=== PATIENT | female | born 1930 | race Caucasian/White ===

== ENCOUNTER 2017-12-26 16:30 | Inpatient (IN) | payer OTHER ==
[2017-12-26 17:24] LABS: BASOPHILE ABSOLUTE 0.9 Th/cumm (0-0.2); EOSINOPHILE ABSOLUTE 0.1 Th/cmm (0.1-0.4); HEMATOCRIT 41.3 % (41.0-60); HEMOGLOBIN 13.8 gm/dL (12-16); LYMPHOCYTE ABSOLUTE 3.5 Th/cmm (1.5-3.0); MEAN CELL VOLUME 93.3 fl (81-100); MEAN CORPUSCULAR HEMOGLOBIN 31.1 pg (27.0-31.0); MEAN CORPUSCULAR HGB CONC 33.3 pg (28.0-36.0); MEAN PLATELET VOLUME 8.2 fl; MONOCYTE ABSOLUTE 0.8 Th/cmm (0.3-1.0); NEUTROPHILE ABSOLUTE 6.7 Th/cmm (1.8-8.0); PLATELET COUNT 376 Th/cmm (150-400); RED BLOOD COUNT 4.43 Mil/cmm (3.80-5.20); RED CELL DISTRIBUTION WIDTH 13.4 % (11.5-20.0)
[2017-12-26 17:27] LABS: % BASOPHILS 7.8 % (0.0-2.0); % EOSINOPHILS 1.1 % (0.0-5.0); % LYMPHOCYTES 29.3 % (20.0-50.0); % MONOCYTES 6.6 % (2.0-10.0); % NEUTROPHILS 55.2 % (40.0-80.0)
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
[2017-12-26 17:39] LABS: INR 0.91 (0.5-1.4); PROTHROMBIN TIME (TEST) 9.5 SECONDS (9.5-11.5)
[2017-12-26 17:43] LABS: ALB/GLOB RATIO 1.3 (1.0-1.8); ALBUMIN 4.3 gm/dL (3.7-5.3); ALKALINE PHOSPHATASE 49 U/L (34-104); BILIRUBIN,TOTAL 0.4 mg/dL (0.3-1.0); BUN - UREA NITROGEN 12 mg/dL (7-25); CARBON DIOXIDE 23.7 mEq/L (21.0-31.0); CHLORIDE 107 mEq/L (98-107); CREATININE - SERUM 0.8 mg/dL (0.6-1.2); GLUCOSE 103 mg/dL (70-105); POTASSIUM SERUM 3.7 mEq/L (3.5-5.1); SGOT 21 U/L (13-39); SGPT/ALT 22 U/L (7-52); SODIUM SERUM 140 mEq/L (136-145); TOTAL PROTEIN,SERUM 7.6 gm/dL (6.0-8.3)
[2017-12-26] MEDS ORDERED: Haloperidol Lactate 5 mg/mL 1mL Vial IM STA (18:48)
[2017-12-26 18:49] LABS: URINE SOURCE CLEAN C
[2017-12-26] MEDS ORDERED: Haloperidol Lactate 5 mg/mL 1mL Vial ONE (18:52)
[2017-12-26 19:58] LABS: URINE CLARITY CLEAR (CLEAR); URINE COLOR YELLOW
[2017-12-26 19:59] LABS: URINE BILIRUBIN NEGATIVE (NEGATIVE); URINE BLOOD NEGATIVE (NEGATIVE); URINE GLUCOSE (UA) NEGATIVE (NEGATIVE); URINE KETONE NEGATIVE (NEGATIVE); URINE LEUKOCYTE ESTERASE SMALL (NEGATIVE); URINE MICROSCOPIC INDICATED? YES; URINE NITRATE NEGATIVE (NEGATIVE); URINE PH 6.5 (4.6 - 8.0); URINE PROTEIN NEGATIVE (NEGATIVE); URINE UROBILINOGEN 0.2 E.U./dL (0.2 - 1.0)
[2017-12-26 20:01] LABS: URINE RBC 0-2 /hpf (0-5)
[2017-12-26 20:02] LABS: URINE BACTERIA 1+ /hpf (NONE SEEN); URINE EPITHELIAL CELLS MODERATE /lpf (FEW)
[2017-12-27] MEDS: cefTRIAXone 1 GM in Sodium Chloride 0.9% 50 ML IV SCH (02:08)
[2017-12-27 07:57] LABS: % BASOPHILS 1.6 % (0.0-2.0); % EOSINOPHILS 1.3 % (0.0-5.0); % LYMPHOCYTES 24.7 % (20.0-50.0); % MONOCYTES 8.3 % (2.0-10.0); % NEUTROPHILS 64.1 % (40.0-80.0); BASOPHILE ABSOLUTE 0.2 Th/cumm (0-0.2); EOSINOPHILE ABSOLUTE 0.1 Th/cmm (0.1-0.4); HEMATOCRIT 42.1 % (41.0-60); HEMOGLOBIN 13.8 gm/dL (12-16); LYMPHOCYTE ABSOLUTE 2.6 Th/cmm (1.5-3.0); MEAN CELL VOLUME 94.1 fl (81-100); MEAN CORPUSCULAR HEMOGLOBIN 30.9 pg (27.0-31.0); MEAN CORPUSCULAR HGB CONC 32.9 pg (28.0-36.0); MEAN PLATELET VOLUME 8.1 fl; MONOCYTE ABSOLUTE 0.9 Th/cmm (0.3-1.0); NEUTROPHILE ABSOLUTE 6.7 Th/cmm (1.8-8.0); PLATELET COUNT 345 Th/cmm (150-400); RED BLOOD COUNT 4.47 Mil/cmm (3.80-5.20); RED CELL DISTRIBUTION WIDTH 13.7 % (11.5-20.0); WHITE BLOOD COUNT 10.5 Th/cmm (4.8-10.8)
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
[2017-12-27] MEDS: POLYETHYLENE GLYCOL 3350 17 GM PACK PO SCH (08:51)
[2017-12-27] MEDS: Aspirin 81mg Chewable Tab PO SCH (08:52)
[2017-12-27] MEDS: Levothyroxine 0.025 Mg Tab PO SCH (08:52)
--- NOTE | 2017-12-27 09:26 | Diagnostic Imaging Report ---
CT scan of the brain without intravenous contrast HISTORY: Stroke, CVA Total DLP equals 557 CTDI equals 33.2 Axial sections were obtained from the base of the skull to the vertex. There is prominence/enlargement of the ventricular system size. Associated enlargement of cerebral sulci and subarachnoid cisterns. Findings are consistent with changes of generalized cerebral atrophy. No acute parenchymal abnormalities. No acute cerebral hemorrhage. Extensive is seen within the supratentorial white matter regions without mass effect. The findings may be associated with chronic small vessel ischemic disease. Somewhat more focal hypodensity noted within the right temporal occipital region with slight loss. Findings may be associated with an old infarct. No extra-axial masses or abnormal fluid collections. Severe atherosclerotic calcification seen in the region of the vertebral arteries at the base of the skull. IMPRESSION: 1. No acute abnormalities 2. Cerebral atrophy 3. Supratentorial white matter changes that may reflect chronic small vessel ischemic disease 4. Somewhat more focal hypodensity noted in the right temporal occipital region that may be associated with an old infarct 5. Severe atherosclerotic vascular changes
--- NOTE | 2017-12-27 09:37 | Diagnostic Imaging Report ---
Portable chest x-ray History: Shortness of breath Allowing for portable technique the heart size is normal. Atherosclerotic calcification seen within the aortic arch. No focal pulmonary parenchymal processes. No hilar or mediastinal abnormalities. Impression: 1. No acute abnormalities 2. Atherosclerotic vascular changes
[2017-12-27 09:52] LABS: ALB/GLOB RATIO 1.2 (1.0-1.8); ALBUMIN 3.7 gm/dL (3.7-5.3); ALKALINE PHOSPHATASE 53 U/L (34-104); ANION GAP 10.1 (7.0-16.0); BILIRUBIN,TOTAL 0.5 mg/dL (0.3-1.0); BUN - UREA NITROGEN 10 mg/dL (7-25); CALCIUM SERUM 9.4 mg/dL (8.6-10.3); CARBON DIOXIDE 23.5 mEq/L (21.0-31.0); CHLORIDE 110 mEq/L (98-107); CREATININE - SERUM 0.6 mg/dL (0.6-1.2); GLUCOSE 101 mg/dL (70-105); POTASSIUM SERUM 3.6 mEq/L (3.5-5.1); SGOT 26 U/L (13-39); SGPT/ALT 18 U/L (7-52); SODIUM SERUM 140 mEq/L (136-145); TOTAL PROTEIN,SERUM 6.7 gm/dL (6.0-8.3)
[2017-12-27 10:21] LABS: CHOLESTEROL 249 mg/dL (<200); HDL -HIGH DENSITY LIPOPROTEIN 45 mg/dL (23-92); TRIGLYCERIDES 78 mg/dL (<150)
[2017-12-27] MEDS ORDERED: Enoxaparin Subq per Pharmacy MC SCH (14:45)
[2017-12-27] MEDS: Enoxaparin 40 mg/0.4 mL 0.4mL Syr SUBQ SCH (17:43)
[2017-12-28] MEDS: cefTRIAXone 1 GM in Sodium Chloride 0.9% 50 ML IV SCH (00:13)
--- NOTE | 2017-12-28 08:40 | General Progress Note ---
Subjective - Review of Systems Service Date: 12/28/17 Subjective: Patient was seen and examined. Awake, alert, afebrile Objective - Results Result Diagrams: 12/27/17 07:47 12/27/17 07:47 Recent Labs: Laboratory Last Values WBC 10.5 Th/cmm (4.8-10.8) 12/27/17 07:47 RBC 4.47 Mil/cmm (3.80-5.20) 12/27/17 07:47 Hgb 13.8 gm/dL (12-16) 12/27/17 07:47 Hct 42.1 % (41.0-60) 12/27/17 07:47 MCV 94.1 fl (81-100) 12/27/17 07:47 MCH 30.9 pg (27.0-31.0) 12/27/17 07:47 MCHC Differential 32.9 pg (28.0-36.0) 12/27/17 07:47 RDW 13.7 % (11.5-20.0) 12/27/17 07:47 Plt Count 345 Th/cmm (150-400) 12/27/17 07:47 MPV 8.1 fl 12/27/17 07:47 Neutrophils % 64.1 % (40.0-80.0) 12/27/17 07:47 Lymphocytes % 24.7 % (20.0-50.0) 12/27/17 07:47 Monocytes % 8.3 % (2.0-10.0) 12/27/17 07:47 Eosinophils % 1.3 % (0.0-5.0) 12/27/17 07:47 Basophils % 1.6 % (0.0-2.0) 12/27/17 07:47 PT 9.5 SECONDS (9.5-11.5) 12/26/17 17:15 INR 0.91 (0.5-1.4) 12/26/17 17:15 PTT (Actin FS) 24.5 SECONDS (26.0-38.0) L 12/26/17 17:15 Sodium 140 mEq/L (136-145) 12/27/17 07:47 Potassium 3.6 mEq/L (3.5-5.1) 12/27/17 07:47 Chloride 110 mEq/L (98-107) H 12/27/17 07:47 Carbon Dioxide 23.5 mEq/L (21.0-31.0) 12/27/17 07:47 Anion Gap 10.1 (7.0-16.0) 12/27/17 07:47 BUN 10 mg/dL (7-25) 12/27/17 07:47 Creatinine 0.6 mg/dL (0.6-1.2) 12/27/17 07:47 Est GFR ( Amer) TNP 12/27/17 07:47 Est GFR (Non-Af Amer) TNP 12/27/17 07:47 BUN/Creatinine Ratio 16.7 12/27/17 07:47 Glucose 101 mg/dL (70-105) 12/27/17 07:47 Calcium 9.4 mg/dL (8.6-10.3) 12/27/17 07:47 Total Bilirubin 0.5 mg/dL (0.3-1.0) 12/27/17 07:47 AST 26 U/L (13-39) 12/27/17 07:47 ALT 18 U/L (7-52) 12/27/17 07:47 Alkaline Phosphatase 53 U/L (34-104) 12/27/17 07:47 Troponin I 0.63 ng/mL (0.01-0.05) H* D 12/27/17 15:30 Total Protein 6.7 gm/dL (6.0-8.3) 12/27/17 07:47 Albumin 3.7 gm/dL (3.7-5.3) 12/27/17 07:47 Globulin 3.0 gm/dL 12/27/17 07:47 Albumin/Globulin Ratio 1.2 (1.0-1.8) 12/27/17 07:47 Triglycerides 78 mg/dL (<150) 12/27/17 07:47 Cholesterol 249 mg/dL (<200) H 12/27/17 07:47 LDL Cholesterol Direct 198 mg/dL (75-193) H 12/27/17 07:47 HDL Cholesterol 45 mg/dL (23-92) 12/27/17 07:47 TSH 3.88 uIU/ml (0.34-5.60) 12/26/17 17:15 Urine Source CLEAN C 12/26/17 18:30 Urine Color YELLOW 12/26/17 18:30 Urine Clarity CLEAR (CLEAR) 12/26/17 18:30 Urine pH 6.5 (4.6 - 8.0) 12/26/17 18:30 Ur Specific [place] 1.010 (1.005-1.030) 12/26/17 18:30 Urine Protein NEGATIVE mg/dL (NEGATIVE) 12/26/17 18:30 Urine Glucose (UA) NEGATIVE mg/dL (NEGATIVE) 12/26/17 18:30 Urine Ketones NEGATIVE mg/dL (NEGATIVE) 12/26/17 18:30 Urine Blood NEGATIVE (NEGATIVE) 12/26/17 18:30 Urine Nitrate NEGATIVE (NEGATIVE) 12/26/17 18:30 Urine Bilirubin NEGATIVE (NEGATIVE) 12/26/17 18:30 Urine Urobilinogen 0.2 E.U./dL (0.2 - 1.0) 12/26/17 18:30 Ur Leukocyte Esterase SMALL (NEGATIVE) H 12/26/17 18:30 Urine RBC 0-2 /hpf (0-5) 12/26/17 18:30 Urine WBC 2-5 /hpf (0-5) 12/26/17 18:30 Ur Epithelial Cells MODERATE /lpf (FEW) 12/26/17 18:30 Urine Bacteria 1+ /hpf (NONE SEEN) H 12/26/17 18:30 - Physical Exam Vitals and I&O: Vital Signs Temp 98.5 F 12/28/17 02:00 Pulse 78 12/28/17 02:00 Resp 18 12/28/17 02:00 BP 111/71 12/28/17 02:00 Pulse Ox 98 12/28/17 02:00 Intake & Output 12/27/1718 18 18:59 06:59 18:59 Intake Total 650 240 Balance 650 240 Weight (lbs) 45.359 kg 46.72 kg Intake: Oral 650 240 Other: # Voids 2 2 # Bowel Movements 9 0 Stool Characteristics Formed Weight Source Bedscale Bedscale Active Medications: Current Medications Aspirin (Aspirin Chewable) 81 mg PO DAILY JESSIE Stop: 02/25/18 08:59 Last Admin: 12/27/17 08:52 Dose: 81 mg Bisacodyl (Dulcolax 10 Mg Supp) 10 mg RC DAILY PRN PRN Reason: Constipation Stop: 02/25/18 06:58 Last Admin: 12/27/17 10:29 Dose: 10 mg Enoxaparin Sodium (Lovenox) 40 mg SUBQ Q12HR JESSIE Stop: 02/25/18 15:59 Last Admin: 12/27/17 17:43 Dose: 40 mg Ceftriaxone Sodium 1 gm/ (Sodium Chloride) 50 mls @ 100 mls/hr IV Q24HR JESSIE Stop: 02/25/18 00:59 Last Admin: 12/28/17 00:13 Dose: 100 mls/hr Levothyroxine Sodium (Synthroid) 0.025 mg PO DAILY JESSIE Stop: 02/25/18 08:59 Last Admin: 12/27/17 08:52 Dose: 0.025 mg Lorazepam (Ativan) 1 mg IVP Q4HR PRN; Protocol PRN Reason: Agitation Stop: 02/25/18 00:58 Last Admin: 12/27/17 08:52 Dose: 1 mg Miscellaneous (Lovenox Subq Per Pharmacy) 1 ea MC PRN JESSIE; Protocol Stop: 02/25/18 14:44 Polyethylene Glycol (Miralax) 17 gm PO DAILY JESSIE Stop: 02/25/18 08:59 Last Admin: 12/27/17 08:51 Dose: 17 gm Quetiapine Fumarate (Seroquel) 25 mg PO BID [facility]; Protocol Stop: 02/25/18 16:59 Last Admin: 12/27/17 17:43 Dose: 25 mg Valsartan (Diovan) 80 mg PO DAILY [facility] Stop: 02/25/18 08:59 Last Admin: 12/27/17 08:52 Dose: 80 mg General: Alert, Oriented x3 HEENT: Atraumatic, PERRLA, EOMI Neck: Supple Cardiovascular: Regular rate, Normal S1, Normal S2 Lungs: Clear to auscultation Abdomen: Bowel sounds, Soft Extremities: no Clubbing, no Cyanosis, no Edema Neurological: Normal gait, Normal speech Assessment/Plan - Assessment Assessment: elevated troponin levels 5150 dementia cardiac arrhythmia anxiety disorder HTN Organic Brain Disease with Dementia UTI - Plan Plan: telemetry serial troponins cardiac consult psychiatric consult neuro consult repeat CBC this AM
[2017-12-28] MEDS: Levothyroxine 0.025 Mg Tab PO SCH (09:17)
[2017-12-28] MEDS: Aspirin 81mg Chewable Tab PO SCH (09:17)
[2017-12-28] MEDS: Enoxaparin 40 mg/0.4 mL 0.4mL Syr SUBQ SCH ×2 (09:18→21:31)
[2017-12-28] MEDS: POLYETHYLENE GLYCOL 3350 17 GM PACK PO SCH (09:18)
[2017-12-28] MEDS: Atorvastatin Calcium 10 MG TAB PO SCH (10:51)
--- NOTE | 2017-12-28 11:55 | Consultation ---
DATE OF CONSULTATION: 12/27/[address] Bland. HISTORY AND PHYSICAL: This is an 87-year-old female patient who has confusion. The patient's stepdaughter has been following this, the patient was brought to the Emergency Room and the patient is admitted. On admission, the patient has slightly elevated troponin levels. PAST MEDICAL HISTORY: Dementia, hypertension, urinary tract infection, osteoporosis. FAMILY HISTORY: Unremarkable. SOCIAL HISTORY: No history of smoking, alcohol abuse. ALLERGIES: No known allergies. PHYSICAL EXAMINATION: VITAL SIGNS: Blood pressure 130/80, pulse 70, respirations 20. HEAD: Normocephalic. No lumps or bumps. EYES: Pupils equal, reactive to light. Fundi show AV nicking, sclerae white, conjunctivae pink. NECK: Carotid 2+. Normal upstroke. JVD flat. Thyroid not palpable. Lymph nodes not palpable. CHEST: Shows increased AP diameter. No kyphosis, scoliosis. LUNGS: Bilateral bronchovesicular breath sounds. HEART: PMI fifth intercostal space with lateral to midclavicular line. S1, S2. No S3. Soft S4. ABDOMEN: Soft. Liver and spleen not palpable. No organomegaly. Bowel sounds active. NEUROLOGIC: No focal neurological deficit. EXTREMITIES: Peripheral pulses 2+. No pedal edema. CLINICAL IMPRESSION: 1. Non-ST elevation myocardial infarction. 2. Dementia, hypertension, urinary tract infection, osteoporosis. PLAN: We will start the patient on Lovenox and get troponin level, echocardiogram and monitor the patient. JOB# [id number]
[2017-12-28] MEDS: D5-0.25NS 1,000 ML IV SCH (12:30)
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
[2017-12-29] MEDS: cefTRIAXone 1 GM in Sodium Chloride 0.9% 50 ML IV SCH (01:08)
--- NOTE | 2017-12-29 08:56 | General Progress Note ---
Subjective - Review of Systems Service Date: 12/29/17 Subjective: Patient was seen and examined. Awake, alert, afebrile Objective - Results Result Diagrams: 12/27/17 07:47 12/27/17 07:47 Recent Labs: Laboratory Last Values WBC 10.5 Th/cmm (4.8-10.8) 12/27/17 07:47 RBC 4.47 Mil/cmm (3.80-5.20) 12/27/17 07:47 Hgb 13.8 gm/dL (12-16) 12/27/17 07:47 Hct 42.1 % (41.0-60) 12/27/17 07:47 MCV 94.1 fl (81-100) 12/27/17 07:47 MCH 30.9 pg (27.0-31.0) 12/27/17 07:47 MCHC Differential 32.9 pg (28.0-36.0) 12/27/17 07:47 RDW 13.7 % (11.5-20.0) 12/27/17 07:47 Plt Count 345 Th/cmm (150-400) 12/27/17 07:47 MPV 8.1 fl 12/27/17 07:47 Neutrophils % 64.1 % (40.0-80.0) 12/27/17 07:47 Lymphocytes % 24.7 % (20.0-50.0) 12/27/17 07:47 Monocytes % 8.3 % (2.0-10.0) 12/27/17 07:47 Eosinophils % 1.3 % (0.0-5.0) 12/27/17 07:47 Basophils % 1.6 % (0.0-2.0) 12/27/17 07:47 PT 9.5 SECONDS (9.5-11.5) 12/26/17 17:15 INR 0.91 (0.5-1.4) 12/26/17 17:15 PTT (Actin FS) 24.5 SECONDS (26.0-38.0) L 12/26/17 17:15 Sodium 140 mEq/L (136-145) 12/27/17 07:47 Potassium 3.6 mEq/L (3.5-5.1) 12/27/17 07:47 Chloride 110 mEq/L (98-107) H 12/27/17 07:47 Carbon Dioxide 23.5 mEq/L (21.0-31.0) 12/27/17 07:47 Anion Gap 10.1 (7.0-16.0) 12/27/17 07:47 BUN 10 mg/dL (7-25) 12/27/17 07:47 Creatinine 0.6 mg/dL (0.6-1.2) 12/27/17 07:47 Est GFR ( Amer) TNP 12/27/17 07:47 Est GFR (Non-Af Amer) TNP 12/27/17 07:47 BUN/Creatinine Ratio 16.7 12/27/17 07:47 Glucose 101 mg/dL (70-105) 12/27/17 07:47 Calcium 9.4 mg/dL (8.6-10.3) 12/27/17 07:47 Total Bilirubin 0.5 mg/dL (0.3-1.0) 12/27/17 07:47 AST 26 U/L (13-39) 12/27/17 07:47 ALT 18 U/L (7-52) 12/27/17 07:47 Alkaline Phosphatase 53 U/L (34-104) 12/27/17 07:47 Troponin I 0.63 ng/mL (0.01-0.05) H* D 12/27/17 15:30 Total Protein 6.7 gm/dL (6.0-8.3) 12/27/17 07:47 Albumin 3.7 gm/dL (3.7-5.3) 12/27/17 07:47 Globulin 3.0 gm/dL 12/27/17 07:47 Albumin/Globulin Ratio 1.2 (1.0-1.8) 12/27/17 07:47 Triglycerides 78 mg/dL (<150) 12/27/17 07:47 Cholesterol 249 mg/dL (<200) H 12/27/17 07:47 LDL Cholesterol Direct 198 mg/dL (75-193) H 12/27/17 07:47 HDL Cholesterol 45 mg/dL (23-92) 12/27/17 07:47 TSH 3.88 uIU/ml (0.34-5.60) 12/26/17 17:15 Urine Source CLEAN C 12/26/17 18:30 Urine Color YELLOW 12/26/17 18:30 Urine Clarity CLEAR (CLEAR) 12/26/17 18:30 Urine pH 6.5 (4.6 - 8.0) 12/26/17 18:30 Ur Specific [place] 1.010 (1.005-1.030) 12/26/17 18:30 Urine Protein NEGATIVE mg/dL (NEGATIVE) 12/26/17 18:30 Urine Glucose (UA) NEGATIVE mg/dL (NEGATIVE) 12/26/17 18:30 Urine Ketones NEGATIVE mg/dL (NEGATIVE) 12/26/17 18:30 Urine Blood NEGATIVE (NEGATIVE) 12/26/17 18:30 Urine Nitrate NEGATIVE (NEGATIVE) 12/26/17 18:30 Urine Bilirubin NEGATIVE (NEGATIVE) 12/26/17 18:30 Urine Urobilinogen 0.2 E.U./dL (0.2 - 1.0) 12/26/17 18:30 Ur Leukocyte Esterase SMALL (NEGATIVE) H 12/26/17 18:30 Urine RBC 0-2 /hpf (0-5) 12/26/17 18:30 Urine WBC 2-5 /hpf (0-5) 12/26/17 18:30 Ur Epithelial Cells MODERATE /lpf (FEW) 12/26/17 18:30 Urine Bacteria 1+ /hpf (NONE SEEN) H 12/26/17 18:30 - Physical Exam Vitals and I&O: Vital Signs Temp 98.1 F 12/29/17 06:00 Pulse 79 12/29/17 06:00 Resp 18 12/29/17 06:00 BP 128/76 12/29/17 06:00 Pulse Ox 98 12/29/17 06:00 Intake & Output 12/28/17 12/29/17 12/29/17 18:59 06:59 18:59 Intake Total 200 Balance 200 Weight (lbs) 46.72 kg 46.72 kg Intake: Oral 200 Other: # Voids 3 # Bowel Movements 0 Weight Source Bedscale Bedscale Active Medications: Current Medications Aspirin (Aspirin Chewable) 81 mg PO DAILY JESSIE Stop: 02/25/18 08:59 Last Admin: 12/28/17 09:17 Dose: 81 mg Atorvastatin Calcium (Lipitor) 10 mg PO DAILY JESSIE; Protocol Stop: 02/26/18 10:59 Last Admin: 12/28/17 10:51 Dose: Not Given Bisacodyl (Dulcolax 10 Mg Supp) 10 mg RC DAILY PRN PRN Reason: Constipation Stop: 02/25/18 06:58 Last Admin: 12/27/17 10:29 Dose: 10 mg Enoxaparin Sodium (Lovenox) 40 mg SUBQ Q12HR JESSIE Stop: 02/25/18 15:59 Last Admin: 12/28/17 21:31 Dose: 40 mg Ceftriaxone Sodium 1 gm/ (Sodium Chloride) 50 mls @ 100 mls/hr IV Q24HR JESSIE Stop: 02/25/18 00:59 Last Admin: 12/29/17 01:08 Dose: 100 mls/hr Dextrose/Sodium Chloride (D5-0.25ns) 1,000 mls @ 50 mls/hr IV .Q20H JESSIE Stop: 02/26/18 12:03 Last Admin: 12/28/17 12:30 Dose: 50 mls/hr Levothyroxine Sodium (Synthroid) 0.025 mg PO DAILY JESSIE Stop: 02/25/18 08:59 Last Admin: 12/28/17 09:17 Dose: 0.025 mg Lorazepam (Ativan) 1 mg IVP Q4HR PRN; Protocol PRN Reason: Agitation Stop: 02/25/18 00:58 Last Admin: 12/29/17 01:09 Dose: 1 mg Miscellaneous (Lovenox Subq Per Pharmacy) 1 ea MC PRN JESSIE; Protocol Stop: 02/25/18 14:44 Polyethylene Glycol (Miralax) 17 gm PO DAILY JESSIE Stop: 02/25/18 08:59 Last Admin: 12/28/17 09:18 Dose: 17 gm Quetiapine Fumarate (Seroquel) 25 mg PO BID JESSIE; Protocol Stop: 02/25/18 16:59 Last Admin: 12/28/17 17:51 Dose: 25 mg Valsartan (Diovan) 80 mg PO DAILY [facility] Stop: 02/25/18 08:59 Last Admin: 12/28/17 09:17 Dose: 80 mg General: Alert, Oriented x3 HEENT: Atraumatic, PERRLA, EOMI Neck: Supple Cardiovascular: Regular rate, Normal S1, Normal S2 Lungs: Clear to auscultation Abdomen: Bowel sounds, Soft Extremities: no Clubbing, no Cyanosis, no Edema Neurological: Normal gait, Normal speech Assessment/Plan - Assessment Assessment: elevated troponin levels 5150 dementia cardiac arrhythmia anxiety disorder HTN Organic Brain Disease with Dementia UTI - Plan Plan: telemetry serial troponins cardiac consult psychiatric consult neuro consult repeat CBC this AM
[2017-12-29] MEDS: Atorvastatin Calcium 10 MG TAB PO SCH (09:43)
[2017-12-29] MEDS: Aspirin 81mg Chewable Tab PO SCH (09:44)
[2017-12-29] MEDS: Levothyroxine 0.025 Mg Tab PO SCH (09:44)
[2017-12-29] MEDS: POLYETHYLENE GLYCOL 3350 17 GM PACK PO SCH (09:45)
[2017-12-29] MEDS: Enoxaparin 40 mg/0.4 mL 0.4mL Syr SUBQ SCH ×2 (09:45→21:32)
--- NOTE | 2017-12-29 16:47 | Cardiology ---
12/28/2017 PROCEDURE: Echocardiogram. M-MODE ECHOCARDIOGRAM: Mitral valve, anterior leaflet of mitral valve shows normal excursion, EF velocity. Posterior leaflet of the mitral valve shows normal excursion. Left ventricular posterior wall shows increased thickness, normal excursion. Interventricular septum shows increased thickness, normal excursion, hypertrophy of the left ventricle, ejection fraction 69%. Left atrium normal. Aortic root shows normal dimension, normal excursion of aortic leaflets. CONCLUSION: Hypertrophy of the left ventricle, ejection fraction 67%. 2D ECHO: Long axis view showed normal sized left ventricle with normal wall motion, mitral valve shows normal excursion. Left atrium normal. Aortic root shows normal dimension, normal excursion of aortic leaflets. Short axis view of mitral valve normal. Short axis view of aortic valve normal. Apical four chamber view showed normal sized left ventricle, left atrium, right ventricle, right atrium, tricuspid and mitral valve. Ejection fraction 67%. CONCLUSION: Hypertrophy of the left ventricle, ejection fraction 67%. Doppler study shows trace mitral regurgitation, trace tricuspid regurgitation, moderate aortic regurgitation. Right ventricular systolic pressure 23 mmHg. [facility]# [id number]
[2017-12-30] MEDS: cefTRIAXone 1 GM in Sodium Chloride 0.9% 50 ML IV SCH (00:20)
--- NOTE | 2017-12-30 01:52 | Consultation ---
DATE OF CONSULTATION: 12/29/2017 NEUROLOGY CONSULTATION HISTORY OF PRESENT ILLNESS: An 87-year-old admitted with altered mentation. The patient apparently had become very confused, very agitated. She was disoriented more than her usual self. She was going to be admitted to the [facility], but noted a possible elevated troponin. At the moment, she is in bed, beginning to interacting more. The daughter is by the bedside that she is beginning to respond more and seems to be going back to her baseline. PAST MEDICAL HISTORY: Hypertension, hypothyroidism, dementia. Anxiety disorder. UTI in the past. The patient abnormal behavior 5150. MEDICATIONS: As per reconciliation. The patient is on aspirin. REVIEW OF SYSTEMS: Twelve point negative except for above. PHYSICAL EXAMINATION: VITAL SIGNS: Temperature 98.4, blood pressure 130/70, pulse is 74. NECK: Supple, no bruits. HEART: Sounds S1, S2. LUNGS: Clear. NEUROLOGIC: The patient is in bed, awake. She gives me her name. She did not give me her age. She tells me where she lives. She did not know what day it is, what month, what year. She is able to name simple objects such as pen and glasses. Cranial: Pupils reactive to light. No field defect, no facial weakness. She will lift both arms up. She will lift both legs up. Reflexes about 1+ to 2 in the upper extremity, knees are about 2. Ankles -1. INVESTIGATIONS: CT scan of the head, old right temporal stroke. MANAGEMENT: We will go ahead and do carotid Dopplers. LDL is high. IMPRESSION: 1. Encephalopathy. 2. Psychosis. 3. Dementia. 4. Old stroke. 5. Hypertension. 6. Hypothyroidism. PLAN: Lab studies, carotid Doppler study. Continue antiplatelet medications. JOB# [id number]
[2017-12-30] MEDS: D5-0.25NS 1,000 ML IV SCH ×2 (02:23→22:11)
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
--- NOTE | 2017-12-30 08:12 | Diagnostic Imaging Report ---
Bilateral carotid Doppler ultrasound exam HISTORY: Stroke, CVA Sonographic sector images were obtained through the carotid bifurcation regions bilaterally. Associated Doppler data was obtained. The exam of the right side demonstrates mild diffuse atherosclerotic changes throughout the bifurcation region. No significant focal narrowing or stenosis. Antegrade vertebral artery flow. No osseous and flow ratios are normal (ICA/CCA equals 1.0). The exam of the left side demonstrates mild diffuse atherosclerotic changes slightly more pronounced within the proximal left internal carotid artery with narrowing of approximately 20%. Velocities are normal. However, there is an elevated ICA/CCA flow ratio (2.1). Antegrade vertebral artery flow. IMPRESSION: 1. Mild bilateral atherosclerotic changes sonographically visualized. However, there is an elevated ICA/CCA flow ratio on the left side (2.1). Exact significance uncertain. If necessary, a CT angiographic study may provide additional detail and assessment.
[2017-12-30] MEDS: Levothyroxine 0.025 Mg Tab PO SCH (08:25)
[2017-12-30] MEDS: Atorvastatin Calcium 10 MG TAB PO SCH (08:25)
[2017-12-30] MEDS: Aspirin 81mg Chewable Tab PO SCH (08:25)
[2017-12-30] MEDS: POLYETHYLENE GLYCOL 3350 17 GM PACK PO SCH (08:26)
[2017-12-30] MEDS: Enoxaparin 40 mg/0.4 mL 0.4mL Syr SUBQ SCH ×3 (08:28→21:18)
--- NOTE | 2017-12-30 08:28 | General Progress Note ---
Subjective - Review of Systems Service Date: 12/30/17 Subjective: Patient was seen and examined. Awake, alert, afebrile. patient resting comfortably in bed. no acute distress. Objective - Results Result Diagrams: 12/27/17 07:47 12/27/17 07:47 Recent Labs: Laboratory Last Values WBC 10.5 Th/cmm (4.8-10.8) 12/27/17 07:47 RBC 4.47 Mil/cmm (3.80-5.20) 12/27/17 07:47 Hgb 13.8 gm/dL (12-16) 12/27/17 07:47 Hct 42.1 % (41.0-60) 12/27/17 07:47 MCV 94.1 fl (81-100) 12/27/17 07:47 MCH 30.9 pg (27.0-31.0) 12/27/17 07:47 MCHC Differential 32.9 pg (28.0-36.0) 12/27/17 07:47 RDW 13.7 % (11.5-20.0) 12/27/17 07:47 Plt Count 345 Th/cmm (150-400) 12/27/17 07:47 MPV 8.1 fl 12/27/17 07:47 Neutrophils % 64.1 % (40.0-80.0) 12/27/17 07:47 Lymphocytes % 24.7 % (20.0-50.0) 12/27/17 07:47 Monocytes % 8.3 % (2.0-10.0) 12/27/17 07:47 Eosinophils % 1.3 % (0.0-5.0) 12/27/17 07:47 Basophils % 1.6 % (0.0-2.0) 12/27/17 07:47 PT 9.5 SECONDS (9.5-11.5) 12/26/17 17:15 INR 0.91 (0.5-1.4) 12/26/17 17:15 PTT (Actin FS) 24.5 SECONDS (26.0-38.0) L 12/26/17 17:15 Sodium 140 mEq/L (136-145) 12/27/17 07:47 Potassium 3.6 mEq/L (3.5-5.1) 12/27/17 07:47 Chloride 110 mEq/L (98-107) H 12/27/17 07:47 Carbon Dioxide 23.5 mEq/L (21.0-31.0) 12/27/17 07:47 Anion Gap 10.1 (7.0-16.0) 12/27/17 07:47 BUN 10 mg/dL (7-25) 12/27/17 07:47 Creatinine 0.6 mg/dL (0.6-1.2) 12/27/17 07:47 Est GFR ( Amer) TNP 12/27/17 07:47 Est GFR (Non-Af Amer) TNP 12/27/17 07:47 BUN/Creatinine Ratio 16.7 12/27/17 07:47 Glucose 101 mg/dL (70-105) 12/27/17 07:47 Calcium 9.4 mg/dL (8.6-10.3) 12/27/17 07:47 Total Bilirubin 0.5 mg/dL (0.3-1.0) 12/27/17 07:47 AST 26 U/L (13-39) 12/27/17 07:47 ALT 18 U/L (7-52) 12/27/17 07:47 Alkaline Phosphatase 53 U/L (34-104) 12/27/17 07:47 Troponin I 0.63 ng/mL (0.01-0.05) H* D 12/27/17 15:30 Total Protein 6.7 gm/dL (6.0-8.3) 12/27/17 07:47 Albumin 3.7 gm/dL (3.7-5.3) 12/27/17 07:47 Globulin 3.0 gm/dL 12/27/17 07:47 Albumin/Globulin Ratio 1.2 (1.0-1.8) 12/27/17 07:47 Triglycerides 78 mg/dL (<150) 12/27/17 07:47 Cholesterol 249 mg/dL (<200) H 12/27/17 07:47 LDL Cholesterol Direct 198 mg/dL (75-193) H 12/27/17 07:47 HDL Cholesterol 45 mg/dL (23-92) 12/27/17 07:47 TSH 3.88 uIU/ml (0.34-5.60) 12/26/17 17:15 Urine Source CLEAN C 12/26/17 18:30 Urine Color YELLOW 12/26/17 18:30 Urine Clarity CLEAR (CLEAR) 12/26/17 18:30 Urine pH 6.5 (4.6 - 8.0) 12/26/17 18:30 Ur Specific [place] 1.010 (1.005-1.030) 12/26/17 18:30 Urine Protein NEGATIVE mg/dL (NEGATIVE) 12/26/17 18:30 Urine Glucose (UA) NEGATIVE mg/dL (NEGATIVE) 12/26/17 18:30 Urine Ketones NEGATIVE mg/dL (NEGATIVE) 12/26/17 18:30 Urine Blood NEGATIVE (NEGATIVE) 12/26/17 18:30 Urine Nitrate NEGATIVE (NEGATIVE) 12/26/17 18:30 Urine Bilirubin NEGATIVE (NEGATIVE) 12/26/17 18:30 Urine Urobilinogen 0.2 E.U./dL (0.2 - 1.0) 12/26/17 18:30 Ur Leukocyte Esterase SMALL (NEGATIVE) H 12/26/17 18:30 Urine RBC 0-2 /hpf (0-5) 12/26/17 18:30 Urine WBC 2-5 /hpf (0-5) 12/26/17 18:30 Ur Epithelial Cells MODERATE /lpf (FEW) 12/26/17 18:30 Urine Bacteria 1+ /hpf (NONE SEEN) H 12/26/17 18:30 - Physical Exam Vitals and I&O: Vital Signs Temp 99.6 F 12/30/17 04:00 Pulse 92 12/30/17 04:00 Resp 19 12/30/17 04:00 BP 154/55 12/30/17 04:00 Pulse Ox 96 12/30/17 04:00 Intake & Output 12/29/17 12/30/17 12/30/17 18:59 06:59 18:59 Intake Total 1060 50 Output Total 0 Balance 1060 50 Weight (lbs) 46.72 kg 62.596 kg Intake: Intake, IV Amount 1000 D5-0.25NS 1,000 ml @ 50 1000 mls/hr IV .Q20H JESSIE Rx#: [id number] Oral 60 50 Output: Urine/Stool Mix 0 Other: # Voids 2 Weight Source Bedscale Bedscale Active Medications: Current Medications Aspirin (Aspirin Chewable) 81 mg PO DAILY JESSIE Stop: 02/25/18 08:59 Last Admin: 12/29/17 09:44 Dose: 81 mg Atorvastatin Calcium (Lipitor) 10 mg PO DAILY JESSIE; Protocol Stop: 02/26/18 10:59 Last Admin: 12/29/17 09:43 Dose: 10 mg Bisacodyl (Dulcolax 10 Mg Supp) 10 mg RC DAILY PRN PRN Reason: Constipation Stop: 02/25/18 06:58 Last Admin: 12/27/17 10:29 Dose: 10 mg Enoxaparin Sodium (Lovenox) 40 mg SUBQ Q12HR JESSIE Stop: 02/25/18 15:59 Last Admin: 12/29/17 21:32 Dose: 40 mg Ceftriaxone Sodium 1 gm/ (Sodium Chloride) 50 mls @ 100 mls/hr IV Q24HR JESSIE Stop: 02/25/18 00:59 Last Admin: 12/30/17 00:20 Dose: 100 mls/hr Dextrose/Sodium Chloride (D5-0.25ns) 1,000 mls @ 50 mls/hr IV .Q20H [facility] Stop: 02/26/18 12:03 Last Admin: 12/30/17 02:23 Dose: 50 mls/hr Levothyroxine Sodium (Synthroid) 0.025 mg PO DAILY JESSIE Stop: 02/25/18 08:59 Last Admin: 12/29/17 09:44 Dose: 0.025 mg Lorazepam (Ativan) 1 mg IVP Q4HR PRN; Protocol PRN Reason: Agitation Stop: 02/25/18 00:58 Last Admin: 12/29/17 01:09 Dose: 1 mg Miscellaneous (Lovenox Subq Per Pharmacy) 1 ea MC PRN JESSIE; Protocol Stop: 02/25/18 14:44 Polyethylene Glycol (Miralax) 17 gm PO DAILY JESSIE Stop: 02/25/18 08:59 Last Admin: 12/29/17 09:45 Dose: 17 gm Quetiapine Fumarate (Seroquel) 25 mg PO BID JESSIE; Protocol Stop: 02/25/18 16:59 Last Admin: 12/29/17 17:45 Dose: 25 mg Valsartan (Diovan) 80 mg PO DAILY [facility] Stop: 02/25/18 08:59 Last Admin: 12/29/17 09:44 Dose: 80 mg General: Alert, Oriented x3 HEENT: Atraumatic, PERRLA, EOMI Neck: Supple Cardiovascular: Regular rate, Normal S1, Normal S2 Lungs: Clear to auscultation Abdomen: Bowel sounds, Soft Extremities: no Clubbing, no Cyanosis, no Edema Neurological: Normal gait, Normal speech Assessment/Plan - Assessment Assessment: elevated troponins Non q-wave ME ... 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 continue current medications HTN slightly elevated ... on diovan 80mg PO daily, will add clonidine PRN UTI...rocephin IV 1gm daily hyperlipidemia ... on statins - Plan Plan: telemetry serial troponins cardiac consult psychiatric consult neuro consult repeat CBC this AM
--- NOTE | 2017-12-30 23:36 | Progress Notes ---
DATE: 12/30/2017 SUBJECTIVE: The patient is calm, no agitation, no behavioral disturbances, remains confused, disoriented, minimally interactive. She has been pretty lethargic, tired. Family concerned about this and asking for her to be off the sedative. The patient to go to [facility]. Currently, we are waiting for acceptance from [facility]. The patient is currently not on a 5150 hold. It and no further hold criteria. The patient has been cleared for discharge from a psychiatric perspective. Noted to be sleeping "too much" by family and family hoping for more of a behavioral approach from [facility]. No evidence of any agitation or aggressive behaviors. ASSESSMENT: The patient is calm, more cooperative, confusion noted. PLAN: The patient's family want her off of Seroquel. We will stop Seroquel for now. They are open to retitration of Seroquel, but want to see how she does when she goes to [facility] with behavioral interventions and management and they are hoping to eventually have her home with some help from [facility] facility. No current evidence of dangerousness. I discussed with and also with the 2 daughters who are at bedside. JOB# [id number]
[2017-12-31] MEDS: cefTRIAXone 1 GM in Sodium Chloride 0.9% 50 ML IV SCH (00:32)
[2017-12-31 06:12] LABS: % BASOPHILS 0.4 % (0.0-2.0); % EOSINOPHILS 0.4 % (0.0-5.0); % LYMPHOCYTES 18.5 % (20.0-50.0); % MONOCYTES 10.3 % (2.0-10.0); % NEUTROPHILS 70.4 % (40.0-80.0); BASOPHILE ABSOLUTE 0.1 Th/cumm (0-0.2); EOSINOPHILE ABSOLUTE 0.1 Th/cmm (0.1-0.4); HEMATOCRIT 41.2 % (41.0-60); HEMOGLOBIN 13.9 gm/dL (12-16); LYMPHOCYTE ABSOLUTE 3.3 Th/cmm (1.5-3.0); MEAN CORPUSCULAR HEMOGLOBIN 31.3 pg (27.0-31.0); MEAN CORPUSCULAR HGB CONC 33.7 pg (28.0-36.0); MEAN PLATELET VOLUME 9.1 fl; MONOCYTE ABSOLUTE 1.8 Th/cmm (0.3-1.0); NEUTROPHILE ABSOLUTE 12.6 Th/cmm (1.8-8.0); PLATELET COUNT 301 Th/cmm (150-400); RED BLOOD COUNT 4.43 Mil/cmm (3.80-5.20); RED CELL DISTRIBUTION WIDTH 12.9 % (11.5-20.0)
[2017-12-31 06:15] LABS: WHITE BLOOD COUNT 17.9 Th/cmm (4.8-10.8)
--- NOTE | 2017-12-31 08:16 | General Progress Note ---
Subjective - Review of Systems Service Date: 12/31/17 Subjective: Patient was seen and examined. Awake, alert, afebrile. patient resting comfortably in bed. Patient noted to have an elevated WBC's. Will need to hold discharge. Objective - Results Result Diagrams: 12/31/17 05:40 12/27/17 07:47 Recent Labs: Laboratory Last Values WBC 17.9 Th/cmm (4.8-10.8) H 12/31/17 05:40 RBC 4.43 Mil/cmm (3.80-5.20) 12/31/17 05:40 Hgb 13.9 gm/dL (12-16) 12/31/17 05:40 Hct 41.2 % (41.0-60) 12/31/17 05:40 MCV 93.0 fl (81-100) 12/31/17 05:40 MCH 31.3 pg (27.0-31.0) H 12/31/17 05:40 MCHC Differential 33.7 pg (28.0-36.0) 12/31/17 05:40 RDW 12.9 % (11.5-20.0) 12/31/17 05:40 Plt Count 301 Th/cmm (150-400) 12/31/17 05:40 MPV 9.1 fl 12/31/17 05:40 Neutrophils % 70.4 % (40.0-80.0) 12/31/17 05:40 Lymphocytes % 18.5 % (20.0-50.0) L 12/31/17 05:40 Monocytes % 10.3 % (2.0-10.0) H 12/31/17 05:40 Eosinophils % 0.4 % (0.0-5.0) 12/31/17 05:40 Basophils % 0.4 % (0.0-2.0) 12/31/17 05:40 PT 9.5 SECONDS (9.5-11.5) 12/26/17 17:15 INR 0.91 (0.5-1.4) 12/26/17 17:15 PTT (Actin FS) 24.5 SECONDS (26.0-38.0) L 12/26/17 17:15 Sodium 140 mEq/L (136-145) 12/27/17 07:47 Potassium 3.6 mEq/L (3.5-5.1) 12/27/17 07:47 Chloride 110 mEq/L (98-107) H 12/27/17 07:47 Carbon Dioxide 23.5 mEq/L (21.0-31.0) 12/27/17 07:47 Anion Gap 10.1 (7.0-16.0) 12/27/17 07:47 BUN 10 mg/dL (7-25) 12/27/17 07:47 Creatinine 0.6 mg/dL (0.6-1.2) 12/27/17 07:47 Est GFR ( Amer) TNP 12/27/17 07:47 Est GFR (Non-Af Amer) TNP 12/27/17 07:47 BUN/Creatinine Ratio 16.7 12/27/17 07:47 Glucose 101 mg/dL (70-105) 12/27/17 07:47 Calcium 9.4 mg/dL (8.6-10.3) 12/27/17 07:47 Total Bilirubin 0.5 mg/dL (0.3-1.0) 12/27/17 07:47 AST 26 U/L (13-39) 12/27/17 07:47 ALT 18 U/L (7-52) 12/27/17 07:47 Alkaline Phosphatase 53 U/L (34-104) 12/27/17 07:47 Ammonia 52 umol/L (16-53) 12/31/17 05:40 Troponin I 0.14 ng/mL (0.01-0.05) H* 12/31/17 05:40 Total Protein 6.7 gm/dL (6.0-8.3) 12/27/17 07:47 Albumin 3.7 gm/dL (3.7-5.3) 12/27/17 07:47 Globulin 3.0 gm/dL 12/27/17 07:47 Albumin/Globulin Ratio 1.2 (1.0-1.8) 12/27/17 07:47 Triglycerides 78 mg/dL (<150) 12/27/17 07:47 Cholesterol 249 mg/dL (<200) H 12/27/17 07:47 LDL Cholesterol Direct 198 mg/dL (75-193) H 12/27/17 07:47 HDL Cholesterol 45 mg/dL (23-92) 12/27/17 07:47 TSH 3.88 uIU/ml (0.34-5.60) 12/26/17 17:15 Urine Source CLEAN C 12/26/17 18:30 Urine Color YELLOW 12/26/17 18:30 Urine Clarity CLEAR (CLEAR) 12/26/17 18:30 Urine pH 6.5 (4.6 - 8.0) 12/26/17 18:30 Ur Specific [place] 1.010 (1.005-1.030) 12/26/17 18:30 Urine Protein NEGATIVE mg/dL (NEGATIVE) 12/26/17 18:30 Urine Glucose (UA) NEGATIVE mg/dL (NEGATIVE) 12/26/17 18:30 Urine Ketones NEGATIVE mg/dL (NEGATIVE) 12/26/17 18:30 Urine Blood NEGATIVE (NEGATIVE) 12/26/17 18:30 Urine Nitrate NEGATIVE (NEGATIVE) 12/26/17 18:30 Urine Bilirubin NEGATIVE (NEGATIVE) 12/26/17 18:30 Urine Urobilinogen 0.2 E.U./dL (0.2 - 1.0) 12/26/17 18:30 Ur Leukocyte Esterase SMALL (NEGATIVE) H 12/26/17 18:30 Urine RBC 0-2 /hpf (0-5) 12/26/17 18:30 Urine WBC 2-5 /hpf (0-5) 12/26/17 18:30 Ur Epithelial Cells MODERATE /lpf (FEW) 12/26/17 18:30 Urine Bacteria 1+ /hpf (NONE SEEN) H 12/26/17 18:30 - Physical Exam Vitals and I&O: Vital Signs Temp 99.3 F 12/31/17 07:57 Pulse 87 12/31/17 07:57 Resp 18 12/31/17 07:57 BP 137/56 12/31/17 07:57 Pulse Ox 98 12/31/17 07:57 Intake & Output 12/30/17 12/31/17 12/31/17 18:59 06:59 18:59 Intake Total 1340 Balance 1340 Weight (lbs) 62.732 kg Intake: Intake, IV Amount 1040 D5-0.25NS 1,000 ml @ 50 990 mls/hr IV .Q20H [facility] Rx#: [id number] cefTRIAXone 1 gm In 50 Sodium Chloride 0.9% 50 ml @ 100 mls/hr IV Q24HR [facility] Rx#:[id number] Oral 300 Other: # Voids 2 # Bowel Movements 0 Weight Source Bedscale Active Medications: Current Medications Acetaminophen (Tylenol) 650 mg PO Q4H PRN PRN Reason: Fever > 101 Stop: 02/28/18 23:58 Aspirin (Aspirin Chewable) 81 mg PO DAILY JESSIE Stop: 02/25/18 08:59 Last Admin: 12/30/17 08:25 Dose: Not Given Atorvastatin Calcium (Lipitor) 10 mg PO DAILY JESSIE; Protocol Stop: 02/26/18 10:59 Last Admin: 12/30/17 08:25 Dose: Not Given Bisacodyl (Dulcolax 10 Mg Supp) 10 mg RC DAILY PRN PRN Reason: Constipation Stop: 02/25/18 06:58 Last Admin: 12/27/17 10:29 Dose: 10 mg Enoxaparin Sodium (Lovenox) 40 mg SUBQ Q12HR JESSIE Stop: 02/25/18 15:59 Last Admin: 12/30/17 21:18 Dose: 40 mg Ceftriaxone Sodium 1 gm/ (Sodium Chloride) 50 mls @ 100 mls/hr IV Q24HR [facility] Stop: 02/25/18 00:59 Last Infusion: 12/31/17 02:00 Dose: Infused Dextrose/Sodium Chloride (D5-0.45ns) 1,000 mls @ 50 mls/hr IV .Q20H [facility] Stop: 03/01/18 00:00 Levothyroxine Sodium (Synthroid) 0.025 mg PO DAILY [facility] Stop: 02/25/18 08:59 Last Admin: 12/30/17 08:25 Dose: Not Given Lorazepam (Ativan) 1 mg IVP Q4HR PRN; Protocol PRN Reason: Agitation Stop: 02/25/18 00:58 Last Admin: 12/31/17 03:52 Dose: 1 mg Miscellaneous (Lovenox Subq Per Pharmacy) 1 ea MC PRN [facility]; Protocol Stop: 02/25/18 14:44 Polyethylene Glycol (Miralax) 17 gm PO DAILY [facility] Stop: 02/25/18 08:59 Last Admin: 12/30/17 08:26 Dose: Not Given Valsartan (Diovan) 80 mg PO DAILY JESSIE Stop: 02/25/18 08:59 Last Admin: 12/30/17 08:24 Dose: Not Given General: Alert, Oriented x3 HEENT: Atraumatic, PERRLA, EOMI Neck: Supple Cardiovascular: Regular rate, Normal S1, Normal S2 Lungs: Clear to auscultation Abdomen: Bowel sounds, Soft Extremities: no Clubbing, no Cyanosis, no Edema Neurological: Normal gait, Normal speech Assessment/Plan - Assessment Assessment: elevated troponins Non q-wave [place] ... 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 continue current medications HTN slightly elevated ... on diovan 80mg PO daily, will add clonidine PRN UTI...will DC rocephin IV and start levoquin iv. UA for C&S hyperlipidemia ... on statins - Plan Plan: telemetry serial troponins cardiac consult psychiatric consult neuro consult repeat CBC this AM Nutritional Asmnt/Malnutr-PDOC - Dietary Evaluation Malnutrition Findings (Please click <Entered> for more info): Nutritional Asmnt/Malnutrition Start: 12/30/17 16: 04 Text: Status: Complete Freq: Protocol: Document 12/30/17 16:04 LCHENG (Rec: 12/30/17 16:14 [email or web address]) Nutritional Asmnt/Malnutrition Patient General Information Nutritional Screening Moderate Risk Diagnosis elevated troponin Pertinent Medical Hx/Surgical Hx HTN, dementia, hypothyroidism Subjective Information Pt seen sleeping in bed at time of visit, family at bedside. Per family, pt was very sleepy, only had few bites of brearfast this morning. Per EMR, PO intake about 25-50%. Per family, pt likes chocoalte icecream and pudding. Current Diet Order/ Nutrition Support cardiac Pertinent Medications lipitor, D5-0.25ns, synthroid, miralax, seroquel Pertinent Labs 12/27 Cl 110 Nutritional Hx/Data Height 1.6 m Height (Calculated Centimeters) 160.0 Current Weight (lbs) 62.596 kg Weight (Calculated Kilograms) 62.6 Weight (Calculated Grams) 86570.7 [place] Body Weight 115 Body Mass Index (BMI) 24.4 Weight Status Approriate GI Symptoms GI Symptoms None Last BM 12/27 Difficult in: None Skin Integrity/Comment: skin intact, reddened to buttocks Current %PO Poor (25-49%) Estimated Nutritional Goals BEE in Kcals: Using Current wt Calories/Kcals/Kg 25-30 Kcals Calculated 3520-6809 Protein: Using Current wt Protein g/k Protein Calculated 63 Fluid: ml 1575-1890ml (1ml/kcal) Nutritional Problem 1. Problem Problem inadequate food intake Etiology possible poor appetite Signs/Symptoms: PO intake 25-50% Malnutrition Alert Is there a minimum of two criteria No selected? Query Text:Check all the applicable criteria. A minimum of two criteria are recommended for diagnosis of either severe or non-severe malnutrition. Malnutrition Related to Morbid Obesity Malnutrition related to morbid obesity No Intervention/Recommendation Comments 1. Continue with current diet as ordered. Family request nutrition supplements. Send one bottle of chocolate ensure per family request at lunch. Will consider adding supplements if PO intake continue <50%. Nurses to assist pt with meals and encourage oral intake. 2. Monitor PO intake, wt, labs and skin integrity 3. F/U as high risk in 2-3 days, 01/01-01/02 Expected Outcomes/Goals Expected Outcomes/Goals 1. PO intake to meet at least 75% of nutritional needs. 2. Wt stability, skin to remain intact, labs to approach WNL.
[2017-12-31] MEDS: Levofloxacin 500mg/100mL 500 MG/100 ML BAG IV SCH (08:38)
[2017-12-31] MEDS: Levothyroxine 0.025 Mg Tab PO SCH (08:42)
[2017-12-31] MEDS: Aspirin 81mg Chewable Tab PO SCH (08:42)
[2017-12-31] MEDS: Enoxaparin 40 mg/0.4 mL 0.4mL Syr SUBQ SCH ×2 (08:42→21:39)
[2017-12-31] MEDS: POLYETHYLENE GLYCOL 3350 17 GM PACK PO SCH (08:45)
[2017-12-31] MEDS: Atorvastatin Calcium 10 MG TAB PO SCH (08:46)
[2017-12-31 18:48] LABS: URINE SOURCE CATH
[2017-12-31 18:51] LABS: URINE BILIRUBIN NEGATIVE (NEGATIVE); URINE BLOOD NEGATIVE (NEGATIVE); URINE GLUCOSE (UA) NEGATIVE (NEGATIVE); URINE KETONE NEGATIVE (NEGATIVE); URINE LEUKOCYTE ESTERASE NEGATIVE (NEGATIVE); URINE MICROSCOPIC INDICATED? YES; URINE NITRATE NEGATIVE (NEGATIVE); URINE PH 6.5 (4.6 - 8.0); URINE PROTEIN TRACE mg/dL (NEGATIVE); URINE UROBILINOGEN 0.2 E.U./dL (0.2 - 1.0)
[2017-12-31 18:58] LABS: URINE CLARITY CLEAR (CLEAR); URINE COLOR YELLOW; URINE RBC 0-2 /hpf (0-5); URINE WBC 0-2 /hpf (0-5)
[2017-12-31 18:59] LABS: URINE BACTERIA NONE SEEN /hpf (NONE SEEN); URINE EPITHELIAL CELLS RARE /lpf (FEW)
[2017-12-31] MEDS: D5-0.45NS 1,000 ML IV SCH (21:38)
--- NOTE | 2018-01-01 05:14 | General Progress Note ---
Subjective - Review of Systems Service Date: 01/01/18 Subjective: Patient was seen and examined. Awake, alert, afebrile. patient resting comfortably in bed. Discharged held yesterday d/t elevation of WBCs. labwork pending. Objective - Results Result Diagrams: 12/31/17 05:40 12/27/17 07:47 Recent Labs: Laboratory Last Values WBC 17.9 Th/cmm (4.8-10.8) H 12/31/17 05:40 RBC 4.43 Mil/cmm (3.80-5.20) 12/31/17 05:40 Hgb 13.9 gm/dL (12-16) 12/31/17 05:40 Hct 41.2 % (41.0-60) 12/31/17 05:40 MCV 93.0 fl (81-100) 12/31/17 05:40 MCH 31.3 pg (27.0-31.0) H 12/31/17 05:40 MCHC Differential 33.7 pg (28.0-36.0) 12/31/17 05:40 RDW 12.9 % (11.5-20.0) 12/31/17 05:40 Plt Count 301 Th/cmm (150-400) 12/31/17 05:40 MPV 9.1 fl 12/31/17 05:40 Neutrophils % 70.4 % (40.0-80.0) 12/31/17 05:40 Lymphocytes % 18.5 % (20.0-50.0) L 12/31/17 05:40 Monocytes % 10.3 % (2.0-10.0) H 12/31/17 05:40 Eosinophils % 0.4 % (0.0-5.0) 12/31/17 05:40 Basophils % 0.4 % (0.0-2.0) 12/31/17 05:40 PT 9.5 SECONDS (9.5-11.5) 12/26/17 17:15 INR 0.91 (0.5-1.4) 12/26/17 17:15 PTT (Actin FS) 24.5 SECONDS (26.0-38.0) L 12/26/17 17:15 Sodium 140 mEq/L (136-145) 12/27/17 07:47 Potassium 3.6 mEq/L (3.5-5.1) 12/27/17 07:47 Chloride 110 mEq/L (98-107) H 12/27/17 07:47 Carbon Dioxide 23.5 mEq/L (21.0-31.0) 12/27/17 07:47 Anion Gap 10.1 (7.0-16.0) 12/27/17 07:47 BUN 10 mg/dL (7-25) 12/27/17 07:47 Creatinine 0.6 mg/dL (0.6-1.2) 12/27/17 07:47 Est GFR ( Amer) TNP 12/27/17 07:47 Est GFR (Non-Af Amer) TNP 12/27/17 07:47 BUN/Creatinine Ratio 16.7 12/27/17 07:47 Glucose 101 mg/dL (70-105) 12/27/17 07:47 Calcium 9.4 mg/dL (8.6-10.3) 12/27/17 07:47 Total Bilirubin 0.5 mg/dL (0.3-1.0) 12/27/17 07:47 AST 26 U/L (13-39) 12/27/17 07:47 ALT 18 U/L (7-52) 12/27/17 07:47 Alkaline Phosphatase 53 U/L (34-104) 12/27/17 07:47 Ammonia 52 umol/L (16-53) 12/31/17 05:40 Troponin I 0.14 ng/mL (0.01-0.05) H* 12/31/17 05:40 Total Protein 6.7 gm/dL (6.0-8.3) 12/27/17 07:47 Albumin 3.7 gm/dL (3.7-5.3) 12/27/17 07:47 Globulin 3.0 gm/dL 12/27/17 07:47 Albumin/Globulin Ratio 1.2 (1.0-1.8) 12/27/17 07:47 Triglycerides 78 mg/dL (<150) 12/27/17 07:47 Cholesterol 249 mg/dL (<200) H 12/27/17 07:47 LDL Cholesterol Direct 198 mg/dL (75-193) H 12/27/17 07:47 HDL Cholesterol 45 mg/dL (23-92) 12/27/17 07:47 TSH 3.88 uIU/ml (0.34-5.60) 12/26/17 17:15 Urine Source CATH 12/31/17 08:20 Urine Color YELLOW 12/31/17 08:20 Urine Clarity CLEAR (CLEAR) 12/31/17 08:20 Urine pH 6.5 (4.6 - 8.0) 12/31/17 08:20 Ur Specific [place] 1.010 (1.005-1.030) 12/31/17 08:20 Urine Protein TRACE mg/dL (NEGATIVE) 12/31/17 08:20 Urine Glucose (UA) NEGATIVE mg/dL (NEGATIVE) 12/31/17 08:20 Urine Ketones NEGATIVE mg/dL (NEGATIVE) 12/31/17 08:20 Urine Blood NEGATIVE (NEGATIVE) 12/31/17 08:20 Urine Nitrate NEGATIVE (NEGATIVE) 12/31/17 08:20 Urine Bilirubin NEGATIVE (NEGATIVE) 12/31/17 08:20 Urine Urobilinogen 0.2 E.U./dL (0.2 - 1.0) 12/31/17 08:20 Ur Leukocyte Esterase NEGATIVE (NEGATIVE) 12/31/17 08:20 Urine RBC 0-2 /hpf (0-5) 12/31/17 08:20 Urine WBC 0-2 /hpf (0-5) 12/31/17 08:20 Ur Epithelial Cells RARE /lpf (FEW) 12/31/17 08:20 Urine Bacteria NONE SEEN /hpf (NONE SEEN) 12/31/17 08:20 Urine Mucus FEW /lpf (FEW) 12/31/17 08:20 - Physical Exam Vitals and I&O: Vital Signs Temp 98.8 F 12/31/17 20:00 Pulse 88 12/31/17 20:00 Resp 18 01/01/18 00:00 BP 119/52 12/31/17 20:00 Pulse Ox 96 12/31/17 20:00 Intake & Output 12/31/17 12/31/17 01/01/18 06:59 18:59 06:59 Intake Total 1340 Output Total 400 Balance 1340 -400 Weight (lbs) 62.732 kg 62.777 kg Intake: Intake, IV Amount 1040 D5-0.25NS 1,000 ml @ 50 990 mls/hr IV .Q20H [facility] Rx#: [id number] cefTRIAXone 1 gm In 50 Sodium Chloride 0.9% 50 ml @ 100 mls/hr IV Q24HR [facility] Rx#:[id number] Oral 300 Output: Urine 400 Other: # Voids 2 # Bowel Movements 0 Weight Source Bedscale Bedscale Active Medications: Current Medications Acetaminophen (Tylenol) 650 mg PO Q4H PRN PRN Reason: Fever > 101 Stop: 02/28/18 23:58 Last Admin: 12/31/17 14:31 Dose: 650 mg Aspirin (Aspirin Chewable) 81 mg PO DAILY [facility] Stop: 02/25/18 08:59 Last Admin: 12/31/17 08:42 Dose: 81 mg Atorvastatin Calcium (Lipitor) 10 mg PO DAILY [facility]; Protocol Stop: 02/26/18 10:59 Last Admin: 12/31/17 08:46 Dose: 10 mg Bisacodyl (Dulcolax 10 Mg Supp) 10 mg RC DAILY PRN PRN Reason: Constipation Stop: 02/25/18 06:58 Last Admin: 12/27/17 10:29 Dose: 10 mg Enoxaparin Sodium (Lovenox) 40 mg SUBQ Q12HR [facility] Stop: 02/25/18 15:59 Last Admin: 12/31/17 21:39 Dose: 40 mg Dextrose/Sodium Chloride (D5-0.45ns) 1,000 mls @ 50 mls/hr IV .Q20H [facility] Stop: 03/01/18 00:00 Last Admin: 12/31/17 21:38 Dose: 50 mls/hr Levofloxacin (Levaquin Pb) 500 mg in 100 mls @ 100 mls/hr IV Q24HR [facility] Stop: 03/01/18 08:59 Last Admin: 12/31/17 08:38 Dose: 100 mls/hr Levothyroxine Sodium (Synthroid) 0.025 mg PO DAILY [facility] Stop: 02/25/18 08:59 Last Admin: 12/31/17 08:42 Dose: 0.025 mg Lorazepam (Ativan) 1 mg IVP Q4HR PRN; Protocol PRN Reason: Agitation Stop: 02/25/18 00:58 Last Admin: 12/31/17 03:52 Dose: 1 mg Lorazepam (Ativan) 0.5 mg IVP Q4HR PRN; Protocol PRN Reason: Agitation Stop: 03/01/18 17:48 Miscellaneous (Lovenox Subq Per Pharmacy) 1 ea PRN [facility]ESSIE; Protocol Stop: 02/25/18 14:44 Polyethylene Glycol (Miralax) 17 gm PO DAILY JESSIE Stop: 02/25/18 08:59 Last Admin: 12/31/17 08:45 Dose: 17 gm Valsartan (Diovan) 80 mg PO DAILY JESSIE Stop: 02/25/18 08:59 Last Admin: 12/31/17 08:43 Dose: 80 mg General: Alert, Oriented x3 HEENT: Atraumatic, PERRLA, EOMI Neck: Supple Cardiovascular: Regular rate, Normal S1, Normal S2 Lungs: Clear to auscultation Abdomen: Bowel sounds, Soft Extremities: no Clubbing, no Cyanosis, no Edema Neurological: Normal gait, Normal speech Assessment/Plan - Assessment Assessment: elevated troponins Non q-wave [place] ... 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 continue current medications HTN slightly elevated ... on diovan 80mg PO daily, will add clonidine PRN UTI...will DC rocephin IV and start levoquin iv. UA for C&S leukocytosis 17K ... repeat CBC this AM hyperlipidemia ... on statins - Plan Plan: telemetry serial troponins cardiac consult psychiatric consult neuro consult repeat CBC this AM Nutritional Asmnt/Malnutr-PDOC - Dietary Evaluation Malnutrition Findings (Please click <Entered> for more info): Nutritional Asmnt/Malnutrition Start: 12/30/17 16: 04 Text: Status: Complete Freq: Protocol: Document 12/30/17 16:04 LCHENG (Rec: 12/30/17 16:14 [email or web address]) Nutritional Asmnt/Malnutrition Patient General Information Nutritional Screening Moderate Risk Diagnosis elevated troponin Pertinent Medical Hx/Surgical Hx HTN, dementia, hypothyroidism Subjective Information Pt seen sleeping in bed at time of visit, family at bedside. Per family, pt was very sleepy, only had few bites of brearfast this morning. Per EMR, PO intake about 25-50%. Per family, pt likes chocoalte icecream and pudding. Current Diet Order/ Nutrition Support cardiac Pertinent Medications lipitor, D5-0.25ns, synthroid, miralax, seroquel Pertinent Labs 12/27 Cl 110 Nutritional Hx/Data Height 1.6 m Height (Calculated Centimeters) 160.0 Current Weight (lbs) 62.596 kg Weight (Calculated Kilograms) 62.6 Weight (Calculated Grams) 49121.7 [place] Body Weight 115 Body Mass Index (BMI) 24.4 Weight Status Approriate GI Symptoms GI Symptoms None Last BM 12/27 Difficult in: None Skin Integrity/Comment: skin intact, reddened to buttocks Current %PO Poor (25-49%) Estimated Nutritional Goals BEE in Kcals: Using Current wt Calories/Kcals/Kg 25-30 Kcals Calculated 3538-3071 Protein: Using Current wt Protein g/k Protein Calculated 63 Fluid: ml 1575-1890ml (1ml/kcal) Nutritional Problem 1. Problem Problem inadequate food intake Etiology possible poor appetite Signs/Symptoms: PO intake 25-50% Malnutrition Alert Is there a minimum of two criteria No selected? Query Text:Check all the applicable criteria. A minimum of two criteria are recommended for diagnosis of either severe or non-severe malnutrition. Malnutrition Related to Morbid Obesity Malnutrition related to morbid obesity No Intervention/Recommendation Comments 1. Continue with current diet as ordered. Family request nutrition supplements. Send one bottle of chocolate ensure per family request at lunch. Will consider adding supplements if PO intake continue <50%. Nurses to assist pt with meals and encourage oral intake. 2. Monitor PO intake, wt, labs and skin integrity 3. F/U as high risk in 2-3 days, 01/01-01/02 Expected Outcomes/Goals Expected Outcomes/Goals 1. PO intake to meet at least 75% of nutritional needs. 2. Wt stability, skin to remain intact, labs to approach WNL.
[2018-01-01 05:16] LABS: FOLIC ACID 16.7 ng/mL (>3.0)
[2018-01-01 05:57] LABS: % EOSINOPHILS 1.5 % (0.0-5.0); % LYMPHOCYTES 19.5 % (20.0-50.0); % MONOCYTES 11.7 % (2.0-10.0); % NEUTROPHILS 66.3 % (40.0-80.0); BASOPHILE ABSOLUTE 0.1 Th/cumm (0-0.2); EOSINOPHILE ABSOLUTE 0.2 Th/cmm (0.1-0.4); HEMATOCRIT 35.4 % (41.0-60); HEMOGLOBIN 11.8 gm/dL (12-16); LYMPHOCYTE ABSOLUTE 2.7 Th/cmm (1.5-3.0); MEAN CELL VOLUME 93.7 fl (81-100); MEAN CORPUSCULAR HEMOGLOBIN 31.3 pg (27.0-31.0); MEAN CORPUSCULAR HGB CONC 33.4 pg (28.0-36.0); MEAN PLATELET VOLUME 8.6 fl; MONOCYTE ABSOLUTE 1.6 Th/cmm (0.3-1.0); NEUTROPHILE ABSOLUTE 9.5 Th/cmm (1.8-8.0); PLATELET COUNT 291 Th/cmm (150-400); RED BLOOD COUNT 3.78 Mil/cmm (3.80-5.20); RED CELL DISTRIBUTION WIDTH 13.1 % (11.5-20.0)
[2018-01-01 06:11] LABS: WHITE BLOOD COUNT 14.1 Th/cmm (4.8-10.8)
[2018-01-01] MEDS: Atorvastatin Calcium 10 MG TAB PO SCH (08:32)
[2018-01-01] MEDS: Enoxaparin 40 mg/0.4 mL 0.4mL Syr SUBQ SCH ×2 (08:33→20:58)
[2018-01-01] MEDS: Aspirin 81mg Chewable Tab PO SCH (08:33)
[2018-01-01] MEDS: Levothyroxine 0.025 Mg Tab PO SCH (08:33)
[2018-01-01] MEDS: POLYETHYLENE GLYCOL 3350 17 GM PACK PO SCH (08:34)
[2018-01-01] MEDS: Levofloxacin 500mg/100mL 500 MG/100 ML BAG IV SCH (09:31)
[2018-01-01] MEDS ORDERED: Probiotic Screen MC PRN (15:14)
[2018-01-01] MEDS: D5-0.45NS 1,000 ML IV SCH (23:29)
--- NOTE | 2018-01-02 04:53 | General Progress Note ---
Subjective - Review of Systems Service Date: 01/02/18 Subjective: Patient was seen and examined. Awake, alert, afebrile. patient resting comfortably in bed. Objective - Results Result Diagrams: 01/01/18 05:40 12/27/17 07:47 Recent Labs: Laboratory Last Values WBC 14.1 Th/cmm (4.8-10.8) H D 01/01/18 05:40 RBC 3.78 Mil/cmm (3.80-5.20) L 01/01/18 05:40 Hgb 11.8 gm/dL (12-16) L 01/01/18 05:40 Hct 35.4 % (41.0-60) L D 01/01/18 05:40 MCV 93.7 fl (81-100) 01/01/18 05:40 MCH 31.3 pg (27.0-31.0) H 01/01/18 05:40 MCHC Differential 33.4 pg (28.0-36.0) 01/01/18 05:40 RDW 13.1 % (11.5-20.0) 01/01/18 05:40 Plt Count 291 Th/cmm (150-400) 01/01/18 05:40 MPV 8.6 fl 01/01/18 05:40 Neutrophils % 66.3 % (40.0-80.0) 01/01/18 05:40 Lymphocytes % 19.5 % (20.0-50.0) L 01/01/18 05:40 Monocytes % 11.7 % (2.0-10.0) H 01/01/18 05:40 Eosinophils % 1.5 % (0.0-5.0) 01/01/18 05:40 Basophils % 1.0 % (0.0-2.0) 01/01/18 05:40 PT 9.5 SECONDS (9.5-11.5) 12/26/17 17:15 INR 0.91 (0.5-1.4) 12/26/17 17:15 PTT (Actin FS) 24.5 SECONDS (26.0-38.0) L 12/26/17 17:15 Sodium 140 mEq/L (136-145) 12/27/17 07:47 Potassium 3.6 mEq/L (3.5-5.1) 12/27/17 07:47 Chloride 110 mEq/L (98-107) H 12/27/17 07:47 Carbon Dioxide 23.5 mEq/L (21.0-31.0) 12/27/17 07:47 Anion Gap 10.1 (7.0-16.0) 12/27/17 07:47 BUN 10 mg/dL (7-25) 12/27/17 07:47 Creatinine 0.6 mg/dL (0.6-1.2) 12/27/17 07:47 Est GFR ( Amer) TNP 12/27/17 07:47 Est GFR (Non-Af Amer) TNP 12/27/17 07:47 BUN/Creatinine Ratio 16.7 12/27/17 07:47 Glucose 101 mg/dL (70-105) 12/27/17 07:47 Calcium 9.4 mg/dL (8.6-10.3) 12/27/17 07:47 Total Bilirubin 0.5 mg/dL (0.3-1.0) 12/27/17 07:47 AST 26 U/L (13-39) 12/27/17 07:47 ALT 18 U/L (7-52) 12/27/17 07:47 Alkaline Phosphatase 53 U/L (34-104) 12/27/17 07:47 Ammonia 52 umol/L (16-53) 12/31/17 05:40 Troponin I 0.14 ng/mL (0.01-0.05) H* 12/31/17 05:40 Total Protein 6.7 gm/dL (6.0-8.3) 12/27/17 07:47 Albumin 3.7 gm/dL (3.7-5.3) 12/27/17 07:47 Globulin 3.0 gm/dL 12/27/17 07:47 Albumin/Globulin Ratio 1.2 (1.0-1.8) 12/27/17 07:47 Triglycerides 78 mg/dL (<150) 12/27/17 07:47 Cholesterol 249 mg/dL (<200) H 12/27/17 07:47 LDL Cholesterol Direct 198 mg/dL (75-193) H 12/27/17 07:47 HDL Cholesterol 45 mg/dL (23-92) 12/27/17 07:47 Vitamin B12 707 pg/mL (232-1245) 12/30/17 06:00 Folic Acid 16.7 ng/mL (>3.0) 12/30/17 06:00 TSH 3.88 uIU/ml (0.34-5.60) 12/26/17 17:15 Urine Source CATH 12/31/17 08:20 Urine Color YELLOW 12/31/17 08:20 Urine Clarity CLEAR (CLEAR) 12/31/17 08:20 Urine pH 6.5 (4.6 - 8.0) 12/31/17 08:20 Ur Specific [place] 1.010 (1.005-1.030) 12/31/17 08:20 Urine Protein TRACE mg/dL (NEGATIVE) 12/31/17 08:20 Urine Glucose (UA) NEGATIVE mg/dL (NEGATIVE) 12/31/17 08:20 Urine Ketones NEGATIVE mg/dL (NEGATIVE) 12/31/17 08:20 Urine Blood NEGATIVE (NEGATIVE) 12/31/17 08:20 Urine Nitrate NEGATIVE (NEGATIVE) 12/31/17 08:20 Urine Bilirubin NEGATIVE (NEGATIVE) 12/31/17 08:20 Urine Urobilinogen 0.2 E.U./dL (0.2 - 1.0) 12/31/17 08:20 Ur Leukocyte Esterase NEGATIVE (NEGATIVE) 12/31/17 08:20 Urine RBC 0-2 /hpf (0-5) 12/31/17 08:20 Urine WBC 0-2 /hpf (0-5) 12/31/17 08:20 Ur Epithelial Cells RARE /lpf (FEW) 12/31/17 08:20 Urine Bacteria NONE SEEN /hpf (NONE SEEN) 12/31/17 08:20 Urine Mucus FEW /lpf (FEW) 12/31/17 08:20 - Physical Exam Vitals and I&O: Vital Signs Temp 99.3 F 01/01/18 16:00 Pulse 84 01/01/18 16:00 Resp 18 01/02/18 00:00 BP 147/57 01/01/18 16:00 Pulse Ox 97 01/01/18 16:00 Intake & Output 01/01/18 01/01/18 01/02/18 06:59 18:59 06:59 Intake Total 1350 Balance 1350 Weight (lbs) 63.049 kg 63.049 kg Intake: Intake, IV Amount 1100 D5-0.45NS 1,000 ml @ 50 1000 mls/hr IV .Q20H [facility] Rx#: [id number] Levofloxacin 500mg/100mL 100 500 mg In 100 ml @ 100 mls/hr IV Q24HR [facility] Rx#: [id number] Oral 250 Other: # Voids 2 3 Weight Source Bedscale Bedscale Active Medications: Current Medications Acetaminophen (Tylenol) 650 mg PO Q4H PRN PRN Reason: Fever > 101 Stop: 02/28/18 23:58 Last Admin: 01/01/18 18:09 Dose: 650 mg Aspirin (Aspirin Chewable) 81 mg PO DAILY [facility] Stop: 02/25/18 08:59 Last Admin: 01/01/18 08:33 Dose: 81 mg Atorvastatin Calcium (Lipitor) 10 mg PO DAILY [facility]; Protocol Stop: 02/26/18 10:59 Last Admin: 01/01/18 08:32 Dose: 10 mg Bisacodyl (Dulcolax 10 Mg Supp) 10 mg RC DAILY PRN PRN Reason: Constipation Stop: 02/25/18 06:58 Last Admin: 12/27/17 10:29 Dose: 10 mg Enoxaparin Sodium (Lovenox) 40 mg SUBQ Q12HR [facility] Stop: 02/25/18 15:59 Last Admin: 01/01/18 20:58 Dose: 40 mg Dextrose/Sodium Chloride (D5-0.45ns) 1,000 mls @ 50 mls/hr IV .Q20H [facility] Stop: 03/01/18 00:00 Last Admin: 01/01/18 23:29 Dose: 50 mls/hr Levofloxacin (Levaquin Pb) 500 mg in 100 mls @ 100 mls/hr IV Q24HR [facility] Stop: 03/01/18 08:59 Last Infusion: 01/01/18 10:35 Dose: Infused Lactobacillus Rhamnosus (Culturelle 15b) 1 each PO DAILY [facility] Stop: 03/03/18 08:59 Levothyroxine Sodium (Synthroid) 0.025 mg PO DAILY [facility] Stop: 02/25/18 08:59 Last Admin: 01/01/18 08:33 Dose: 0.025 mg Lorazepam (Ativan) 1 mg IVP Q4HR PRN; Protocol PRN Reason: Agitation Stop: 02/25/18 00:58 Last Admin: 01/02/18 01:49 Dose: 1 mg Lorazepam (Ativan) 0.5 mg IVP Q4HR PRN; Protocol PRN Reason: Agitation Stop: 03/01/18 17:48 Last Admin: 01/01/18 12:08 Dose: 0.5 mg Miscellaneous (Lovenox Subq Per Pharmacy) 1 ea PRN JESSIE; Protocol Stop: 02/25/18 14:44 Miscellaneous (Probiotic Screen) 1 ea PRN PRN PRN Reason: PROTOCOL Stop: 03/02/18 15:13 Polyethylene Glycol (Miralax) 17 gm PO DAILY JESSIE Stop: 02/25/18 08:59 Last Admin: 01/01/18 08:34 Dose: 17 gm Valsartan (Diovan) 80 mg PO DAILY JESSIE Stop: 02/25/18 08:59 Last Admin: 01/01/18 09:29 Dose: Not Given General: Alert, Oriented x3 HEENT: Atraumatic, PERRLA, EOMI Neck: Supple Cardiovascular: Regular rate, Normal S1, Normal S2 Lungs: Clear to auscultation Abdomen: Bowel sounds, Soft Extremities: no Clubbing, no Cyanosis, no Edema Neurological: Normal gait, Normal speech Assessment/Plan - Assessment Assessment: elevated troponins Non q-wave MD ... 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 continue current medications HTN slightly elevated ... on diovan 80mg PO daily, will add clonidine PRN UTI...will DC rocephin IV and start levoquin iv. UA for C&S leukocytosis 17-14K repeat CBC this AM hyperlipidemia ... on statins - Plan Plan: telemetry serial troponins cardiac consult psychiatric consult neuro consult repeat CBC this AM Nutritional Asmnt/Malnutr-PDOC - Dietary Evaluation Malnutrition Findings (Please click <Entered> for more info): Nutritional Asmnt/Malnutrition Start: 12/30/17 16: 04 Text: Status: Complete Freq: Protocol: Document 12/30/17 16:04 TAMI (Rec: 12/30/17 16:14 TAMI [email or web address]) Nutritional Asmnt/Malnutrition Patient General Information Nutritional Screening Moderate Risk Diagnosis elevated troponin Pertinent Medical Hx/Surgical Hx HTN, dementia, hypothyroidism Subjective Information Pt seen sleeping in bed at time of visit, family at bedside. Per family, pt was very sleepy, only had few bites of brearfast this morning. Per EMR, PO intake about 25-50%. Per family, pt likes chocoalte icecream and pudding. Current Diet Order/ Nutrition Support cardiac Pertinent Medications lipitor, D5-0.25ns, synthroid, miralax, seroquel Pertinent Labs 12/27 Cl 110 Nutritional Hx/Data Height 1.6 m Height (Calculated Centimeters) 160.0 Current Weight (lbs) 62.596 kg Weight (Calculated Kilograms) 62.6 Weight (Calculated Grams) 63393.7 [place] Body Weight 115 Body Mass Index (BMI) 24.4 Weight Status Approriate GI Symptoms GI Symptoms None Last BM 12/27 Difficult in: None Skin Integrity/Comment: skin intact, reddened to buttocks Current %PO Poor (25-49%) Estimated Nutritional Goals BEE in Kcals: Using Current wt Calories/Kcals/Kg 25-30 Kcals Calculated 7862-8401 Protein: Using Current wt Protein g/k Protein Calculated 63 Fluid: ml 1575-1890ml (1ml/kcal) Nutritional Problem 1. Problem Problem inadequate food intake Etiology possible poor appetite Signs/Symptoms: PO intake 25-50% Malnutrition Alert Is there a minimum of two criteria No selected? Query Text:Check all the applicable criteria. A minimum of two criteria are recommended for diagnosis of either severe or non-severe malnutrition. Malnutrition Related to Morbid Obesity Malnutrition related to morbid obesity No Intervention/Recommendation Comments 1. Continue with current diet as ordered. Family request nutrition supplements. Send one bottle of chocolate ensure per family request at lunch. Will consider adding supplements if PO intake continue <50%. Nurses to assist pt with meals and encourage oral intake. 2. Monitor PO intake, wt, labs and skin integrity 3. F/U as high risk in 2-3 days, 01/01-01/02 Expected Outcomes/Goals Expected Outcomes/Goals 1. PO intake to meet at least 75% of nutritional needs. 2. Wt stability, skin to remain intact, labs to approach WNL.
[2018-01-02 06:52] LABS: HEMATOCRIT 40.3 % (41.0-60); HEMOGLOBIN 13.3 gm/dL (12-16); MEAN CELL VOLUME 92.9 fl (81-100); MEAN CORPUSCULAR HEMOGLOBIN 30.8 pg (27.0-31.0); MEAN CORPUSCULAR HGB CONC 33.1 pg (28.0-36.0); PLATELET COUNT 341 Th/cmm (150-400); RED BLOOD COUNT 4.33 Mil/cmm (3.80-5.20); RED CELL DISTRIBUTION WIDTH 12.9 % (11.5-20.0)
[2018-01-02 06:58] LABS: WHITE BLOOD COUNT 15.5 Th/cmm (4.8-10.8)
[2018-01-02 07:33] LABS: BAND NEUTROPHILE 2 % (0-10); BASOPHIL 0 % (0-3); EOSINOPHIL 0 % (0-5); LYMPHOCYTE 19 % (20-50); MONOCYTE 7 % (2-10); NEUTROPHILS 72 % (40-80)
[2018-01-02 07:34] LABS: PLATELET ESTIMATE ADEQUATE (NORMAL)
[2018-01-02] MEDS: Enoxaparin 40 mg/0.4 mL 0.4mL Syr SUBQ SCH ×2 (09:19→20:41)
[2018-01-02] MEDS: POLYETHYLENE GLYCOL 3350 17 GM PACK PO SCH (09:21)
[2018-01-02] MEDS: Aspirin 81mg Chewable Tab PO SCH (09:22)
[2018-01-02] MEDS: Atorvastatin Calcium 10 MG TAB PO SCH (09:22)
[2018-01-02] MEDS: Levothyroxine 0.025 Mg Tab PO SCH (09:22)
[2018-01-02] MEDS: Lactobacillus Rhamnosus GG 15 Billion CFU CAP.SPRINK PO SCH (09:22)
[2018-01-02] MEDS: Levofloxacin 500mg/100mL 500 MG/100 ML BAG IV SCH (10:00)
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
[2018-01-02] MEDS: metroNIDAZOLE 500mg/NS 100mL 500 MG/100 ML BAG IV SCH (17:11)
[2018-01-03] MEDS: metroNIDAZOLE 500mg/NS 100mL 500 MG/100 ML BAG IV SCH ×2 (03:31→16:15)
--- NOTE | 2018-01-03 05:29 | General Progress Note ---
Subjective - Review of Systems Service Date: 01/03/18 Subjective: Patient was seen and examined. Coffee ground emesis x 1 this am. Patient was initially seen for non q-wave NH and was on Lovenox injections. Patient also having fever of unknown origin. Objective - Results Result Diagrams: 01/02/18 06:06 12/27/17 07:47 Recent Labs: Laboratory Last Values WBC 15.5 Th/cmm (4.8-10.8) H 01/02/18 06:06 RBC 4.33 Mil/cmm (3.80-5.20) 01/02/18 06:06 Hgb 13.3 gm/dL (12-16) 01/02/18 06:06 Hct 40.3 % (41.0-60) L 01/02/18 06:06 MCV 92.9 fl (81-100) 01/02/18 06:06 MCH 30.8 pg (27.0-31.0) 01/02/18 06:06 MCHC Differential 33.1 pg (28.0-36.0) 01/02/18 06:06 RDW 12.9 % (11.5-20.0) 01/02/18 06:06 Plt Count 341 Th/cmm (150-400) 01/02/18 06:06 MPV 10.0 fl 01/02/18 06:06 Add Manual Diff YES 01/02/18 06:06 Neutrophils % 66.3 % (40.0-80.0) 01/01/18 05:40 Band Neutrophils % 2 % (0-10) 01/02/18 06:06 Lymphocytes % 19.5 % (20.0-50.0) L 01/01/18 05:40 Monocytes % 11.7 % (2.0-10.0) H 01/01/18 05:40 Eosinophils % 1.5 % (0.0-5.0) 01/01/18 05:40 Basophils % 1.0 % (0.0-2.0) 01/01/18 05:40 Neutrophils (Manual) 72 % (40-80) 01/02/18 06:06 Lymphocytes 19 % (20-50) L 01/02/18 06:06 Monocytes 7 % (2-10) 01/02/18 06:06 Eosinophils 0 % (0-5) 01/02/18 06:06 Basophils 0 % (0-3) 01/02/18 06:06 Platelet Estimate ADEQUATE (NORMAL) 01/02/18 06:06 PT 9.5 SECONDS (9.5-11.5) 12/26/17 17:15 INR 0.91 (0.5-1.4) 12/26/17 17:15 PTT (Actin FS) 24.5 SECONDS (26.0-38.0) L 12/26/17 17:15 Sodium 140 mEq/L (136-145) 12/27/17 07:47 Potassium 3.6 mEq/L (3.5-5.1) 12/27/17 07:47 Chloride 110 mEq/L (98-107) H 12/27/17 07:47 Carbon Dioxide 23.5 mEq/L (21.0-31.0) 12/27/17 07:47 Anion Gap 10.1 (7.0-16.0) 12/27/17 07:47 BUN 10 mg/dL (7-25) 12/27/17 07:47 Creatinine 0.6 mg/dL (0.6-1.2) 12/27/17 07:47 Est GFR ( Amer) TNP 12/27/17 07:47 Est GFR (Non-Af Amer) TNP 12/27/17 07:47 BUN/Creatinine Ratio 16.7 12/27/17 07:47 Glucose 101 mg/dL (70-105) 12/27/17 07:47 Calcium 9.4 mg/dL (8.6-10.3) 12/27/17 07:47 Total Bilirubin 0.5 mg/dL (0.3-1.0) 12/27/17 07:47 AST 26 U/L (13-39) 12/27/17 07:47 ALT 18 U/L (7-52) 12/27/17 07:47 Alkaline Phosphatase 53 U/L (34-104) 12/27/17 07:47 Ammonia 52 umol/L (16-53) 12/31/17 05:40 Troponin I 0.14 ng/mL (0.01-0.05) H* 12/31/17 05:40 Total Protein 6.7 gm/dL (6.0-8.3) 12/27/17 07:47 Albumin 3.7 gm/dL (3.7-5.3) 12/27/17 07:47 Globulin 3.0 gm/dL 12/27/17 07:47 Albumin/Globulin Ratio 1.2 (1.0-1.8) 12/27/17 07:47 Triglycerides 78 mg/dL (<150) 12/27/17 07:47 Cholesterol 249 mg/dL (<200) H 12/27/17 07:47 LDL Cholesterol Direct 198 mg/dL (75-193) H 12/27/17 07:47 HDL Cholesterol 45 mg/dL (23-92) 12/27/17 07:47 Vitamin B12 707 pg/mL (232-1245) 12/30/17 06:00 Folic Acid 16.7 ng/mL (>3.0) 12/30/17 06:00 TSH 3.88 uIU/ml (0.34-5.60) 12/26/17 17:15 Urine Source CATH 12/31/17 08:20 Urine Color YELLOW 12/31/17 08:20 Urine Clarity CLEAR (CLEAR) 12/31/17 08:20 Urine pH 6.5 (4.6 - 8.0) 12/31/17 08:20 Ur Specific [place] 1.010 (1.005-1.030) 12/31/17 08:20 Urine Protein TRACE mg/dL (NEGATIVE) 12/31/17 08:20 Urine Glucose (UA) NEGATIVE mg/dL (NEGATIVE) 12/31/17 08:20 Urine Ketones NEGATIVE mg/dL (NEGATIVE) 12/31/17 08:20 Urine Blood NEGATIVE (NEGATIVE) 12/31/17 08:20 Urine Nitrate NEGATIVE (NEGATIVE) 12/31/17 08:20 Urine Bilirubin NEGATIVE (NEGATIVE) 12/31/17 08:20 Urine Urobilinogen 0.2 E.U./dL (0.2 - 1.0) 12/31/17 08:20 Ur Leukocyte Esterase NEGATIVE (NEGATIVE) 12/31/17 08:20 Urine RBC 0-2 /hpf (0-5) 12/31/17 08:20 Urine WBC 0-2 /hpf (0-5) 12/31/17 08:20 Ur Epithelial Cells RARE /lpf (FEW) 12/31/17 08:20 Urine Bacteria NONE SEEN /hpf (NONE SEEN) 12/31/17 08:20 Urine Mucus FEW /lpf (FEW) 12/31/17 08:20 - Physical Exam Vitals and I&O: Vital Signs Temp 102.0 F 01/03/18 04:00 Pulse 109 01/03/18 04:00 Resp 19 01/03/18 04:00 BP 143/45 01/03/18 04:00 Pulse Ox 99 01/03/18 04:00 Intake & Output 01/02/18 01/02/18 01/03/18 06:59 18:59 06:59 Intake Total 100 Balance 100 Weight (lbs) 63.231 kg Intake: Intake, IV Amount 100 metroNIDAZOLE 500mg/NS 100 100mL 500 mg In 100 ml @ 100 mls/hr IV Q12H [facility] Rx #:[id number] Other: # Voids 3 Weight Source Bedscale Active Medications: Current Medications Acetaminophen (Tylenol) 650 mg PO Q4H PRN PRN Reason: Fever > 101 Stop: 02/28/18 23:58 Last Admin: 01/01/18 18:09 Dose: 650 mg Acetaminophen (Tylenol 650mg Supp) 650 mg RC Q4H PRN PRN Reason: Fever > 101 Stop: 03/03/18 14:05 Last Admin: 01/03/18 03:56 Dose: 650 mg Aspirin (Aspirin Chewable) 81 mg PO DAILY [facility] Stop: 02/25/18 08:59 Last Admin: 01/02/18 09:22 Dose: 81 mg Atorvastatin Calcium (Lipitor) 10 mg PO DAILY [facility]; Protocol Stop: 02/26/18 10:59 Last Admin: 01/02/18 09:22 Dose: 10 mg Bisacodyl (Dulcolax 10 Mg Supp) 10 mg RC DAILY PRN PRN Reason: Constipation Stop: 02/25/18 06:58 Last Admin: 01/02/18 20:41 Dose: 10 mg Dextrose/Sodium Chloride (D5-0.45ns) 1,000 mls @ 50 mls/hr IV .Q20H JESSIE Stop: 03/01/18 00:00 Last Admin: 01/01/18 23:29 Dose: 50 mls/hr Levofloxacin (Levaquin Pb) 500 mg in 100 mls @ 100 mls/hr IV Q24HR JESSIE Stop: 03/01/18 08:59 Last Admin: 01/02/18 10:00 Dose: 100 mls/hr Metronidazole (Flagyl) 500 mg in 100 mls @ 100 mls/hr IV Q12H JESSIE Stop: 03/03/18 15:59 Last Admin: 01/03/18 03:31 Dose: 100 mls/hr Lactobacillus Rhamnosus (Culturelle 15b) 1 each PO DAILY JESSIE Stop: 03/03/18 08:59 Last Admin: 01/02/18 09:22 Dose: 1 each Levothyroxine Sodium (Synthroid) 0.025 mg PO DAILY JESSIE Stop: 02/25/18 08:59 Last Admin: 01/02/18 09:22 Dose: 0.025 mg Lorazepam (Ativan) 1 mg IVP Q4HR PRN; Protocol PRN Reason: Agitation Stop: 02/25/18 00:58 Last Admin: 01/02/18 01:49 Dose: 1 mg Lorazepam (Ativan) 0.5 mg IVP Q4HR PRN; Protocol PRN Reason: Agitation Stop: 03/01/18 17:48 Last Admin: 01/01/18 12:08 Dose: 0.5 mg Miscellaneous (Lovenox Subq Per Pharmacy) 1 ea PRN JESSIE; Protocol Stop: 02/25/18 14:44 Miscellaneous (Probiotic Screen) 1 [facility] PRN PRN PRN Reason: PROTOCOL Stop: 03/02/18 15:13 Pantoprazole Sodium (Protonix) 40 mg IVP DAILY JESSIE Stop: 03/04/18 08:59 Polyethylene Glycol (Miralax) 17 gm PO DAILY JESSIE Stop: 02/25/18 08:59 Last Admin: 01/02/18 09:21 Dose: 17 gm Valsartan (Diovan) 80 mg PO DAILY JESSIE Stop: 02/25/18 08:59 Last Admin: 01/02/18 09:21 Dose: 80 mg General: Alert, Oriented x3 HEENT: Atraumatic, PERRLA, EOMI Neck: Supple Cardiovascular: Regular rate, Normal S1, Normal S2 Lungs: Clear to auscultation Abdomen: Bowel sounds, Soft Extremities: no Clubbing, no Cyanosis, no Edema Neurological: Normal gait, Normal speech Assessment/Plan - Assessment Assessment: elevated troponins improved Non q-wave NH ... 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 continue current medications HTN slightly elevated ... on diovan 80mg PO daily, will add clonidine PRN UTI...will DC rocephin IV and start levoquin iv. UA for C&S leukocytosis 17-14K repeat CBC this AM hyperlipidemia ... on statins FUO .... repeat CBC, chest xray this AM. will order ELSA,ESR,RA,Uric Acid coffee ground emesis ... will order IV Protonix. Will order GI consult. - Plan Plan: telemetry serial troponins cardiac consult psychiatric consult neuro consult repeat CBC this AM Nutritional Asmnt/Malnutr-PDOC - Dietary Evaluation Malnutrition Findings (Please click <Entered> for more info): Nutritional Asmnt/Malnutrition Start: 12/30/17 16: 04 Text: Status: Complete Freq: Protocol: Document 12/30/17 16:04 [email or web address] (Rec: 12/30/17 16:14 [id number]) Nutritional Asmnt/Malnutrition Patient General Information Nutritional Screening Moderate Risk Diagnosis elevated troponin Pertinent Medical Hx/Surgical Hx HTN, dementia, hypothyroidism Subjective Information Pt seen sleeping in bed at time of visit, family at bedside. Per family, pt was very sleepy, only had few bites of brearfast this morning. Per EMR, PO intake about 25-50%. Per family, pt likes chocoalte icecream and pudding. Current Diet Order/ Nutrition Support cardiac Pertinent Medications lipitor, D5-0.25ns, synthroid, miralax, seroquel Pertinent Labs 12/27 Cl 110 Nutritional Hx/Data Height 1.6 m Height (Calculated Centimeters) 160.0 Current Weight (lbs) 62.596 kg Weight (Calculated Kilograms) 62.6 Weight (Calculated Grams) 71718.7 [place] Body Weight 115 Body Mass Index (BMI) 24.4 Weight Status Approriate GI Symptoms GI Symptoms None Last BM 12/27 Difficult in: None Skin Integrity/Comment: skin intact, reddened to buttocks Current %PO Poor (25-49%) Estimated Nutritional Goals BEE in Kcals: Using Current wt Calories/Kcals/Kg 25-30 Kcals Calculated 2864-7049 Protein: Using Current wt Protein g/k Protein Calculated 63 Fluid: ml 1575-1890ml (1ml/kcal) Nutritional Problem 1. Problem Problem inadequate food intake Etiology possible poor appetite Signs/Symptoms: PO intake 25-50% Malnutrition Alert Is there a minimum of two criteria No selected? Query Text:Check all the applicable criteria. A minimum of two criteria are recommended for diagnosis of either severe or non-severe malnutrition. Malnutrition Related to Morbid Obesity Malnutrition related to morbid obesity No Intervention/Recommendation Comments 1. Continue with current diet as ordered. Family request nutrition supplements. Send one bottle of chocolate ensure per family request at lunch. Will consider adding supplements if PO intake continue <50%. Nurses to assist pt with meals and encourage oral intake. 2. Monitor PO intake, wt, labs and skin integrity 3. F/U as high risk in 2-3 days, 01/01-01/02 Expected Outcomes/Goals Expected Outcomes/Goals 1. PO intake to meet at least 75% of nutritional needs. 2. Wt stability, skin to remain intact, labs to approach WNL.
[2018-01-03 05:42] LABS: EOSINOPHILE ABSOLUTE 0.1 Th/cmm (0.1-0.4); HEMOGLOBIN 11.9 gm/dL (12-16); LYMPHOCYTE ABSOLUTE 0.9 Th/cmm (1.5-3.0); MEAN CELL VOLUME 93.4 fl (81-100); MEAN CORPUSCULAR HEMOGLOBIN 30.9 pg (27.0-31.0); MEAN CORPUSCULAR HGB CONC 33.1 pg (28.0-36.0); MEAN PLATELET VOLUME 9.8 fl; MONOCYTE ABSOLUTE 0.2 Th/cmm (0.3-1.0); NEUTROPHILE ABSOLUTE 13.2 Th/cmm (1.8-8.0); PLATELET COUNT 348 Th/cmm (150-400); RED BLOOD COUNT 3.86 Mil/cmm (3.80-5.20); RED CELL DISTRIBUTION WIDTH 12.6 % (11.5-20.0); WHITE BLOOD COUNT 14.4 Th/cmm (4.8-10.8)
[2018-01-03 06:27] LABS: ALBUMIN 2.9 gm/dL (3.7-5.3); ALKALINE PHOSPHATASE 78 U/L (34-104); ANION GAP 10.7 (7.0-16.0); BILIRUBIN,TOTAL 0.9 mg/dL (0.3-1.0); BUN - UREA NITROGEN 13 mg/dL (7-25); CALCIUM SERUM 8.5 mg/dL (8.6-10.3); CHLORIDE 108 mEq/L (98-107); CREATININE - SERUM 0.7 mg/dL (0.6-1.2); GLUCOSE 122 mg/dL (70-105); SGOT 38 U/L (13-39); SGPT/ALT 25 U/L (7-52); SODIUM SERUM 138 mEq/L (136-145); TOTAL PROTEIN,SERUM 5.8 gm/dL (6.0-8.3)
[2018-01-03 06:40] LABS: POTASSIUM SERUM 2.7 mEq/L (3.5-5.1)
[2018-01-03 07:11] LABS: BAND NEUTROPHILE 6 % (0-10); EOSINOPHIL 0 % (0-5); LYMPHOCYTE 4 % (20-50); MONOCYTE 0 % (2-10); NEUTROPHILS 90 % (40-80)
[2018-01-03] MEDS ORDERED: KCL 20mEq/100mL Premix 20 MEQ/100 ML PIGGYBACK IV SCH (08:14)
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
[2018-01-03] MEDS: POLYETHYLENE GLYCOL 3350 17 GM PACK PO SCH (08:39)
[2018-01-03] MEDS: Aspirin 81mg Chewable Tab PO SCH ×2 (08:39→09:01)
[2018-01-03] MEDS: Levothyroxine 0.025 Mg Tab PO SCH (08:39)
[2018-01-03] MEDS: Lactobacillus Rhamnosus GG 15 Billion CFU CAP.SPRINK PO SCH (08:39)
[2018-01-03] MEDS: Atorvastatin Calcium 10 MG TAB PO SCH (08:39)
[2018-01-03] MEDS ORDERED: Fleet Enema 135 mL RC ONE (09:00)
[2018-01-03] MEDS ORDERED: Potassium Chloride 40 MEQ, Lidocaine 1% 20mL Vial 25 MG in Sodium Chloride 0.9% 250 ML IV ONE (09:00)
--- NOTE | 2018-01-03 12:32 | Diagnostic Imaging Report ---
Portable chest x-ray Time: 0 714 History: Pneumonia Allowing for portable technique the heart size is normal. No focal pulmonary parenchymal processes. No hilar or mediastinal abnormalities. Impression: No acute abnormalities.
--- NOTE | 2018-01-03 12:42 | Diagnostic Imaging Report ---
EXAM: Right shoulder joint HISTORY: Right shoulder pain COMPARISON: None FINDINGS: Multiple views of right shoulder joint reviewed. The study demonstrates no evidence of fracture or dislocation. There is no evidence of subluxation. The acromion clinically joint is intact. The head of right humerus is well within the glenoid fossa. IMPRESSION: Normal examination of the right shoulder joint.
--- NOTE | 2018-01-03 12:43 | Diagnostic Imaging Report ---
Exam: Right knee joint HISTORY: Right knee pain. Findings: Multiple views of right knee joint reviewed. The study demonstrates no evidence of fracture dislocation. Vascular calcifications are noted. The patella is intact. Calcification of menisci are noted. IMPRESSION: Essentially unremarkable examination of the right knee joint.
[2018-01-03] MEDS: Levofloxacin 500mg/100mL 500 MG/100 ML BAG IV SCH (13:22)
[2018-01-03 17:06] LABS: EOSINOPHILE ABSOLUTE 0.2 Th/cmm (0.1-0.4); MONOCYTE ABSOLUTE 0.3 Th/cmm (0.3-1.0)
[2018-01-03 17:17] LABS: WHITE BLOOD COUNT 25.1 Th/cmm (4.8-10.8)
[2018-01-03 17:18] LABS: % BASOPHILS 2.1 % (0.0-2.0); % EOSINOPHILS 0.7 % (0.0-5.0); % LYMPHOCYTES 7.4 % (20.0-50.0); % MONOCYTES 1.1 % (2.0-10.0); % NEUTROPHILS 88.7 % (40.0-80.0); HEMATOCRIT 34.2 % (41.0-60); HEMOGLOBIN 11.6 gm/dL (12-16); MEAN CELL VOLUME 92.9 fl (81-100); MEAN CORPUSCULAR HEMOGLOBIN 31.4 pg (27.0-31.0); MEAN CORPUSCULAR HGB CONC 33.8 pg (28.0-36.0); MEAN PLATELET VOLUME 9.1 fl; NEUTROPHILE ABSOLUTE 22.2 Th/cmm (1.8-8.0); PLATELET COUNT 389 Th/cmm (150-400); RED BLOOD COUNT 3.68 Mil/cmm (3.80-5.20); RED CELL DISTRIBUTION WIDTH 13.3 % (11.5-20.0)
[2018-01-03 17:19] LABS: BASOPHILE ABSOLUTE 0.5 Th/cumm (0-0.2); LYMPHOCYTE ABSOLUTE 1.9 Th/cmm (1.5-3.0)
[2018-01-03 17:49] LABS: BAND NEUTROPHILE 11 % (0-10); NEUTROPHILS 69 % (40-80)
[2018-01-03 17:50] LABS: EOSINOPHIL 3 % (0-5); LYMPHOCYTE 12 % (20-50); MONOCYTE 5 % (2-10)
--- NOTE | 2018-01-04 02:57 | Infectious Disease Prog Note ---
Infectious Disease Subjective - Review of Systems Service Date: 01/04/18 Subjective: coffee ground emesis x1. Fever 102 F. Increase in WBC. Infectious Disease Objective - Results Result Diagrams: 01/04/18 04:40 01/04/18 04:40 Recent Labs: Laboratory Last Values WBC 25.1 Th/cmm (4.8-10.8) H* D 01/03/18 17:00 RBC 3.68 Mil/cmm (3.80-5.20) L 01/03/18 17:00 Hgb 11.6 gm/dL (12-16) L 01/03/18 17:00 Hct 34.2 % (41.0-60) L 01/03/18 17:00 MCV 92.9 fl (81-100) 01/03/18 17:00 MCH 31.4 pg (27.0-31.0) H 01/03/18 17:00 MCHC Differential 33.8 pg (28.0-36.0) 01/03/18 17:00 RDW 13.3 % (11.5-20.0) 01/03/18 17:00 Plt Count 389 Th/cmm (150-400) 01/03/18 17:00 MPV 9.1 fl 01/03/18 17:00 Add Manual Diff YES 01/03/18 17:00 Neutrophils % 88.7 % (40.0-80.0) H 01/03/18 17:00 Band Neutrophils % 11 % (0-10) H 01/03/18 17:00 Lymphocytes % 7.4 % (20.0-50.0) L 01/03/18 17:00 Monocytes % 1.1 % (2.0-10.0) L 01/03/18 17:00 Eosinophils % 0.7 % (0.0-5.0) 01/03/18 17:00 Basophils % 2.1 % (0.0-2.0) H 01/03/18 17:00 Neutrophils (Manual) 69 % (40-80) 01/03/18 17:00 Lymphocytes 12 % (20-50) L 01/03/18 17:00 Monocytes 5 % (2-10) 01/03/18 17:00 Eosinophils 3 % (0-5) 01/03/18 17:00 Basophils 0 % (0-3) 01/02/18 06:06 Platelet Estimate ADEQUATE (NORMAL) 01/02/18 06:06 ESR 62 mm/hr (0-30) H 01/03/18 04:45 PT 9.5 SECONDS (9.5-11.5) 12/26/17 17:15 INR 0.91 (0.5-1.4) 12/26/17 17:15 PTT (Actin FS) 24.5 SECONDS (26.0-38.0) L 12/26/17 17:15 Sodium 138 mEq/L (136-145) 01/03/18 04:45 Potassium 2.7 mEq/L (3.5-5.1) L* 01/03/18 04:45 Chloride 108 mEq/L (98-107) H 01/03/18 04:45 Carbon Dioxide 22.0 mEq/L (21.0-31.0) 01/03/18 04:45 Anion Gap 10.7 (7.0-16.0) 01/03/18 04:45 BUN 13 mg/dL (7-25) 01/03/18 04:45 Creatinine 0.7 mg/dL (0.6-1.2) 01/03/18 04:45 Est GFR ( Amer) TNP 01/03/18 04:45 Est GFR (Non-Af Amer) TNP 01/03/18 04:45 BUN/Creatinine Ratio 18.6 01/03/18 04:45 Glucose 122 mg/dL (70-105) H 01/03/18 04:45 Uric Acid 3.3 mg/dL (2.3-6.6) 01/03/18 04:45 Calcium 8.5 mg/dL (8.6-10.3) L 01/03/18 04:45 Total Bilirubin 0.9 mg/dL (0.3-1.0) 01/03/18 04:45 AST 38 U/L (13-39) 01/03/18 04:45 ALT 25 U/L (7-52) 01/03/18 04:45 Alkaline Phosphatase 78 U/L (34-104) 01/03/18 04:45 Ammonia 52 umol/L (16-53) 12/31/17 05:40 Troponin I 0.23 ng/mL (0.01-0.05) H* D 01/03/18 04:45 Total Protein 5.8 gm/dL (6.0-8.3) L 01/03/18 04:45 Albumin 2.9 gm/dL (3.7-5.3) L 01/03/18 04:45 Globulin 2.9 gm/dL 01/03/18 04:45 Albumin/Globulin Ratio 1.0 (1.0-1.8) 01/03/18 04:45 Triglycerides 78 mg/dL (<150) 12/27/17 07:47 Cholesterol 249 mg/dL (<200) H 12/27/17 07:47 LDL Cholesterol Direct 198 mg/dL (75-193) H 12/27/17 07:47 HDL Cholesterol 45 mg/dL (23-92) 12/27/17 07:47 Vitamin B12 707 pg/mL (232-1245) 12/30/17 06:00 Folic Acid 16.7 ng/mL (>3.0) 12/30/17 06:00 TSH 3.88 uIU/ml (0.34-5.60) 12/26/17 17:15 Urine Source CATH 12/31/17 08:20 Urine Color YELLOW 12/31/17 08:20 Urine Clarity CLEAR (CLEAR) 12/31/17 08:20 Urine pH 6.5 (4.6 - 8.0) 12/31/17 08:20 Ur Specific [place] 1.010 (1.005-1.030) 12/31/17 08:20 Urine Protein TRACE mg/dL (NEGATIVE) 12/31/17 08:20 Urine Glucose (UA) NEGATIVE mg/dL (NEGATIVE) 12/31/17 08:20 Urine Ketones NEGATIVE mg/dL (NEGATIVE) 12/31/17 08:20 Urine Blood NEGATIVE (NEGATIVE) 12/31/17 08:20 Urine Nitrate NEGATIVE (NEGATIVE) 12/31/17 08:20 Urine Bilirubin NEGATIVE (NEGATIVE) 12/31/17 08:20 Urine Urobilinogen 0.2 E.U./dL (0.2 - 1.0) 12/31/17 08:20 Ur Leukocyte Esterase NEGATIVE (NEGATIVE) 12/31/17 08:20 Urine RBC 0-2 /hpf (0-5) 12/31/17 08:20 Urine WBC 0-2 /hpf (0-5) 12/31/17 08:20 Ur Epithelial Cells RARE /lpf (FEW) 12/31/17 08:20 Urine Bacteria NONE SEEN /hpf (NONE SEEN) 12/31/17 08:20 Urine Mucus FEW /lpf (FEW) 12/31/17 08:20 - Physical Exam Vitals and I&O: Vital Signs Temp 99.1 F 01/03/18 23:00 Pulse 92 01/03/18 23:00 Resp 16 01/04/18 02:00 BP 141/51 01/03/18 23:00 Pulse Ox 99 01/03/18 23:00 Intake & Output 01/03/18 01/03/18 01/04/18 06:59 18:59 06:59 Intake Total 100 250 Balance 100 250 Weight (lbs) 61.825 kg 61.235 kg Intake: Intake, IV Amount 100 metroNIDAZOLE 500mg/NS 100 100mL 500 mg In 100 ml @ 100 mls/hr IV Q12H [facility] Rx #:[id number] Oral 250 Other: # Voids 3 2 # Bowel Movements 0 1 Stool Characteristics Soft Weight Source Bedscale Bedscale Active Medications: Current Medications Acetaminophen (Tylenol) 650 mg PO Q4H PRN PRN Reason: Fever > 101 Stop: 02/28/18 23:58 Last Admin: 01/01/18 18:09 Dose: 650 mg Acetaminophen (Tylenol 650mg Supp) 650 mg RC Q4H PRN PRN Reason: Fever > 101 Stop: 03/03/18 14:05 Last Admin: 01/03/18 03:56 Dose: 650 mg Aspirin (Aspirin Chewable) 81 mg PO DAILY [facility] Stop: 02/25/18 08:59 Last Admin: 01/03/18 09:01 Dose: 81 mg Atorvastatin Calcium (Lipitor) 10 mg PO DAILY [facility]; Protocol Stop: 02/26/18 10:59 Last Admin: 01/03/18 08:39 Dose: Not Given Bisacodyl (Dulcolax 10 Mg Supp) 10 mg RC DAILY PRN PRN Reason: Constipation Stop: 02/25/18 06:58 Last Admin: 01/02/18 20:41 Dose: 10 mg Dextrose/Sodium Chloride (D5-0.45ns) 1,000 mls @ 50 mls/hr IV .Q20H [facility] Stop: 03/01/18 00:00 Last Admin: 01/01/18 23:29 Dose: 50 mls/hr Levofloxacin (Levaquin Pb) 500 mg in 100 mls @ 100 mls/hr IV Q24HR [facility] Stop: 03/01/18 08:59 Last Admin: 01/03/18 13:22 Dose: 100 mls/hr Metronidazole (Flagyl) 500 mg in 100 mls @ 100 mls/hr IV Q12H [facility] Stop: 03/03/18 15:59 Last Admin: 01/03/18 16:15 Dose: 100 mls/hr Piperacillin Sod/Tazobactam (Sod 2.25 gm/ Sodium Chloride) 50 mls @ 100 mls/hr IV Q6HR [facility] Stop: 03/05/18 05:59 Lactobacillus Rhamnosus (Culturelle 15b) 1 each PO DAILY [facility] Stop: 03/03/18 08:59 Last Admin: 01/03/18 08:39 Dose: Not Given Levothyroxine Sodium (Synthroid) 0.025 mg PO DAILY [facility] Stop: 02/25/18 08:59 Last Admin: 01/03/18 08:39 Dose: Not Given Lorazepam (Ativan) 1 mg IVP Q4HR PRN; Protocol PRN Reason: Agitation Stop: 02/25/18 00:58 Last Admin: 01/02/18 01:49 Dose: 1 mg Lorazepam (Ativan) 0.5 mg IVP Q4HR PRN; Protocol PRN Reason: Agitation Stop: 03/01/18 17:48 Last Admin: 01/01/18 12:08 Dose: 0.5 mg Miscellaneous (Probiotic Screen) 1 ea PRN PRN PRN Reason: PROTOCOL Stop: 03/02/18 15:13 Pantoprazole Sodium (Protonix) 40 mg IVP BID [facility] Stop: 03/04/18 16:59 Last Admin: 01/03/18 16:15 Dose: 40 mg Polyethylene Glycol (Miralax) 17 gm PO DAILY [facility] Stop: 02/25/18 08:59 Last Admin: 01/03/18 08:39 Dose: Not Given Valsartan (Diovan) 80 mg PO DAILY [facility] Stop: 02/25/18 08:59 Last Admin: 01/03/18 08:39 Dose: Not Given General: no acute distress HEENT: atraumatic, normocephalic, PERRLA Neck: supple, no thyromegaly Cardiovascular: S1S2, regular Lungs: clear to auscultation bilaterally Abdomen: soft, no tender, no distended Extremities: no cyanosis, no clubbing, no edema Neurological: other (Confused.) Infectious Disease Assmt/Plan - Assessment Assessment: 1. Sepsis. 2. Aspiration pneumonia. 3. UTI treated. 4. Dementia. 5. Hypertension. - Plan Plan: Change antibiotics in view worsening leukocytosis. Although there is no clear evidence of infection at this time. If there is any increase in WBC will check CT scan A/p and chest. Nutritional Asmnt/Malnutr-PDOC - Dietary Evaluation Malnutrition Findings (Please click <Entered> for more info): Nutritional Asmnt/Malnutrition Start: 12/30/17 16: 04 Text: Status: Complete Freq: Protocol: Document 12/30/17 16:04 LCHENG (Rec: 12/30/17 16:14 [email or web address]) Nutritional Asmnt/Malnutrition Patient General Information Nutritional Screening Moderate Risk Diagnosis elevated troponin Pertinent Medical Hx/Surgical Hx HTN, dementia, hypothyroidism Subjective Information Pt seen sleeping in bed at time of visit, family at bedside. Per family, pt was very sleepy, only had few bites of brearfast this morning. Per EMR, PO intake about 25-50%. Per family, pt likes chocoalte icecream and pudding. Current Diet Order/ Nutrition Support cardiac Pertinent Medications lipitor, D5-0.25ns, synthroid, miralax, seroquel Pertinent Labs 12/27 Cl 110 Nutritional Hx/Data Height 1.6 m Height (Calculated Centimeters) 160.0 Current Weight (lbs) 62.596 kg Weight (Calculated Kilograms) 62.6 Weight (Calculated Grams) 53753.7 [place] Body Weight 115 Body Mass Index (BMI) 24.4 Weight Status Approriate GI Symptoms GI Symptoms None Last BM 12/27 Difficult in: None Skin Integrity/Comment: skin intact, reddened to buttocks Current %PO Poor (25-49%) Estimated Nutritional Goals BEE in Kcals: Using Current wt Calories/Kcals/Kg 25-30 Kcals Calculated 1284-0605 Protein: Using Current wt Protein g/k Protein Calculated 63 Fluid: ml 1575-1890ml (1ml/kcal) Nutritional Problem 1. Problem Problem inadequate food intake Etiology possible poor appetite Signs/Symptoms: PO intake 25-50% Malnutrition Alert Is there a minimum of two criteria No selected? Query Text:Check all the applicable criteria. A minimum of two criteria are recommended for diagnosis of either severe or non-severe malnutrition. Malnutrition Related to Morbid Obesity Malnutrition related to morbid obesity No Intervention/Recommendation Comments 1. Continue with current diet as ordered. Family request nutrition supplements. Send one bottle of chocolate ensure per family request at lunch. Will consider adding supplements if PO intake continue <50%. Nurses to assist pt with meals and encourage oral intake. 2. Monitor PO intake, wt, labs and skin integrity 3. F/U as high risk in 2-3 days, 01/01-01/02 Expected Outcomes/Goals Expected Outcomes/Goals 1. PO intake to meet at least 75% of nutritional needs. 2. Wt stability, skin to remain intact, labs to approach WNL.
[2018-01-04] MEDS ORDERED: Piperacillin Sodium/Tazobact 3.375 gm Vial IV ONE (04:21)
[2018-01-04 06:45] LABS: RED BLOOD COUNT 3.67 Mil/cmm (3.80-5.20)
[2018-01-04 06:48] LABS: ALBUMIN 2.9 gm/dL (3.7-5.3); ALKALINE PHOSPHATASE 72 U/L (34-104); ANION GAP 12.7 (7.0-16.0); BILIRUBIN,TOTAL 0.7 mg/dL (0.3-1.0); BUN - UREA NITROGEN 12 mg/dL (7-25); CALCIUM SERUM 8.4 mg/dL (8.6-10.3); CARBON DIOXIDE 20.3 mEq/L (21.0-31.0); CHLORIDE 108 mEq/L (98-107); CREATININE - SERUM 0.7 mg/dL (0.6-1.2); GLUCOSE 102 mg/dL (70-105); SGOT 30 U/L (13-39); SGPT/ALT 25 U/L (7-52); SODIUM SERUM 138 mEq/L (136-145); TOTAL PROTEIN,SERUM 5.8 gm/dL (6.0-8.3)
[2018-01-04 06:51] LABS: HEMATOCRIT 34.2 % (41.0-60); HEMOGLOBIN 11.5 gm/dL (12-16); MEAN CELL VOLUME 93.2 fl (81-100); MEAN CORPUSCULAR HEMOGLOBIN 31.2 pg (27.0-31.0); MEAN CORPUSCULAR HGB CONC 33.5 pg (28.0-36.0); MEAN PLATELET VOLUME 10.1 fl; PLATELET COUNT 405 Th/cmm (150-400); RED CELL DISTRIBUTION WIDTH 13.2 % (11.5-20.0); WHITE BLOOD COUNT 23.8 Th/cmm (4.8-10.8)
--- NOTE | 2018-01-04 08:09 | General Progress Note ---
Subjective - Review of Systems Service Date: 01/04/18 Subjective: Patient was seen and examined. Coffee ground emesis x 1 this am. No further episodes. Patient still having elevated WBC's in light of a change in antibiotic treatment. Poor oral intake. elevated ESR+ and positive Rheumatoid Factor Objective - Results Result Diagrams: 01/04/18 04:40 01/04/18 04:40 Recent Labs: Laboratory Last Values WBC 23.8 Th/cmm (4.8-10.8) H* 01/04/18 04:40 RBC 3.67 Mil/cmm (3.80-5.20) L 01/04/18 04:40 Hgb 11.5 gm/dL (12-16) L 01/04/18 04:40 Hct 34.2 % (41.0-60) L 01/04/18 04:40 MCV 93.2 fl (81-100) 01/04/18 04:40 MCH 31.2 pg (27.0-31.0) H 01/04/18 04:40 MCHC Differential 33.5 pg (28.0-36.0) 01/04/18 04:40 RDW 13.2 % (11.5-20.0) 01/04/18 04:40 Plt Count 405 Th/cmm (150-400) H 01/04/18 04:40 MPV 10.1 fl 01/04/18 04:40 Add Manual Diff YES 01/04/18 04:40 Neutrophils % 88.7 % (40.0-80.0) H 01/03/18 17:00 Band Neutrophils % 11 % (0-10) H 01/03/18 17:00 Lymphocytes % 7.4 % (20.0-50.0) L 01/03/18 17:00 Monocytes % 1.1 % (2.0-10.0) L 01/03/18 17:00 Eosinophils % 0.7 % (0.0-5.0) 01/03/18 17:00 Basophils % 2.1 % (0.0-2.0) H 01/03/18 17:00 Neutrophils (Manual) 69 % (40-80) 01/03/18 17:00 Lymphocytes 12 % (20-50) L 01/03/18 17:00 Monocytes 5 % (2-10) 01/03/18 17:00 Eosinophils 3 % (0-5) 01/03/18 17:00 Basophils 0 % (0-3) 01/02/18 06:06 Platelet Estimate ADEQUATE (NORMAL) 01/02/18 06:06 ESR 62 mm/hr (0-30) H 01/03/18 04:45 PT 9.5 SECONDS (9.5-11.5) 12/26/17 17:15 INR 0.91 (0.5-1.4) 12/26/17 17:15 PTT (Actin FS) 24.5 SECONDS (26.0-38.0) L 12/26/17 17:15 Sodium 138 mEq/L (136-145) 01/04/18 04:40 Potassium 3.0 mEq/L (3.5-5.1) L 01/04/18 04:40 Chloride 108 mEq/L (98-107) H 01/04/18 04:40 Carbon Dioxide 20.3 mEq/L (21.0-31.0) L 01/04/18 04:40 Anion Gap 12.7 (7.0-16.0) 01/04/18 04:40 BUN 12 mg/dL (7-25) 01/04/18 04:40 Creatinine 0.7 mg/dL (0.6-1.2) 01/04/18 04:40 Est GFR ( Amer) TNP 01/04/18 04:40 Est GFR (Non-Af Amer) TNP 01/04/18 04:40 BUN/Creatinine Ratio 17.1 01/04/18 04:40 Glucose 102 mg/dL (70-105) 01/04/18 04:40 Uric Acid 3.3 mg/dL (2.3-6.6) 01/03/18 04:45 Calcium 8.4 mg/dL (8.6-10.3) L 01/04/18 04:40 Total Bilirubin 0.7 mg/dL (0.3-1.0) 01/04/18 04:40 AST 30 U/L (13-39) 01/04/18 04:40 ALT 25 U/L (7-52) 01/04/18 04:40 Alkaline Phosphatase 72 U/L (34-104) 01/04/18 04:40 Ammonia 52 umol/L (16-53) 12/31/17 05:40 Troponin I 0.23 ng/mL (0.01-0.05) H* D 01/03/18 04:45 Total Protein 5.8 gm/dL (6.0-8.3) L 01/04/18 04:40 Albumin 2.9 gm/dL (3.7-5.3) L 01/04/18 04:40 Globulin 2.9 gm/dL 01/04/18 04:40 Albumin/Globulin Ratio 1.0 (1.0-1.8) 01/04/18 04:40 Triglycerides 78 mg/dL (<150) 12/27/17 07:47 Cholesterol 249 mg/dL (<200) H 12/27/17 07:47 LDL Cholesterol Direct 198 mg/dL (75-193) H 12/27/17 07:47 HDL Cholesterol 45 mg/dL (23-92) 12/27/17 07:47 Vitamin B12 707 pg/mL (232-1245) 12/30/17 06:00 Folic Acid 16.7 ng/mL (>3.0) 12/30/17 06:00 TSH 3.88 uIU/ml (0.34-5.60) 12/26/17 17:15 Urine Source CATH 12/31/17 08:20 Urine Color YELLOW 12/31/17 08:20 Urine Clarity CLEAR (CLEAR) 12/31/17 08:20 Urine pH 6.5 (4.6 - 8.0) 12/31/17 08:20 Ur Specific [place] 1.010 (1.005-1.030) 12/31/17 08:20 Urine Protein TRACE mg/dL (NEGATIVE) 12/31/17 08:20 Urine Glucose (UA) NEGATIVE mg/dL (NEGATIVE) 12/31/17 08:20 Urine Ketones NEGATIVE mg/dL (NEGATIVE) 12/31/17 08:20 Urine Blood NEGATIVE (NEGATIVE) 12/31/17 08:20 Urine Nitrate NEGATIVE (NEGATIVE) 12/31/17 08:20 Urine Bilirubin NEGATIVE (NEGATIVE) 12/31/17 08:20 Urine Urobilinogen 0.2 E.U./dL (0.2 - 1.0) 12/31/17 08:20 Ur Leukocyte Esterase NEGATIVE (NEGATIVE) 12/31/17 08:20 Urine RBC 0-2 /hpf (0-5) 12/31/17 08:20 Urine WBC 0-2 /hpf (0-5) 12/31/17 08:20 Ur Epithelial Cells RARE /lpf (FEW) 12/31/17 08:20 Urine Bacteria NONE SEEN /hpf (NONE SEEN) 12/31/17 08:20 Urine Mucus FEW /lpf (FEW) 12/31/17 08:20 - Physical Exam Vitals and I&O: Vital Signs Temp 97.4 F 01/04/18 07:31 Pulse 76 01/04/18 07:31 Resp 18 01/04/18 07:31 BP 123/61 01/04/18 07:31 Pulse Ox 97 01/04/18 07:31 Intake & Output 01/03/18 01/04/18 01/04/18 18:59 06:59 18:59 Intake Total 250 150 Balance 250 150 Weight (lbs) 61.235 kg 61.235 kg Intake: Intake, IV Amount 50 Piperacillin Sodium/ 50 Tazobact 3.375 gm In Sodium Chloride 0.9% 50 ml @ 100 mls/hr IV Q6HR [facility] Rx#:[id number] Oral 250 100 Other: # Voids 2 3 # Bowel Movements 1 0 Stool Characteristics Soft Weight Source Bedscale Bedscale Active Medications: Current Medications Acetaminophen (Tylenol) 650 mg PO Q4H PRN PRN Reason: Fever > 101 Stop: 02/28/18 23:58 Last Admin: 01/01/18 18:09 Dose: 650 mg Acetaminophen (Tylenol 650mg Supp) 650 mg RC Q4H PRN PRN Reason: Fever > 101 Stop: 03/03/18 14:05 Last Admin: 01/03/18 03:56 Dose: 650 mg Aspirin (Aspirin Chewable) 81 mg PO DAILY [facility] Stop: 02/25/18 08:59 Last Admin: 01/03/18 09:01 Dose: 81 mg Atorvastatin Calcium (Lipitor) 10 mg PO DAILY [facility]; Protocol Stop: 02/26/18 10:59 Last Admin: 01/03/18 08:39 Dose: Not Given Bisacodyl (Dulcolax 10 Mg Supp) 10 mg RC DAILY PRN PRN Reason: Constipation Stop: 02/25/18 06:58 Last Admin: 01/02/18 20:41 Dose: 10 mg Dextrose/Sodium Chloride (D5-0.45ns) 1,000 mls @ 50 mls/hr IV .Q20H [facility] Stop: 03/01/18 00:00 Last Admin: 01/01/18 23:29 Dose: 50 mls/hr Piperacillin Sod/Tazobactam (Sod 3.375 gm/ Sodium Chloride) 50 mls @ 100 mls/ hr IV Q6HR [facility] Stop: 03/05/18 03:59 Last Infusion: 01/04/18 05:15 Dose: Infused Potassium Chloride (Potassium Chloride) 20 meq in 100 mls @ 50 mls/hr IV Q2H [facility] Stop: 01/04/18 11:59 Lactobacillus Rhamnosus (Culturelle 15b) 1 each PO DAILY [facility] Stop: 03/03/18 08:59 Last Admin: 01/03/18 08:39 Dose: Not Given Levothyroxine Sodium (Synthroid) 0.025 mg PO DAILY [facility] Stop: 02/25/18 08:59 Last Admin: 01/03/18 08:39 Dose: Not Given Lorazepam (Ativan) 1 mg IVP Q4HR PRN; Protocol PRN Reason: Agitation Stop: 02/25/18 00:58 Last Admin: 01/02/18 01:49 Dose: 1 mg Lorazepam (Ativan) 0.5 mg IVP Q4HR PRN; Protocol PRN Reason: Agitation Stop: 03/01/18 17:48 Last Admin: 01/01/18 12:08 Dose: 0.5 mg Miscellaneous (Probiotic Screen) 1 ea [facility] PRN PRN PRN Reason: PROTOCOL Stop: 03/02/18 15:13 Pantoprazole Sodium (Protonix) 40 mg IVP BID [facility] Stop: 03/04/18 16:59 Last Admin: 01/03/18 16:15 Dose: 40 mg Polyethylene Glycol (Miralax) 17 gm PO DAILY [facility] Stop: 02/25/18 08:59 Last Admin: 01/03/18 08:39 Dose: Not Given Valsartan (Diovan) 80 mg PO DAILY [facility] Stop: 02/25/18 08:59 Last Admin: 01/03/18 08:39 Dose: Not Given General: Alert, Oriented x3 HEENT: Atraumatic, PERRLA, EOMI Neck: Supple Cardiovascular: Regular rate, Normal S1, Normal S2 Lungs: Clear to auscultation Abdomen: Bowel sounds, Soft Extremities: no Clubbing, no Cyanosis, no Edema Neurological: Normal gait, Normal speech Assessment/Plan - Assessment Assessment: elevated troponins improved Non q-wave NH ... 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 continue current medications HTN slightly elevated ... on diovan 80mg PO daily, will add clonidine PRN UTI...will DC rocephin IV and start levoquin iv. UA for C&S leukocytosis .... for CT chest,abd,pelvis hyperlipidemia ... on statins FUO .... repeat CBC, chest xray this AM. will order ELSA,ESR,RA,Uric Acid coffee ground emesis ... will order IV Protonix. Will order GI consult. hypokalemia ... will order K-rider today. Rheumatoid Arthritis .... need to be referred to equipment maintenance technician outpatient. - Plan Plan: continue current orders. Nutritional Asmnt/Malnutr-PDOC - Dietary Evaluation Malnutrition Findings (Please click <Entered> for more info): Nutritional Asmnt/Malnutrition Start: 12/30/17 16: 04 Text: Status: Complete Freq: Protocol: Document 12/30/17 16:04 DODIEG (Rec: 12/30/17 16:14 [email or web address]) Nutritional Asmnt/Malnutrition Patient General Information Nutritional Screening Moderate Risk Diagnosis elevated troponin Pertinent Medical Hx/Surgical Hx HTN, dementia, hypothyroidism Subjective Information Pt seen sleeping in bed at time of visit, family at bedside. Per family, pt was very sleepy, only had few bites of brearfast this morning. Per EMR, PO intake about 25-50%. Per family, pt likes chocoalte icecream and pudding. Current Diet Order/ Nutrition Support cardiac Pertinent Medications lipitor, D5-0.25ns, synthroid, miralax, seroquel Pertinent Labs 12/27 Cl 110 Nutritional Hx/Data Height 1.6 m Height (Calculated Centimeters) 160.0 Current Weight (lbs) 62.596 kg Weight (Calculated Kilograms) 62.6 Weight (Calculated Grams) 62149.7 [place] Body Weight 115 Body Mass Index (BMI) 24.4 Weight Status Approriate GI Symptoms GI Symptoms None Last BM 12/27 Difficult in: None Skin Integrity/Comment: skin intact, reddened to buttocks Current %PO Poor (25-49%) Estimated Nutritional Goals BEE in Kcals: Using Current wt Calories/Kcals/Kg 25-30 Kcals Calculated 7400-0805 Protein: Using Current wt Protein g/k Protein Calculated 63 Fluid: ml 1575-1890ml (1ml/kcal) Nutritional Problem 1. Problem Problem inadequate food intake Etiology possible poor appetite Signs/Symptoms: PO intake 25-50% Malnutrition Alert Is there a minimum of two criteria No selected? Query Text:Check all the applicable criteria. A minimum of two criteria are recommended for diagnosis of either severe or non-severe malnutrition. Malnutrition Related to Morbid Obesity Malnutrition related to morbid obesity No Intervention/Recommendation Comments 1. Continue with current diet as ordered. Family request nutrition supplements. Send one bottle of chocolate ensure per family request at lunch. Will consider adding supplements if PO intake continue <50%. Nurses to assist pt with meals and encourage oral intake. 2. Monitor PO intake, wt, labs and skin integrity 3. F/U as high risk in 2-3 days, 01/01-01/02 Expected Outcomes/Goals Expected Outcomes/Goals 1. PO intake to meet at least 75% of nutritional needs. 2. Wt stability, skin to remain intact, labs to approach WNL.
[2018-01-04] MEDS ORDERED: Diatrizoate Meglumine/Diatri 30 mL Sol PO ONE (08:14)
[2018-01-04] MEDS ORDERED: IOHEXOL 300mgI/mL 100 ML VIAL PO ONE (08:14)
[2018-01-04 08:25] LABS: BAND NEUTROPHILE 2 % (0-10); BASOPHIL 1 % (0-3); EOSINOPHIL 2 % (0-5); LYMPHOCYTE 12 % (20-50); MONOCYTE 2 % (2-10); NEUTROPHILS 81 % (40-80)
--- NOTE | 2018-01-04 08:25 | GI Progress Note ---
Subjective - Review of Systems Service Date: 01/04/18 Subjective: No new events, no further vomiting. Hgb stable Objective - Results Result Diagrams: 01/04/18 04:40 01/04/18 04:40 Recent Labs: Laboratory Last Values WBC 23.8 Th/cmm (4.8-10.8) H* 01/04/18 04:40 RBC 3.67 Mil/cmm (3.80-5.20) L 01/04/18 04:40 Hgb 11.5 gm/dL (12-16) L 01/04/18 04:40 Hct 34.2 % (41.0-60) L 01/04/18 04:40 MCV 93.2 fl (81-100) 01/04/18 04:40 MCH 31.2 pg (27.0-31.0) H 01/04/18 04:40 MCHC Differential 33.5 pg (28.0-36.0) 01/04/18 04:40 RDW 13.2 % (11.5-20.0) 01/04/18 04:40 Plt Count 405 Th/cmm (150-400) H 01/04/18 04:40 MPV 10.1 fl 01/04/18 04:40 Add Manual Diff YES 01/04/18 04:40 Neutrophils % 88.7 % (40.0-80.0) H 01/03/18 17:00 Band Neutrophils % 11 % (0-10) H 01/03/18 17:00 Lymphocytes % 7.4 % (20.0-50.0) L 01/03/18 17:00 Monocytes % 1.1 % (2.0-10.0) L 01/03/18 17:00 Eosinophils % 0.7 % (0.0-5.0) 01/03/18 17:00 Basophils % 2.1 % (0.0-2.0) H 01/03/18 17:00 Neutrophils (Manual) 69 % (40-80) 01/03/18 17:00 Lymphocytes 12 % (20-50) L 01/03/18 17:00 Monocytes 5 % (2-10) 01/03/18 17:00 Eosinophils 3 % (0-5) 01/03/18 17:00 Basophils 0 % (0-3) 01/02/18 06:06 Platelet Estimate ADEQUATE (NORMAL) 01/02/18 06:06 ESR 62 mm/hr (0-30) H 01/03/18 04:45 PT 9.5 SECONDS (9.5-11.5) 12/26/17 17:15 INR 0.91 (0.5-1.4) 12/26/17 17:15 PTT (Actin FS) 24.5 SECONDS (26.0-38.0) L 12/26/17 17:15 Sodium 138 mEq/L (136-145) 01/04/18 04:40 Potassium 3.0 mEq/L (3.5-5.1) L 01/04/18 04:40 Chloride 108 mEq/L (98-107) H 01/04/18 04:40 Carbon Dioxide 20.3 mEq/L (21.0-31.0) L 01/04/18 04:40 Anion Gap 12.7 (7.0-16.0) 01/04/18 04:40 BUN 12 mg/dL (7-25) 01/04/18 04:40 Creatinine 0.7 mg/dL (0.6-1.2) 01/04/18 04:40 Est GFR ( Amer) TNP 01/04/18 04:40 Est GFR (Non-Af Amer) TNP 01/04/18 04:40 BUN/Creatinine Ratio 17.1 01/04/18 04:40 Glucose 102 mg/dL (70-105) 01/04/18 04:40 Uric Acid 3.3 mg/dL (2.3-6.6) 01/03/18 04:45 Calcium 8.4 mg/dL (8.6-10.3) L 01/04/18 04:40 Total Bilirubin 0.7 mg/dL (0.3-1.0) 01/04/18 04:40 AST 30 U/L (13-39) 01/04/18 04:40 ALT 25 U/L (7-52) 01/04/18 04:40 Alkaline Phosphatase 72 U/L (34-104) 01/04/18 04:40 Ammonia 52 umol/L (16-53) 12/31/17 05:40 Troponin I 0.23 ng/mL (0.01-0.05) H* D 01/03/18 04:45 Total Protein 5.8 gm/dL (6.0-8.3) L 01/04/18 04:40 Albumin 2.9 gm/dL (3.7-5.3) L 01/04/18 04:40 Globulin 2.9 gm/dL 01/04/18 04:40 Albumin/Globulin Ratio 1.0 (1.0-1.8) 01/04/18 04:40 Triglycerides 78 mg/dL (<150) 12/27/17 07:47 Cholesterol 249 mg/dL (<200) H 12/27/17 07:47 LDL Cholesterol Direct 198 mg/dL (75-193) H 12/27/17 07:47 HDL Cholesterol 45 mg/dL (23-92) 12/27/17 07:47 Vitamin B12 707 pg/mL (232-1245) 12/30/17 06:00 Folic Acid 16.7 ng/mL (>3.0) 12/30/17 06:00 TSH 3.88 uIU/ml (0.34-5.60) 12/26/17 17:15 Urine Source CATH 12/31/17 08:20 Urine Color YELLOW 12/31/17 08:20 Urine Clarity CLEAR (CLEAR) 12/31/17 08:20 Urine pH 6.5 (4.6 - 8.0) 12/31/17 08:20 Ur Specific [place] 1.010 (1.005-1.030) 12/31/17 08:20 Urine Protein TRACE mg/dL (NEGATIVE) 12/31/17 08:20 Urine Glucose (UA) NEGATIVE mg/dL (NEGATIVE) 12/31/17 08:20 Urine Ketones NEGATIVE mg/dL (NEGATIVE) 12/31/17 08:20 Urine Blood NEGATIVE (NEGATIVE) 12/31/17 08:20 Urine Nitrate NEGATIVE (NEGATIVE) 12/31/17 08:20 Urine Bilirubin NEGATIVE (NEGATIVE) 12/31/17 08:20 Urine Urobilinogen 0.2 E.U./dL (0.2 - 1.0) 12/31/17 08:20 Ur Leukocyte Esterase NEGATIVE (NEGATIVE) 12/31/17 08:20 Urine RBC 0-2 /hpf (0-5) 12/31/17 08:20 Urine WBC 0-2 /hpf (0-5) 12/31/17 08:20 Ur Epithelial Cells RARE /lpf (FEW) 12/31/17 08:20 Urine Bacteria NONE SEEN /hpf (NONE SEEN) 12/31/17 08:20 Urine Mucus FEW /lpf (FEW) 12/31/17 08:20 Rheumatoid Factor 15.5 IU/mL (0.0-13.9) H 01/03/18 04:45 - Physical Exam Vitals and I&O: Vital Signs Temp 97.4 F 01/04/18 07:31 Pulse 76 01/04/18 07:31 Resp 18 01/04/18 07:31 BP 123/61 01/04/18 07:31 Pulse Ox 97 01/04/18 07:31 Intake & Output 01/03/18 01/04/18 01/04/18 18:59 06:59 18:59 Intake Total 250 150 Balance 250 150 Weight (lbs) 61.235 kg 61.235 kg Intake: Intake, IV Amount 50 Piperacillin Sodium/ 50 Tazobact 3.375 gm In Sodium Chloride 0.9% 50 ml @ 100 mls/hr IV Q6HR [facility] Rx#:[id number] Oral 250 100 Other: # Voids 2 3 # Bowel Movements 1 0 Stool Characteristics Soft Weight Source Bedscale Bedscale Active Medications: Current Medications Acetaminophen (Tylenol) 650 mg PO Q4H PRN PRN Reason: Fever > 101 Stop: 02/28/18 23:58 Last Admin: 01/01/18 18:09 Dose: 650 mg Acetaminophen (Tylenol 650mg Supp) 650 mg RC Q4H PRN PRN Reason: Fever > 101 Stop: 03/03/18 14:05 Last Admin: 01/03/18 03:56 Dose: 650 mg Aspirin (Aspirin Chewable) 81 mg PO DAILY [facility] Stop: 02/25/18 08:59 Last Admin: 01/03/18 09:01 Dose: 81 mg Atorvastatin Calcium (Lipitor) 10 mg PO DAILY [facility]; Protocol Stop: 02/26/18 10:59 Last Admin: 01/03/18 08:39 Dose: Not Given Bisacodyl (Dulcolax 10 Mg Supp) 10 mg RC DAILY PRN PRN Reason: Constipation Stop: 02/25/18 06:58 Last Admin: 01/02/18 20:41 Dose: 10 mg Dextrose/Sodium Chloride (D5-0.45ns) 1,000 mls @ 50 mls/hr IV .Q20H JESSIE Stop: 03/01/18 00:00 Last Admin: 01/01/18 23:29 Dose: 50 mls/hr Piperacillin Sod/Tazobactam (Sod 3.375 gm/ Sodium Chloride) 50 mls @ 100 mls/ hr IV Q6HR JESSIE Stop: 03/05/18 03:59 Last Infusion: 01/04/18 05:15 Dose: Infused Potassium Chloride (Potassium Chloride) 20 meq in 100 mls @ 50 mls/hr IV Q2H JESSIE Stop: 01/04/18 11:59 Lactobacillus Rhamnosus (Culturelle 15b) 1 each PO DAILY JESSIE Stop: 03/03/18 08:59 Last Admin: 01/03/18 08:39 Dose: Not Given Levothyroxine Sodium (Synthroid) 0.025 mg PO DAILY JESSIE Stop: 02/25/18 08:59 Last Admin: 01/03/18 08:39 Dose: Not Given Lorazepam (Ativan) 1 mg IVP Q4HR PRN; Protocol PRN Reason: Agitation Stop: 02/25/18 00:58 Last Admin: 01/02/18 01:49 Dose: 1 mg Lorazepam (Ativan) 0.5 mg IVP Q4HR PRN; Protocol PRN Reason: Agitation Stop: 03/01/18 17:48 Last Admin: 01/01/18 12:08 Dose: 0.5 mg Miscellaneous (Probiotic Screen) 1 ea MC PRN PRN PRN Reason: PROTOCOL Stop: 03/02/18 15:13 Pantoprazole Sodium (Protonix) 40 mg IVP BID JESSIE Stop: 03/04/18 16:59 Last Admin: 01/03/18 16:15 Dose: 40 mg Polyethylene Glycol (Miralax) 17 gm PO DAILY JESSIE Stop: 02/25/18 08:59 Last Admin: 01/03/18 08:39 Dose: Not Given Valsartan (Diovan) 80 mg PO DAILY JESSIE Stop: 02/25/18 08:59 Last Admin: 01/03/18 08:39 Dose: Not Given General: Alert, Oriented x3 HEENT: Atraumatic, PERRLA, EOMI Neck: Supple Cardiovascular: Regular rate Abdomen: Bowel sounds, Soft, no Tender, no Hepatomegaly, no Splenomegaly, no Rebound, no Mass, no Guarding Extremities: no Clubbing, no Cyanosis, no Edema Psych/Mental Status: no Mental status NL Assessment/Plan - Assessment Assessment: # [place] ground emesis x 1 # Leukocytosis # Alzheimer's dementia Hgb has been stable, and as she only had a single episode of emesis, EGD is not necessary at this point. Treating conservatively with PPI. Leukocytosis is concerning, and workup for infectious source has been negative thus far. Agree with CT with po/iv contrast to look for an abdominal source Plan: - cont PPI - diet as tolerated - trend hgb, transfuse to keep > 7 - agree with CT abd/pelvis with po/iv contrast given persistent leukocytosis without obvious source and no response to abx - reserve endoscopy for hemostasis or if she has further GI bleeding - appreciate ID recommendations
--- NOTE | 2018-01-04 09:17 | Diagnostic Imaging Report ---
KUB abdominal film (portable) HISTORY: Pain There is a nonspecific gas pattern of nondilated bowel. No free intraperitoneal air. Degenerative changes noted throughout the spine. IMPRESSION: 1. Nonspecific bowel gas pattern with no acute radiographic abnormalities
[2018-01-04] MEDS: Atorvastatin Calcium 10 MG TAB PO SCH (10:06)
[2018-01-04] MEDS: Lactobacillus Rhamnosus GG 15 Billion CFU CAP.SPRINK PO SCH (10:06)
[2018-01-04] MEDS: Levothyroxine 0.025 Mg Tab PO SCH (10:06)
[2018-01-04] MEDS: POLYETHYLENE GLYCOL 3350 17 GM PACK PO SCH (10:06)
[2018-01-04] MEDS: Aspirin 81mg Chewable Tab PO SCH (10:06)
[2018-01-04] MEDS: KCL 20mEq/100mL Premix 20 MEQ/100 ML PIGGYBACK IV SCH ×2 (10:14→12:55)
--- NOTE | 2018-01-04 12:57 | Diagnostic Imaging Report ---
CT scan abdomen and pelvis with intravenous contrast. HISTORY: Leukocytosis, pain Total DLP equals 484 CTDI equals 10.0 Axial sections were obtained from the xiphoid process down to the pubic symphysis. The liver exhibits a homogeneous parenchyma. No focal lesions. The spleen is not seen. Calcification which appears vascular noted in the left upper quadrant. No significant focal renal lesions. No hydronephrosis. Diffuse atherosclerotic vascular calcification noted throughout the abdominal aorta, major branches, and iliac arteries. The exam of the pelvis demonstrates preservation of normal fat planes. No abnormal soft tissue masses or abnormal fluid collections. No bowel dilatation. IMPRESSION: 1. Severe diffuse atherosclerotic vascular changes 2. No other acute abnormalities 3. Spleen not visualized
--- NOTE | 2018-01-04 12:59 | Diagnostic Imaging Report ---
CT scan of the chest with intravenous contrast HISTORY: Leukocytosis, shortness of breath Total DLP equals 242 CTDI equals 8.0 Following administration of intravenous contrast, axial sections were obtained from a level above the clavicles down to level below the diaphragm. The heart appears somewhat generous in size. Normal-sized lymph nodes are seen within the mediastinum. No definite abnormal hilar masses. Pleural thickening along with bilateral lower lobe interstitial infiltrates are seen. Findings may be chronic. However, pneumonia cannot be excluded. Clinical correlation is needed. IMPRESSION: 1. Pleural thickening along with nonspecific bilateral lower lobe infiltrates. Changes appear chronic. Superimposed pneumonia cannot be excluded. Clinical correlation is needed.
--- NOTE | 2018-01-05 00:54 | Infectious Disease Prog Note ---
Infectious Disease Subjective - Review of Systems Service Date: 01/05/18 Subjective: No fever today. Doing the same. decrease in WBC count. Infectious Disease Objective - Results Result Diagrams: 01/04/18 04:40 01/04/18 04:40 Recent Labs: Laboratory Last Values WBC 23.8 Th/cmm (4.8-10.8) H* 01/04/18 04:40 RBC 3.67 Mil/cmm (3.80-5.20) L 01/04/18 04:40 Hgb 11.5 gm/dL (12-16) L 01/04/18 04:40 Hct 34.2 % (41.0-60) L 01/04/18 04:40 MCV 93.2 fl (81-100) 01/04/18 04:40 MCH 31.2 pg (27.0-31.0) H 01/04/18 04:40 MCHC Differential 33.5 pg (28.0-36.0) 01/04/18 04:40 RDW 13.2 % (11.5-20.0) 01/04/18 04:40 Plt Count 405 Th/cmm (150-400) H 01/04/18 04:40 MPV 10.1 fl 01/04/18 04:40 Add Manual Diff YES 01/04/18 04:40 Neutrophils % 88.7 % (40.0-80.0) H 01/03/18 17:00 Band Neutrophils % 2 % (0-10) 01/04/18 04:40 Lymphocytes % 7.4 % (20.0-50.0) L 01/03/18 17:00 Monocytes % 1.1 % (2.0-10.0) L 01/03/18 17:00 Eosinophils % 0.7 % (0.0-5.0) 01/03/18 17:00 Basophils % 2.1 % (0.0-2.0) H 01/03/18 17:00 Neutrophils (Manual) 81 % (40-80) H 01/04/18 04:40 Lymphocytes 12 % (20-50) L 01/04/18 04:40 Monocytes 2 % (2-10) 01/04/18 04:40 Eosinophils 2 % (0-5) 01/04/18 04:40 Basophils 1 % (0-3) 01/04/18 04:40 Platelet Estimate ADEQUATE (NORMAL) 01/02/18 06:06 ESR 62 mm/hr (0-30) H 01/03/18 04:45 PT 9.5 SECONDS (9.5-11.5) 12/26/17 17:15 INR 0.91 (0.5-1.4) 12/26/17 17:15 PTT (Actin FS) 24.5 SECONDS (26.0-38.0) L 12/26/17 17:15 Sodium 138 mEq/L (136-145) 01/04/18 04:40 Potassium 3.0 mEq/L (3.5-5.1) L 01/04/18 04:40 Chloride 108 mEq/L (98-107) H 01/04/18 04:40 Carbon Dioxide 20.3 mEq/L (21.0-31.0) L 01/04/18 04:40 Anion Gap 12.7 (7.0-16.0) 01/04/18 04:40 BUN 12 mg/dL (7-25) 01/04/18 04:40 Creatinine 0.7 mg/dL (0.6-1.2) 01/04/18 04:40 Est GFR ( Amer) TNP 01/04/18 04:40 Est GFR (Non-Af Amer) TNP 01/04/18 04:40 BUN/Creatinine Ratio 17.1 01/04/18 04:40 Glucose 102 mg/dL (70-105) 01/04/18 04:40 Uric Acid 3.3 mg/dL (2.3-6.6) 01/03/18 04:45 Calcium 8.4 mg/dL (8.6-10.3) L 01/04/18 04:40 Total Bilirubin 0.7 mg/dL (0.3-1.0) 01/04/18 04:40 AST 30 U/L (13-39) 01/04/18 04:40 ALT 25 U/L (7-52) 01/04/18 04:40 Alkaline Phosphatase 72 U/L (34-104) 01/04/18 04:40 Ammonia 52 umol/L (16-53) 12/31/17 05:40 Troponin I 0.23 ng/mL (0.01-0.05) H* D 01/03/18 04:45 Total Protein 5.8 gm/dL (6.0-8.3) L 01/04/18 04:40 Albumin 2.9 gm/dL (3.7-5.3) L 01/04/18 04:40 Globulin 2.9 gm/dL 01/04/18 04:40 Albumin/Globulin Ratio 1.0 (1.0-1.8) 01/04/18 04:40 Triglycerides 78 mg/dL (<150) 12/27/17 07:47 Cholesterol 249 mg/dL (<200) H 12/27/17 07:47 LDL Cholesterol Direct 198 mg/dL (75-193) H 12/27/17 07:47 HDL Cholesterol 45 mg/dL (23-92) 12/27/17 07:47 Vitamin B12 707 pg/mL (232-1245) 12/30/17 06:00 Folic Acid 16.7 ng/mL (>3.0) 12/30/17 06:00 TSH 3.88 uIU/ml (0.34-5.60) 12/26/17 17:15 Urine Source CATH 12/31/17 08:20 Urine Color YELLOW 12/31/17 08:20 Urine Clarity CLEAR (CLEAR) 12/31/17 08:20 Urine pH 6.5 (4.6 - 8.0) 12/31/17 08:20 Ur Specific [place] 1.010 (1.005-1.030) 12/31/17 08:20 Urine Protein TRACE mg/dL (NEGATIVE) 12/31/17 08:20 Urine Glucose (UA) NEGATIVE mg/dL (NEGATIVE) 12/31/17 08:20 Urine Ketones NEGATIVE mg/dL (NEGATIVE) 12/31/17 08:20 Urine Blood NEGATIVE (NEGATIVE) 12/31/17 08:20 Urine Nitrate NEGATIVE (NEGATIVE) 12/31/17 08:20 Urine Bilirubin NEGATIVE (NEGATIVE) 12/31/17 08:20 Urine Urobilinogen 0.2 E.U./dL (0.2 - 1.0) 12/31/17 08:20 Ur Leukocyte Esterase NEGATIVE (NEGATIVE) 12/31/17 08:20 Urine RBC 0-2 /hpf (0-5) 12/31/17 08:20 Urine WBC 0-2 /hpf (0-5) 12/31/17 08:20 Ur Epithelial Cells RARE /lpf (FEW) 12/31/17 08:20 Urine Bacteria NONE SEEN /hpf (NONE SEEN) 12/31/17 08:20 Urine Mucus FEW /lpf (FEW) 12/31/17 08:20 Rheumatoid Factor 15.5 IU/mL (0.0-13.9) H 01/03/18 04:45 - Physical Exam Vitals and I&O: Vital Signs Temp 99.7 F 01/05/18 00:00 Pulse 83 01/05/18 00:00 Resp 20 01/05/18 00:00 BP 163/62 01/05/18 00:00 Pulse Ox 98 01/05/18 00:00 Intake & Output 01/04/18 01/04/18 01/05/18 06:59 18:59 06:59 Intake Total 150 320 Balance 150 320 Weight (lbs) 61.235 kg 64.501 kg Intake: Intake, IV Amount 50 200 KCL 20mEq/100mL Premix 20 100 meq In 100 ml @ 50 mls/ hr IV Q2H [facility] Rx#: [id number] Piperacillin Sodium/ 50 100 Tazobact 3.375 gm In Sodium Chloride 0.9% 50 ml @ 100 mls/hr IV Q6HR [facility] Rx#:[id number] Oral 100 120 Other: # Voids 3 2 # Bowel Movements 0 0 Weight Source Bedscale Bedscale Active Medications: Current Medications Acetaminophen (Tylenol) 650 mg PO Q4H PRN PRN Reason: Fever > 101 Stop: 02/28/18 23:58 Last Admin: 01/01/18 18:09 Dose: 650 mg Acetaminophen (Tylenol 650mg Supp) 650 mg RC Q4H PRN PRN Reason: Fever > 101 Stop: 03/03/18 14:05 Last Admin: 01/03/18 03:56 Dose: 650 mg Aspirin (Aspirin Chewable) 81 mg PO DAILY [facility] Stop: 02/25/18 08:59 Last Admin: 01/04/18 10:06 Dose: Not Given Atorvastatin Calcium (Lipitor) 10 mg PO DAILY [facility]; Protocol Stop: 02/26/18 10:59 Last Admin: 01/04/18 10:06 Dose: Not Given Bisacodyl (Dulcolax 10 Mg Supp) 10 mg RC DAILY PRN PRN Reason: Constipation Stop: 02/25/18 06:58 Last Admin: 01/02/18 20:41 Dose: 10 mg Dextrose/Sodium Chloride (D5-0.45ns) 1,000 mls @ 50 mls/hr IV .Q20H JESSIE Stop: 03/01/18 00:00 Last Admin: 01/01/18 23:29 Dose: 50 mls/hr Piperacillin Sod/Tazobactam (Sod 3.375 gm/ Sodium Chloride) 50 mls @ 100 mls/ hr IV Q6HR JESSIE Stop: 03/05/18 03:59 Last Admin: 01/05/18 00:34 Dose: 100 mls/hr Lactobacillus Rhamnosus (Culturelle 15b) 1 each PO DAILY J[facility]IE Stop: 03/03/18 08:59 Last Admin: 01/04/18 10:06 Dose: Not Given Levothyroxine Sodium (Synthroid) 0.025 mg PO DAILY [facility] Stop: 02/25/18 08:59 Last Admin: 01/04/18 10:06 Dose: Not Given Lorazepam (Ativan) 1 mg IVP Q4HR PRN; Protocol PRN Reason: Agitation Stop: 02/25/18 00:58 Last Admin: 01/02/18 01:49 Dose: 1 mg Lorazepam (Ativan) 0.5 mg IVP Q4HR PRN; Protocol PRN Reason: Agitation Stop: 03/01/18 17:48 Last Admin: 01/01/18 12:08 Dose: 0.5 mg Miscellaneous (Probiotic Screen) 1 ea MC PRN PRN PRN Reason: PROTOCOL Stop: 03/02/18 15:13 Pantoprazole Sodium (Protonix) 40 mg IVP BID JESSIE Stop: 03/04/18 16:59 Last Admin: 01/04/18 17:06 Dose: 40 mg Polyethylene Glycol (Miralax) 17 gm PO DAILY JESSIE Stop: 02/25/18 08:59 Last Admin: 01/04/18 10:06 Dose: Not Given Valsartan (Diovan) 80 mg PO DAILY [facility]IE Stop: 02/25/18 08:59 Last Admin: 01/04/18 10:07 Dose: Not Given General: no acute distress, well developed, well nourished HEENT: atraumatic, normocephalic, PERRLA, EOMI Neck: supple, no thyromegaly Cardiovascular: S1S2, regular Lungs: clear to auscultation bilaterally, clear to percussion Abdomen: soft, no tender, no distended Extremities: no cyanosis, no clubbing, no edema Neurological: awake, other (confused) Skin: intact Infectious Disease Assmt/Plan - Assessment Assessment: 1. Sepsis. 2. Aspiration pneumonia. 3. UTI treated. 4. Dementia. 5. Hypertension. - Plan Plan: Continue Zosyn. Nutritional Asmnt/Malnutr-PDOC - Dietary Evaluation Malnutrition Findings (Please click <Entered> for more info): Nutritional Asmnt/Malnutrition Start: 12/30/17 16: 04 Text: Status: Complete Freq: Protocol: Document 12/30/17 16:04 TAMI (Rec: 12/30/17 16:14 [email or web address]) Nutritional Asmnt/Malnutrition Patient General Information Nutritional Screening Moderate Risk Diagnosis elevated troponin Pertinent Medical Hx/Surgical Hx HTN, dementia, hypothyroidism Subjective Information Pt seen sleeping in bed at time of visit, family at bedside. Per family, pt was very sleepy, only had few bites of brearfast this morning. Per EMR, PO intake about 25-50%. Per family, pt likes chocoalte icecream and pudding. Current Diet Order/ Nutrition Support cardiac Pertinent Medications lipitor, D5-0.25ns, synthroid, miralax, seroquel Pertinent Labs 12/27 Cl 110 Nutritional Hx/Data Height 1.6 m Height (Calculated Centimeters) 160.0 Current Weight (lbs) 62.596 kg Weight (Calculated Kilograms) 62.6 Weight (Calculated Grams) 02460.7 [place] Body Weight 115 Body Mass Index (BMI) 24.4 Weight Status Approriate GI Symptoms GI Symptoms None Last BM 12/27 Difficult in: None Skin Integrity/Comment: skin intact, reddened to buttocks Current %PO Poor (25-49%) Estimated Nutritional Goals BEE in Kcals: Using Current wt Calories/Kcals/Kg 25-30 Kcals Calculated 0922-8611 Protein: Using Current wt Protein g/k Protein Calculated 63 Fluid: ml 1575-1890ml (1ml/kcal) Nutritional Problem 1. Problem Problem inadequate food intake Etiology possible poor appetite Signs/Symptoms: PO intake 25-50% Malnutrition Alert Is there a minimum of two criteria No selected? Query Text:Check all the applicable criteria. A minimum of two criteria are recommended for diagnosis of either severe or non-severe malnutrition. Malnutrition Related to Morbid Obesity Malnutrition related to morbid obesity No Intervention/Recommendation Comments 1. Continue with current diet as ordered. Family request nutrition supplements. Send one bottle of chocolate ensure per family request at lunch. Will consider adding supplements if PO intake continue <50%. Nurses to assist pt with meals and encourage oral intake. 2. Monitor PO intake, wt, labs and skin integrity 3. F/U as high risk in 2-3 days, 01/01-01/02 Expected Outcomes/Goals Expected Outcomes/Goals 1. PO intake to meet at least 75% of nutritional needs. 2. Wt stability, skin to remain intact, labs to approach WNL.
[2018-01-05 06:56] LABS: HEMATOCRIT 33.9 % (41.0-60); HEMOGLOBIN 11.3 gm/dL (12-16); MEAN CELL VOLUME 92.1 fl (81-100); MEAN CORPUSCULAR HEMOGLOBIN 30.7 pg (27.0-31.0); MEAN CORPUSCULAR HGB CONC 33.4 pg (28.0-36.0); MEAN PLATELET VOLUME 10.1 fl; PLATELET COUNT 456 Th/cmm (150-400); RED BLOOD COUNT 3.68 Mil/cmm (3.80-5.20); RED CELL DISTRIBUTION WIDTH 13.5 % (11.5-20.0)
[2018-01-05 07:15] LABS: WHITE BLOOD COUNT 17.5 Th/cmm (4.8-10.8)
[2018-01-05 07:17] LABS: BAND NEUTROPHILE 1 % (0-10); BASOPHIL 0 % (0-3); EOSINOPHIL 1 % (0-5); LYMPHOCYTE 15 % (20-50); MONOCYTE 7 % (2-10); NEUTROPHILS 76 % (40-80)
--- NOTE | 2018-01-05 08:11 | General Progress Note ---
Subjective - Review of Systems Service Date: 01/05/18 Subjective: Patient was seen and examined. No further episodes. bilateral infiltrates noted on CT chest. will order swallow eval to rule out aspiration. Will keep patient NPO. Poor oral intake. elevated ESR+ and positive Rheumatoid Factor Objective - Results Result Diagrams: 01/05/18 04:30 01/04/18 04:40 Recent Labs: Laboratory Last Values WBC 17.5 Th/cmm (4.8-10.8) H D 01/05/18 04:30 RBC 3.68 Mil/cmm (3.80-5.20) L 01/05/18 04:30 Hgb 11.3 gm/dL (12-16) L 01/05/18 04:30 Hct 33.9 % (41.0-60) L 01/05/18 04:30 MCV 92.1 fl (81-100) 01/05/18 04:30 MCH 30.7 pg (27.0-31.0) 01/05/18 04:30 MCHC Differential 33.4 pg (28.0-36.0) 01/05/18 04:30 RDW 13.5 % (11.5-20.0) 01/05/18 04:30 Plt Count 456 Th/cmm (150-400) H 01/05/18 04:30 MPV 10.1 fl 01/05/18 04:30 Add Manual Diff YES 01/05/18 04:30 Neutrophils % 88.7 % (40.0-80.0) H 01/03/18 17:00 Band Neutrophils % 1 % (0-10) 01/05/18 04:30 Lymphocytes % 7.4 % (20.0-50.0) L 01/03/18 17:00 Monocytes % 1.1 % (2.0-10.0) L 01/03/18 17:00 Eosinophils % 0.7 % (0.0-5.0) 01/03/18 17:00 Basophils % 2.1 % (0.0-2.0) H 01/03/18 17:00 Neutrophils (Manual) 76 % (40-80) 01/05/18 04:30 Lymphocytes 15 % (20-50) L 01/05/18 04:30 Monocytes 7 % (2-10) 01/05/18 04:30 Eosinophils 1 % (0-5) 01/05/18 04:30 Basophils 0 % (0-3) 01/05/18 04:30 Platelet Estimate ADEQUATE (NORMAL) 01/02/18 06:06 ESR 62 mm/hr (0-30) H 01/03/18 04:45 PT 9.5 SECONDS (9.5-11.5) 12/26/17 17:15 INR 0.91 (0.5-1.4) 12/26/17 17:15 PTT (Actin FS) 24.5 SECONDS (26.0-38.0) L 12/26/17 17:15 Sodium 138 mEq/L (136-145) 01/04/18 04:40 Potassium 3.0 mEq/L (3.5-5.1) L 01/04/18 04:40 Chloride 108 mEq/L (98-107) H 01/04/18 04:40 Carbon Dioxide 20.3 mEq/L (21.0-31.0) L 01/04/18 04:40 Anion Gap 12.7 (7.0-16.0) 01/04/18 04:40 BUN 12 mg/dL (7-25) 01/04/18 04:40 Creatinine 0.7 mg/dL (0.6-1.2) 01/04/18 04:40 Est GFR ( Amer) TNP 01/04/18 04:40 Est GFR (Non-Af Amer) TNP 01/04/18 04:40 BUN/Creatinine Ratio 17.1 01/04/18 04:40 Glucose 102 mg/dL (70-105) 01/04/18 04:40 Uric Acid 3.3 mg/dL (2.3-6.6) 01/03/18 04:45 Calcium 8.4 mg/dL (8.6-10.3) L 01/04/18 04:40 Total Bilirubin 0.7 mg/dL (0.3-1.0) 01/04/18 04:40 AST 30 U/L (13-39) 01/04/18 04:40 ALT 25 U/L (7-52) 01/04/18 04:40 Alkaline Phosphatase 72 U/L (34-104) 01/04/18 04:40 Ammonia 52 umol/L (16-53) 12/31/17 05:40 Troponin I 0.23 ng/mL (0.01-0.05) H* D 01/03/18 04:45 Total Protein 5.8 gm/dL (6.0-8.3) L 01/04/18 04:40 Albumin 2.9 gm/dL (3.7-5.3) L 01/04/18 04:40 Globulin 2.9 gm/dL 01/04/18 04:40 Albumin/Globulin Ratio 1.0 (1.0-1.8) 01/04/18 04:40 Triglycerides 78 mg/dL (<150) 12/27/17 07:47 Cholesterol 249 mg/dL (<200) H 12/27/17 07:47 LDL Cholesterol Direct 198 mg/dL (75-193) H 12/27/17 07:47 HDL Cholesterol 45 mg/dL (23-92) 12/27/17 07:47 Vitamin B12 707 pg/mL (232-1245) 12/30/17 06:00 Folic Acid 16.7 ng/mL (>3.0) 12/30/17 06:00 TSH 3.88 uIU/ml (0.34-5.60) 12/26/17 17:15 Urine Source CATH 12/31/17 08:20 Urine Color YELLOW 12/31/17 08:20 Urine Clarity CLEAR (CLEAR) 12/31/17 08:20 Urine pH 6.5 (4.6 - 8.0) 12/31/17 08:20 Ur Specific [place] 1.010 (1.005-1.030) 12/31/17 08:20 Urine Protein TRACE mg/dL (NEGATIVE) 12/31/17 08:20 Urine Glucose (UA) NEGATIVE mg/dL (NEGATIVE) 12/31/17 08:20 Urine Ketones NEGATIVE mg/dL (NEGATIVE) 12/31/17 08:20 Urine Blood NEGATIVE (NEGATIVE) 12/31/17 08:20 Urine Nitrate NEGATIVE (NEGATIVE) 12/31/17 08:20 Urine Bilirubin NEGATIVE (NEGATIVE) 12/31/17 08:20 Urine Urobilinogen 0.2 E.U./dL (0.2 - 1.0) 12/31/17 08:20 Ur Leukocyte Esterase NEGATIVE (NEGATIVE) 12/31/17 08:20 Urine RBC 0-2 /hpf (0-5) 12/31/17 08:20 Urine WBC 0-2 /hpf (0-5) 12/31/17 08:20 Ur Epithelial Cells RARE /lpf (FEW) 12/31/17 08:20 Urine Bacteria NONE SEEN /hpf (NONE SEEN) 12/31/17 08:20 Urine Mucus FEW /lpf (FEW) 12/31/17 08:20 Rheumatoid Factor 15.5 IU/mL (0.0-13.9) H 01/03/18 04:45 - Physical Exam Vitals and I&O: Vital Signs Temp 98.0 F 01/05/18 07:50 Pulse 81 01/05/18 07:50 Resp 18 01/05/18 07:50 BP 113/65 01/05/18 07:50 Pulse Ox 96 01/05/18 07:50 Intake & Output 01/04/18 01/05/18 01/05/18 18:59 06:59 18:59 Intake Total 320 100 Balance 320 100 Weight (lbs) 64.501 kg 64.41 kg Intake: Intake, IV Amount 200 50 KCL 20mEq/100mL Premix 20 100 meq In 100 ml @ 50 mls/ hr IV Q2H [facility] Rx#: [id number] Piperacillin Sodium/ 100 50 Tazobact 3.375 gm In Sodium Chloride 0.9% 50 ml @ 100 mls/hr IV Q6HR [facility] Rx#:[id number] Oral 120 50 Other: # Voids 2 # Bowel Movements 0 Weight Source Bedscale Bedscale Active Medications: Current Medications Acetaminophen (Tylenol) 650 mg PO Q4H PRN PRN Reason: Fever > 101 Stop: 02/28/18 23:58 Last Admin: 01/01/18 18:09 Dose: 650 mg Acetaminophen (Tylenol 650mg Supp) 650 mg RC Q4H PRN PRN Reason: Fever > 101 Stop: 03/03/18 14:05 Last Admin: 01/03/18 03:56 Dose: 650 mg Aspirin (Aspirin Chewable) 81 mg PO DAILY [facility] Stop: 02/25/18 08:59 Last Admin: 01/04/18 10:06 Dose: Not Given Atorvastatin Calcium (Lipitor) 10 mg PO DAILY [facility]; Protocol Stop: 02/26/18 10:59 Last Admin: 01/04/18 10:06 Dose: Not Given Bisacodyl (Dulcolax 10 Mg Supp) 10 mg RC DAILY PRN PRN Reason: Constipation Stop: 02/25/18 06:58 Last Admin: 01/02/18 20:41 Dose: 10 mg Dextrose/Sodium Chloride (D5-0.45ns) 1,000 mls @ 50 mls/hr IV .Q20H JESSIE Stop: 03/01/18 00:00 Last Admin: 01/01/18 23:29 Dose: 50 mls/hr Piperacillin Sod/Tazobactam (Sod 3.375 gm/ Sodium Chloride) 50 mls @ 100 mls/ hr IV Q6HR JESSIE Stop: 03/05/18 03:59 Last Admin: 01/05/18 05:51 Dose: 100 mls/hr Potassium Chloride/Dextrose/Sod Cl (D5-0.45ns W/20 Meq Kcl) 1,000 mls @ 75 mls/ hr IV .[id number] JESSIE Stop: 03/06/18 08:04 Lactobacillus Rhamnosus (Culturelle 15b) 1 each PO DAILY JESSIE Stop: 03/03/18 08:59 Last Admin: 01/04/18 10:06 Dose: Not Given Levothyroxine Sodium (Synthroid) 0.025 mg PO DAILY J[facility]IE Stop: 02/25/18 08:59 Last Admin: 01/04/18 10:06 Dose: Not Given Lorazepam (Ativan) 1 mg IVP Q4HR PRN; Protocol PRN Reason: Agitation Stop: 02/25/18 00:58 Last Admin: 01/02/18 01:49 Dose: 1 mg Lorazepam (Ativan) 0.5 mg IVP Q4HR PRN; Protocol PRN Reason: Agitation Stop: 03/01/18 17:48 Last Admin: 01/01/18 12:08 Dose: 0.5 mg Miscellaneous (Probiotic Screen) 1 ea MC PRN PRN PRN Reason: PROTOCOL Stop: 03/02/18 15:13 Pantoprazole Sodium (Protonix) 40 mg IVP BID JESSIE Stop: 03/04/18 16:59 Last Admin: 01/04/18 17:06 Dose: 40 mg Polyethylene Glycol (Miralax) 17 gm PO DAILY JESSIE Stop: 02/25/18 08:59 Last Admin: 01/04/18 10:06 Dose: Not Given Valsartan (Diovan) 80 mg PO DAILY J[facility]IE Stop: 02/25/18 08:59 Last Admin: 01/04/18 10:07 Dose: Not Given General: Alert, Oriented x3 HEENT: Atraumatic, PERRLA, EOMI Neck: Supple Cardiovascular: Regular rate Lungs: Clear to auscultation Abdomen: Bowel sounds, Soft, no Tender, no Hepatomegaly, no Splenomegaly, no Rebound, no Mass, no Guarding Extremities: no Clubbing, no Cyanosis, no Edema Neurological: Normal gait, Normal speech Psych/Mental Status: no Mental status NL Assessment/Plan - Assessment Assessment: elevated troponins improved 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 continue current medications HTN slightly elevated ... on diovan 80mg PO daily, will add clonidine PRN UTI...continue IV anitbiotics. UA for C&S leukocytosis .... for CT chest,abd,pelvis hyperlipidemia ... on statins FUO .... repeat CBC, chest xray this AM. will order ELSA,ESR,RA,Uric Acid coffee ground emesis ... will order IV Protonix. Will order GI consult. hypokalemia ... will order K-rider today. Rheumatoid Arthritis .... need to be referred to extractions technologist outpatient. bilateral infiltrates r/o aspiration PNA ... swallow eval. keep NPO. IV fluids - Plan Plan: continue current orders. Nutritional Asmnt/Malnutr-PDOC - Dietary Evaluation Malnutrition Findings (Please click <Entered> for more info): Nutritional Asmnt/Malnutrition Start: 12/30/17 16: 04 Text: Status: Complete Freq: Protocol: Document 12/30/17 16:04 LCHENG (Rec: 12/30/17 16:14 [email or web address]) Nutritional Asmnt/Malnutrition Patient General Information Nutritional Screening Moderate Risk Diagnosis elevated troponin Pertinent Medical Hx/Surgical Hx HTN, dementia, hypothyroidism Subjective Information Pt seen sleeping in bed at time of visit, family at bedside. Per family, pt was very sleepy, only had few bites of brearfast this morning. Per EMR, PO intake about 25-50%. Per family, pt likes chocoalte icecream and pudding. Current Diet Order/ Nutrition Support cardiac Pertinent Medications lipitor, D5-0.25ns, synthroid, miralax, seroquel Pertinent Labs 12/27 Cl 110 Nutritional Hx/Data Height 1.6 m Height (Calculated Centimeters) 160.0 Current Weight (lbs) 62.596 kg Weight (Calculated Kilograms) 62.6 Weight (Calculated Grams) 27081.7 [place] Body Weight 115 Body Mass Index (BMI) 24.4 Weight Status Approriate GI Symptoms GI Symptoms None Last BM 12/27 Difficult in: None Skin Integrity/Comment: skin intact, reddened to buttocks Current %PO Poor (25-49%) Estimated Nutritional Goals BEE in Kcals: Using Current wt Calories/Kcals/Kg 25-30 Kcals Calculated 5373-0078 Protein: Using Current wt Protein g/k Protein Calculated 63 Fluid: ml 1575-1890ml (1ml/kcal) Nutritional Problem 1. Problem Problem inadequate food intake Etiology possible poor appetite Signs/Symptoms: PO intake 25-50% Malnutrition Alert Is there a minimum of two criteria No selected? Query Text:Check all the applicable criteria. A minimum of two criteria are recommended for diagnosis of either severe or non-severe malnutrition. Malnutrition Related to Morbid Obesity Malnutrition related to morbid obesity No Intervention/Recommendation Comments 1. Continue with current diet as ordered. Family request nutrition supplements. Send one bottle of chocolate ensure per family request at lunch. Will consider adding supplements if PO intake continue <50%. Nurses to assist pt with meals and encourage oral intake. 2. Monitor PO intake, wt, labs and skin integrity 3. F/U as high risk in 2-3 days, 01/01-01/02 Expected Outcomes/Goals Expected Outcomes/Goals 1. PO intake to meet at least 75% of nutritional needs. 2. Wt stability, skin to remain intact, labs to approach WNL.
[2018-01-05 08:22] LABS: ALBUMIN 2.8 gm/dL (3.7-5.3); ALKALINE PHOSPHATASE 84 U/L (34-104); BILIRUBIN,TOTAL 0.7 mg/dL (0.3-1.0); BUN - UREA NITROGEN 9 mg/dL (7-25); CALCIUM SERUM 8.1 mg/dL (8.6-10.3); CHLORIDE 109 mEq/L (98-107); CREATININE - SERUM 0.6 mg/dL (0.6-1.2); GLUCOSE 113 mg/dL (70-105); SGOT 41 U/L (13-39); SGPT/ALT 26 U/L (7-52); SODIUM SERUM 138 mEq/L (136-145); TOTAL PROTEIN,SERUM 5.6 gm/dL (6.0-8.3)
[2018-01-05] MEDS: Lactobacillus Rhamnosus GG 15 Billion CFU CAP.SPRINK PO SCH (08:35)
[2018-01-05] MEDS: Atorvastatin Calcium 10 MG TAB PO SCH (08:35)
[2018-01-05] MEDS: Aspirin 81mg Chewable Tab PO SCH (08:35)
[2018-01-05] MEDS: POLYETHYLENE GLYCOL 3350 17 GM PACK PO SCH (08:36)
[2018-01-05] MEDS: Levothyroxine 0.025 Mg Tab PO SCH (08:36)
--- NOTE | 2018-01-05 08:38 | GI Progress Note ---
Subjective - Review of Systems Service Date: 01/05/18 Subjective: No new events Objective - Results Result Diagrams: 01/05/18 04:30 01/04/18 04:40 Recent Labs: Laboratory Last Values WBC 17.5 Th/cmm (4.8-10.8) H D 01/05/18 04:30 RBC 3.68 Mil/cmm (3.80-5.20) L 01/05/18 04:30 Hgb 11.3 gm/dL (12-16) L 01/05/18 04:30 Hct 33.9 % (41.0-60) L 01/05/18 04:30 MCV 92.1 fl (81-100) 01/05/18 04:30 MCH 30.7 pg (27.0-31.0) 01/05/18 04:30 MCHC Differential 33.4 pg (28.0-36.0) 01/05/18 04:30 RDW 13.5 % (11.5-20.0) 01/05/18 04:30 Plt Count 456 Th/cmm (150-400) H 01/05/18 04:30 MPV 10.1 fl 01/05/18 04:30 Add Manual Diff YES 01/05/18 04:30 Neutrophils % 88.7 % (40.0-80.0) H 01/03/18 17:00 Band Neutrophils % 1 % (0-10) 01/05/18 04:30 Lymphocytes % 7.4 % (20.0-50.0) L 01/03/18 17:00 Monocytes % 1.1 % (2.0-10.0) L 01/03/18 17:00 Eosinophils % 0.7 % (0.0-5.0) 01/03/18 17:00 Basophils % 2.1 % (0.0-2.0) H 01/03/18 17:00 Neutrophils (Manual) 76 % (40-80) 01/05/18 04:30 Lymphocytes 15 % (20-50) L 01/05/18 04:30 Monocytes 7 % (2-10) 01/05/18 04:30 Eosinophils 1 % (0-5) 01/05/18 04:30 Basophils 0 % (0-3) 01/05/18 04:30 Platelet Estimate ADEQUATE (NORMAL) 01/02/18 06:06 ESR 62 mm/hr (0-30) H 01/03/18 04:45 PT 9.5 SECONDS (9.5-11.5) 12/26/17 17:15 INR 0.91 (0.5-1.4) 12/26/17 17:15 PTT (Actin FS) 24.5 SECONDS (26.0-38.0) L 12/26/17 17:15 Sodium 138 mEq/L (136-145) 01/04/18 04:40 Potassium 3.0 mEq/L (3.5-5.1) L 01/04/18 04:40 Chloride 108 mEq/L (98-107) H 01/04/18 04:40 Carbon Dioxide 20.3 mEq/L (21.0-31.0) L 01/04/18 04:40 Anion Gap 12.7 (7.0-16.0) 01/04/18 04:40 BUN 12 mg/dL (7-25) 01/04/18 04:40 Creatinine 0.7 mg/dL (0.6-1.2) 01/04/18 04:40 Est GFR ( Amer) TNP 01/04/18 04:40 Est GFR (Non-Af Amer) TNP 01/04/18 04:40 BUN/Creatinine Ratio 17.1 01/04/18 04:40 Glucose 102 mg/dL (70-105) 01/04/18 04:40 Uric Acid 3.3 mg/dL (2.3-6.6) 01/03/18 04:45 Calcium 8.4 mg/dL (8.6-10.3) L 01/04/18 04:40 Total Bilirubin 0.7 mg/dL (0.3-1.0) 01/04/18 04:40 AST 30 U/L (13-39) 01/04/18 04:40 ALT 25 U/L (7-52) 01/04/18 04:40 Alkaline Phosphatase 72 U/L (34-104) 01/04/18 04:40 Ammonia 52 umol/L (16-53) 12/31/17 05:40 Troponin I 0.23 ng/mL (0.01-0.05) H* D 01/03/18 04:45 Total Protein 5.8 gm/dL (6.0-8.3) L 01/04/18 04:40 Albumin 2.9 gm/dL (3.7-5.3) L 01/04/18 04:40 Globulin 2.9 gm/dL 01/04/18 04:40 Albumin/Globulin Ratio 1.0 (1.0-1.8) 01/04/18 04:40 Triglycerides 78 mg/dL (<150) 12/27/17 07:47 Cholesterol 249 mg/dL (<200) H 12/27/17 07:47 LDL Cholesterol Direct 198 mg/dL (75-193) H 12/27/17 07:47 HDL Cholesterol 45 mg/dL (23-92) 12/27/17 07:47 Vitamin B12 707 pg/mL (232-1245) 12/30/17 06:00 Folic Acid 16.7 ng/mL (>3.0) 12/30/17 06:00 TSH 3.88 uIU/ml (0.34-5.60) 12/26/17 17:15 Urine Source CATH 12/31/17 08:20 Urine Color YELLOW 12/31/17 08:20 Urine Clarity CLEAR (CLEAR) 12/31/17 08:20 Urine pH 6.5 (4.6 - 8.0) 12/31/17 08:20 Ur Specific [place] 1.010 (1.005-1.030) 12/31/17 08:20 Urine Protein TRACE mg/dL (NEGATIVE) 12/31/17 08:20 Urine Glucose (UA) NEGATIVE mg/dL (NEGATIVE) 12/31/17 08:20 Urine Ketones NEGATIVE mg/dL (NEGATIVE) 12/31/17 08:20 Urine Blood NEGATIVE (NEGATIVE) 12/31/17 08:20 Urine Nitrate NEGATIVE (NEGATIVE) 12/31/17 08:20 Urine Bilirubin NEGATIVE (NEGATIVE) 12/31/17 08:20 Urine Urobilinogen 0.2 E.U./dL (0.2 - 1.0) 12/31/17 08:20 Ur Leukocyte Esterase NEGATIVE (NEGATIVE) 12/31/17 08:20 Urine RBC 0-2 /hpf (0-5) 12/31/17 08:20 Urine WBC 0-2 /hpf (0-5) 12/31/17 08:20 Ur Epithelial Cells RARE /lpf (FEW) 12/31/17 08:20 Urine Bacteria NONE SEEN /hpf (NONE SEEN) 12/31/17 08:20 Urine Mucus FEW /lpf (FEW) 12/31/17 08:20 Rheumatoid Factor 15.5 IU/mL (0.0-13.9) H 01/03/18 04:45 - Physical Exam Vitals and I&O: Vital Signs Temp 98.0 F 01/05/18 07:50 Pulse 81 01/05/18 07:50 Resp 18 01/05/18 07:50 BP 113/65 01/05/18 07:50 Pulse Ox 96 01/05/18 07:50 Intake & Output 01/04/18 01/05/18 01/05/18 18:59 06:59 18:59 Intake Total 320 100 Balance 320 100 Weight (lbs) 64.501 kg 64.41 kg Intake: Intake, IV Amount 200 50 KCL 20mEq/100mL Premix 20 100 meq In 100 ml @ 50 mls/ hr IV Q2H [facility] Rx#: [id number] Piperacillin Sodium/ 100 50 Tazobact 3.375 gm In Sodium Chloride 0.9% 50 ml @ 100 mls/hr IV Q6HR [facility] Rx#:[id number] Oral 120 50 Other: # Voids 2 # Bowel Movements 0 Weight Source Bedscale Bedscale Active Medications: Current Medications Acetaminophen (Tylenol) 650 mg PO Q4H PRN PRN Reason: Fever > 101 Stop: 02/28/18 23:58 Last Admin: 01/01/18 18:09 Dose: 650 mg Acetaminophen (Tylenol 650mg Supp) 650 mg RC Q4H PRN PRN Reason: Fever > 101 Stop: 03/03/18 14:05 Last Admin: 01/03/18 03:56 Dose: 650 mg Aspirin (Aspirin Chewable) 81 mg PO DAILY [facility] Stop: 02/25/18 08:59 Last Admin: 01/04/18 10:06 Dose: Not Given Atorvastatin Calcium (Lipitor) 10 mg PO DAILY [facility]; Protocol Stop: 02/26/18 10:59 Last Admin: 01/04/18 10:06 Dose: Not Given Bisacodyl (Dulcolax 10 Mg Supp) 10 mg RC DAILY PRN PRN Reason: Constipation Stop: 02/25/18 06:58 Last Admin: 01/02/18 20:41 Dose: 10 mg Dextrose/Sodium Chloride (D5-0.45ns) 1,000 mls @ 50 mls/hr IV .Q20H [facility]SEI Stop: 03/01/18 00:00 Last Admin: 01/01/18 23:29 Dose: 50 mls/hr Piperacillin Sod/Tazobactam (Sod 3.375 gm/ Sodium Chloride) 50 mls @ 100 mls/ hr IV Q6HR JESSIE Stop: 03/05/18 03:59 Last Admin: 01/05/18 05:51 Dose: 100 mls/hr Potassium Chloride/Dextrose/Sod Cl (D5-0.45ns W/20 Meq Kcl) 1,000 mls @ 75 mls/ hr IV .[id number] JESSIE Stop: 03/06/18 08:04 Lactobacillus Rhamnosus (Culturelle 15b) 1 each PO DAILY JESSIE Stop: 03/03/18 08:59 Last Admin: 01/04/18 10:06 Dose: Not Given Levothyroxine Sodium (Synthroid) 0.025 mg PO DAILY [facility] Stop: 02/25/18 08:59 Last Admin: 01/04/18 10:06 Dose: Not Given Lorazepam (Ativan) 1 mg IVP Q4HR PRN; Protocol PRN Reason: Agitation Stop: 02/25/18 00:58 Last Admin: 01/02/18 01:49 Dose: 1 mg Lorazepam (Ativan) 0.5 mg IVP Q4HR PRN; Protocol PRN Reason: Agitation Stop: 03/01/18 17:48 Last Admin: 01/01/18 12:08 Dose: 0.5 mg Miscellaneous (Probiotic Screen) 1 ea PRN PRN PRN Reason: PROTOCOL Stop: 03/02/18 15:13 Pantoprazole Sodium (Protonix) 40 mg IVP BID JESSIE Stop: 03/04/18 16:59 Last Admin: 01/04/18 17:06 Dose: 40 mg Polyethylene Glycol (Miralax) 17 gm PO DAILY J[facility] Stop: 02/25/18 08:59 Last Admin: 01/04/18 10:06 Dose: Not Given Valsartan (Diovan) 80 mg PO DAILY [facility]ESS[facility] Stop: 02/25/18 08:59 Last Admin: 01/04/18 10:07 Dose: Not Given General: Alert, Oriented x3 HEENT: Atraumatic, PERRLA, EOMI Neck: Supple Cardiovascular: Regular rate Lungs: Clear to auscultation Abdomen: Bowel sounds, Soft, no Tender, no Hepatomegaly, no Splenomegaly, no Rebound, no Mass, no Guarding Extremities: no Clubbing, no Cyanosis, no Edema Neurological: Normal gait, Normal speech Psych/Mental Status: no Mental status NL Assessment/Plan - Assessment Assessment: # Coffee ground emesis x 1 # Leukocytosis # Alzheimer's dementia Hgb has been stable, and as she only had a single episode of emesis, EGD is not necessary at this point. Treating conservatively with PPI. Leukocytosis is concerning, and workup for infectious source has revealed pneumonia as likely source. Plan: - cont PPI - undergoing speech and swallow eval. If deemed to be aspirating, can consider G tube, although this pt will likely try and pull this out - diet as tolerated - trend hgb, transfuse to keep > 7 - reserve endoscopy for hemostasis or if she has further GI bleeding - appreciate ID recommendations
[2018-01-05 08:45] LABS: POTASSIUM SERUM 2.9 mEq/L (3.5-5.1)
[2018-01-05] MEDS: D5-0.45NS w/20 mEq KCL 1,000 ML IV SCH (09:35)
[2018-01-05 09:52] LABS: ANION GAP 15.6 (7.0-16.0); CARBON DIOXIDE 16.3 mEq/L (21.0-31.0)
--- NOTE | 2018-01-05 12:31 | Infectious Disease Prog Note ---
Infectious Disease Subjective - Review of Systems Service Date: 01/05/18 Subjective: No fever today. Doing the same. decrease in WBC count. Infectious Disease Objective - Results Result Diagrams: 01/06/18 04:55 01/06/18 04:55 Recent Labs: Laboratory Last Values WBC 17.5 Th/cmm (4.8-10.8) H D 01/05/18 04:30 RBC 3.68 Mil/cmm (3.80-5.20) L 01/05/18 04:30 Hgb 11.3 gm/dL (12-16) L 01/05/18 04:30 Hct 33.9 % (41.0-60) L 01/05/18 04:30 MCV 92.1 fl (81-100) 01/05/18 04:30 MCH 30.7 pg (27.0-31.0) 01/05/18 04:30 MCHC Differential 33.4 pg (28.0-36.0) 01/05/18 04:30 RDW 13.5 % (11.5-20.0) 01/05/18 04:30 Plt Count 456 Th/cmm (150-400) H 01/05/18 04:30 MPV 10.1 fl 01/05/18 04:30 Add Manual Diff YES 01/05/18 04:30 Neutrophils % 88.7 % (40.0-80.0) H 01/03/18 17:00 Band Neutrophils % 1 % (0-10) 01/05/18 04:30 Lymphocytes % 7.4 % (20.0-50.0) L 01/03/18 17:00 Monocytes % 1.1 % (2.0-10.0) L 01/03/18 17:00 Eosinophils % 0.7 % (0.0-5.0) 01/03/18 17:00 Basophils % 2.1 % (0.0-2.0) H 01/03/18 17:00 Neutrophils (Manual) 76 % (40-80) 01/05/18 04:30 Lymphocytes 15 % (20-50) L 01/05/18 04:30 Monocytes 7 % (2-10) 01/05/18 04:30 Eosinophils 1 % (0-5) 01/05/18 04:30 Basophils 0 % (0-3) 01/05/18 04:30 Platelet Estimate ADEQUATE (NORMAL) 01/02/18 06:06 ESR 62 mm/hr (0-30) H 01/03/18 04:45 PT 9.5 SECONDS (9.5-11.5) 12/26/17 17:15 INR 0.91 (0.5-1.4) 12/26/17 17:15 PTT (Actin FS) 24.5 SECONDS (26.0-38.0) L 12/26/17 17:15 Sodium 138 mEq/L (136-145) 01/05/18 04:30 Potassium 2.9 mEq/L (3.5-5.1) L* 01/05/18 04:30 Chloride 109 mEq/L (98-107) H 01/05/18 04:30 Carbon Dioxide 16.3 mEq/L (21.0-31.0) L 01/05/18 04:30 Anion Gap 15.6 (7.0-16.0) 01/05/18 04:30 BUN 9 mg/dL (7-25) 01/05/18 04:30 Creatinine 0.6 mg/dL (0.6-1.2) 01/05/18 04:30 Est GFR ( Amer) TNP 01/05/18 04:30 Est GFR (Non-Af Amer) TNP 01/05/18 04:30 BUN/Creatinine Ratio 15.0 01/05/18 04:30 Glucose 113 mg/dL (70-105) H 01/05/18 04:30 Uric Acid 3.3 mg/dL (2.3-6.6) 01/03/18 04:45 Calcium 8.1 mg/dL (8.6-10.3) L 01/05/18 04:30 Total Bilirubin 0.7 mg/dL (0.3-1.0) 01/05/18 04:30 AST 41 U/L (13-39) H 01/05/18 04:30 ALT 26 U/L (7-52) 01/05/18 04:30 Alkaline Phosphatase 84 U/L (34-104) 01/05/18 04:30 Ammonia 52 umol/L (16-53) 12/31/17 05:40 Troponin I 0.23 ng/mL (0.01-0.05) H* D 01/03/18 04:45 Total Protein 5.6 gm/dL (6.0-8.3) L 01/05/18 04:30 Albumin 2.8 gm/dL (3.7-5.3) L 01/05/18 04:30 Globulin 2.8 gm/dL 01/05/18 04:30 Albumin/Globulin Ratio 1.0 (1.0-1.8) 01/05/18 04:30 Triglycerides 78 mg/dL (<150) 12/27/17 07:47 Cholesterol 249 mg/dL (<200) H 12/27/17 07:47 LDL Cholesterol Direct 198 mg/dL (75-193) H 12/27/17 07:47 HDL Cholesterol 45 mg/dL (23-92) 12/27/17 07:47 Vitamin B12 707 pg/mL (232-1245) 12/30/17 06:00 Folic Acid 16.7 ng/mL (>3.0) 12/30/17 06:00 TSH 3.88 uIU/ml (0.34-5.60) 12/26/17 17:15 Urine Source CATH 12/31/17 08:20 Urine Color YELLOW 12/31/17 08:20 Urine Clarity CLEAR (CLEAR) 12/31/17 08:20 Urine pH 6.5 (4.6 - 8.0) 12/31/17 08:20 Ur Specific [place] 1.010 (1.005-1.030) 12/31/17 08:20 Urine Protein TRACE mg/dL (NEGATIVE) 12/31/17 08:20 Urine Glucose (UA) NEGATIVE mg/dL (NEGATIVE) 12/31/17 08:20 Urine Ketones NEGATIVE mg/dL (NEGATIVE) 12/31/17 08:20 Urine Blood NEGATIVE (NEGATIVE) 12/31/17 08:20 Urine Nitrate NEGATIVE (NEGATIVE) 12/31/17 08:20 Urine Bilirubin NEGATIVE (NEGATIVE) 12/31/17 08:20 Urine Urobilinogen 0.2 E.U./dL (0.2 - 1.0) 12/31/17 08:20 Ur Leukocyte Esterase NEGATIVE (NEGATIVE) 12/31/17 08:20 Urine RBC 0-2 /hpf (0-5) 12/31/17 08:20 Urine WBC 0-2 /hpf (0-5) 12/31/17 08:20 Ur Epithelial Cells RARE /lpf (FEW) 12/31/17 08:20 Urine Bacteria NONE SEEN /hpf (NONE SEEN) 12/31/17 08:20 Urine Mucus FEW /lpf (FEW) 12/31/17 08:20 Rheumatoid Factor 15.5 IU/mL (0.0-13.9) H 01/03/18 04:45 - Physical Exam Vitals and I&O: Vital Signs Temp 98.2 F 01/05/18 11:47 Pulse 78 01/05/18 11:47 Resp 18 01/05/18 11:47 BP 139/65 01/05/18 11:47 Pulse Ox 95 01/05/18 11:47 Intake & Output 01/04/18 01/05/18 01/05/18 18:59 06:59 18:59 Intake Total 320 150 Balance 320 150 Weight (lbs) 64.501 kg 64.41 kg Intake: Intake, IV Amount 200 100 KCL 20mEq/100mL Premix 20 100 meq In 100 ml @ 50 mls/ hr IV Q2H [facility] Rx#: [id number] Piperacillin Sodium/ 100 100 Tazobact 3.375 gm In Sodium Chloride 0.9% 50 ml @ 100 mls/hr IV Q6HR [facility] Rx#:[id number] Oral 120 50 Other: # Voids 2 # Bowel Movements 0 Weight Source Bedscale Bedscale Active Medications: Current Medications Acetaminophen (Tylenol) 650 mg PO Q4H PRN PRN Reason: Fever > 101 Stop: 02/28/18 23:58 Last Admin: 01/01/18 18:09 Dose: 650 mg Acetaminophen (Tylenol 650mg Supp) 650 mg RC Q4H PRN PRN Reason: Fever > 101 Stop: 03/03/18 14:05 Last Admin: 01/03/18 03:56 Dose: 650 mg Aspirin (Aspirin Chewable) 81 mg PO DAILY [facility] Stop: 02/25/18 08:59 Last Admin: 01/05/18 08:35 Dose: Not Given Atorvastatin Calcium (Lipitor) 10 mg PO DAILY [facility]; Protocol Stop: 02/26/18 10:59 Last Admin: 01/05/18 08:35 Dose: Not Given Bisacodyl (Dulcolax 10 Mg Supp) 10 mg RC DAILY PRN PRN Reason: Constipation Stop: 02/25/18 06:58 Last Admin: 01/02/18 20:41 Dose: 10 mg Piperacillin Sod/Tazobactam (Sod 3.375 gm/ Sodium Chloride) 50 mls @ 100 mls/ hr IV Q6HR JESS[facility] Stop: 03/05/18 03:59 Last Admin: 01/05/18 11:34 Dose: 100 mls/hr Potassium Chloride/Dextrose/Sod Cl (D5-0.45ns W/20 Meq Kcl) 1,000 mls @ 75 mls/ hr IV .[id number] JESS[facility] Stop: 03/06/18 08:04 Last Admin: 01/05/18 09:35 Dose: 75 mls/hr Lactobacillus Rhamnosus (Culturelle 15b) 1 each PO DAILY [facility] Stop: 03/03/18 08:59 Last Admin: 01/05/18 08:35 Dose: Not Given Levothyroxine Sodium (Synthroid) 0.025 mg PO DAILY [facility] Stop: 02/25/18 08:59 Last Admin: 01/05/18 08:36 Dose: Not Given Lorazepam (Ativan) 1 mg IVP Q4HR PRN; Protocol PRN Reason: Agitation Stop: 02/25/18 00:58 Last Admin: 01/02/18 01:49 Dose: 1 mg Lorazepam (Ativan) 0.5 mg IVP Q4HR PRN; Protocol PRN Reason: Agitation Stop: 03/01/18 17:48 Last Admin: 01/01/18 12:08 Dose: 0.5 mg Miscellaneous (Probiotic Screen) 1 ea MC PRN PRN PRN Reason: PROTOCOL Stop: 03/02/18 15:13 Ondansetron HCl (Zofran) 4 mg IV Q6H PRN PRN Reason: Nausea / Vomiting Stop: 03/06/18 11:38 Pantoprazole Sodium (Protonix) 40 mg IVP BID JESS[facility] Stop: 03/04/18 16:59 Last Admin: 01/05/18 09:35 Dose: 40 mg Polyethylene Glycol (Miralax) 17 gm PO DAILY [facility] Stop: 02/25/18 08:59 Last Admin: 01/05/18 08:36 Dose: Not Given Valsartan (Diovan) 80 mg PO DAILY [facility] Stop: 02/25/18 08:59 Last Admin: 01/05/18 08:36 Dose: Not Given General: no acute distress, well developed, well nourished HEENT: atraumatic, no normocephalic, no PERRLA Neck: supple, thyromegaly Cardiovascular: S1S2, regular Lungs: clear to auscultation bilaterally, clear to percussion Abdomen: soft, no tender, no distended, no mass Extremities: no cyanosis, no clubbing, no edema Neurological: awake, other (confused) Skin: intact Infectious Disease Assmt/Plan - Assessment Assessment: 1. Sepsis. 2. Aspiration pneumonia. 3. UTI treated. 4. Dementia. 5. Hypertension. - Plan Plan: Continue Zosyn. Dw family in detail about her condition and prognosis. Nutritional Asmnt/Malnutr-PDOC - Dietary Evaluation Malnutrition Findings (Please click <Entered> for more info): Nutritional Asmnt/Malnutrition Start: 12/30/17 16: 04 Text: Status: Complete Freq: Protocol: Document 12/30/17 16:04 TAMI (Rec: 12/30/17 16:14 [email or web address]) Nutritional Asmnt/Malnutrition Patient General Information Nutritional Screening Moderate Risk Diagnosis elevated troponin Pertinent Medical Hx/Surgical Hx HTN, dementia, hypothyroidism Subjective Information Pt seen sleeping in bed at time of visit, family at bedside. Per family, pt was very sleepy, only had few bites of brearfast this morning. Per EMR, PO intake about 25-50%. Per family, pt likes chocoalte icecream and pudding. Current Diet Order/ Nutrition Support cardiac Pertinent Medications lipitor, D5-0.25ns, synthroid, miralax, seroquel Pertinent Labs 12/27 Cl 110 Nutritional Hx/Data Height 1.6 m Height (Calculated Centimeters) 160.0 Current Weight (lbs) 62.596 kg Weight (Calculated Kilograms) 62.6 Weight (Calculated Grams) 13760.7 [place] Body Weight 115 Body Mass Index (BMI) 24.4 Weight Status Approriate GI Symptoms GI Symptoms None Last BM 12/27 Difficult in: None Skin Integrity/Comment: skin intact, reddened to buttocks Current %PO Poor (25-49%) Estimated Nutritional Goals BEE in Kcals: Using Current wt Calories/Kcals/Kg 25-30 Kcals Calculated 1721-0147 Protein: Using Current wt Protein g/k Protein Calculated 63 Fluid: ml 1575-1890ml (1ml/kcal) Nutritional Problem 1. Problem Problem inadequate food intake Etiology possible poor appetite Signs/Symptoms: PO intake 25-50% Malnutrition Alert Is there a minimum of two criteria No selected? Query Text:Check all the applicable criteria. A minimum of two criteria are recommended for diagnosis of either severe or non-severe malnutrition. Malnutrition Related to Morbid Obesity Malnutrition related to morbid obesity No Intervention/Recommendation Comments 1. Continue with current diet as ordered. Family request nutrition supplements. Send one bottle of chocolate ensure per family request at lunch. Will consider adding supplements if PO intake continue <50%. Nurses to assist pt with meals and encourage oral intake. 2. Monitor PO intake, wt, labs and skin integrity 3. F/U as high risk in 2-3 days, 01/01-01/02 Expected Outcomes/Goals Expected Outcomes/Goals 1. PO intake to meet at least 75% of nutritional needs. 2. Wt stability, skin to remain intact, labs to approach WNL.
[2018-01-05 14:17] LABS: ANTI-NUCLEAR AB SCREEN Negative
[2018-01-05] MEDS: KCL 20mEq/100mL Premix 20 MEQ/100 ML PIGGYBACK IV SCH ×2 (14:43→17:11)
[2018-01-06] MEDS: D5-0.45NS w/20 mEq KCL 1,000 ML IV SCH ×2 (00:54→15:51)
[2018-01-06 06:09] LABS: HEMATOCRIT 32.4 % (41.0-60); HEMOGLOBIN 10.8 gm/dL (12-16); MEAN CELL VOLUME 92.8 fl (81-100); MEAN CORPUSCULAR HEMOGLOBIN 30.9 pg (27.0-31.0); MEAN CORPUSCULAR HGB CONC 33.3 pg (28.0-36.0); MEAN PLATELET VOLUME 9.4 fl; PLATELET COUNT 550 Th/cmm (150-400); RED BLOOD COUNT 3.49 Mil/cmm (3.80-5.20); RED CELL DISTRIBUTION WIDTH 14.1 % (11.5-20.0)
[2018-01-06 06:11] LABS: ALBUMIN 2.8 gm/dL (3.7-5.3); ALKALINE PHOSPHATASE 85 U/L (34-104); ANION GAP 9.6 (7.0-16.0); BILIRUBIN,TOTAL 0.6 mg/dL (0.3-1.0); BUN - UREA NITROGEN 7 mg/dL (7-25); CALCIUM SERUM 8.3 mg/dL (8.6-10.3); CARBON DIOXIDE 18.8 mEq/L (21.0-31.0); CHLORIDE 112 mEq/L (98-107); CREATININE - SERUM 0.7 mg/dL (0.6-1.2); GLUCOSE 129 mg/dL (70-105); POTASSIUM SERUM 3.4 mEq/L (3.5-5.1); SGOT 39 U/L (13-39); SGPT/ALT 31 U/L (7-52); SODIUM SERUM 137 mEq/L (136-145); TOTAL PROTEIN,SERUM 5.6 gm/dL (6.0-8.3)
[2018-01-06 06:16] LABS: WHITE BLOOD COUNT 17.7 Th/cmm (4.8-10.8)
[2018-01-06 07:02] LABS: BAND NEUTROPHILE 0 % (0-10); BASOPHIL 0 % (0-3); LYMPHOCYTE 18 % (20-50); MONOCYTE 8 % (2-10); NEUTROPHILS 72 % (40-80)
[2018-01-06 07:03] LABS: EOSINOPHIL 2 % (0-5)
--- NOTE | 2018-01-06 08:19 | General Progress Note ---
Subjective - Review of Systems Service Date: 01/06/18 Subjective: Patient was seen and examined. No further episodes. bilateral infiltrates noted on CT chest. will order swallow eval to rule out aspiration. Will keep patient NPO. Poor oral intake. elevated ESR+ and positive Rheumatoid Factor Objective - Results Result Diagrams: 01/06/18 04:55 01/06/18 04:55 Recent Labs: Laboratory Last Values WBC 17.7 Th/cmm (4.8-10.8) H 01/06/18 04:55 RBC 3.49 Mil/cmm (3.80-5.20) L 01/06/18 04:55 Hgb 10.8 gm/dL (12-16) L 01/06/18 04:55 Hct 32.4 % (41.0-60) L 01/06/18 04:55 MCV 92.8 fl (81-100) 01/06/18 04:55 MCH 30.9 pg (27.0-31.0) 01/06/18 04:55 MCHC Differential 33.3 pg (28.0-36.0) 01/06/18 04:55 RDW 14.1 % (11.5-20.0) 01/06/18 04:55 Plt Count 550 Th/cmm (150-400) H 01/06/18 04:55 MPV 9.4 fl 01/06/18 04:55 Add Manual Diff YES 01/06/18 04:55 Neutrophils % 88.7 % (40.0-80.0) H 01/03/18 17:00 Band Neutrophils % 0 % (0-10) 01/06/18 04:55 Lymphocytes % 7.4 % (20.0-50.0) L 01/03/18 17:00 Monocytes % 1.1 % (2.0-10.0) L 01/03/18 17:00 Eosinophils % 0.7 % (0.0-5.0) 01/03/18 17:00 Basophils % 2.1 % (0.0-2.0) H 01/03/18 17:00 Neutrophils (Manual) 72 % (40-80) 01/06/18 04:55 Lymphocytes 18 % (20-50) L 01/06/18 04:55 Monocytes 8 % (2-10) 01/06/18 04:55 Eosinophils 2 % (0-5) 01/06/18 04:55 Basophils 0 % (0-3) 01/06/18 04:55 Platelet Estimate ADEQUATE (NORMAL) 01/02/18 06:06 ESR 62 mm/hr (0-30) H 01/03/18 04:45 PT 9.5 SECONDS (9.5-11.5) 12/26/17 17:15 INR 0.91 (0.5-1.4) 12/26/17 17:15 PTT (Actin FS) 24.5 SECONDS (26.0-38.0) L 12/26/17 17:15 Sodium 137 mEq/L (136-145) 01/06/18 04:55 Potassium 3.4 mEq/L (3.5-5.1) L 01/06/18 04:55 Chloride 112 mEq/L (98-107) H 01/06/18 04:55 Carbon Dioxide 18.8 mEq/L (21.0-31.0) L 01/06/18 04:55 Anion Gap 9.6 (7.0-16.0) 01/06/18 04:55 BUN 7 mg/dL (7-25) 01/06/18 04:55 Creatinine 0.7 mg/dL (0.6-1.2) 01/06/18 04:55 Est GFR ( Amer) TNP 01/06/18 04:55 Est GFR (Non-Af Amer) TNP 01/06/18 04:55 BUN/Creatinine Ratio 10.0 01/06/18 04:55 Glucose 129 mg/dL (70-105) H 01/06/18 04:55 Uric Acid 3.3 mg/dL (2.3-6.6) 01/03/18 04:45 Calcium 8.3 mg/dL (8.6-10.3) L 01/06/18 04:55 Total Bilirubin 0.6 mg/dL (0.3-1.0) 01/06/18 04:55 AST 39 U/L (13-39) 01/06/18 04:55 ALT 31 U/L (7-52) 01/06/18 04:55 Alkaline Phosphatase 85 U/L (34-104) 01/06/18 04:55 Ammonia 52 umol/L (16-53) 12/31/17 05:40 Troponin I 0.23 ng/mL (0.01-0.05) H* D 01/03/18 04:45 Total Protein 5.6 gm/dL (6.0-8.3) L 01/06/18 04:55 Albumin 2.8 gm/dL (3.7-5.3) L 01/06/18 04:55 Globulin 2.8 gm/dL 01/06/18 04:55 Albumin/Globulin Ratio 1.0 (1.0-1.8) 01/06/18 04:55 Triglycerides 78 mg/dL (<150) 12/27/17 07:47 Cholesterol 249 mg/dL (<200) H 12/27/17 07:47 LDL Cholesterol Direct 198 mg/dL (75-193) H 12/27/17 07:47 HDL Cholesterol 45 mg/dL (23-92) 12/27/17 07:47 Vitamin B12 707 pg/mL (232-1245) 12/30/17 06:00 Folic Acid 16.7 ng/mL (>3.0) 12/30/17 06:00 TSH 3.88 uIU/ml (0.34-5.60) 12/26/17 17:15 Urine Source CATH 12/31/17 08:20 Urine Color YELLOW 12/31/17 08:20 Urine Clarity CLEAR (CLEAR) 12/31/17 08:20 Urine pH 6.5 (4.6 - 8.0) 12/31/17 08:20 Ur Specific [place] 1.010 (1.005-1.030) 12/31/17 08:20 Urine Protein TRACE mg/dL (NEGATIVE) 12/31/17 08:20 Urine Glucose (UA) NEGATIVE mg/dL (NEGATIVE) 12/31/17 08:20 Urine Ketones NEGATIVE mg/dL (NEGATIVE) 12/31/17 08:20 Urine Blood NEGATIVE (NEGATIVE) 12/31/17 08:20 Urine Nitrate NEGATIVE (NEGATIVE) 12/31/17 08:20 Urine Bilirubin NEGATIVE (NEGATIVE) 12/31/17 08:20 Urine Urobilinogen 0.2 E.U./dL (0.2 - 1.0) 12/31/17 08:20 Ur Leukocyte Esterase NEGATIVE (NEGATIVE) 12/31/17 08:20 Urine RBC 0-2 /hpf (0-5) 12/31/17 08:20 Urine WBC 0-2 /hpf (0-5) 12/31/17 08:20 Ur Epithelial Cells RARE /lpf (FEW) 12/31/17 08:20 Urine Bacteria NONE SEEN /hpf (NONE SEEN) 12/31/17 08:20 Urine Mucus FEW /lpf (FEW) 12/31/17 08:20 Rheumatoid Factor 15.5 IU/mL (0.0-13.9) H 01/03/18 04:45 ELSA Screen Negative 01/03/18 04:45 - Physical Exam Vitals and I&O: Vital Signs Temp 98.2 F 01/06/18 07:35 Pulse 77 01/06/18 07:35 Resp 18 01/06/18 07:35 BP 131/66 01/06/18 07:35 Pulse Ox 94 01/06/18 07:35 Intake & Output 01/05/18 01/06/18 01/06/18 18:59 06:59 18:59 Intake Total 250 1200 Output Total 250 Balance 0 1200 Weight (lbs) 64.41 kg 64.41 kg Intake: Intake, IV Amount 150 1100 D5-0.45NS w/20 mEq KCL 1, 1000 000 ml @ 75 mls/hr IV . [id number] [facility] Rx#:[id number] KCL 20mEq/100mL Premix 20 100 meq In 100 ml @ 50 mls/ hr IV Q2H [facility] Rx#: [id number] Piperacillin Sodium/ 50 100 Tazobact 3.375 gm In Sodium Chloride 0.9% 50 ml @ 100 mls/hr IV Q6HR [facility] Rx#:[id number] Oral 100 100 Output: Urine 250 Other: # Voids 2 # Bowel Movements 0 Weight Source Bedscale Bedscale Active Medications: Current Medications Acetaminophen (Tylenol) 650 mg PO Q4H PRN PRN Reason: Fever > 101 Stop: 02/28/18 23:58 Last Admin: 01/01/18 18:09 Dose: 650 mg Acetaminophen (Tylenol 650mg Supp) 650 mg RC Q4H PRN PRN Reason: Fever > 101 Stop: 03/03/18 14:05 Last Admin: 01/03/18 03:56 Dose: 650 mg Aspirin (Aspirin Chewable) 81 mg PO DAILY [facility] Stop: 02/25/18 08:59 Last Admin: 01/05/18 08:35 Dose: Not Given Atorvastatin Calcium (Lipitor) 10 mg PO DAILY JESS[facility]; Protocol Stop: 02/26/18 10:59 Last Admin: 01/05/18 08:35 Dose: Not Given Bisacodyl (Dulcolax 10 Mg Supp) 10 mg RC DAILY PRN PRN Reason: Constipation Stop: 02/25/18 06:58 Last Admin: 01/02/18 20:41 Dose: 10 mg Piperacillin Sod/Tazobactam (Sod 3.375 gm/ Sodium Chloride) 50 mls @ 100 mls/ hr IV Q6HR [facility] Stop: 03/05/18 03:59 Last Admin: 01/06/18 05:51 Dose: 100 mls/hr Potassium Chloride/Dextrose/Sod Cl (D5-0.45ns W/20 Meq Kcl) 1,000 mls @ 75 mls/ hr IV .[id number] [facility] Stop: 03/06/18 08:04 Last Admin: 01/06/18 00:54 Dose: 75 mls/hr Lactobacillus Rhamnosus (Culturelle 15b) 1 each PO DAILY [facility] Stop: 03/03/18 08:59 Last Admin: 01/05/18 08:35 Dose: Not Given Levothyroxine Sodium (Synthroid) 0.025 mg PO DAILY [facility] Stop: 02/25/18 08:59 Last Admin: 01/05/18 08:36 Dose: Not Given Lorazepam (Ativan) 1 mg IVP Q4HR PRN; Protocol PRN Reason: Agitation Stop: 02/25/18 00:58 Last Admin: 01/02/18 01:49 Dose: 1 mg Lorazepam (Ativan) 0.5 mg IVP Q4HR PRN; Protocol PRN Reason: Agitation Stop: 03/01/18 17:48 Last Admin: 01/01/18 12:08 Dose: 0.5 mg Miscellaneous (Probiotic Screen) 1 ea MC PRN PRN PRN Reason: PROTOCOL Stop: 03/02/18 15:13 Ondansetron HCl (Zofran) 4 mg IV Q6H PRN PRN Reason: Nausea / Vomiting Stop: 03/06/18 11:38 Pantoprazole Sodium (Protonix) 40 mg IVP BID [facility] Stop: 03/04/18 16:59 Last Admin: 01/05/18 17:11 Dose: 40 mg Polyethylene Glycol (Miralax) 17 gm PO DAILY [facility] Stop: 02/25/18 08:59 Last Admin: 01/05/18 08:36 Dose: Not Given Valsartan (Diovan) 80 mg PO DAILY [facility] Stop: 02/25/18 08:59 Last Admin: 01/05/18 08:36 Dose: Not Given General: Alert, Oriented x3 HEENT: Atraumatic, PERRLA, EOMI Neck: Supple Cardiovascular: Regular rate Lungs: Clear to auscultation Abdomen: Bowel sounds, Soft, no Tender, no Hepatomegaly, no Splenomegaly, no Rebound, no Mass, no Guarding Extremities: no Clubbing, no Cyanosis, no Edema Neurological: Normal gait, Normal speech Psych/Mental Status: no Mental status NL Assessment/Plan - Assessment Assessment: elevated troponins improved Non q-wave RI ... 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 continue current medications HTN slightly elevated ... on diovan 80mg PO daily, will add clonidine PRN UTI...continue IV anitbiotics. UA for C&S leukocytosis .... for CT chest,abd,pelvis hyperlipidemia ... on statins FUO .... repeat CBC, chest xray this AM. will order ELSA,ESR,RA,Uric Acid coffee ground emesis ... will order IV Protonix. Will order GI consult. hypokalemia ... on kdur 20meq PO daily. Rheumatoid Arthritis .... need to be referred to costume mistress outpatient. bilateral infiltrates likely PNA ... pulmonary consult. - Plan Plan: continue current orders. Nutritional Asmnt/Malnutr-PDOC - Dietary Evaluation Malnutrition Findings (Please click <Entered> for more info): Nutritional Asmnt/Malnutrition Start: 12/30/17 16: 04 Text: Status: Complete Freq: Protocol: Document 12/30/17 16:04 [email or web address] (Rec: 12/30/17 16:14 [email or web address]) Nutritional Asmnt/Malnutrition Patient General Information Nutritional Screening Moderate Risk Diagnosis elevated troponin Pertinent Medical Hx/Surgical Hx HTN, dementia, hypothyroidism Subjective Information Pt seen sleeping in bed at time of visit, family at bedside. Per family, pt was very sleepy, only had few bites of brearfast this morning. Per EMR, PO intake about 25-50%. Per family, pt likes chocoalte icecream and pudding. Current Diet Order/ Nutrition Support cardiac Pertinent Medications lipitor, D5-0.25ns, synthroid, miralax, seroquel Pertinent Labs 12/27 Cl 110 Nutritional Hx/Data Height 1.6 m Height (Calculated Centimeters) 160.0 Current Weight (lbs) 62.596 kg Weight (Calculated Kilograms) 62.6 Weight (Calculated Grams) 42871.7 [place] Body Weight 115 Body Mass Index (BMI) 24.4 Weight Status Approriate GI Symptoms GI Symptoms None Last BM 12/27 Difficult in: None Skin Integrity/Comment: skin intact, reddened to buttocks Current %PO Poor (25-49%) Estimated Nutritional Goals BEE in Kcals: Using Current wt Calories/Kcals/Kg 25-30 Kcals Calculated 1773-3469 Protein: Using Current wt Protein g/k Protein Calculated 63 Fluid: ml 1575-1890ml (1ml/kcal) Nutritional Problem 1. Problem Problem inadequate food intake Etiology possible poor appetite Signs/Symptoms: PO intake 25-50% Malnutrition Alert Is there a minimum of two criteria No selected? Query Text:Check all the applicable criteria. A minimum of two criteria are recommended for diagnosis of either severe or non-severe malnutrition. Malnutrition Related to Morbid Obesity Malnutrition related to morbid obesity No Intervention/Recommendation Comments 1. Continue with current diet as ordered. Family request nutrition supplements. Send one bottle of chocolate ensure per family request at lunch. Will consider adding supplements if PO intake continue <50%. Nurses to assist pt with meals and encourage oral intake. 2. Monitor PO intake, wt, labs and skin integrity 3. F/U as high risk in 2-3 days, 01/01-01/02 Expected Outcomes/Goals Expected Outcomes/Goals 1. PO intake to meet at least 75% of nutritional needs. 2. Wt stability, skin to remain intact, labs to approach WNL.
--- NOTE | 2018-01-06 08:35 | GI Progress Note ---
Subjective - Review of Systems Service Date: 01/06/18 Subjective: No new events Objective - Results Result Diagrams: 01/06/18 04:55 01/06/18 04:55 Recent Labs: Laboratory Last Values WBC 17.7 Th/cmm (4.8-10.8) H 01/06/18 04:55 RBC 3.49 Mil/cmm (3.80-5.20) L 01/06/18 04:55 Hgb 10.8 gm/dL (12-16) L 01/06/18 04:55 Hct 32.4 % (41.0-60) L 01/06/18 04:55 MCV 92.8 fl (81-100) 01/06/18 04:55 MCH 30.9 pg (27.0-31.0) 01/06/18 04:55 MCHC Differential 33.3 pg (28.0-36.0) 01/06/18 04:55 RDW 14.1 % (11.5-20.0) 01/06/18 04:55 Plt Count 550 Th/cmm (150-400) H 01/06/18 04:55 MPV 9.4 fl 01/06/18 04:55 Add Manual Diff YES 01/06/18 04:55 Neutrophils % 88.7 % (40.0-80.0) H 01/03/18 17:00 Band Neutrophils % 0 % (0-10) 01/06/18 04:55 Lymphocytes % 7.4 % (20.0-50.0) L 01/03/18 17:00 Monocytes % 1.1 % (2.0-10.0) L 01/03/18 17:00 Eosinophils % 0.7 % (0.0-5.0) 01/03/18 17:00 Basophils % 2.1 % (0.0-2.0) H 01/03/18 17:00 Neutrophils (Manual) 72 % (40-80) 01/06/18 04:55 Lymphocytes 18 % (20-50) L 01/06/18 04:55 Monocytes 8 % (2-10) 01/06/18 04:55 Eosinophils 2 % (0-5) 01/06/18 04:55 Basophils 0 % (0-3) 01/06/18 04:55 Platelet Estimate ADEQUATE (NORMAL) 01/02/18 06:06 ESR 62 mm/hr (0-30) H 01/03/18 04:45 PT 9.5 SECONDS (9.5-11.5) 12/26/17 17:15 INR 0.91 (0.5-1.4) 12/26/17 17:15 PTT (Actin FS) 24.5 SECONDS (26.0-38.0) L 12/26/17 17:15 Sodium 137 mEq/L (136-145) 01/06/18 04:55 Potassium 3.4 mEq/L (3.5-5.1) L 01/06/18 04:55 Chloride 112 mEq/L (98-107) H 01/06/18 04:55 Carbon Dioxide 18.8 mEq/L (21.0-31.0) L 01/06/18 04:55 Anion Gap 9.6 (7.0-16.0) 01/06/18 04:55 BUN 7 mg/dL (7-25) 01/06/18 04:55 Creatinine 0.7 mg/dL (0.6-1.2) 01/06/18 04:55 Est GFR ( Amer) TNP 01/06/18 04:55 Est GFR (Non-Af Amer) TNP 01/06/18 04:55 BUN/Creatinine Ratio 10.0 01/06/18 04:55 Glucose 129 mg/dL (70-105) H 01/06/18 04:55 Uric Acid 3.3 mg/dL (2.3-6.6) 01/03/18 04:45 Calcium 8.3 mg/dL (8.6-10.3) L 01/06/18 04:55 Total Bilirubin 0.6 mg/dL (0.3-1.0) 01/06/18 04:55 AST 39 U/L (13-39) 01/06/18 04:55 ALT 31 U/L (7-52) 01/06/18 04:55 Alkaline Phosphatase 85 U/L (34-104) 01/06/18 04:55 Ammonia 52 umol/L (16-53) 12/31/17 05:40 Troponin I 0.23 ng/mL (0.01-0.05) H* D 01/03/18 04:45 Total Protein 5.6 gm/dL (6.0-8.3) L 01/06/18 04:55 Albumin 2.8 gm/dL (3.7-5.3) L 01/06/18 04:55 Globulin 2.8 gm/dL 01/06/18 04:55 Albumin/Globulin Ratio 1.0 (1.0-1.8) 01/06/18 04:55 Triglycerides 78 mg/dL (<150) 12/27/17 07:47 Cholesterol 249 mg/dL (<200) H 12/27/17 07:47 LDL Cholesterol Direct 198 mg/dL (75-193) H 12/27/17 07:47 HDL Cholesterol 45 mg/dL (23-92) 12/27/17 07:47 Vitamin B12 707 pg/mL (232-1245) 12/30/17 06:00 Folic Acid 16.7 ng/mL (>3.0) 12/30/17 06:00 TSH 3.88 uIU/ml (0.34-5.60) 12/26/17 17:15 Urine Source CATH 12/31/17 08:20 Urine Color YELLOW 12/31/17 08:20 Urine Clarity CLEAR (CLEAR) 12/31/17 08:20 Urine pH 6.5 (4.6 - 8.0) 12/31/17 08:20 Ur Specific [place] 1.010 (1.005-1.030) 12/31/17 08:20 Urine Protein TRACE mg/dL (NEGATIVE) 12/31/17 08:20 Urine Glucose (UA) NEGATIVE mg/dL (NEGATIVE) 12/31/17 08:20 Urine Ketones NEGATIVE mg/dL (NEGATIVE) 12/31/17 08:20 Urine Blood NEGATIVE (NEGATIVE) 12/31/17 08:20 Urine Nitrate NEGATIVE (NEGATIVE) 12/31/17 08:20 Urine Bilirubin NEGATIVE (NEGATIVE) 12/31/17 08:20 Urine Urobilinogen 0.2 E.U./dL (0.2 - 1.0) 12/31/17 08:20 Ur Leukocyte Esterase NEGATIVE (NEGATIVE) 12/31/17 08:20 Urine RBC 0-2 /hpf (0-5) 12/31/17 08:20 Urine WBC 0-2 /hpf (0-5) 12/31/17 08:20 Ur Epithelial Cells RARE /lpf (FEW) 12/31/17 08:20 Urine Bacteria NONE SEEN /hpf (NONE SEEN) 12/31/17 08:20 Urine Mucus FEW /lpf (FEW) 12/31/17 08:20 Rheumatoid Factor 15.5 IU/mL (0.0-13.9) H 01/03/18 04:45 ELSA Screen Negative 01/03/18 04:45 - Physical Exam Vitals and I&O: Vital Signs Temp 98.2 F 01/06/18 07:35 Pulse 77 01/06/18 07:35 Resp 18 01/06/18 07:35 BP 131/66 01/06/18 07:35 Pulse Ox 94 01/06/18 07:35 Intake & Output 01/05/18 01/06/18 01/06/18 18:59 06:59 18:59 Intake Total 250 1200 Output Total 250 Balance 0 1200 Weight (lbs) 64.41 kg 64.41 kg Intake: Intake, IV Amount 150 1100 D5-0.45NS w/20 mEq KCL 1, 1000 000 ml @ 75 mls/hr IV . [id number] [facility] Rx#:[id number] KCL 20mEq/100mL Premix 20 100 meq In 100 ml @ 50 mls/ hr IV Q2H [facility] Rx#: [id number] Piperacillin Sodium/ 50 100 Tazobact 3.375 gm In Sodium Chloride 0.9% 50 ml @ 100 mls/hr IV Q6HR [facility] Rx#:[id number] Oral 100 100 Output: Urine 250 Other: # Voids 2 # Bowel Movements 0 Weight Source Bedscale Bedscale Active Medications: Current Medications Acetaminophen (Tylenol) 650 mg PO Q4H PRN PRN Reason: Fever > 101 Stop: 02/28/18 23:58 Last Admin: 01/01/18 18:09 Dose: 650 mg Acetaminophen (Tylenol 650mg Supp) 650 mg RC Q4H PRN PRN Reason: Fever > 101 Stop: 03/03/18 14:05 Last Admin: 01/03/18 03:56 Dose: 650 mg Aspirin (Aspirin Chewable) 81 mg PO DAILY [facility] Stop: 02/25/18 08:59 Last Admin: 01/05/18 08:35 Dose: Not Given Atorvastatin Calcium (Lipitor) 10 mg PO DAILY [facility]; Protocol Stop: 02/26/18 10:59 Last Admin: 01/05/18 08:35 Dose: Not Given Bisacodyl (Dulcolax 10 Mg Supp) 10 mg RC DAILY PRN PRN Reason: Constipation Stop: 02/25/18 06:58 Last Admin: 01/02/18 20:41 Dose: 10 mg Piperacillin Sod/Tazobactam (Sod 3.375 gm/ Sodium Chloride) 50 mls @ 100 mls/ hr IV Q6HR [facility] Stop: 03/05/18 03:59 Last Admin: 01/06/18 05:51 Dose: 100 mls/hr Potassium Chloride/Dextrose/Sod Cl (D5-0.45ns W/20 Meq Kcl) 1,000 mls @ 75 mls/ hr IV .[id number] [facility] Stop: 03/06/18 08:04 Last Admin: 01/06/18 00:54 Dose: 75 mls/hr Lactobacillus Rhamnosus (Culturelle 15b) 1 each PO DAILY [facility] Stop: 03/03/18 08:59 Last Admin: 01/05/18 08:35 Dose: Not Given Levothyroxine Sodium (Synthroid) 0.025 mg PO DAILY [facility] Stop: 02/25/18 08:59 Last Admin: 01/05/18 08:36 Dose: Not Given Lorazepam (Ativan) 1 mg IVP Q4HR PRN; Protocol PRN Reason: Agitation Stop: 02/25/18 00:58 Last Admin: 01/02/18 01:49 Dose: 1 mg Lorazepam (Ativan) 0.5 mg IVP Q4HR PRN; Protocol PRN Reason: Agitation Stop: 03/01/18 17:48 Last Admin: 01/01/18 12:08 Dose: 0.5 mg Miscellaneous (Probiotic Screen) 1 ea [facility] PRN PRN PRN Reason: PROTOCOL Stop: 03/02/18 15:13 Ondansetron HCl (Zofran) 4 mg IV Q6H PRN PRN Reason: Nausea / Vomiting Stop: 03/06/18 11:38 Pantoprazole Sodium (Protonix) 40 mg IVP BID [facility] Stop: 03/04/18 16:59 Last Admin: 01/05/18 17:11 Dose: 40 mg Polyethylene Glycol (Miralax) 17 gm PO DAILY [facility] Stop: 02/25/18 08:59 Last Admin: 01/05/18 08:36 Dose: Not Given Potassium Chloride (Klor-Con) 20 meq PO DAILY [facility] Stop: 03/07/18 08:59 Valsartan (Diovan) 80 mg PO DAILY [facility] Stop: 02/25/18 08:59 Last Admin: 01/05/18 08:36 Dose: Not Given General: Alert, Oriented x3 HEENT: Atraumatic, PERRLA, EOMI Neck: Supple Cardiovascular: Regular rate Lungs: Clear to auscultation Abdomen: Bowel sounds, Soft, no Tender, no Hepatomegaly, no Splenomegaly, no Rebound, no Mass, no Guarding Extremities: no Clubbing, no Cyanosis, no Edema Neurological: Normal gait, Normal speech Psych/Mental Status: no Mental status NL Assessment/Plan - Assessment Assessment: # Coffee ground emesis x 1 # Leukocytosis # Alzheimer's dementia Hgb has been stable, and as she only had a single episode of emesis, EGD is not necessary at this point. Treating conservatively with PPI. Leukocytosis is concerning, and workup for infectious source has revealed pneumonia as likely source. Plan: - cont PPI - Speech/swallow recommends mechanical soft diet with thin liquids. If G tube is desired at a later date, GI is available for this - diet as tolerated - trend hgb, transfuse to keep > 7 - reserve endoscopy for hemostasis or if she has further GI bleeding - appreciate ID recommendations GI to see as needed, please call with questions
[2018-01-06] MEDS: Potassium Chloride 20 mEq ER Tab PO SCH (09:13)
[2018-01-06] MEDS: Aspirin 81mg Chewable Tab PO SCH ×2 (09:14→09:25)
[2018-01-06] MEDS: Lactobacillus Rhamnosus GG 15 Billion CFU CAP.SPRINK PO SCH ×2 (09:14→09:25)
[2018-01-06] MEDS: Atorvastatin Calcium 10 MG TAB PO SCH ×2 (09:14→09:25)
[2018-01-06] MEDS: Levothyroxine 0.025 Mg Tab PO SCH ×2 (09:14→09:26)
[2018-01-06] MEDS: POLYETHYLENE GLYCOL 3350 17 GM PACK PO SCH ×2 (09:15→09:25)
--- NOTE | 2018-01-06 09:36 | Infectious Disease Prog Note ---
Infectious Disease Subjective - Review of Systems Service Date: 01/06/18 Subjective: No fever today. Doing the same. Remains confused, refuses to take medicactions. Stable WBC count. Infectious Disease Objective - Results Result Diagrams: 01/07/18 05:45 01/07/18 05:30 Recent Labs: Laboratory Last Values WBC 17.7 Th/cmm (4.8-10.8) H 01/06/18 04:55 RBC 3.49 Mil/cmm (3.80-5.20) L 01/06/18 04:55 Hgb 10.8 gm/dL (12-16) L 01/06/18 04:55 Hct 32.4 % (41.0-60) L 01/06/18 04:55 MCV 92.8 fl (81-100) 01/06/18 04:55 MCH 30.9 pg (27.0-31.0) 01/06/18 04:55 MCHC Differential 33.3 pg (28.0-36.0) 01/06/18 04:55 RDW 14.1 % (11.5-20.0) 01/06/18 04:55 Plt Count 550 Th/cmm (150-400) H 01/06/18 04:55 MPV 9.4 fl 01/06/18 04:55 Add Manual Diff YES 01/06/18 04:55 Neutrophils % 88.7 % (40.0-80.0) H 01/03/18 17:00 Band Neutrophils % 0 % (0-10) 01/06/18 04:55 Lymphocytes % 7.4 % (20.0-50.0) L 01/03/18 17:00 Monocytes % 1.1 % (2.0-10.0) L 01/03/18 17:00 Eosinophils % 0.7 % (0.0-5.0) 01/03/18 17:00 Basophils % 2.1 % (0.0-2.0) H 01/03/18 17:00 Neutrophils (Manual) 72 % (40-80) 01/06/18 04:55 Lymphocytes 18 % (20-50) L 01/06/18 04:55 Monocytes 8 % (2-10) 01/06/18 04:55 Eosinophils 2 % (0-5) 01/06/18 04:55 Basophils 0 % (0-3) 01/06/18 04:55 Platelet Estimate ADEQUATE (NORMAL) 01/02/18 06:06 ESR 62 mm/hr (0-30) H 01/03/18 04:45 PT 9.5 SECONDS (9.5-11.5) 12/26/17 17:15 INR 0.91 (0.5-1.4) 12/26/17 17:15 PTT (Actin FS) 24.5 SECONDS (26.0-38.0) L 12/26/17 17:15 Sodium 137 mEq/L (136-145) 01/06/18 04:55 Potassium 3.4 mEq/L (3.5-5.1) L 01/06/18 04:55 Chloride 112 mEq/L (98-107) H 01/06/18 04:55 Carbon Dioxide 18.8 mEq/L (21.0-31.0) L 01/06/18 04:55 Anion Gap 9.6 (7.0-16.0) 01/06/18 04:55 BUN 7 mg/dL (7-25) 01/06/18 04:55 Creatinine 0.7 mg/dL (0.6-1.2) 01/06/18 04:55 Est GFR ( Amer) TNP 01/06/18 04:55 Est GFR (Non-Af Amer) TNP 01/06/18 04:55 BUN/Creatinine Ratio 10.0 01/06/18 04:55 Glucose 129 mg/dL (70-105) H 01/06/18 04:55 Uric Acid 3.3 mg/dL (2.3-6.6) 01/03/18 04:45 Calcium 8.3 mg/dL (8.6-10.3) L 01/06/18 04:55 Total Bilirubin 0.6 mg/dL (0.3-1.0) 01/06/18 04:55 AST 39 U/L (13-39) 01/06/18 04:55 ALT 31 U/L (7-52) 01/06/18 04:55 Alkaline Phosphatase 85 U/L (34-104) 01/06/18 04:55 Ammonia 52 umol/L (16-53) 12/31/17 05:40 Troponin I 0.23 ng/mL (0.01-0.05) H* D 01/03/18 04:45 Total Protein 5.6 gm/dL (6.0-8.3) L 01/06/18 04:55 Albumin 2.8 gm/dL (3.7-5.3) L 01/06/18 04:55 Globulin 2.8 gm/dL 01/06/18 04:55 Albumin/Globulin Ratio 1.0 (1.0-1.8) 01/06/18 04:55 Triglycerides 78 mg/dL (<150) 12/27/17 07:47 Cholesterol 249 mg/dL (<200) H 12/27/17 07:47 LDL Cholesterol Direct 198 mg/dL (75-193) H 12/27/17 07:47 HDL Cholesterol 45 mg/dL (23-92) 12/27/17 07:47 Vitamin B12 707 pg/mL (232-1245) 12/30/17 06:00 Folic Acid 16.7 ng/mL (>3.0) 12/30/17 06:00 TSH 3.88 uIU/ml (0.34-5.60) 12/26/17 17:15 Urine Source CATH 12/31/17 08:20 Urine Color YELLOW 12/31/17 08:20 Urine Clarity CLEAR (CLEAR) 12/31/17 08:20 Urine pH 6.5 (4.6 - 8.0) 12/31/17 08:20 Ur Specific [place] 1.010 (1.005-1.030) 12/31/17 08:20 Urine Protein TRACE mg/dL (NEGATIVE) 12/31/17 08:20 Urine Glucose (UA) NEGATIVE mg/dL (NEGATIVE) 12/31/17 08:20 Urine Ketones NEGATIVE mg/dL (NEGATIVE) 12/31/17 08:20 Urine Blood NEGATIVE (NEGATIVE) 12/31/17 08:20 Urine Nitrate NEGATIVE (NEGATIVE) 12/31/17 08:20 Urine Bilirubin NEGATIVE (NEGATIVE) 12/31/17 08:20 Urine Urobilinogen 0.2 E.U./dL (0.2 - 1.0) 12/31/17 08:20 Ur Leukocyte Esterase NEGATIVE (NEGATIVE) 12/31/17 08:20 Urine RBC 0-2 /hpf (0-5) 12/31/17 08:20 Urine WBC 0-2 /hpf (0-5) 12/31/17 08:20 Ur Epithelial Cells RARE /lpf (FEW) 12/31/17 08:20 Urine Bacteria NONE SEEN /hpf (NONE SEEN) 12/31/17 08:20 Urine Mucus FEW /lpf (FEW) 12/31/17 08:20 Rheumatoid Factor 15.5 IU/mL (0.0-13.9) H 01/03/18 04:45 ELSA Screen Negative 01/03/18 04:45 - Physical Exam Vitals and I&O: Vital Signs Temp 98.2 F 01/06/18 07:35 Pulse 77 01/06/18 09:26 Resp 18 01/06/18 07:35 BP 131/66 01/06/18 09:26 Pulse Ox 94 01/06/18 07:35 Intake & Output 01/05/18 01/06/18 01/06/18 18:59 06:59 18:59 Intake Total 250 1200 Output Total 250 Balance 0 1200 Weight (lbs) 64.41 kg 64.41 kg Intake: Intake, IV Amount 150 1100 D5-0.45NS w/20 mEq KCL 1, 1000 000 ml @ 75 mls/hr IV . [id number] [facility] Rx#:[id number] KCL 20mEq/100mL Premix 20 100 meq In 100 ml @ 50 mls/ hr IV Q2H [facility] Rx#: [id number] Piperacillin Sodium/ 50 100 Tazobact 3.375 gm In Sodium Chloride 0.9% 50 ml @ 100 mls/hr IV Q6HR [facility] Rx#:[id number] Oral 100 100 Output: Urine 250 Other: # Voids 2 # Bowel Movements 0 Weight Source Bedscale Bedscale Active Medications: Current Medications Acetaminophen (Tylenol) 650 mg PO Q4H PRN PRN Reason: Fever > 101 Stop: 02/28/18 23:58 Last Admin: 01/01/18 18:09 Dose: 650 mg Acetaminophen (Tylenol 650mg Supp) 650 mg RC Q4H PRN PRN Reason: Fever > 101 Stop: 03/03/18 14:05 Last Admin: 01/03/18 03:56 Dose: 650 mg Aspirin (Aspirin Chewable) 81 mg PO DAILY [facility] Stop: 02/25/18 08:59 Last Admin: 01/06/18 09:25 Dose: Not Given Atorvastatin Calcium (Lipitor) 10 mg PO DAILY [facility]; Protocol Stop: 02/26/18 10:59 Last Admin: 01/06/18 09:25 Dose: Not Given Bisacodyl (Dulcolax 10 Mg Supp) 10 mg RC DAILY PRN PRN Reason: Constipation Stop: 02/25/18 06:58 Last Admin: 01/02/18 20:41 Dose: 10 mg Piperacillin Sod/Tazobactam (Sod 3.375 gm/ Sodium Chloride) 50 mls @ 100 mls/ hr IV Q6HR [facility] Stop: 03/05/18 03:59 Last Admin: 01/06/18 05:51 Dose: 100 mls/hr Potassium Chloride/Dextrose/Sod Cl (D5-0.45ns W/20 Meq Kcl) 1,000 mls @ 75 mls/ hr IV .[id number] [facility] Stop: 03/06/18 08:04 Last Admin: 01/06/18 00:54 Dose: 75 mls/hr Lactobacillus Rhamnosus (Culturelle 15b) 1 each PO DAILY [facility] Stop: 03/03/18 08:59 Last Admin: 01/06/18 09:25 Dose: Not Given Levothyroxine Sodium (Synthroid) 0.025 mg PO DAILY [facility] Stop: 02/25/18 08:59 Last Admin: 01/06/18 09:26 Dose: Not Given Lorazepam (Ativan) 1 mg IVP Q4HR PRN; Protocol PRN Reason: Agitation Stop: 02/25/18 00:58 Last Admin: 01/02/18 01:49 Dose: 1 mg Lorazepam (Ativan) 0.5 mg IVP Q4HR PRN; Protocol PRN Reason: Agitation Stop: 03/01/18 17:48 Last Admin: 01/01/18 12:08 Dose: 0.5 mg Miscellaneous (Probiotic Screen) 1 ea [facility] PRN PRN PRN Reason: PROTOCOL Stop: 03/02/18 15:13 Ondansetron HCl (Zofran) 4 mg IV Q6H PRN PRN Reason: Nausea / Vomiting Stop: 03/06/18 11:38 Pantoprazole Sodium (Protonix) 40 mg IVP BID [facility] Stop: 03/04/18 16:59 Last Admin: 01/06/18 09:15 Dose: 40 mg Polyethylene Glycol (Miralax) 17 gm PO DAILY [facility] Stop: 02/25/18 08:59 Last Admin: 01/06/18 09:25 Dose: Not Given Potassium Chloride (Klor-Con) 20 meq PO DAILY [facility] Stop: 03/07/18 08:59 Last Admin: 01/06/18 09:13 Dose: 20 meq Valsartan (Diovan) 80 mg PO DAILY [facility] Stop: 02/25/18 08:59 Last Admin: 01/06/18 09:26 Dose: Not Given General: no acute distress HEENT: atraumatic, normocephalic, PERRLA Neck: supple, no thyromegaly Cardiovascular: S1S2, regular Lungs: clear to auscultation bilaterally, clear to percussion Abdomen: soft, no tender, no distended, no mass Extremities: no cyanosis, no clubbing, no edema Neurological: awake Skin: intact Infectious Disease Assmt/Plan - Assessment Assessment: 1. Sepsis. 2. Aspiration pneumonia. 3. UTI treated. 4. Dementia. 5. Hypertension. - Plan Plan: Continue Zosyn. Dw family in detail about her condition and prognosis. Nutritional Asmnt/Malnutr-PDOC - Dietary Evaluation Malnutrition Findings (Please click <Entered> for more info): Nutritional Asmnt/Malnutrition Start: 12/30/17 16: 04 Text: Status: Complete Freq: Protocol: Document 12/30/17 16:04 LCHENG (Rec: 12/30/17 16:14 LCHENG [email or web address]) Nutritional Asmnt/Malnutrition Patient General Information Nutritional Screening Moderate Risk Diagnosis elevated troponin Pertinent Medical Hx/Surgical Hx HTN, dementia, hypothyroidism Subjective Information Pt seen sleeping in bed at time of visit, family at bedside. Per family, pt was very sleepy, only had few bites of brearfast this morning. Per EMR, PO intake about 25-50%. Per family, pt likes chocoalte icecream and pudding. Current Diet Order/ Nutrition Support cardiac Pertinent Medications lipitor, D5-0.25ns, synthroid, miralax, seroquel Pertinent Labs 12/27 Cl 110 Nutritional Hx/Data Height 1.6 m Height (Calculated Centimeters) 160.0 Current Weight (lbs) 62.596 kg Weight (Calculated Kilograms) 62.6 Weight (Calculated Grams) 63529.7 [place] Body Weight 115 Body Mass Index (BMI) 24.4 Weight Status Approriate GI Symptoms GI Symptoms None Last BM 12/27 Difficult in: None Skin Integrity/Comment: skin intact, reddened to buttocks Current %PO Poor (25-49%) Estimated Nutritional Goals BEE in Kcals: Using Current wt Calories/Kcals/Kg 25-30 Kcals Calculated 2422-1911 Protein: Using Current wt Protein g/k Protein Calculated 63 Fluid: ml 1575-1890ml (1ml/kcal) Nutritional Problem 1. Problem Problem inadequate food intake Etiology possible poor appetite Signs/Symptoms: PO intake 25-50% Malnutrition Alert Is there a minimum of two criteria No selected? Query Text:Check all the applicable criteria. A minimum of two criteria are recommended for diagnosis of either severe or non-severe malnutrition. Malnutrition Related to Morbid Obesity Malnutrition related to morbid obesity No Intervention/Recommendation Comments 1. Continue with current diet as ordered. Family request nutrition supplements. Send one bottle of chocolate ensure per family request at lunch. Will consider adding supplements if PO intake continue <50%. Nurses to assist pt with meals and encourage oral intake. 2. Monitor PO intake, wt, labs and skin integrity 3. F/U as high risk in 2-3 days, 01/01-01/02 Expected Outcomes/Goals Expected Outcomes/Goals 1. PO intake to meet at least 75% of nutritional needs. 2. Wt stability, skin to remain intact, labs to approach WNL.
[2018-01-06] MEDS: Albuterol/Ipratropium Neb 3 ML AERS HHN SCH (19:37)
--- NOTE | 2018-01-06 23:11 | Consultation ---
DATE OF CONSULTATION: 01/06/[address] Bland. Thank you very much for this consultation. This is an 87-year-old female. According to , the patient was wandering outside the house with no clothes on. Apparently, she has a history of dementia for 7 years and it has been getting worse, was admitted for further evaluation. The patient has history of hypertension, unable to give any meaningful history. Apparently, not eating as much, passed swallow evaluation, did have a CT of the chest which showed some pneumonia, the patient last had one was 20 years ago according to the . PAST MEDICAL HISTORY: As above. SOCIAL HISTORY: No history of smoking, drinking or drug use. REVIEW OF SYSTEMS: GENERAL: Some weakness, no fatigue. CARDIOVASCULAR: No chest pain. RESPIRATORY: No shortness of breath. GASTROINTESTINAL: No nausea or vomiting. PHYSICAL EXAMINATION: GENERAL: Awake, alert, not in acute distress. VITAL SIGNS: Temperature 98.3, pulse 80, respiration is 18, blood pressure 126/70, saturation is 95% on room air. HEENT: Atraumatic, normocephalic. Pupils react to light and accommodation. Ears, nose and throat are normal. NECK: Supple. No JVD. CHEST: There are decreased breath sounds in bases, fair air entry. No wheezing or crackles. HEART: Regular rhythm. ABDOMEN: Soft. EXTREMITIES: No edema. LABORATORY DATA: WBC 17.7, hemoglobin 10.8, hematocrit 32.4, platelets 550. Sodium 137, potassium 3.4, BUN is 7, creatinine 0.7. Blood cultures negative so far. Urine culture is negative. IMPRESSION: This is an 87-year-old female with: 1. Pneumonia. 2. Dementia. 3. Weakness and lack of oral intake. PLAN: 1. Continue IV antibiotics. 2. Follow up chest x-ray. 3. Nebulizer treatment. 4. Encourage oral feeding. Otherwise, the patient may need a G-tube. Discussed with family at bedside. JOB# [id number]
[2018-01-07 06:01] LABS: ALBUMIN 2.9 gm/dL (3.7-5.3); ALKALINE PHOSPHATASE 83 U/L (34-104); ANION GAP 9.1 (7.0-16.0); BILIRUBIN,TOTAL 0.5 mg/dL (0.3-1.0); BUN - UREA NITROGEN 4 mg/dL (7-25); CALCIUM SERUM 8.3 mg/dL (8.6-10.3); CARBON DIOXIDE 17.4 mEq/L (21.0-31.0); CHLORIDE 115 mEq/L (98-107); CREATININE - SERUM 0.7 mg/dL (0.6-1.2); GLUCOSE 121 mg/dL (70-105); POTASSIUM SERUM 3.5 mEq/L (3.5-5.1); SGOT 24 U/L (13-39); SGPT/ALT 24 U/L (7-52); SODIUM SERUM 138 mEq/L (136-145); TOTAL PROTEIN,SERUM 5.7 gm/dL (6.0-8.3)
[2018-01-07 06:07] LABS: % EOSINOPHILS 3.8 % (0.0-5.0); % LYMPHOCYTES 22.9 % (20.0-50.0); % MONOCYTES 8.3 % (2.0-10.0); EOSINOPHILE ABSOLUTE 0.6 Th/cmm (0.1-0.4); HEMATOCRIT 34.5 % (41.0-60); HEMOGLOBIN 11.6 gm/dL (12-16); LYMPHOCYTE ABSOLUTE 3.7 Th/cmm (1.5-3.0); MEAN CELL VOLUME 92.5 fl (81-100); MEAN CORPUSCULAR HEMOGLOBIN 31.1 pg (27.0-31.0); MEAN CORPUSCULAR HGB CONC 33.6 pg (28.0-36.0); MONOCYTE ABSOLUTE 1.3 Th/cmm (0.3-1.0); NEUTROPHILE ABSOLUTE 10.4 Th/cmm (1.8-8.0); PLATELET COUNT 656 Th/cmm (150-400); RED BLOOD COUNT 3.73 Mil/cmm (3.80-5.20); RED CELL DISTRIBUTION WIDTH 13.8 % (11.5-20.0)
[2018-01-07] MEDS: D5-0.45NS w/20 mEq KCL 1,000 ML IV SCH ×2 (06:59→18:15)
[2018-01-07] MEDS: Albuterol/Ipratropium Neb 3 ML AERS HHN SCH ×3 (07:28→19:15)
[2018-01-07] MEDS: POLYETHYLENE GLYCOL 3350 17 GM PACK PO SCH (08:07)
[2018-01-07] MEDS: Potassium Chloride 20 mEq ER Tab PO SCH ×3 (08:07→14:35)
[2018-01-07] MEDS: Atorvastatin Calcium 10 MG TAB PO SCH ×3 (08:07→14:36)
[2018-01-07] MEDS: Lactobacillus Rhamnosus GG 15 Billion CFU CAP.SPRINK PO SCH ×3 (08:07→14:36)
[2018-01-07] MEDS: Aspirin 81mg Chewable Tab PO SCH ×3 (08:08→14:36)
[2018-01-07] MEDS: Levothyroxine 0.025 Mg Tab PO SCH ×3 (08:08→14:36)
--- NOTE | 2018-01-07 08:31 | General Progress Note ---
Subjective - Review of Systems Service Date: 01/07/18 Subjective: Patient was seen and examined. No further episodes. bilateral infiltrates noted on CT chest. patient passed swallow eval. No aspiration. Spoke to family members who want to take patient home. Both daughters would like to help home situation. Objective - Results Result Diagrams: 01/07/18 05:45 01/07/18 05:30 Recent Labs: Laboratory Last Values WBC 16.0 Th/cmm (4.8-10.8) H 01/07/18 05:45 RBC 3.73 Mil/cmm (3.80-5.20) L 01/07/18 05:45 Hgb 11.6 gm/dL (12-16) L 01/07/18 05:45 Hct 34.5 % (41.0-60) L 01/07/18 05:45 MCV 92.5 fl (81-100) 01/07/18 05:45 MCH 31.1 pg (27.0-31.0) H 01/07/18 05:45 MCHC Differential 33.6 pg (28.0-36.0) 01/07/18 05:45 RDW 13.8 % (11.5-20.0) 01/07/18 05:45 Plt Count 656 Th/cmm (150-400) H 01/07/18 05:45 MPV 9.0 fl 01/07/18 05:45 Add Manual Diff YES 01/06/18 04:55 Neutrophils % 65.0 % (40.0-80.0) 01/07/18 05:45 Band Neutrophils % 0 % (0-10) 01/06/18 04:55 Lymphocytes % 22.9 % (20.0-50.0) 01/07/18 05:45 Monocytes % 8.3 % (2.0-10.0) 01/07/18 05:45 Eosinophils % 3.8 % (0.0-5.0) 01/07/18 05:45 Basophils % 0.0 % (0.0-2.0) 01/07/18 05:45 Neutrophils (Manual) 72 % (40-80) 01/06/18 04:55 Lymphocytes 18 % (20-50) L 01/06/18 04:55 Monocytes 8 % (2-10) 01/06/18 04:55 Eosinophils 2 % (0-5) 01/06/18 04:55 Basophils 0 % (0-3) 01/06/18 04:55 Platelet Estimate ADEQUATE (NORMAL) 01/02/18 06:06 ESR 62 mm/hr (0-30) H 01/03/18 04:45 PT 9.5 SECONDS (9.5-11.5) 12/26/17 17:15 INR 0.91 (0.5-1.4) 12/26/17 17:15 PTT (Actin FS) 24.5 SECONDS (26.0-38.0) L 12/26/17 17:15 Sodium 138 mEq/L (136-145) 01/07/18 05:30 Potassium 3.5 mEq/L (3.5-5.1) 01/07/18 05:30 Chloride 115 mEq/L (98-107) H 01/07/18 05:30 Carbon Dioxide 17.4 mEq/L (21.0-31.0) L 01/07/18 05:30 Anion Gap 9.1 (7.0-16.0) 01/07/18 05:30 BUN 4 mg/dL (7-25) L 01/07/18 05:30 Creatinine 0.7 mg/dL (0.6-1.2) 01/07/18 05:30 Est GFR ( Amer) TNP 01/07/18 05:30 Est GFR (Non-Af Amer) TNP 01/07/18 05:30 BUN/Creatinine Ratio 5.7 01/07/18 05:30 Glucose 121 mg/dL (70-105) H 01/07/18 05:30 Uric Acid 3.3 mg/dL (2.3-6.6) 01/03/18 04:45 Calcium 8.3 mg/dL (8.6-10.3) L 01/07/18 05:30 Total Bilirubin 0.5 mg/dL (0.3-1.0) 01/07/18 05:30 AST 24 U/L (13-39) 01/07/18 05:30 ALT 24 U/L (7-52) 01/07/18 05:30 Alkaline Phosphatase 83 U/L (34-104) 01/07/18 05:30 Ammonia 52 umol/L (16-53) 12/31/17 05:40 Troponin I 0.03 ng/mL (0.01-0.05) 01/07/18 05:30 Total Protein 5.7 gm/dL (6.0-8.3) L 01/07/18 05:30 Albumin 2.9 gm/dL (3.7-5.3) L 01/07/18 05:30 Globulin 2.8 gm/dL 01/07/18 05:30 Albumin/Globulin Ratio 1.0 (1.0-1.8) 01/07/18 05:30 Triglycerides 78 mg/dL (<150) 12/27/17 07:47 Cholesterol 249 mg/dL (<200) H 12/27/17 07:47 LDL Cholesterol Direct 198 mg/dL (75-193) H 12/27/17 07:47 HDL Cholesterol 45 mg/dL (23-92) 12/27/17 07:47 Vitamin B12 707 pg/mL (232-1245) 12/30/17 06:00 Folic Acid 16.7 ng/mL (>3.0) 12/30/17 06:00 TSH 3.88 uIU/ml (0.34-5.60) 12/26/17 17:15 Urine Source CATH 12/31/17 08:20 Urine Color YELLOW 12/31/17 08:20 Urine Clarity CLEAR (CLEAR) 12/31/17 08:20 Urine pH 6.5 (4.6 - 8.0) 12/31/17 08:20 Ur Specific [place] 1.010 (1.005-1.030) 12/31/17 08:20 Urine Protein TRACE mg/dL (NEGATIVE) 12/31/17 08:20 Urine Glucose (UA) NEGATIVE mg/dL (NEGATIVE) 12/31/17 08:20 Urine Ketones NEGATIVE mg/dL (NEGATIVE) 12/31/17 08:20 Urine Blood NEGATIVE (NEGATIVE) 12/31/17 08:20 Urine Nitrate NEGATIVE (NEGATIVE) 12/31/17 08:20 Urine Bilirubin NEGATIVE (NEGATIVE) 12/31/17 08:20 Urine Urobilinogen 0.2 E.U./dL (0.2 - 1.0) 12/31/17 08:20 Ur Leukocyte Esterase NEGATIVE (NEGATIVE) 12/31/17 08:20 Urine RBC 0-2 /hpf (0-5) 12/31/17 08:20 Urine WBC 0-2 /hpf (0-5) 12/31/17 08:20 Ur Epithelial Cells RARE /lpf (FEW) 12/31/17 08:20 Urine Bacteria NONE SEEN /hpf (NONE SEEN) 12/31/17 08:20 Urine Mucus FEW /lpf (FEW) 12/31/17 08:20 Rheumatoid Factor 15.5 IU/mL (0.0-13.9) H 01/03/18 04:45 ELSA Screen Negative 01/03/18 04:45 - Physical Exam Vitals and I&O: Vital Signs Temp 97.9 F 01/07/18 07:58 Pulse 74 01/07/18 08:07 Resp 18 01/07/18 07:58 BP 144/64 01/07/18 08:07 Pulse Ox 96 01/07/18 07:58 Intake & Output 01/06/18 01/07/18 01/07/18 18:59 06:59 18:59 Intake Total 1340 1100 Balance 1340 1100 Weight (lbs) 63.594 kg 64.013 kg Intake: Intake, IV Amount 1100 1100 D5-0.45NS w/20 mEq KCL 1, 1000 1000 000 ml @ 75 mls/hr IV . [id number] [facility] Rx#:[id number] Piperacillin Sodium/ 100 100 Tazobact 3.375 gm In Sodium Chloride 0.9% 50 ml @ 100 mls/hr IV Q6HR [facility] Rx#:[id number] Oral 240 Other: # Voids 3 2 # Bowel Movements 1 0 Weight Source Bedscale Bedscale Active Medications: Current Medications Acetaminophen (Tylenol) 650 mg PO Q4H PRN PRN Reason: Fever > 101 Stop: 02/28/18 23:58 Last Admin: 01/01/18 18:09 Dose: 650 mg Acetaminophen (Tylenol 650mg Supp) 650 mg RC Q4H PRN PRN Reason: Fever > 101 Stop: 03/03/18 14:05 Last Admin: 01/03/18 03:56 Dose: 650 mg Albuterol/Ipratropium (Duoneb Neb) 3 ml HHN [id number] [facility] Stop: 03/07/18 18:59 Last Admin: 01/07/18 07:28 Dose: 3 ml Aspirin (Aspirin Chewable) 81 mg PO DAILY [facility] Stop: 02/25/18 08:59 Last Admin: 01/07/18 08:08 Dose: 81 mg Atorvastatin Calcium (Lipitor) 10 mg PO DAILY JESSIE; Protocol Stop: 02/26/18 10:59 Last Admin: 01/07/18 08:07 Dose: 10 mg Bisacodyl (Dulcolax 10 Mg Supp) 10 mg RC DAILY PRN PRN Reason: Constipation Stop: 02/25/18 06:58 Last Admin: 01/02/18 20:41 Dose: 10 mg Piperacillin Sod/Tazobactam (Sod 3.375 gm/ Sodium Chloride) 50 mls @ 100 mls/ hr IV Q6HR JESSIE Stop: 03/05/18 03:59 Last Infusion: 01/07/18 06:10 Dose: Infused Potassium Chloride/Dextrose/Sod Cl (D5-0.45ns W/20 Meq Kcl) 1,000 mls @ 75 mls/ hr IV .[id number] [facility] Stop: 03/06/18 08:04 Last Admin: 01/07/18 06:59 Dose: 75 mls/hr Lactobacillus Rhamnosus (Culturelle 15b) 1 each PO DAILY [facility] Stop: 03/03/18 08:59 Last Admin: 01/07/18 08:07 Dose: 1 each Levothyroxine Sodium (Synthroid) 0.025 mg PO DAILY [facility] Stop: 02/25/18 08:59 Last Admin: 01/07/18 08:08 Dose: 0.025 mg Lorazepam (Ativan) 1 mg IVP Q4HR PRN; Protocol PRN Reason: Agitation Stop: 02/25/18 00:58 Last Admin: 01/02/18 01:49 Dose: 1 mg Lorazepam (Ativan) 0.5 mg IVP Q4HR PRN; Protocol PRN Reason: Agitation Stop: 03/01/18 17:48 Last Admin: 01/01/18 12:08 Dose: 0.5 mg Miscellaneous (Probiotic Screen) 1 ea MC PRN PRN PRN Reason: PROTOCOL Stop: 03/02/18 15:13 Ondansetron HCl (Zofran) 4 mg IV Q6H PRN PRN Reason: Nausea / Vomiting Stop: 03/06/18 11:38 Pantoprazole Sodium (Protonix) 40 mg IVP BID [facility] Stop: 03/04/18 16:59 Last Admin: 01/07/18 08:07 Dose: 40 mg Polyethylene Glycol (Miralax) 17 gm PO DAILY [facility] Stop: 02/25/18 08:59 Last Admin: 01/07/18 08:07 Dose: 17 gm Potassium Chloride (Klor-Con) 20 meq PO DAILY JESSIE Stop: 03/07/18 08:59 Last Admin: 01/07/18 08:07 Dose: 20 meq Valsartan (Diovan) 80 mg PO DAILY JESSIE Stop: 02/25/18 08:59 Last Admin: 01/07/18 08:07 Dose: 80 mg General: Alert, Oriented x3 HEENT: Atraumatic, PERRLA, EOMI Neck: Supple Cardiovascular: Regular rate Lungs: Clear to auscultation Abdomen: Bowel sounds, Soft, no Tender, no Hepatomegaly, no Splenomegaly, no Rebound, no Mass, no Guarding Extremities: no Clubbing, no Cyanosis, no Edema Neurological: Normal gait, Normal speech Psych/Mental Status: no Mental status NL Assessment/Plan - Assessment Assessment: elevated troponins improved Non q-wave NM ... 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 continue current medications HTN slightly elevated ... on diovan 80mg PO daily, will add clonidine PRN UTI...continue IV anitbiotics. UA for C&S leukocytosis .... for CT chest,abd,pelvis hyperlipidemia ... on statins FUO .... repeat CBC, chest xray this AM. will order ELSA,ESR,RA,Uric Acid coffee ground emesis ... will order IV Protonix. Will order GI consult. hypokalemia ... on kdur 20meq PO daily. Rheumatoid Arthritis .... need to be referred to medical office manager outpatient. bilateral infiltrates likely PNA ... chest Xray pending. anorexia ... will order Megace. - Plan Plan: continue current orders. Nutritional Asmnt/Malnutr-PDOC - Dietary Evaluation Malnutrition Findings (Please click <Entered> for more info): Nutritional Asmnt/Malnutrition Start: 12/30/17 16: 04 Text: Status: Complete Freq: Protocol: Document 12/30/17 16:04 TAMI (Rec: 12/30/17 16:14 [email or web address]) Nutritional Asmnt/Malnutrition Patient General Information Nutritional Screening Moderate Risk Diagnosis elevated troponin Pertinent Medical Hx/Surgical Hx HTN, dementia, hypothyroidism Subjective Information Pt seen sleeping in bed at time of visit, family at bedside. Per family, pt was very sleepy, only had few bites of brearfast this morning. Per EMR, PO intake about 25-50%. Per family, pt likes chocoalte icecream and pudding. Current Diet Order/ Nutrition Support cardiac Pertinent Medications lipitor, D5-0.25ns, synthroid, miralax, seroquel Pertinent Labs 12/27 Cl 110 Nutritional Hx/Data Height 1.6 m Height (Calculated Centimeters) 160.0 Current Weight (lbs) 62.596 kg Weight (Calculated Kilograms) 62.6 Weight (Calculated Grams) 92148.7 [place] Body Weight 115 Body Mass Index (BMI) 24.4 Weight Status Approriate GI Symptoms GI Symptoms None Last BM 12/27 Difficult in: None Skin Integrity/Comment: skin intact, reddened to buttocks Current %PO Poor (25-49%) Estimated Nutritional Goals BEE in Kcals: Using Current wt Calories/Kcals/Kg 25-30 Kcals Calculated 3806-9729 Protein: Using Current wt Protein g/k Protein Calculated 63 Fluid: ml 1575-1890ml (1ml/kcal) Nutritional Problem 1. Problem Problem inadequate food intake Etiology possible poor appetite Signs/Symptoms: PO intake 25-50% Malnutrition Alert Is there a minimum of two criteria No selected? Query Text:Check all the applicable criteria. A minimum of two criteria are recommended for diagnosis of either severe or non-severe malnutrition. Malnutrition Related to Morbid Obesity Malnutrition related to morbid obesity No Intervention/Recommendation Comments 1. Continue with current diet as ordered. Family request nutrition supplements. Send one bottle of chocolate ensure per family request at lunch. Will consider adding supplements if PO intake continue <50%. Nurses to assist pt with meals and encourage oral intake. 2. Monitor PO intake, wt, labs and skin integrity 3. F/U as high risk in 2-3 days, 01/01-01/02 Expected Outcomes/Goals Expected Outcomes/Goals 1. PO intake to meet at least 75% of nutritional needs. 2. Wt stability, skin to remain intact, labs to approach WNL.
--- NOTE | 2018-01-07 09:17 | Diagnostic Imaging Report ---
Chest x-ray single view History: Shortness of breath Comparison: 12/31/2017 The heart size is normal. No focal pulmonary parenchymal processes. No hilar or mediastinal abnormalities. Impression: No acute abnormalities
--- NOTE | 2018-01-07 13:31 | Infectious Disease Prog Note ---
Infectious Disease Subjective - Review of Systems Service Date: 01/07/18 Subjective: No fever today. Doing the same. Remains confused, refuses to take medicactions. Stable WBC count. Infectious Disease Objective - Results Result Diagrams: 01/07/18 05:45 01/07/18 05:30 Recent Labs: Laboratory Last Values WBC 16.0 Th/cmm (4.8-10.8) H 01/07/18 05:45 RBC 3.73 Mil/cmm (3.80-5.20) L 01/07/18 05:45 Hgb 11.6 gm/dL (12-16) L 01/07/18 05:45 Hct 34.5 % (41.0-60) L 01/07/18 05:45 MCV 92.5 fl (81-100) 01/07/18 05:45 MCH 31.1 pg (27.0-31.0) H 01/07/18 05:45 MCHC Differential 33.6 pg (28.0-36.0) 01/07/18 05:45 RDW 13.8 % (11.5-20.0) 01/07/18 05:45 Plt Count 656 Th/cmm (150-400) H 01/07/18 05:45 MPV 9.0 fl 01/07/18 05:45 Add Manual Diff YES 01/06/18 04:55 Neutrophils % 65.0 % (40.0-80.0) 01/07/18 05:45 Band Neutrophils % 0 % (0-10) 01/06/18 04:55 Lymphocytes % 22.9 % (20.0-50.0) 01/07/18 05:45 Monocytes % 8.3 % (2.0-10.0) 01/07/18 05:45 Eosinophils % 3.8 % (0.0-5.0) 01/07/18 05:45 Basophils % 0.0 % (0.0-2.0) 01/07/18 05:45 Neutrophils (Manual) 72 % (40-80) 01/06/18 04:55 Lymphocytes 18 % (20-50) L 01/06/18 04:55 Monocytes 8 % (2-10) 01/06/18 04:55 Eosinophils 2 % (0-5) 01/06/18 04:55 Basophils 0 % (0-3) 01/06/18 04:55 Platelet Estimate ADEQUATE (NORMAL) 01/02/18 06:06 ESR 62 mm/hr (0-30) H 01/03/18 04:45 PT 9.5 SECONDS (9.5-11.5) 12/26/17 17:15 INR 0.91 (0.5-1.4) 12/26/17 17:15 PTT (Actin FS) 24.5 SECONDS (26.0-38.0) L 12/26/17 17:15 Sodium 138 mEq/L (136-145) 01/07/18 05:30 Potassium 3.5 mEq/L (3.5-5.1) 01/07/18 05:30 Chloride 115 mEq/L (98-107) H 01/07/18 05:30 Carbon Dioxide 17.4 mEq/L (21.0-31.0) L 01/07/18 05:30 Anion Gap 9.1 (7.0-16.0) 01/07/18 05:30 BUN 4 mg/dL (7-25) L 01/07/18 05:30 Creatinine 0.7 mg/dL (0.6-1.2) 01/07/18 05:30 Est GFR ( Amer) TNP 01/07/18 05:30 Est GFR (Non-Af Amer) TNP 01/07/18 05:30 BUN/Creatinine Ratio 5.7 01/07/18 05:30 Glucose 121 mg/dL (70-105) H 01/07/18 05:30 Uric Acid 3.3 mg/dL (2.3-6.6) 01/03/18 04:45 Calcium 8.3 mg/dL (8.6-10.3) L 01/07/18 05:30 Total Bilirubin 0.5 mg/dL (0.3-1.0) 01/07/18 05:30 AST 24 U/L (13-39) 01/07/18 05:30 ALT 24 U/L (7-52) 01/07/18 05:30 Alkaline Phosphatase 83 U/L (34-104) 01/07/18 05:30 Ammonia 52 umol/L (16-53) 12/31/17 05:40 Troponin I 0.03 ng/mL (0.01-0.05) 01/07/18 05:30 Total Protein 5.7 gm/dL (6.0-8.3) L 01/07/18 05:30 Albumin 2.9 gm/dL (3.7-5.3) L 01/07/18 05:30 Globulin 2.8 gm/dL 01/07/18 05:30 Albumin/Globulin Ratio 1.0 (1.0-1.8) 01/07/18 05:30 Triglycerides 78 mg/dL (<150) 12/27/17 07:47 Cholesterol 249 mg/dL (<200) H 12/27/17 07:47 LDL Cholesterol Direct 198 mg/dL (75-193) H 12/27/17 07:47 HDL Cholesterol 45 mg/dL (23-92) 12/27/17 07:47 Vitamin B12 707 pg/mL (232-1245) 12/30/17 06:00 Folic Acid 16.7 ng/mL (>3.0) 12/30/17 06:00 TSH 3.88 uIU/ml (0.34-5.60) 12/26/17 17:15 Urine Source CATH 12/31/17 08:20 Urine Color YELLOW 12/31/17 08:20 Urine Clarity CLEAR (CLEAR) 12/31/17 08:20 Urine pH 6.5 (4.6 - 8.0) 12/31/17 08:20 Ur Specific [place] 1.010 (1.005-1.030) 12/31/17 08:20 Urine Protein TRACE mg/dL (NEGATIVE) 12/31/17 08:20 Urine Glucose (UA) NEGATIVE mg/dL (NEGATIVE) 12/31/17 08:20 Urine Ketones NEGATIVE mg/dL (NEGATIVE) 12/31/17 08:20 Urine Blood NEGATIVE (NEGATIVE) 12/31/17 08:20 Urine Nitrate NEGATIVE (NEGATIVE) 12/31/17 08:20 Urine Bilirubin NEGATIVE (NEGATIVE) 12/31/17 08:20 Urine Urobilinogen 0.2 E.U./dL (0.2 - 1.0) 12/31/17 08:20 Ur Leukocyte Esterase NEGATIVE (NEGATIVE) 12/31/17 08:20 Urine RBC 0-2 /hpf (0-5) 12/31/17 08:20 Urine WBC 0-2 /hpf (0-5) 12/31/17 08:20 Ur Epithelial Cells RARE /lpf (FEW) 12/31/17 08:20 Urine Bacteria NONE SEEN /hpf (NONE SEEN) 12/31/17 08:20 Urine Mucus FEW /lpf (FEW) 12/31/17 08:20 Rheumatoid Factor 15.5 IU/mL (0.0-13.9) H 01/03/18 04:45 ELSA Screen Negative 01/03/18 04:45 - Physical Exam Vitals and I&O: Vital Signs Temp 98.8 F 01/07/18 11:48 Pulse 76 01/07/18 11:48 Resp 17 01/07/18 12:00 BP 141/59 01/07/18 11:48 Pulse Ox 100 01/07/18 11:48 Intake & Output 01/06/18 01/07/18 01/07/18 18:59 06:59 18:59 Intake Total 1340 1100 Balance 1340 1100 Weight (lbs) 63.594 kg 63.957 kg Intake: Intake, IV Amount 1100 1100 D5-0.45NS w/20 mEq KCL 1, 1000 1000 000 ml @ 75 mls/hr IV . [id number] [facility] Rx#:[id number] Piperacillin Sodium/ 100 100 Tazobact 3.375 gm In Sodium Chloride 0.9% 50 ml @ 100 mls/hr IV Q6HR [facility] Rx#:[id number] Oral 240 Other: # Voids 3 2 # Bowel Movements 1 0 Weight Source Bedscale Bedscale Active Medications: Current Medications Acetaminophen (Tylenol) 650 mg PO Q4H PRN PRN Reason: Fever > 101 Stop: 02/28/18 23:58 Last Admin: 01/01/18 18:09 Dose: 650 mg Acetaminophen (Tylenol 650mg Supp) 650 mg RC Q4H PRN PRN Reason: Fever > 101 Stop: 03/03/18 14:05 Last Admin: 01/03/18 03:56 Dose: 650 mg Albuterol/Ipratropium (Duoneb Neb) 3 ml HHN [id number] [facility] Stop: 03/07/18 18:59 Last Admin: 01/07/18 07:28 Dose: 3 ml Aspirin (Aspirin Chewable) 81 mg PO DAILY [facility] Stop: 02/25/18 08:59 Last Admin: 01/07/18 08:08 Dose: 81 mg Atorvastatin Calcium (Lipitor) 10 mg PO DAILY JESSIE; Protocol Stop: 02/26/18 10:59 Last Admin: 01/07/18 08:07 Dose: 10 mg Bisacodyl (Dulcolax 10 Mg Supp) 10 mg RC DAILY PRN PRN Reason: Constipation Stop: 02/25/18 06:58 Last Admin: 01/02/18 20:41 Dose: 10 mg Piperacillin Sod/Tazobactam (Sod 3.375 gm/ Sodium Chloride) 50 mls @ 100 mls/ hr IV Q6HR [facility] Stop: 03/05/18 03:59 Last Admin: 01/07/18 11:35 Dose: 100 mls/hr Potassium Chloride/Dextrose/Sod Cl (D5-0.45ns W/20 Meq Kcl) 1,000 mls @ 75 mls/ hr IV .[id number] [facility] Stop: 03/06/18 08:04 Last Admin: 01/07/18 06:59 Dose: 75 mls/hr Lactobacillus Rhamnosus (Culturelle 15b) 1 each PO DAILY [facility] Stop: 03/03/18 08:59 Last Admin: 01/07/18 08:07 Dose: 1 each Levothyroxine Sodium (Synthroid) 0.025 mg PO DAILY [facility] Stop: 02/25/18 08:59 Last Admin: 01/07/18 08:08 Dose: 0.025 mg Lorazepam (Ativan) 0.5 mg IVP Q4HR PRN; Protocol PRN Reason: Agitation Stop: 03/01/18 17:48 Last Admin: 01/01/18 12:08 Dose: 0.5 mg Megestrol Acetate (Megace) 400 mg PO DAILY JESSIE; Protocol Stop: 03/08/18 08:59 Last Admin: 01/07/18 11:33 Dose: 400 mg Miscellaneous (Probiotic Screen) 1 ea MC PRN PRN PRN Reason: PROTOCOL Stop: 03/02/18 15:13 Ondansetron HCl (Zofran) 4 mg IV Q6H PRN PRN Reason: Nausea / Vomiting Stop: 03/06/18 11:38 Pantoprazole Sodium (Protonix) 40 mg IVP BID [facility] Stop: 03/04/18 16:59 Last Admin: 01/07/18 08:07 Dose: 40 mg Polyethylene Glycol (Miralax) 17 gm PO DAILY [facility] Stop: 02/25/18 08:59 Last Admin: 01/07/18 08:07 Dose: 17 gm Potassium Chloride (Klor-Con) 20 meq PO DAILY [facility] Stop: 03/07/18 08:59 Last Admin: 01/07/18 08:07 Dose: 20 meq Valsartan (Diovan) 80 mg PO DAILY [facility] Stop: 02/25/18 08:59 Last Admin: 01/07/18 08:07 Dose: 80 mg General: no acute distress, well developed, well nourished HEENT: atraumatic, normocephalic, PERRLA Neck: supple, no thyromegaly Cardiovascular: S1S2, regular Lungs: clear to auscultation bilaterally, clear to percussion Abdomen: soft, no tender, no distended, no rebound Extremities: no cyanosis, no clubbing, no edema Neurological: awake, alert Skin: intact Infectious Disease Assmt/Plan - Assessment Assessment: 1. Sepsis. 2. Aspiration pneumonia. 3. UTI treated. 4. Dementia. 5. Hypertension. - Plan Plan: Continue Zosyn. Dw family in detail about her condition and prognosis. Nutritional Asmnt/Malnutr-PDOC - Dietary Evaluation Malnutrition Findings (Please click <Entered> for more info): Nutritional Asmnt/Malnutrition Start: 12/30/17 16: 04 Text: Status: Complete Freq: Protocol: Document 12/30/17 16:04 LCHENG (Rec: 12/30/17 16:14 [email or web address]) Nutritional Asmnt/Malnutrition Patient General Information Nutritional Screening Moderate Risk Diagnosis elevated troponin Pertinent Medical Hx/Surgical Hx HTN, dementia, hypothyroidism Subjective Information Pt seen sleeping in bed at time of visit, family at bedside. Per family, pt was very sleepy, only had few bites of brearfast this morning. Per EMR, PO intake about 25-50%. Per family, pt likes chocoalte icecream and pudding. Current Diet Order/ Nutrition Support cardiac Pertinent Medications lipitor, D5-0.25ns, synthroid, miralax, seroquel Pertinent Labs 12/27 Cl 110 Nutritional Hx/Data Height 1.6 m Height (Calculated Centimeters) 160.0 Current Weight (lbs) 62.596 kg Weight (Calculated Kilograms) 62.6 Weight (Calculated Grams) 44144.7 [place] Body Weight 115 Body Mass Index (BMI) 24.4 Weight Status Approriate GI Symptoms GI Symptoms None Last BM 12/27 Difficult in: None Skin Integrity/Comment: skin intact, reddened to buttocks Current %PO Poor (25-49%) Estimated Nutritional Goals BEE in Kcals: Using Current wt Calories/Kcals/Kg 25-30 Kcals Calculated 0369-4537 Protein: Using Current wt Protein g/k Protein Calculated 63 Fluid: ml 1575-1890ml (1ml/kcal) Nutritional Problem 1. Problem Problem inadequate food intake Etiology possible poor appetite Signs/Symptoms: PO intake 25-50% Malnutrition Alert Is there a minimum of two criteria No selected? Query Text:Check all the applicable criteria. A minimum of two criteria are recommended for diagnosis of either severe or non-severe malnutrition. Malnutrition Related to Morbid Obesity Malnutrition related to morbid obesity No Intervention/Recommendation Comments 1. Continue with current diet as ordered. Family request nutrition supplements. Send one bottle of chocolate ensure per family request at lunch. Will consider adding supplements if PO intake continue <50%. Nurses to assist pt with meals and encourage oral intake. 2. Monitor PO intake, wt, labs and skin integrity 3. F/U as high risk in 2-3 days, 01/01-01/02 Expected Outcomes/Goals Expected Outcomes/Goals 1. PO intake to meet at least 75% of nutritional needs. 2. Wt stability, skin to remain intact, labs to approach WNL.
[2018-01-08 06:59] LABS: ALKALINE PHOSPHATASE 79 U/L (34-104); ANION GAP 11.1 (7.0-16.0); BILIRUBIN,TOTAL 0.6 mg/dL (0.3-1.0); BUN - UREA NITROGEN 5 mg/dL (7-25); CALCIUM SERUM 8.4 mg/dL (8.6-10.3); CARBON DIOXIDE 18.7 mEq/L (21.0-31.0); CHLORIDE 113 mEq/L (98-107); CREATININE - SERUM 0.7 mg/dL (0.6-1.2); GLUCOSE 96 mg/dL (70-105); POTASSIUM SERUM 3.8 mEq/L (3.5-5.1); SGOT 20 U/L (13-39); SGPT/ALT 21 U/L (7-52); SODIUM SERUM 139 mEq/L (136-145)
[2018-01-08] MEDS: Albuterol/Ipratropium Neb 3 ML AERS HHN SCH ×3 (07:25→18:40)
[2018-01-08 07:31] LABS: HEMATOCRIT 33.5 % (41.0-60); HEMOGLOBIN 11.2 gm/dL (12-16); MEAN CELL VOLUME 93.8 fl (81-100); MEAN CORPUSCULAR HEMOGLOBIN 31.3 pg (27.0-31.0); MEAN CORPUSCULAR HGB CONC 33.4 pg (28.0-36.0); MEAN PLATELET VOLUME 9.1 fl; PLATELET COUNT 722 Th/cmm (150-400); RED BLOOD COUNT 3.57 Mil/cmm (3.80-5.20); RED CELL DISTRIBUTION WIDTH 14.1 % (11.5-20.0)
[2018-01-08 07:32] LABS: WHITE BLOOD COUNT 15.2 Th/cmm (4.8-10.8)
[2018-01-08 08:10] LABS: BAND NEUTROPHILE 0 % (0-10); BASOPHIL 0 % (0-3); EOSINOPHIL 3 % (0-5); LYMPHOCYTE 20 % (20-50); MONOCYTE 10 % (2-10); NEUTROPHILS 67 % (40-80)
--- NOTE | 2018-01-08 08:16 | General Progress Note ---
Subjective - Review of Systems Service Date: 01/08/18 Subjective: Patient was seen and examined. no acute distress. Poor PO intake. bilateral infiltrates noted on CT chest. patient passed swallow eval. No aspiration. mcc evaluation. Objective - Results Result Diagrams: 01/08/18 05:35 01/08/18 05:35 Recent Labs: Laboratory Last Values WBC 15.2 Th/cmm (4.8-10.8) H 01/08/18 05:35 RBC 3.57 Mil/cmm (3.80-5.20) L 01/08/18 05:35 Hgb 11.2 gm/dL (12-16) L 01/08/18 05:35 Hct 33.5 % (41.0-60) L 01/08/18 05:35 MCV 93.8 fl (81-100) 01/08/18 05:35 MCH 31.3 pg (27.0-31.0) H 01/08/18 05:35 MCHC Differential 33.4 pg (28.0-36.0) 01/08/18 05:35 RDW 14.1 % (11.5-20.0) 01/08/18 05:35 Plt Count 722 Th/cmm (150-400) H 01/08/18 05:35 MPV 9.1 fl 01/08/18 05:35 Add Manual Diff YES 01/08/18 05:35 Neutrophils % CONFIGURATION ENGINEER 01/08/18 05:35 Band Neutrophils % 0 % (0-10) 01/08/18 05:35 Lymphocytes % CONFIGURATION ENGINEER 01/08/18 05:35 Monocytes % CONFIGURATION ENGINEER 01/08/18 05:35 Eosinophils % CONFIGURATION ENGINEER 01/08/18 05:35 Basophils % CONFIGURATION ENGINEER 01/08/18 05:35 Neutrophils (Manual) 67 % (40-80) 01/08/18 05:35 Lymphocytes 20 % (20-50) 01/08/18 05:35 Monocytes 10 % (2-10) 01/08/18 05:35 Eosinophils 3 % (0-5) 01/08/18 05:35 Basophils 0 % (0-3) 01/08/18 05:35 Platelet Estimate ADEQUATE (NORMAL) 01/02/18 06:06 Smear Path Review 01/08/18 05:35 ESR 62 mm/hr (0-30) H 01/03/18 04:45 PT 9.5 SECONDS (9.5-11.5) 12/26/17 17:15 INR 0.91 (0.5-1.4) 12/26/17 17:15 PTT (Actin FS) 24.5 SECONDS (26.0-38.0) L 12/26/17 17:15 Sodium 139 mEq/L (136-145) 01/08/18 05:35 Potassium 3.8 mEq/L (3.5-5.1) 01/08/18 05:35 Chloride 113 mEq/L (98-107) H 01/08/18 05:35 Carbon Dioxide 18.7 mEq/L (21.0-31.0) L 01/08/18 05:35 Anion Gap 11.1 (7.0-16.0) 01/08/18 05:35 BUN 5 mg/dL (7-25) L 01/08/18 05:35 Creatinine 0.7 mg/dL (0.6-1.2) 01/08/18 05:35 Est GFR ( Amer) TNP 01/08/18 05:35 Est GFR (Non-Af Amer) TNP 01/08/18 05:35 BUN/Creatinine Ratio 7.1 01/08/18 05:35 Glucose 96 mg/dL (70-105) 01/08/18 05:35 Uric Acid 3.3 mg/dL (2.3-6.6) 01/03/18 04:45 Calcium 8.4 mg/dL (8.6-10.3) L 01/08/18 05:35 Total Bilirubin 0.6 mg/dL (0.3-1.0) 01/08/18 05:35 AST 20 U/L (13-39) 01/08/18 05:35 ALT 21 U/L (7-52) 01/08/18 05:35 Alkaline Phosphatase 79 U/L (34-104) 01/08/18 05:35 Ammonia 52 umol/L (16-53) 12/31/17 05:40 Troponin I 0.03 ng/mL (0.01-0.05) 01/07/18 05:30 Total Protein 6.0 gm/dL (6.0-8.3) 01/08/18 05:35 Albumin 3.0 gm/dL (3.7-5.3) L 01/08/18 05:35 Globulin 3.0 gm/dL 01/08/18 05:35 Albumin/Globulin Ratio 1.0 (1.0-1.8) 01/08/18 05:35 Triglycerides 78 mg/dL (<150) 12/27/17 07:47 Cholesterol 249 mg/dL (<200) H 12/27/17 07:47 LDL Cholesterol Direct 198 mg/dL (75-193) H 12/27/17 07:47 HDL Cholesterol 45 mg/dL (23-92) 12/27/17 07:47 Vitamin B12 707 pg/mL (232-1245) 12/30/17 06:00 Folic Acid 16.7 ng/mL (>3.0) 12/30/17 06:00 TSH 3.88 uIU/ml (0.34-5.60) 12/26/17 17:15 Urine Source CATH 12/31/17 08:20 Urine Color YELLOW 12/31/17 08:20 Urine Clarity CLEAR (CLEAR) 12/31/17 08:20 Urine pH 6.5 (4.6 - 8.0) 12/31/17 08:20 Ur Specific [place] 1.010 (1.005-1.030) 12/31/17 08:20 Urine Protein TRACE mg/dL (NEGATIVE) 12/31/17 08:20 Urine Glucose (UA) NEGATIVE mg/dL (NEGATIVE) 12/31/17 08:20 Urine Ketones NEGATIVE mg/dL (NEGATIVE) 12/31/17 08:20 Urine Blood NEGATIVE (NEGATIVE) 12/31/17 08:20 Urine Nitrate NEGATIVE (NEGATIVE) 12/31/17 08:20 Urine Bilirubin NEGATIVE (NEGATIVE) 12/31/17 08:20 Urine Urobilinogen 0.2 E.U./dL (0.2 - 1.0) 12/31/17 08:20 Ur Leukocyte Esterase NEGATIVE (NEGATIVE) 12/31/17 08:20 Urine RBC 0-2 /hpf (0-5) 12/31/17 08:20 Urine WBC 0-2 /hpf (0-5) 12/31/17 08:20 Ur Epithelial Cells RARE /lpf (FEW) 12/31/17 08:20 Urine Bacteria NONE SEEN /hpf (NONE SEEN) 12/31/17 08:20 Urine Mucus FEW /lpf (FEW) 12/31/17 08:20 Rheumatoid Factor 15.5 IU/mL (0.0-13.9) H 01/03/18 04:45 ELSA Screen Negative 01/03/18 04:45 - Physical Exam Vitals and I&O: Vital Signs Temp 98.1 F 01/08/18 04:00 Pulse 79 01/08/18 07:25 Resp 18 01/08/18 07:25 BP 156/62 01/08/18 04:00 Pulse Ox 95 01/08/18 07:25 Intake & Output 01/07/18 01/08/18 01/08/18 18:59 06:59 18:59 Intake Total 85 100 Output Total 0 Balance 85 100 Weight (lbs) 63.957 kg 58.423 kg Intake: Intake, IV Amount 50 100 Piperacillin Sodium/ 50 100 Tazobact 3.375 gm In Sodium Chloride 0.9% 50 ml @ 100 mls/hr IV Q6HR [facility] Rx#:[id number] Oral 35 0 Output: Urine/Stool Mix 0 Other: # Voids 3 3 # Bowel Movements 2 Weight Source Bedscale Bedscale Active Medications: Current Medications Acetaminophen (Tylenol) 650 mg PO Q4H PRN PRN Reason: Fever > 101 Stop: 02/28/18 23:58 Last Admin: 01/01/18 18:09 Dose: 650 mg Acetaminophen (Tylenol 650mg Supp) 650 mg RC Q4H PRN PRN Reason: Fever > 101 Stop: 03/03/18 14:05 Last Admin: 01/03/18 03:56 Dose: 650 mg Albuterol/Ipratropium (Duoneb Neb) 3 ml HHN [id number] [facility] Stop: 03/07/18 18:59 Last Admin: 01/08/18 07:25 Dose: 3 ml Aspirin (Aspirin Chewable) 81 mg PO DAILY [facility] Stop: 02/25/18 08:59 Last Admin: 01/07/18 14:36 Dose: 81 mg Atorvastatin Calcium (Lipitor) 10 mg PO DAILY [facility]; Protocol Stop: 02/26/18 10:59 Last Admin: 01/07/18 14:36 Dose: 10 mg Bisacodyl (Dulcolax 10 Mg Supp) 10 mg RC DAILY PRN PRN Reason: Constipation Stop: 02/25/18 06:58 Last Admin: 01/02/18 20:41 Dose: 10 mg Piperacillin Sod/Tazobactam (Sod 3.375 gm/ Sodium Chloride) 50 mls @ 100 mls/ hr IV Q6HR [facility] Stop: 03/05/18 03:59 Last Admin: 01/08/18 06:54 Dose: 100 mls/hr Potassium Chloride/Dextrose/Sod Cl (D5-0.45ns W/20 Meq Kcl) 1,000 mls @ 40 mls/ hr IV .Q24H [facility] Stop: 03/08/18 15:29 Last Admin: 01/07/18 18:15 Dose: 40 mls/hr Lactobacillus Rhamnosus (Culturelle 15b) 1 each PO DAILY [facility] Stop: 03/03/18 08:59 Last Admin: 01/07/18 14:36 Dose: 1 each Levothyroxine Sodium (Synthroid) 0.025 mg PO DAILY [facility] Stop: 02/25/18 08:59 Last Admin: 01/07/18 14:36 Dose: 0.025 mg Lorazepam (Ativan) 0.5 mg IVP Q4HR PRN; Protocol PRN Reason: Agitation Stop: 03/01/18 17:48 Last Admin: 01/01/18 12:08 Dose: 0.5 mg Megestrol Acetate (Megace) 400 mg PO DAILY [facility]; Protocol Stop: 03/08/18 08:59 Last Admin: 01/07/18 10:23 Dose: Not Given Miscellaneous (Probiotic Screen) 1 ea PRN PRN PRN Reason: PROTOCOL Stop: 03/02/18 15:13 Ondansetron HCl (Zofran) 4 mg IV Q6H PRN PRN Reason: Nausea / Vomiting Stop: 03/06/18 11:38 Pantoprazole Sodium (Protonix) 40 mg IVP BID [facility] Stop: 03/04/18 16:59 Last Admin: 01/07/18 18:16 Dose: 40 mg Polyethylene Glycol (Miralax) 17 gm PO DAILY [facility] Stop: 02/25/18 08:59 Last Admin: 01/07/18 08:07 Dose: 17 gm Potassium Chloride (Klor-Con) 20 meq PO DAILY [facility] Stop: 03/07/18 08:59 Last Admin: 01/07/18 14:35 Dose: 20 meq Valsartan (Diovan) 80 mg PO DAILY [facility] Stop: 02/25/18 08:59 Last Admin: 01/07/18 14:35 Dose: 80 mg General: Alert, Oriented x3 HEENT: Atraumatic, PERRLA, EOMI Neck: Supple Cardiovascular: Regular rate Lungs: Clear to auscultation Abdomen: Bowel sounds, Soft, no Tender, no Hepatomegaly, no Splenomegaly, no Rebound, no Mass, no Guarding Extremities: no Clubbing, no Cyanosis, no Edema Neurological: Normal gait, Normal speech Psych/Mental Status: no Mental status NL Assessment/Plan - Assessment Assessment: elevated troponins improved ... 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 continue current medications HTN slightly elevated ... on diovan 80mg PO daily, will add clonidine PRN UTI...continue IV anitbiotics. UA for C&S leukocytosis .... slowly improved to 15K hyperlipidemia ... on statins FUO .... repeat CBC, chest xray this AM. will order ELSA,ESR,RA,Uric Acid coffee ground emesis ... will order IV Protonix. Will order GI consult. hypokalemia ... on kdur 20meq PO daily. Rheumatoid Arthritis .... need to be referred to blood bank assistant outpatient. bilateral infiltrates likely aspiration PNA ... . anorexia ... will order Megace. - Plan Plan: mcc evaluation Nutritional Asmnt/Malnutr-PDOC - Dietary Evaluation Malnutrition Findings (Please click <Entered> for more info): Nutritional Asmnt/Malnutrition Start: 12/30/17 16: 04 Text: Status: Complete Freq: Protocol: Document 12/30/17 16:04 LCHENG (Rec: 12/30/17 16:14 [email or web address]) Nutritional Asmnt/Malnutrition Patient General Information Nutritional Screening Moderate Risk Diagnosis elevated troponin Pertinent Medical Hx/Surgical Hx HTN, dementia, hypothyroidism Subjective Information Pt seen sleeping in bed at time of visit, family at bedside. Per family, pt was very sleepy, only had few bites of brearfast this morning. Per EMR, PO intake about 25-50%. Per family, pt likes chocoalte icecream and pudding. Current Diet Order/ Nutrition Support cardiac Pertinent Medications lipitor, D5-0.25ns, synthroid, miralax, seroquel Pertinent Labs 12/27 Cl 110 Nutritional Hx/Data Height 1.6 m Height (Calculated Centimeters) 160.0 Current Weight (lbs) 62.596 kg Weight (Calculated Kilograms) 62.6 Weight (Calculated Grams) 26704.7 [place] Body Weight 115 Body Mass Index (BMI) 24.4 Weight Status Approriate GI Symptoms GI Symptoms None Last BM 12/27 Difficult in: None Skin Integrity/Comment: skin intact, reddened to buttocks Current %PO Poor (25-49%) Estimated Nutritional Goals BEE in Kcals: Using Current wt Calories/Kcals/Kg 25-30 Kcals Calculated 9140-0890 Protein: Using Current wt Protein g/k Protein Calculated 63 Fluid: ml 1575-1890ml (1ml/kcal) Nutritional Problem 1. Problem Problem inadequate food intake Etiology possible poor appetite Signs/Symptoms: PO intake 25-50% Malnutrition Alert Is there a minimum of two criteria No selected? Query Text:Check all the applicable criteria. A minimum of two criteria are recommended for diagnosis of either severe or non-severe malnutrition. Malnutrition Related to Morbid Obesity Malnutrition related to morbid obesity No Intervention/Recommendation Comments 1. Continue with current diet as ordered. Family request nutrition supplements. Send one bottle of chocolate ensure per family request at lunch. Will consider adding supplements if PO intake continue <50%. Nurses to assist pt with meals and encourage oral intake. 2. Monitor PO intake, wt, labs and skin integrity 3. F/U as high risk in 2-3 days, 01/01-01/02 Expected Outcomes/Goals Expected Outcomes/Goals 1. PO intake to meet at least 75% of nutritional needs. 2. Wt stability, skin to remain intact, labs to approach WNL.
[2018-01-08] MEDS: POLYETHYLENE GLYCOL 3350 17 GM PACK PO SCH (09:18)
[2018-01-08] MEDS: Potassium Chloride 20 mEq ER Tab PO SCH ×2 (09:18→09:22)
[2018-01-08] MEDS: Lactobacillus Rhamnosus GG 15 Billion CFU CAP.SPRINK PO SCH (09:19)
[2018-01-08] MEDS: Levothyroxine 0.025 Mg Tab PO SCH (09:19)
[2018-01-08] MEDS: Atorvastatin Calcium 10 MG TAB PO SCH (09:20)
[2018-01-08] MEDS: Aspirin 81mg Chewable Tab PO SCH (09:20)
--- NOTE | 2018-01-09 01:19 | Infectious Disease Prog Note ---
Infectious Disease Subjective - Review of Systems Service Date: 01/09/18 Subjective: No fever today. Doing the same. Remains confused, refuses to take medicactions. Stable WBC count. Infectious Disease Objective - Results Result Diagrams: 01/08/18 05:35 01/08/18 05:35 Recent Labs: Laboratory Last Values WBC 15.2 Th/cmm (4.8-10.8) H 01/08/18 05:35 RBC 3.57 Mil/cmm (3.80-5.20) L 01/08/18 05:35 Hgb 11.2 gm/dL (12-16) L 01/08/18 05:35 Hct 33.5 % (41.0-60) L 01/08/18 05:35 MCV 93.8 fl (81-100) 01/08/18 05:35 MCH 31.3 pg (27.0-31.0) H 01/08/18 05:35 MCHC Differential 33.4 pg (28.0-36.0) 01/08/18 05:35 RDW 14.1 % (11.5-20.0) 01/08/18 05:35 Plt Count 722 Th/cmm (150-400) H 01/08/18 05:35 MPV 9.1 fl 01/08/18 05:35 Add Manual Diff YES 01/08/18 05:35 Neutrophils % EMPLOYEE DEVELOPMENT DIRECTOR 01/08/18 05:35 Band Neutrophils % 0 % (0-10) 01/08/18 05:35 Lymphocytes % EMPLOYEE DEVELOPMENT DIRECTOR 01/08/18 05:35 Monocytes % EMPLOYEE DEVELOPMENT DIRECTOR 01/08/18 05:35 Eosinophils % EMPLOYEE DEVELOPMENT DIRECTOR 01/08/18 05:35 Basophils % EMPLOYEE DEVELOPMENT DIRECTOR 01/08/18 05:35 Neutrophils (Manual) 67 % (40-80) 01/08/18 05:35 Lymphocytes 20 % (20-50) 01/08/18 05:35 Monocytes 10 % (2-10) 01/08/18 05:35 Eosinophils 3 % (0-5) 01/08/18 05:35 Basophils 0 % (0-3) 01/08/18 05:35 Platelet Estimate ADEQUATE (NORMAL) 01/02/18 06:06 Smear Path Review 01/08/18 05:35 ESR 62 mm/hr (0-30) H 01/03/18 04:45 PT 9.5 SECONDS (9.5-11.5) 12/26/17 17:15 INR 0.91 (0.5-1.4) 12/26/17 17:15 PTT (Actin FS) 24.5 SECONDS (26.0-38.0) L 12/26/17 17:15 Sodium 139 mEq/L (136-145) 01/08/18 05:35 Potassium 3.8 mEq/L (3.5-5.1) 01/08/18 05:35 Chloride 113 mEq/L (98-107) H 01/08/18 05:35 Carbon Dioxide 18.7 mEq/L (21.0-31.0) L 01/08/18 05:35 Anion Gap 11.1 (7.0-16.0) 01/08/18 05:35 BUN 5 mg/dL (7-25) L 01/08/18 05:35 Creatinine 0.7 mg/dL (0.6-1.2) 01/08/18 05:35 Est GFR ( Amer) TNP 01/08/18 05:35 Est GFR (Non-Af Amer) TNP 01/08/18 05:35 BUN/Creatinine Ratio 7.1 01/08/18 05:35 Glucose 96 mg/dL (70-105) 01/08/18 05:35 Uric Acid 3.3 mg/dL (2.3-6.6) 01/03/18 04:45 Calcium 8.4 mg/dL (8.6-10.3) L 01/08/18 05:35 Total Bilirubin 0.6 mg/dL (0.3-1.0) 01/08/18 05:35 AST 20 U/L (13-39) 01/08/18 05:35 ALT 21 U/L (7-52) 01/08/18 05:35 Alkaline Phosphatase 79 U/L (34-104) 01/08/18 05:35 Ammonia 52 umol/L (16-53) 12/31/17 05:40 Troponin I 0.03 ng/mL (0.01-0.05) 01/07/18 05:30 Total Protein 6.0 gm/dL (6.0-8.3) 01/08/18 05:35 Albumin 3.0 gm/dL (3.7-5.3) L 01/08/18 05:35 Globulin 3.0 gm/dL 01/08/18 05:35 Albumin/Globulin Ratio 1.0 (1.0-1.8) 01/08/18 05:35 Triglycerides 78 mg/dL (<150) 12/27/17 07:47 Cholesterol 249 mg/dL (<200) H 12/27/17 07:47 LDL Cholesterol Direct 198 mg/dL (75-193) H 12/27/17 07:47 HDL Cholesterol 45 mg/dL (23-92) 12/27/17 07:47 Vitamin B12 707 pg/mL (232-1245) 12/30/17 06:00 Folic Acid 16.7 ng/mL (>3.0) 12/30/17 06:00 TSH 3.88 uIU/ml (0.34-5.60) 12/26/17 17:15 Urine Source CATH 12/31/17 08:20 Urine Color YELLOW 12/31/17 08:20 Urine Clarity CLEAR (CLEAR) 12/31/17 08:20 Urine pH 6.5 (4.6 - 8.0) 12/31/17 08:20 Ur Specific [place] 1.010 (1.005-1.030) 12/31/17 08:20 Urine Protein TRACE mg/dL (NEGATIVE) 12/31/17 08:20 Urine Glucose (UA) NEGATIVE mg/dL (NEGATIVE) 12/31/17 08:20 Urine Ketones NEGATIVE mg/dL (NEGATIVE) 12/31/17 08:20 Urine Blood NEGATIVE (NEGATIVE) 12/31/17 08:20 Urine Nitrate NEGATIVE (NEGATIVE) 12/31/17 08:20 Urine Bilirubin NEGATIVE (NEGATIVE) 12/31/17 08:20 Urine Urobilinogen 0.2 E.U./dL (0.2 - 1.0) 12/31/17 08:20 Ur Leukocyte Esterase NEGATIVE (NEGATIVE) 12/31/17 08:20 Urine RBC 0-2 /hpf (0-5) 12/31/17 08:20 Urine WBC 0-2 /hpf (0-5) 12/31/17 08:20 Ur Epithelial Cells RARE /lpf (FEW) 12/31/17 08:20 Urine Bacteria NONE SEEN /hpf (NONE SEEN) 12/31/17 08:20 Urine Mucus FEW /lpf (FEW) 12/31/17 08:20 Rheumatoid Factor 15.5 IU/mL (0.0-13.9) H 01/03/18 04:45 ELSA Screen Negative 01/03/18 04:45 - Physical Exam Vitals and I&O: Vital Signs Temp 97.5 F 01/08/18 08:17 Pulse 84 01/08/18 18:54 Resp 18 01/09/18 00:00 BP 165/64 01/08/18 09:15 Pulse Ox 98 01/08/18 18:54 Intake & Output 01/08/18 01/08/18 01/09/18 06:59 18:59 06:59 Intake Total 100 320 50 Output Total 0 Balance 100 320 50 Weight (lbs) 58.423 kg 58.06 kg 58.06 kg Intake: Intake, IV Amount 100 150 Piperacillin Sodium/ 100 150 Tazobact 3.375 gm In Sodium Chloride 0.9% 50 ml @ 100 mls/hr IV Q6HR [facility] Rx#:[id number] Oral 0 170 50 Output: Urine/Stool Mix 0 Other: # Voids 3 3 1 # Bowel Movements 1 0 Weight Source Bedscale Bedscale Bedscale Active Medications: Current Medications Acetaminophen (Tylenol) 650 mg PO Q4H PRN PRN Reason: Fever > 101 Stop: 02/28/18 23:58 Last Admin: 01/01/18 18:09 Dose: 650 mg Acetaminophen (Tylenol 650mg Supp) 650 mg RC Q4H PRN PRN Reason: Fever > 101 Stop: 03/03/18 14:05 Last Admin: 01/03/18 03:56 Dose: 650 mg Albuterol/Ipratropium (Duoneb Neb) 3 ml HHN [id number] [facility] Stop: 03/07/18 18:59 Last Admin: 01/08/18 18:40 Dose: 3 ml Alprazolam (Xanax) 0.25 mg PO Q8HR PRN; Protocol PRN Reason: Agitation Stop: 03/09/18 18:30 Last Admin: 01/08/18 23:37 Dose: 0.25 mg Aspirin (Aspirin Chewable) 81 mg PO DAILY [facility] Stop: 02/25/18 08:59 Last Admin: 01/08/18 09:20 Dose: 81 mg Atorvastatin Calcium (Lipitor) 10 mg PO DAILY [facility]; Protocol Stop: 02/26/18 10:59 Last Admin: 01/08/18 09:20 Dose: 10 mg Bisacodyl (Dulcolax 10 Mg Supp) 10 mg RC DAILY PRN PRN Reason: Constipation Stop: 02/25/18 06:58 Last Admin: 01/02/18 20:41 Dose: 10 mg Piperacillin Sod/Tazobactam (Sod 3.375 gm/ Sodium Chloride) 50 mls @ 100 mls/ hr IV Q6HR [facility] Stop: 03/05/18 03:59 Last Admin: 01/09/18 00:21 Dose: 100 mls/hr Potassium Chloride/Dextrose/Sod Cl (D5-0.45ns W/20 Meq Kcl) 1,000 mls @ 40 mls/ hr IV .Q24H [facility] Stop: 03/08/18 15:29 Last Admin: 01/07/18 18:15 Dose: 40 mls/hr Lactobacillus Rhamnosus (Culturelle 15b) 1 each PO DAILY [facility] Stop: 03/03/18 08:59 Last Admin: 01/08/18 09:19 Dose: 1 each Levothyroxine Sodium (Synthroid) 0.025 mg PO DAILY [facility] Stop: 02/25/18 08:59 Last Admin: 01/08/18 09:19 Dose: 0.025 mg Lorazepam (Ativan) 0.5 mg IVP Q4HR PRN; Protocol PRN Reason: Agitation Stop: 03/01/18 17:48 Last Admin: 01/01/18 12:08 Dose: 0.5 mg Megestrol Acetate (Megace) 400 mg PO BID [facility]; Protocol Stop: 03/10/18 08:59 Miscellaneous (Probiotic Screen) 1 ea MC PRN PRN PRN Reason: PROTOCOL Stop: 03/02/18 15:13 Ondansetron HCl (Zofran) 4 mg IV Q6H PRN PRN Reason: Nausea / Vomiting Stop: 03/06/18 11:38 Pantoprazole Sodium (Protonix) 40 mg IVP BID [facility] Stop: 03/04/18 16:59 Last Admin: 01/08/18 17:04 Dose: 40 mg Polyethylene Glycol (Miralax) 17 gm PO DAILY [facility] Stop: 02/25/18 08:59 Last Admin: 01/08/18 09:18 Dose: 17 gm Potassium Chloride (Klor-Con) 20 meq PO DAILY [facility] Stop: 03/07/18 08:59 Last Admin: 01/08/18 09:22 Dose: 20 meq Valsartan (Diovan) 80 mg PO DAILY [facility] Stop: 02/25/18 08:59 Last Admin: 01/08/18 09:15 Dose: 80 mg General: no acute distress, well developed, well nourished HEENT: atraumatic, normocephalic, PERRLA Neck: supple, no thyromegaly Cardiovascular: S1S2, regular Lungs: clear to auscultation bilaterally, clear to percussion Abdomen: soft, no tender, no distended Extremities: no cyanosis, no clubbing, no edema Neurological: awake, alert Skin: intact Infectious Disease Assmt/Plan - Assessment Assessment: 1. Sepsis. 2. Aspiration pneumonia. 3. UTI treated. 4. Dementia. 5. Hypertension. - Plan Plan: Continue Zosyn. Dw family in detail about her condition and prognosis. Nutritional Asmnt/Malnutr-PDOC - Dietary Evaluation Malnutrition Findings (Please click <Entered> for more info): Nutritional Asmnt/Malnutrition Start: 12/30/17 16: 04 Text: Status: Complete Freq: Protocol: Document 12/30/17 16:04 [id number] (Rec: 12/30/17 16:14 TAMI [email or web address]) Nutritional Asmnt/Malnutrition Patient General Information Nutritional Screening Moderate Risk Diagnosis elevated troponin Pertinent Medical Hx/Surgical Hx HTN, dementia, hypothyroidism Subjective Information Pt seen sleeping in bed at time of visit, family at bedside. Per family, pt was very sleepy, only had few bites of brearfast this morning. Per EMR, PO intake about 25-50%. Per family, pt likes chocoalte icecream and pudding. Current Diet Order/ Nutrition Support cardiac Pertinent Medications lipitor, D5-0.25ns, synthroid, miralax, seroquel Pertinent Labs 12/27 Cl 110 Nutritional Hx/Data Height 1.6 m Height (Calculated Centimeters) 160.0 Current Weight (lbs) 62.596 kg Weight (Calculated Kilograms) 62.6 Weight (Calculated Grams) 61176.7 [place] Body Weight 115 Body Mass Index (BMI) 24.4 Weight Status Approriate GI Symptoms GI Symptoms None Last BM 12/27 Difficult in: None Skin Integrity/Comment: skin intact, reddened to buttocks Current %PO Poor (25-49%) Estimated Nutritional Goals BEE in Kcals: Using Current wt Calories/Kcals/Kg 25-30 Kcals Calculated 2766-9445 Protein: Using Current wt Protein g/k Protein Calculated 63 Fluid: ml 1575-1890ml (1ml/kcal) Nutritional Problem 1. Problem Problem inadequate food intake Etiology possible poor appetite Signs/Symptoms: PO intake 25-50% Malnutrition Alert Is there a minimum of two criteria No selected? Query Text:Check all the applicable criteria. A minimum of two criteria are recommended for diagnosis of either severe or non-severe malnutrition. Malnutrition Related to Morbid Obesity Malnutrition related to morbid obesity No Intervention/Recommendation Comments 1. Continue with current diet as ordered. Family request nutrition supplements. Send one bottle of chocolate ensure per family request at lunch. Will consider adding supplements if PO intake continue <50%. Nurses to assist pt with meals and encourage oral intake. 2. Monitor PO intake, wt, labs and skin integrity 3. F/U as high risk in 2-3 days, 01/01-01/02 Expected Outcomes/Goals Expected Outcomes/Goals 1. PO intake to meet at least 75% of nutritional needs. 2. Wt stability, skin to remain intact, labs to approach WNL.
--- NOTE | 2018-01-09 05:33 | General Progress Note ---
Subjective - Review of Systems Service Date: 01/09/18 Subjective: Patient was seen and examined. no acute distress. Poor PO intake. Awake, alert but confused. half-way evaluation. Objective - Results Result Diagrams: 01/08/18 05:35 01/08/18 05:35 Recent Labs: Laboratory Last Values WBC 15.2 Th/cmm (4.8-10.8) H 01/08/18 05:35 RBC 3.57 Mil/cmm (3.80-5.20) L 01/08/18 05:35 Hgb 11.2 gm/dL (12-16) L 01/08/18 05:35 Hct 33.5 % (41.0-60) L 01/08/18 05:35 MCV 93.8 fl (81-100) 01/08/18 05:35 MCH 31.3 pg (27.0-31.0) H 01/08/18 05:35 MCHC Differential 33.4 pg (28.0-36.0) 01/08/18 05:35 RDW 14.1 % (11.5-20.0) 01/08/18 05:35 Plt Count 722 Th/cmm (150-400) H 01/08/18 05:35 MPV 9.1 fl 01/08/18 05:35 Add Manual Diff YES 01/08/18 05:35 Neutrophils % CAR INSPECTOR 01/08/18 05:35 Band Neutrophils % 0 % (0-10) 01/08/18 05:35 Lymphocytes % CAR INSPECTOR 01/08/18 05:35 Monocytes % CAR INSPECTOR 01/08/18 05:35 Eosinophils % CAR INSPECTOR 01/08/18 05:35 Basophils % CAR INSPECTOR 01/08/18 05:35 Neutrophils (Manual) 67 % (40-80) 01/08/18 05:35 Lymphocytes 20 % (20-50) 01/08/18 05:35 Monocytes 10 % (2-10) 01/08/18 05:35 Eosinophils 3 % (0-5) 01/08/18 05:35 Basophils 0 % (0-3) 01/08/18 05:35 Platelet Estimate ADEQUATE (NORMAL) 01/02/18 06:06 Smear Path Review 01/08/18 05:35 ESR 62 mm/hr (0-30) H 01/03/18 04:45 PT 9.5 SECONDS (9.5-11.5) 12/26/17 17:15 INR 0.91 (0.5-1.4) 12/26/17 17:15 PTT (Actin FS) 24.5 SECONDS (26.0-38.0) L 12/26/17 17:15 Sodium 139 mEq/L (136-145) 01/08/18 05:35 Potassium 3.8 mEq/L (3.5-5.1) 01/08/18 05:35 Chloride 113 mEq/L (98-107) H 01/08/18 05:35 Carbon Dioxide 18.7 mEq/L (21.0-31.0) L 01/08/18 05:35 Anion Gap 11.1 (7.0-16.0) 01/08/18 05:35 BUN 5 mg/dL (7-25) L 01/08/18 05:35 Creatinine 0.7 mg/dL (0.6-1.2) 01/08/18 05:35 Est GFR ( Amer) TNP 01/08/18 05:35 Est GFR (Non-Af Amer) TNP 01/08/18 05:35 BUN/Creatinine Ratio 7.1 01/08/18 05:35 Glucose 96 mg/dL (70-105) 01/08/18 05:35 Uric Acid 3.3 mg/dL (2.3-6.6) 01/03/18 04:45 Calcium 8.4 mg/dL (8.6-10.3) L 01/08/18 05:35 Total Bilirubin 0.6 mg/dL (0.3-1.0) 01/08/18 05:35 AST 20 U/L (13-39) 01/08/18 05:35 ALT 21 U/L (7-52) 01/08/18 05:35 Alkaline Phosphatase 79 U/L (34-104) 01/08/18 05:35 Ammonia 52 umol/L (16-53) 12/31/17 05:40 Troponin I 0.03 ng/mL (0.01-0.05) 01/07/18 05:30 Total Protein 6.0 gm/dL (6.0-8.3) 01/08/18 05:35 Albumin 3.0 gm/dL (3.7-5.3) L 01/08/18 05:35 Globulin 3.0 gm/dL 01/08/18 05:35 Albumin/Globulin Ratio 1.0 (1.0-1.8) 01/08/18 05:35 Triglycerides 78 mg/dL (<150) 12/27/17 07:47 Cholesterol 249 mg/dL (<200) H 12/27/17 07:47 LDL Cholesterol Direct 198 mg/dL (75-193) H 12/27/17 07:47 HDL Cholesterol 45 mg/dL (23-92) 12/27/17 07:47 Vitamin B12 707 pg/mL (232-1245) 12/30/17 06:00 Folic Acid 16.7 ng/mL (>3.0) 12/30/17 06:00 TSH 3.88 uIU/ml (0.34-5.60) 12/26/17 17:15 Urine Source CATH 12/31/17 08:20 Urine Color YELLOW 12/31/17 08:20 Urine Clarity CLEAR (CLEAR) 12/31/17 08:20 Urine pH 6.5 (4.6 - 8.0) 12/31/17 08:20 Ur Specific [place] 1.010 (1.005-1.030) 12/31/17 08:20 Urine Protein TRACE mg/dL (NEGATIVE) 12/31/17 08:20 Urine Glucose (UA) NEGATIVE mg/dL (NEGATIVE) 12/31/17 08:20 Urine Ketones NEGATIVE mg/dL (NEGATIVE) 12/31/17 08:20 Urine Blood NEGATIVE (NEGATIVE) 12/31/17 08:20 Urine Nitrate NEGATIVE (NEGATIVE) 12/31/17 08:20 Urine Bilirubin NEGATIVE (NEGATIVE) 12/31/17 08:20 Urine Urobilinogen 0.2 E.U./dL (0.2 - 1.0) 12/31/17 08:20 Ur Leukocyte Esterase NEGATIVE (NEGATIVE) 12/31/17 08:20 Urine RBC 0-2 /hpf (0-5) 12/31/17 08:20 Urine WBC 0-2 /hpf (0-5) 12/31/17 08:20 Ur Epithelial Cells RARE /lpf (FEW) 12/31/17 08:20 Urine Bacteria NONE SEEN /hpf (NONE SEEN) 12/31/17 08:20 Urine Mucus FEW /lpf (FEW) 12/31/17 08:20 Rheumatoid Factor 15.5 IU/mL (0.0-13.9) H 01/03/18 04:45 ELSA Screen Negative 01/03/18 04:45 - Physical Exam Vitals and I&O: Vital Signs Temp 98.8 F 01/09/18 04:00 Pulse 87 01/09/18 04:00 Resp 18 01/09/18 04:00 BP 158/77 01/09/18 04:00 Pulse Ox 98 01/09/18 04:00 Intake & Output 01/08/18 01/08/18 01/09/18 06:59 18:59 06:59 Intake Total 100 320 50 Output Total 0 Balance 100 320 50 Weight (lbs) 58.423 kg 58.06 kg 58.06 kg Intake: Intake, IV Amount 100 150 Piperacillin Sodium/ 100 150 Tazobact 3.375 gm In Sodium Chloride 0.9% 50 ml @ 100 mls/hr IV Q6HR [facility] Rx#:[id number] Oral 0 170 50 Output: Urine/Stool Mix 0 Other: # Voids 3 3 1 # Bowel Movements 1 0 Weight Source Bedscale Bedscale Bedscale Active Medications: Current Medications Acetaminophen (Tylenol) 650 mg PO Q4H PRN PRN Reason: Fever > 101 Stop: 02/28/18 23:58 Last Admin: 01/01/18 18:09 Dose: 650 mg Acetaminophen (Tylenol 650mg Supp) 650 mg RC Q4H PRN PRN Reason: Fever > 101 Stop: 03/03/18 14:05 Last Admin: 01/03/18 03:56 Dose: 650 mg Albuterol/Ipratropium (Duoneb Neb) 3 ml HHN [id number] [facility] Stop: 03/07/18 18:59 Last Admin: 01/08/18 18:40 Dose: 3 ml Alprazolam (Xanax) 0.25 mg PO Q8HR PRN; Protocol PRN Reason: Agitation Stop: 03/09/18 18:30 Last Admin: 01/08/18 23:37 Dose: 0.25 mg Aspirin (Aspirin Chewable) 81 mg PO DAILY [facility] Stop: 02/25/18 08:59 Last Admin: 01/08/18 09:20 Dose: 81 mg Atorvastatin Calcium (Lipitor) 10 mg PO DAILY [facility]; Protocol Stop: 02/26/18 10:59 Last Admin: 01/08/18 09:20 Dose: 10 mg Bisacodyl (Dulcolax 10 Mg Supp) 10 mg RC DAILY PRN PRN Reason: Constipation Stop: 02/25/18 06:58 Last Admin: 01/02/18 20:41 Dose: 10 mg Piperacillin Sod/Tazobactam (Sod 3.375 gm/ Sodium Chloride) 50 mls @ 100 mls/ hr IV Q6HR [facility] Stop: 03/05/18 03:59 Last Admin: 01/09/18 00:21 Dose: 100 mls/hr Potassium Chloride/Dextrose/Sod Cl (D5-0.45ns W/20 Meq Kcl) 1,000 mls @ 40 mls/ hr IV .Q24H [facility] Stop: 03/08/18 15:29 Last Admin: 01/07/18 18:15 Dose: 40 mls/hr Lactobacillus Rhamnosus (Culturelle 15b) 1 each PO DAILY [facility] Stop: 03/03/18 08:59 Last Admin: 01/08/18 09:19 Dose: 1 each Levothyroxine Sodium (Synthroid) 0.025 mg PO DAILY [facility] Stop: 02/25/18 08:59 Last Admin: 01/08/18 09:19 Dose: 0.025 mg Lorazepam (Ativan) 0.5 mg IVP Q4HR PRN; Protocol PRN Reason: Agitation Stop: 03/01/18 17:48 Last Admin: 01/01/18 12:08 Dose: 0.5 mg Megestrol Acetate (Megace) 400 mg PO BID [facility]; Protocol Stop: 03/10/18 08:59 Miscellaneous (Probiotic Screen) 1 ea MC PRN PRN PRN Reason: PROTOCOL Stop: 03/02/18 15:13 Ondansetron HCl (Zofran) 4 mg IV Q6H PRN PRN Reason: Nausea / Vomiting Stop: 03/06/18 11:38 Pantoprazole Sodium (Protonix) 40 mg IVP BID [facility] Stop: 03/04/18 16:59 Last Admin: 01/08/18 17:04 Dose: 40 mg Polyethylene Glycol (Miralax) 17 gm PO DAILY [facility] Stop: 02/25/18 08:59 Last Admin: 01/08/18 09:18 Dose: 17 gm Potassium Chloride (Klor-Con) 20 meq PO DAILY [facility] Stop: 03/07/18 08:59 Last Admin: 01/08/18 09:22 Dose: 20 meq Valsartan (Diovan) 80 mg PO DAILY [facility] Stop: 02/25/18 08:59 Last Admin: 01/08/18 09:15 Dose: 80 mg General: Alert, Oriented x3 HEENT: Atraumatic, PERRLA, EOMI Neck: Supple Cardiovascular: Regular rate Lungs: Clear to auscultation Abdomen: Bowel sounds, Soft, no Tender, no Hepatomegaly, no Splenomegaly, no Rebound, no Mass, no Guarding Extremities: no Clubbing, no Cyanosis, no Edema Neurological: Normal gait, Normal speech Psych/Mental Status: no Mental status NL Assessment/Plan - Assessment Assessment: elevated troponins improved ... now normal Non q-wave NV ... 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 continue current medications HTN slightly elevated ... on diovan 80mg PO daily, will add clonidine PRN UTI...continue IV anitbiotics. UA for C&S leukocytosis .... slowly improved to 15K hyperlipidemia ... on statins FUO .... repeat CBC, chest xray this AM. will order ELSA,ESR,RA,Uric Acid coffee ground emesis ... will order IV Protonix. Will order GI consult. hypokalemia ... on kdur 20meq PO daily. Rheumatoid Arthritis .... need to be referred to industrial hygienist outpatient. bilateral infiltrates likely aspiration PNA ... . anorexia ... will order Megace. Alzheimer's dementia ... will order neurology consult - Plan Plan: half-way evaluation Nutritional Asmnt/Malnutr-PDOC - Dietary Evaluation Malnutrition Findings (Please click <Entered> for more info): Nutritional Asmnt/Malnutrition Start: 12/30/17 16: 04 Text: Status: Complete Freq: Protocol: Document 12/30/17 16:04 LCHENG (Rec: 12/30/17 16:14 [email or web address]) Nutritional Asmnt/Malnutrition Patient General Information Nutritional Screening Moderate Risk Diagnosis elevated troponin Pertinent Medical Hx/Surgical Hx HTN, dementia, hypothyroidism Subjective Information Pt seen sleeping in bed at time of visit, family at bedside. Per family, pt was very sleepy, only had few bites of brearfast this morning. Per EMR, PO intake about 25-50%. Per family, pt likes chocoalte icecream and pudding. Current Diet Order/ Nutrition Support cardiac Pertinent Medications lipitor, D5-0.25ns, synthroid, miralax, seroquel Pertinent Labs 12/27 Cl 110 Nutritional Hx/Data Height 1.6 m Height (Calculated Centimeters) 160.0 Current Weight (lbs) 62.596 kg Weight (Calculated Kilograms) 62.6 Weight (Calculated Grams) 80189.7 [place] Body Weight 115 Body Mass Index (BMI) 24.4 Weight Status Approriate GI Symptoms GI Symptoms None Last BM 12/27 Difficult in: None Skin Integrity/Comment: skin intact, reddened to buttocks Current %PO Poor (25-49%) Estimated Nutritional Goals BEE in Kcals: Using Current wt Calories/Kcals/Kg 25-30 Kcals Calculated 8465-9226 Protein: Using Current wt Protein g/k Protein Calculated 63 Fluid: ml 1575-1890ml (1ml/kcal) Nutritional Problem 1. Problem Problem inadequate food intake Etiology possible poor appetite Signs/Symptoms: PO intake 25-50% Malnutrition Alert Is there a minimum of two criteria No selected? Query Text:Check all the applicable criteria. A minimum of two criteria are recommended for diagnosis of either severe or non-severe malnutrition. Malnutrition Related to Morbid Obesity Malnutrition related to morbid obesity No Intervention/Recommendation Comments 1. Continue with current diet as ordered. Family request nutrition supplements. Send one bottle of chocolate ensure per family request at lunch. Will consider adding supplements if PO intake continue <50%. Nurses to assist pt with meals and encourage oral intake. 2. Monitor PO intake, wt, labs and skin integrity 3. F/U as high risk in 2-3 days, 01/01-01/02 Expected Outcomes/Goals Expected Outcomes/Goals 1. PO intake to meet at least 75% of nutritional needs. 2. Wt stability, skin to remain intact, labs to approach WNL.
[2018-01-09] MEDS: Albuterol/Ipratropium Neb 3 ML AERS HHN SCH ×3 (07:28→19:07)
[2018-01-09 08:22] LABS: % EOSINOPHILS 3.5 % (0.0-5.0); % LYMPHOCYTES 21.4 % (20.0-50.0); % MONOCYTES 8.6 % (2.0-10.0); % NEUTROPHILS 66.5 % (40.0-80.0); EOSINOPHILE ABSOLUTE 0.5 Th/cmm (0.1-0.4); HEMATOCRIT 35.5 % (41.0-60); HEMOGLOBIN 11.8 gm/dL (12-16); LYMPHOCYTE ABSOLUTE 3.2 Th/cmm (1.5-3.0); MEAN CORPUSCULAR HEMOGLOBIN 30.9 pg (27.0-31.0); MEAN CORPUSCULAR HGB CONC 33.2 pg (28.0-36.0); MEAN PLATELET VOLUME 8.7 fl; MONOCYTE ABSOLUTE 1.3 Th/cmm (0.3-1.0); NEUTROPHILE ABSOLUTE 9.9 Th/cmm (1.8-8.0); RED BLOOD COUNT 3.81 Mil/cmm (3.80-5.20); RED CELL DISTRIBUTION WIDTH 14.1 % (11.5-20.0); WHITE BLOOD COUNT 14.9 Th/cmm (4.8-10.8)
[2018-01-09 08:24] LABS: PLATELET COUNT 866 Th/cmm (150-400)
[2018-01-09 08:37] LABS: ALB/GLOB RATIO 1.1 (1.0-1.8); ALBUMIN 3.4 gm/dL (3.7-5.3); ALKALINE PHOSPHATASE 95 U/L (34-104); ANION GAP 11.3 (7.0-16.0); BILIRUBIN,TOTAL 0.7 mg/dL (0.3-1.0); BUN - UREA NITROGEN 4 mg/dL (7-25); CALCIUM SERUM 8.9 mg/dL (8.6-10.3); CARBON DIOXIDE 18.7 mEq/L (21.0-31.0); CHLORIDE 115 mEq/L (98-107); CREATININE - SERUM 0.7 mg/dL (0.6-1.2); GLUCOSE 99 mg/dL (70-105); SGOT 20 U/L (13-39); SGPT/ALT 20 U/L (7-52); SODIUM SERUM 141 mEq/L (136-145); TOTAL PROTEIN,SERUM 6.5 gm/dL (6.0-8.3)
[2018-01-09] MEDS: D5-0.45NS w/20 mEq KCL 1,000 ML IV SCH (08:43)
[2018-01-09] MEDS: Potassium Chloride 20 mEq ER Tab PO SCH (08:45)
[2018-01-09] MEDS: Aspirin 81mg Chewable Tab PO SCH (10:01)
[2018-01-09] MEDS: Lactobacillus Rhamnosus GG 15 Billion CFU CAP.SPRINK PO SCH (10:03)
[2018-01-09] MEDS: Levothyroxine 0.025 Mg Tab PO SCH (10:03)
[2018-01-09] MEDS: Atorvastatin Calcium 10 MG TAB PO SCH (10:03)
[2018-01-09] MEDS: POLYETHYLENE GLYCOL 3350 17 GM PACK PO SCH (10:06)
--- NOTE | 2018-01-09 15:35 | Infectious Disease Prog Note ---
Infectious Disease Subjective - Review of Systems Service Date: 01/09/18 Subjective: No fever today. Doing the same. Remains confused, refuses to take medicactions. Stable WBC count. Infectious Disease Objective - Results Result Diagrams: 01/11/18 08:50 01/09/18 08:05 Recent Labs: Laboratory Last Values WBC 14.9 Th/cmm (4.8-10.8) H 01/09/18 08:05 RBC 3.81 Mil/cmm (3.80-5.20) 01/09/18 08:05 Hgb 11.8 gm/dL (12-16) L 01/09/18 08:05 Hct 35.5 % (41.0-60) L 01/09/18 08:05 MCV 93.0 fl (81-100) 01/09/18 08:05 MCH 30.9 pg (27.0-31.0) 01/09/18 08:05 MCHC Differential 33.2 pg (28.0-36.0) 01/09/18 08:05 RDW 14.1 % (11.5-20.0) 01/09/18 08:05 Plt Count 866 Th/cmm (150-400) H* 01/09/18 08:05 MPV 8.7 fl 01/09/18 08:05 Add Manual Diff YES 01/08/18 05:35 Neutrophils % 66.5 % (40.0-80.0) 01/09/18 08:05 Band Neutrophils % 0 % (0-10) 01/08/18 05:35 Lymphocytes % 21.4 % (20.0-50.0) 01/09/18 08:05 Monocytes % 8.6 % (2.0-10.0) 01/09/18 08:05 Eosinophils % 3.5 % (0.0-5.0) 01/09/18 08:05 Basophils % 0.0 % (0.0-2.0) 01/09/18 08:05 Neutrophils (Manual) 67 % (40-80) 01/08/18 05:35 Lymphocytes 20 % (20-50) 01/08/18 05:35 Monocytes 10 % (2-10) 01/08/18 05:35 Eosinophils 3 % (0-5) 01/08/18 05:35 Basophils 0 % (0-3) 01/08/18 05:35 Platelet Estimate ADEQUATE (NORMAL) 01/02/18 06:06 Smear Path Review 01/08/18 05:35 ESR 62 mm/hr (0-30) H 01/03/18 04:45 PT 9.5 SECONDS (9.5-11.5) 12/26/17 17:15 INR 0.91 (0.5-1.4) 12/26/17 17:15 PTT (Actin FS) 24.5 SECONDS (26.0-38.0) L 12/26/17 17:15 Sodium 141 mEq/L (136-145) 01/09/18 08:05 Potassium 4.0 mEq/L (3.5-5.1) 01/09/18 08:05 Chloride 115 mEq/L (98-107) H 01/09/18 08:05 Carbon Dioxide 18.7 mEq/L (21.0-31.0) L 01/09/18 08:05 Anion Gap 11.3 (7.0-16.0) 01/09/18 08:05 BUN 4 mg/dL (7-25) L 01/09/18 08:05 Creatinine 0.7 mg/dL (0.6-1.2) 01/09/18 08:05 Est GFR ( Amer) TNP 01/09/18 08:05 Est GFR (Non-Af Amer) TNP 01/09/18 08:05 BUN/Creatinine Ratio 5.7 01/09/18 08:05 Glucose 99 mg/dL (70-105) 01/09/18 08:05 Uric Acid 3.3 mg/dL (2.3-6.6) 01/03/18 04:45 Calcium 8.9 mg/dL (8.6-10.3) 01/09/18 08:05 Total Bilirubin 0.7 mg/dL (0.3-1.0) 01/09/18 08:05 AST 20 U/L (13-39) 01/09/18 08:05 ALT 20 U/L (7-52) 01/09/18 08:05 Alkaline Phosphatase 95 U/L (34-104) 01/09/18 08:05 Ammonia 52 umol/L (16-53) 12/31/17 05:40 Troponin I 0.03 ng/mL (0.01-0.05) 01/07/18 05:30 Total Protein 6.5 gm/dL (6.0-8.3) 01/09/18 08:05 Albumin 3.4 gm/dL (3.7-5.3) L 01/09/18 08:05 Globulin 3.1 gm/dL 01/09/18 08:05 Albumin/Globulin Ratio 1.1 (1.0-1.8) 01/09/18 08:05 Triglycerides 78 mg/dL (<150) 12/27/17 07:47 Cholesterol 249 mg/dL (<200) H 12/27/17 07:47 LDL Cholesterol Direct 198 mg/dL (75-193) H 12/27/17 07:47 HDL Cholesterol 45 mg/dL (23-92) 12/27/17 07:47 Vitamin B12 707 pg/mL (232-1245) 12/30/17 06:00 Folic Acid 16.7 ng/mL (>3.0) 12/30/17 06:00 TSH 3.88 uIU/ml (0.34-5.60) 12/26/17 17:15 Urine Source CATH 12/31/17 08:20 Urine Color YELLOW 12/31/17 08:20 Urine Clarity CLEAR (CLEAR) 12/31/17 08:20 Urine pH 6.5 (4.6 - 8.0) 12/31/17 08:20 Ur Specific [place] 1.010 (1.005-1.030) 12/31/17 08:20 Urine Protein TRACE mg/dL (NEGATIVE) 12/31/17 08:20 Urine Glucose (UA) NEGATIVE mg/dL (NEGATIVE) 12/31/17 08:20 Urine Ketones NEGATIVE mg/dL (NEGATIVE) 12/31/17 08:20 Urine Blood NEGATIVE (NEGATIVE) 12/31/17 08:20 Urine Nitrate NEGATIVE (NEGATIVE) 12/31/17 08:20 Urine Bilirubin NEGATIVE (NEGATIVE) 12/31/17 08:20 Urine Urobilinogen 0.2 E.U./dL (0.2 - 1.0) 12/31/17 08:20 Ur Leukocyte Esterase NEGATIVE (NEGATIVE) 12/31/17 08:20 Urine RBC 0-2 /hpf (0-5) 12/31/17 08:20 Urine WBC 0-2 /hpf (0-5) 12/31/17 08:20 Ur Epithelial Cells RARE /lpf (FEW) 12/31/17 08:20 Urine Bacteria NONE SEEN /hpf (NONE SEEN) 12/31/17 08:20 Urine Mucus FEW /lpf (FEW) 12/31/17 08:20 Rheumatoid Factor 15.5 IU/mL (0.0-13.9) H 01/03/18 04:45 ELSA Screen Negative 01/03/18 04:45 - Physical Exam Vitals and I&O: Vital Signs Temp 97.5 F 01/09/18 12:00 Pulse 74 01/09/18 13:25 Resp 18 01/09/18 13:25 BP 119/74 01/09/18 12:00 Pulse Ox 96 01/09/18 13:25 Intake & Output 01/08/18 01/09/18 01/09/18 18:59 06:59 18:59 Intake Total 320 1150 Balance 320 1150 Weight (lbs) 58.06 kg 58.06 kg Intake: Intake, IV Amount 150 1100 D5-0.45NS w/20 mEq KCL 1, 1000 000 ml @ 40 mls/hr IV . Q24H [facility] Rx#:[id number] Piperacillin Sodium/ 150 100 Tazobact 3.375 gm In Sodium Chloride 0.9% 50 ml @ 100 mls/hr IV Q6HR [facility] Rx#:[id number] Oral 170 50 Other: # Voids 3 1 # Bowel Movements 1 0 Weight Source Bedscale Bedscale Active Medications: Current Medications Acetaminophen (Tylenol) 650 mg PO Q4H PRN PRN Reason: Fever > 101 Stop: 02/28/18 23:58 Last Admin: 01/01/18 18:09 Dose: 650 mg Acetaminophen (Tylenol 650mg Supp) 650 mg RC Q4H PRN PRN Reason: Fever > 101 Stop: 03/03/18 14:05 Last Admin: 01/03/18 03:56 Dose: 650 mg Albuterol/Ipratropium (Duoneb Neb) 3 ml HHN [id number] [facility] Stop: 03/07/18 18:59 Last Admin: 01/09/18 13:25 Dose: 3 ml Alprazolam (Xanax) 0.25 mg PO Q8HR PRN; Protocol PRN Reason: Agitation Stop: 03/09/18 18:30 Last Admin: 01/08/18 23:37 Dose: 0.25 mg Aspirin (Aspirin Chewable) 81 mg PO DAILY [facility] Stop: 02/25/18 08:59 Last Admin: 01/09/18 10:01 Dose: 81 mg Atorvastatin Calcium (Lipitor) 10 mg PO DAILY [facility]; Protocol Stop: 02/26/18 10:59 Last Admin: 01/09/18 10:03 Dose: 10 mg Bisacodyl (Dulcolax 10 Mg Supp) 10 mg RC DAILY PRN PRN Reason: Constipation Stop: 02/25/18 06:58 Last Admin: 01/02/18 20:41 Dose: 10 mg Piperacillin Sod/Tazobactam (Sod 3.375 gm/ Sodium Chloride) 50 mls @ 100 mls/ hr IV Q6HR [facility] Stop: 03/05/18 03:59 Last Admin: 01/09/18 11:48 Dose: 100 mls/hr Potassium Chloride/Dextrose/Sod Cl (D5-0.45ns W/20 Meq Kcl) 1,000 mls @ 40 mls/ hr IV .Q24H [facility] Stop: 03/08/18 15:29 Last Admin: 01/09/18 08:43 Dose: 40 mls/hr Lactobacillus Rhamnosus (Culturelle 15b) 1 each PO DAILY [facility] Stop: 03/03/18 08:59 Last Admin: 01/09/18 10:03 Dose: 1 each Levothyroxine Sodium (Synthroid) 0.025 mg PO DAILY [facility] Stop: 02/25/18 08:59 Last Admin: 01/09/18 10:03 Dose: 0.025 mg Lorazepam (Ativan) 0.5 mg IVP Q4HR PRN; Protocol PRN Reason: Agitation Stop: 03/01/18 17:48 Last Admin: 01/01/18 12:08 Dose: 0.5 mg Megestrol Acetate (Megace) 400 mg PO BID [facility]; Protocol Stop: 03/10/18 08:59 Last Admin: 01/09/18 08:37 Dose: 400 mg Miscellaneous (Probiotic Screen) 1 ea MC PRN PRN PRN Reason: PROTOCOL Stop: 03/02/18 15:13 Ondansetron HCl (Zofran) 4 mg IV Q6H PRN PRN Reason: Nausea / Vomiting Stop: 03/06/18 11:38 Pantoprazole Sodium (Protonix) 40 mg IVP BID [facility] Stop: 03/04/18 16:59 Last Admin: 01/09/18 08:49 Dose: 40 mg Polyethylene Glycol (Miralax) 17 gm PO DAILY [facility] Stop: 02/25/18 08:59 Last Admin: 01/09/18 10:06 Dose: 17 gm Potassium Chloride (Klor-Con) 20 meq PO DAILY [facility] Stop: 03/07/18 08:59 Last Admin: 01/09/18 08:45 Dose: Not Given Valsartan (Diovan) 80 mg PO DAILY [facility] Stop: 02/25/18 08:59 Last Admin: 01/09/18 10:01 Dose: 80 mg General: no acute distress, well developed, well nourished HEENT: atraumatic, normocephalic, PERRLA Neck: supple, no thyromegaly, no lymphadenopathy Cardiovascular: S1S2, regular Lungs: clear to auscultation bilaterally, clear to percussion Abdomen: soft, no tender, no distended Extremities: no cyanosis, no clubbing, no edema Neurological: awake, alert, other (Comfused) Skin: intact Infectious Disease Assmt/Plan - Assessment Assessment: 1. Sepsis. 2. Aspiration pneumonia. 3. UTI treated. 4. Dementia. 5. Hypertension. - Plan Plan: Continue Zosyn. Nutritional Asmnt/Malnutr-PDOC - Dietary Evaluation Malnutrition Findings (Please click <Entered> for more info): Nutritional Asmnt/Malnutrition Start: 12/30/17 16: 04 Text: Status: Complete Freq: Protocol: Document 12/30/17 16:04 LCHENG (Rec: 12/30/17 16:14 [email or web address]) Nutritional Asmnt/Malnutrition Patient General Information Nutritional Screening Moderate Risk Diagnosis elevated troponin Pertinent Medical Hx/Surgical Hx HTN, dementia, hypothyroidism Subjective Information Pt seen sleeping in bed at time of visit, family at bedside. Per family, pt was very sleepy, only had few bites of brearfast this morning. Per EMR, PO intake about 25-50%. Per family, pt likes chocoalte icecream and pudding. Current Diet Order/ Nutrition Support cardiac Pertinent Medications lipitor, D5-0.25ns, synthroid, miralax, seroquel Pertinent Labs 12/27 Cl 110 Nutritional Hx/Data Height 1.6 m Height (Calculated Centimeters) 160.0 Current Weight (lbs) 62.596 kg Weight (Calculated Kilograms) 62.6 Weight (Calculated Grams) 75440.7 [place] Body Weight 115 Body Mass Index (BMI) 24.4 Weight Status Approriate GI Symptoms GI Symptoms None Last BM 12/27 Difficult in: None Skin Integrity/Comment: skin intact, reddened to buttocks Current %PO Poor (25-49%) Estimated Nutritional Goals BEE in Kcals: Using Current wt Calories/Kcals/Kg 25-30 Kcals Calculated 1077-6710 Protein: Using Current wt Protein g/k Protein Calculated 63 Fluid: ml 1575-1890ml (1ml/kcal) Nutritional Problem 1. Problem Problem inadequate food intake Etiology possible poor appetite Signs/Symptoms: PO intake 25-50% Malnutrition Alert Is there a minimum of two criteria No selected? Query Text:Check all the applicable criteria. A minimum of two criteria are recommended for diagnosis of either severe or non-severe malnutrition. Malnutrition Related to Morbid Obesity Malnutrition related to morbid obesity No Intervention/Recommendation Comments 1. Continue with current diet as ordered. Family request nutrition supplements. Send one bottle of chocolate ensure per family request at lunch. Will consider adding supplements if PO intake continue <50%. Nurses to assist pt with meals and encourage oral intake. 2. Monitor PO intake, wt, labs and skin integrity 3. F/U as high risk in 2-3 days, 01/01-01/02 Expected Outcomes/Goals Expected Outcomes/Goals 1. PO intake to meet at least 75% of nutritional needs. 2. Wt stability, skin to remain intact, labs to approach WNL.
--- NOTE | 2018-01-10 05:22 | General Progress Note ---
Subjective - Review of Systems Service Date: 01/10/18 Subjective: Patient was seen and examined. no acute distress. Awake, alert but confused. Currently on IV antibiotics for treatment of pneumonia. Objective - Results Result Diagrams: 01/09/18 08:05 01/09/18 08:05 Recent Labs: Laboratory Last Values WBC 14.9 Th/cmm (4.8-10.8) H 01/09/18 08:05 RBC 3.81 Mil/cmm (3.80-5.20) 01/09/18 08:05 Hgb 11.8 gm/dL (12-16) L 01/09/18 08:05 Hct 35.5 % (41.0-60) L 01/09/18 08:05 MCV 93.0 fl (81-100) 01/09/18 08:05 MCH 30.9 pg (27.0-31.0) 01/09/18 08:05 MCHC Differential 33.2 pg (28.0-36.0) 01/09/18 08:05 RDW 14.1 % (11.5-20.0) 01/09/18 08:05 Plt Count 866 Th/cmm (150-400) H* 01/09/18 08:05 MPV 8.7 fl 01/09/18 08:05 Add Manual Diff YES 01/08/18 05:35 Neutrophils % 66.5 % (40.0-80.0) 01/09/18 08:05 Band Neutrophils % 0 % (0-10) 01/08/18 05:35 Lymphocytes % 21.4 % (20.0-50.0) 01/09/18 08:05 Monocytes % 8.6 % (2.0-10.0) 01/09/18 08:05 Eosinophils % 3.5 % (0.0-5.0) 01/09/18 08:05 Basophils % 0.0 % (0.0-2.0) 01/09/18 08:05 Neutrophils (Manual) 67 % (40-80) 01/08/18 05:35 Lymphocytes 20 % (20-50) 01/08/18 05:35 Monocytes 10 % (2-10) 01/08/18 05:35 Eosinophils 3 % (0-5) 01/08/18 05:35 Basophils 0 % (0-3) 01/08/18 05:35 Platelet Estimate ADEQUATE (NORMAL) 01/02/18 06:06 Smear Path Review 01/08/18 05:35 ESR 62 mm/hr (0-30) H 01/03/18 04:45 PT 9.5 SECONDS (9.5-11.5) 12/26/17 17:15 INR 0.91 (0.5-1.4) 12/26/17 17:15 PTT (Actin FS) 24.5 SECONDS (26.0-38.0) L 12/26/17 17:15 Sodium 141 mEq/L (136-145) 01/09/18 08:05 Potassium 4.0 mEq/L (3.5-5.1) 01/09/18 08:05 Chloride 115 mEq/L (98-107) H 01/09/18 08:05 Carbon Dioxide 18.7 mEq/L (21.0-31.0) L 01/09/18 08:05 Anion Gap 11.3 (7.0-16.0) 01/09/18 08:05 BUN 4 mg/dL (7-25) L 01/09/18 08:05 Creatinine 0.7 mg/dL (0.6-1.2) 01/09/18 08:05 Est GFR ( Amer) TNP 01/09/18 08:05 Est GFR (Non-Af Amer) TNP 01/09/18 08:05 BUN/Creatinine Ratio 5.7 01/09/18 08:05 Glucose 99 mg/dL (70-105) 01/09/18 08:05 Uric Acid 3.3 mg/dL (2.3-6.6) 01/03/18 04:45 Calcium 8.9 mg/dL (8.6-10.3) 01/09/18 08:05 Total Bilirubin 0.7 mg/dL (0.3-1.0) 01/09/18 08:05 AST 20 U/L (13-39) 01/09/18 08:05 ALT 20 U/L (7-52) 01/09/18 08:05 Alkaline Phosphatase 95 U/L (34-104) 01/09/18 08:05 Ammonia 52 umol/L (16-53) 12/31/17 05:40 Troponin I 0.03 ng/mL (0.01-0.05) 01/07/18 05:30 Total Protein 6.5 gm/dL (6.0-8.3) 01/09/18 08:05 Albumin 3.4 gm/dL (3.7-5.3) L 01/09/18 08:05 Globulin 3.1 gm/dL 01/09/18 08:05 Albumin/Globulin Ratio 1.1 (1.0-1.8) 01/09/18 08:05 Triglycerides 78 mg/dL (<150) 12/27/17 07:47 Cholesterol 249 mg/dL (<200) H 12/27/17 07:47 LDL Cholesterol Direct 198 mg/dL (75-193) H 12/27/17 07:47 HDL Cholesterol 45 mg/dL (23-92) 12/27/17 07:47 Vitamin B12 707 pg/mL (232-1245) 12/30/17 06:00 Folic Acid 16.7 ng/mL (>3.0) 12/30/17 06:00 TSH 3.88 uIU/ml (0.34-5.60) 12/26/17 17:15 Urine Source CATH 12/31/17 08:20 Urine Color YELLOW 12/31/17 08:20 Urine Clarity CLEAR (CLEAR) 12/31/17 08:20 Urine pH 6.5 (4.6 - 8.0) 12/31/17 08:20 Ur Specific [place] 1.010 (1.005-1.030) 12/31/17 08:20 Urine Protein TRACE mg/dL (NEGATIVE) 12/31/17 08:20 Urine Glucose (UA) NEGATIVE mg/dL (NEGATIVE) 12/31/17 08:20 Urine Ketones NEGATIVE mg/dL (NEGATIVE) 12/31/17 08:20 Urine Blood NEGATIVE (NEGATIVE) 12/31/17 08:20 Urine Nitrate NEGATIVE (NEGATIVE) 12/31/17 08:20 Urine Bilirubin NEGATIVE (NEGATIVE) 12/31/17 08:20 Urine Urobilinogen 0.2 E.U./dL (0.2 - 1.0) 12/31/17 08:20 Ur Leukocyte Esterase NEGATIVE (NEGATIVE) 12/31/17 08:20 Urine RBC 0-2 /hpf (0-5) 12/31/17 08:20 Urine WBC 0-2 /hpf (0-5) 12/31/17 08:20 Ur Epithelial Cells RARE /lpf (FEW) 12/31/17 08:20 Urine Bacteria NONE SEEN /hpf (NONE SEEN) 12/31/17 08:20 Urine Mucus FEW /lpf (FEW) 12/31/17 08:20 Rheumatoid Factor 15.5 IU/mL (0.0-13.9) H 01/03/18 04:45 ELSA Screen Negative 01/03/18 04:45 - Physical Exam Vitals and I&O: Vital Signs Temp 97.7 F 01/10/18 00:00 Pulse 78 01/10/18 00:00 Resp 18 01/10/18 00:00 BP 122/60 01/10/18 00:00 Pulse Ox 96 01/10/18 00:00 Intake & Output 01/09/18 01/09/18 01/10/18 06:59 18:59 06:59 Intake Total 1150 600 Balance 1150 600 Weight (lbs) 58.06 kg 60.328 kg 60.328 kg Intake: Intake, IV Amount 1100 100 D5-0.45NS w/20 mEq KCL 1, 1000 000 ml @ 40 mls/hr IV . Q24H [facility] Rx#:[id number] Piperacillin Sodium/ 100 100 Tazobact 3.375 gm In Sodium Chloride 0.9% 50 ml @ 100 mls/hr IV Q6HR [facility] Rx#:[id number] Oral 50 500 Other: # Voids 1 5 # Bowel Movements 0 0 Weight Source Bedscale Bedscale Bedscale Active Medications: Current Medications Acetaminophen (Tylenol) 650 mg PO Q4H PRN PRN Reason: Fever > 101 Stop: 02/28/18 23:58 Last Admin: 01/01/18 18:09 Dose: 650 mg Acetaminophen (Tylenol 650mg Supp) 650 mg RC Q4H PRN PRN Reason: Fever > 101 Stop: 03/03/18 14:05 Last Admin: 01/03/18 03:56 Dose: 650 mg Albuterol/Ipratropium (Duoneb Neb) 3 ml HHN [id number] [facility] Stop: 03/07/18 18:59 Last Admin: 01/09/18 19:07 Dose: 3 ml Alprazolam (Xanax) 0.25 mg PO Q8HR PRN; Protocol PRN Reason: Agitation Stop: 03/09/18 18:30 Last Admin: 01/08/18 23:37 Dose: 0.25 mg Aspirin (Aspirin Chewable) 81 mg PO DAILY [facility] Stop: 02/25/18 08:59 Last Admin: 01/09/18 10:01 Dose: 81 mg Atorvastatin Calcium (Lipitor) 10 mg PO DAILY [facility]; Protocol Stop: 02/26/18 10:59 Last Admin: 01/09/18 10:03 Dose: 10 mg Bisacodyl (Dulcolax 10 Mg Supp) 10 mg RC DAILY PRN PRN Reason: Constipation Stop: 02/25/18 06:58 Last Admin: 01/02/18 20:41 Dose: 10 mg Piperacillin Sod/Tazobactam (Sod 3.375 gm/ Sodium Chloride) 50 mls @ 100 mls/ hr IV Q6HR [facility] Stop: 03/05/18 03:59 Last Admin: 01/10/18 00:08 Dose: 100 mls/hr Potassium Chloride/Dextrose/Sod Cl (D5-0.45ns W/20 Meq Kcl) 1,000 mls @ 40 mls/ hr IV .Q24H [facility] Stop: 03/08/18 15:29 Last Admin: 01/09/18 08:43 Dose: 40 mls/hr Lactobacillus Rhamnosus (Culturelle 15b) 1 each PO DAILY [facility] Stop: 03/03/18 08:59 Last Admin: 01/09/18 10:03 Dose: 1 each Levothyroxine Sodium (Synthroid) 0.025 mg PO DAILY [facility] Stop: 02/25/18 08:59 Last Admin: 01/09/18 10:03 Dose: 0.025 mg Lorazepam (Ativan) 0.5 mg IVP Q4HR PRN; Protocol PRN Reason: Agitation Stop: 03/01/18 17:48 Last Admin: 01/01/18 12:08 Dose: 0.5 mg Megestrol Acetate (Megace) 400 mg PO BID [facility]; Protocol Stop: 03/10/18 08:59 Last Admin: 01/09/18 18:24 Dose: 400 mg Miscellaneous (Probiotic Screen) 1 ea MC PRN PRN PRN Reason: PROTOCOL Stop: 03/02/18 15:13 Ondansetron HCl (Zofran) 4 mg IV Q6H PRN PRN Reason: Nausea / Vomiting Stop: 03/06/18 11:38 Pantoprazole Sodium (Protonix) 40 mg IVP BID [facility] Stop: 03/04/18 16:59 Last Admin: 01/09/18 17:05 Dose: 40 mg Polyethylene Glycol (Miralax) 17 gm PO DAILY [facility] Stop: 02/25/18 08:59 Last Admin: 01/09/18 10:06 Dose: 17 gm Potassium Chloride (Klor-Con) 20 meq PO DAILY [facility] Stop: 03/07/18 08:59 Last Admin: 01/09/18 08:45 Dose: Not Given Valsartan (Diovan) 80 mg PO DAILY [facility] Stop: 02/25/18 08:59 Last Admin: 01/09/18 10:01 Dose: 80 mg General: Alert, Oriented x3 HEENT: Atraumatic, PERRLA, EOMI Neck: Supple Cardiovascular: Regular rate Lungs: Clear to auscultation Abdomen: Bowel sounds, Soft, no Tender, no Hepatomegaly, no Splenomegaly, no Rebound, no Mass, no Guarding Extremities: no Clubbing, no Cyanosis, no Edema Neurological: Normal gait, Normal speech Psych/Mental Status: no Mental status NL Assessment/Plan - Assessment Assessment: elevated troponins improved ... now normal Non q-wave [place] ... 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 continue current medications HTN slightly elevated ... on diovan 80mg PO daily, will add clonidine PRN UTI...continue IV anitbiotics. UA for C&S leukocytosis .... slowly improved to 15K hyperlipidemia ... on statins FUO .... repeat CBC, chest xray this AM. will order ELSA,ESR,RA,Uric Acid coffee ground emesis ... will order IV Protonix. Will order GI consult. hypokalemia ... on kdur 20meq PO daily. Rheumatoid Arthritis .... need to be referred to distribution dispatcher outpatient. bilateral infiltrates likely aspiration PNA ... . anorexia ... will order Megace. Alzheimer's dementia ... neurology consult as outpatient. - Plan Plan: continue current treatment, for retirement evaluation Nutritional Asmnt/Malnutr-PDOC - Dietary Evaluation Malnutrition Findings (Please click <Entered> for more info): Nutritional Asmnt/Malnutrition Start: 12/30/17 16: 04 Text: Status: Complete Freq: Protocol: Document 12/30/17 16:04 [id number] (Rec: 12/30/17 16:14 LCSISSY [email or web address]) Nutritional Asmnt/Malnutrition Patient General Information Nutritional Screening Moderate Risk Diagnosis elevated troponin Pertinent Medical Hx/Surgical Hx HTN, dementia, hypothyroidism Subjective Information Pt seen sleeping in bed at time of visit, family at bedside. Per family, pt was very sleepy, only had few bites of brearfast this morning. Per EMR, PO intake about 25-50%. Per family, pt likes chocoalte icecream and pudding. Current Diet Order/ Nutrition Support cardiac Pertinent Medications lipitor, D5-0.25ns, synthroid, miralax, seroquel Pertinent Labs 12/27 Cl 110 Nutritional Hx/Data Height 1.6 m Height (Calculated Centimeters) 160.0 Current Weight (lbs) 62.596 kg Weight (Calculated Kilograms) 62.6 Weight (Calculated Grams) 19158.7 [place] Body Weight 115 Body Mass Index (BMI) 24.4 Weight Status Approriate GI Symptoms GI Symptoms None Last BM 12/27 Difficult in: None Skin Integrity/Comment: skin intact, reddened to buttocks Current %PO Poor (25-49%) Estimated Nutritional Goals BEE in Kcals: Using Current wt Calories/Kcals/Kg 25-30 Kcals Calculated 5876-8545 Protein: Using Current wt Protein g/k Protein Calculated 63 Fluid: ml 1575-1890ml (1ml/kcal) Nutritional Problem 1. Problem Problem inadequate food intake Etiology possible poor appetite Signs/Symptoms: PO intake 25-50% Malnutrition Alert Is there a minimum of two criteria No selected? Query Text:Check all the applicable criteria. A minimum of two criteria are recommended for diagnosis of either severe or non-severe malnutrition. Malnutrition Related to Morbid Obesity Malnutrition related to morbid obesity No Intervention/Recommendation Comments 1. Continue with current diet as ordered. Family request nutrition supplements. Send one bottle of chocolate ensure per family request at lunch. Will consider adding supplements if PO intake continue <50%. Nurses to assist pt with meals and encourage oral intake. 2. Monitor PO intake, wt, labs and skin integrity 3. F/U as high risk in 2-3 days, 01/01-01/02 Expected Outcomes/Goals Expected Outcomes/Goals 1. PO intake to meet at least 75% of nutritional needs. 2. Wt stability, skin to remain intact, labs to approach WNL.
--- NOTE | 2018-01-10 06:54 | Progress Notes ---
DATE: SUBJECTIVE: Chart reviewed and the patient interviewed. Also discussed the patient's condition with the staff and reviewed records and labs. The patient seems to be calm and cooperative. The patient also is slightly forgetful, but she is able to follow directions easily. She also is interacting slightly more. Otherwise, the patient has no behavioral issues. ASSESSMENT: The patient is calm and cooperative. TREATMENT PLAN: Continue monitoring behavior and also working on possible admission to [facility]. JOB# [id number]
[2018-01-10] MEDS: Albuterol/Ipratropium Neb 3 ML AERS HHN SCH ×3 (07:06→19:35)
[2018-01-10] MEDS: POLYETHYLENE GLYCOL 3350 17 GM PACK PO SCH ×2 (10:00→10:26)
[2018-01-10] MEDS: Atorvastatin Calcium 10 MG TAB PO SCH ×2 (10:00→10:25)
[2018-01-10] MEDS: Aspirin 81mg Chewable Tab PO SCH ×2 (10:00→10:25)
[2018-01-10] MEDS: Levothyroxine 0.025 Mg Tab PO SCH ×2 (10:00→10:26)
[2018-01-10] MEDS: Lactobacillus Rhamnosus GG 15 Billion CFU CAP.SPRINK PO SCH ×2 (10:00→10:26)
[2018-01-10] MEDS: Potassium Chloride 20 mEq ER Tab PO SCH ×2 (10:00→10:25)
[2018-01-10] MEDS: D5-0.45NS w/20 mEq KCL 1,000 ML IV SCH (10:42)
[2018-01-11] MEDS: Albuterol/Ipratropium Neb 3 ML AERS HHN SCH ×3 (06:44→19:10)
--- NOTE | 2018-01-11 08:26 | General Progress Note ---
Subjective - Review of Systems Service Date: 01/11/18 Subjective: Patient was seen and examined. no acute distress. Awake, alert but confused. Objective - Results Result Diagrams: 01/09/18 08:05 01/09/18 08:05 Recent Labs: Laboratory Last Values WBC 14.9 Th/cmm (4.8-10.8) H 01/09/18 08:05 RBC 3.81 Mil/cmm (3.80-5.20) 01/09/18 08:05 Hgb 11.8 gm/dL (12-16) L 01/09/18 08:05 Hct 35.5 % (41.0-60) L 01/09/18 08:05 MCV 93.0 fl (81-100) 01/09/18 08:05 MCH 30.9 pg (27.0-31.0) 01/09/18 08:05 MCHC Differential 33.2 pg (28.0-36.0) 01/09/18 08:05 RDW 14.1 % (11.5-20.0) 01/09/18 08:05 Plt Count 866 Th/cmm (150-400) H* 01/09/18 08:05 MPV 8.7 fl 01/09/18 08:05 Add Manual Diff YES 01/08/18 05:35 Neutrophils % 66.5 % (40.0-80.0) 01/09/18 08:05 Band Neutrophils % 0 % (0-10) 01/08/18 05:35 Lymphocytes % 21.4 % (20.0-50.0) 01/09/18 08:05 Monocytes % 8.6 % (2.0-10.0) 01/09/18 08:05 Eosinophils % 3.5 % (0.0-5.0) 01/09/18 08:05 Basophils % 0.0 % (0.0-2.0) 01/09/18 08:05 Neutrophils (Manual) 67 % (40-80) 01/08/18 05:35 Lymphocytes 20 % (20-50) 01/08/18 05:35 Monocytes 10 % (2-10) 01/08/18 05:35 Eosinophils 3 % (0-5) 01/08/18 05:35 Basophils 0 % (0-3) 01/08/18 05:35 Platelet Estimate ADEQUATE (NORMAL) 01/02/18 06:06 Smear Path Review 01/08/18 05:35 ESR 62 mm/hr (0-30) H 01/03/18 04:45 PT 9.5 SECONDS (9.5-11.5) 12/26/17 17:15 INR 0.91 (0.5-1.4) 12/26/17 17:15 PTT (Actin FS) 24.5 SECONDS (26.0-38.0) L 12/26/17 17:15 Sodium 141 mEq/L (136-145) 01/09/18 08:05 Potassium 4.0 mEq/L (3.5-5.1) 01/09/18 08:05 Chloride 115 mEq/L (98-107) H 01/09/18 08:05 Carbon Dioxide 18.7 mEq/L (21.0-31.0) L 01/09/18 08:05 Anion Gap 11.3 (7.0-16.0) 01/09/18 08:05 BUN 4 mg/dL (7-25) L 01/09/18 08:05 Creatinine 0.7 mg/dL (0.6-1.2) 01/09/18 08:05 Est GFR ( Amer) TNP 01/09/18 08:05 Est GFR (Non-Af Amer) TNP 01/09/18 08:05 BUN/Creatinine Ratio 5.7 01/09/18 08:05 Glucose 99 mg/dL (70-105) 01/09/18 08:05 Uric Acid 3.3 mg/dL (2.3-6.6) 01/03/18 04:45 Calcium 8.9 mg/dL (8.6-10.3) 01/09/18 08:05 Total Bilirubin 0.7 mg/dL (0.3-1.0) 01/09/18 08:05 AST 20 U/L (13-39) 01/09/18 08:05 ALT 20 U/L (7-52) 01/09/18 08:05 Alkaline Phosphatase 95 U/L (34-104) 01/09/18 08:05 Ammonia 52 umol/L (16-53) 12/31/17 05:40 Troponin I 0.03 ng/mL (0.01-0.05) 01/07/18 05:30 Total Protein 6.5 gm/dL (6.0-8.3) 01/09/18 08:05 Albumin 3.4 gm/dL (3.7-5.3) L 01/09/18 08:05 Globulin 3.1 gm/dL 01/09/18 08:05 Albumin/Globulin Ratio 1.1 (1.0-1.8) 01/09/18 08:05 Triglycerides 78 mg/dL (<150) 12/27/17 07:47 Cholesterol 249 mg/dL (<200) H 12/27/17 07:47 LDL Cholesterol Direct 198 mg/dL (75-193) H 12/27/17 07:47 HDL Cholesterol 45 mg/dL (23-92) 12/27/17 07:47 Vitamin B12 707 pg/mL (232-1245) 12/30/17 06:00 Folic Acid 16.7 ng/mL (>3.0) 12/30/17 06:00 TSH 3.88 uIU/ml (0.34-5.60) 12/26/17 17:15 Urine Source CATH 12/31/17 08:20 Urine Color YELLOW 12/31/17 08:20 Urine Clarity CLEAR (CLEAR) 12/31/17 08:20 Urine pH 6.5 (4.6 - 8.0) 12/31/17 08:20 Ur Specific [place] 1.010 (1.005-1.030) 12/31/17 08:20 Urine Protein TRACE mg/dL (NEGATIVE) 12/31/17 08:20 Urine Glucose (UA) NEGATIVE mg/dL (NEGATIVE) 12/31/17 08:20 Urine Ketones NEGATIVE mg/dL (NEGATIVE) 12/31/17 08:20 Urine Blood NEGATIVE (NEGATIVE) 12/31/17 08:20 Urine Nitrate NEGATIVE (NEGATIVE) 12/31/17 08:20 Urine Bilirubin NEGATIVE (NEGATIVE) 12/31/17 08:20 Urine Urobilinogen 0.2 E.U./dL (0.2 - 1.0) 12/31/17 08:20 Ur Leukocyte Esterase NEGATIVE (NEGATIVE) 12/31/17 08:20 Urine RBC 0-2 /hpf (0-5) 12/31/17 08:20 Urine WBC 0-2 /hpf (0-5) 12/31/17 08:20 Ur Epithelial Cells RARE /lpf (FEW) 12/31/17 08:20 Urine Bacteria NONE SEEN /hpf (NONE SEEN) 12/31/17 08:20 Urine Mucus FEW /lpf (FEW) 12/31/17 08:20 Stool Leukocyte NO WBC SEEN 01/10/18 17:00 Rheumatoid Factor 15.5 IU/mL (0.0-13.9) H 01/03/18 04:45 ELSA Screen Negative 01/03/18 04:45 - Physical Exam Vitals and I&O: Vital Signs Temp 98.2 F 01/11/18 07:42 Pulse 76 01/11/18 07:42 Resp 18 01/11/18 07:42 BP 121/45 01/11/18 07:42 Pulse Ox 98 01/11/18 07:42 Intake & Output 01/10/18 01/11/18 01/11/18 18:59 06:59 18:59 Intake Total 2400 290 Balance 2400 290 Weight (lbs) 60.328 kg 56.064 kg Intake: Intake, IV Amount 1150 50 D5-0.45NS w/20 mEq KCL 1, 1000 000 ml @ 40 mls/hr IV . Q24H [facility] Rx#:[id number] Piperacillin Sodium/ 150 50 Tazobact 3.375 gm In Sodium Chloride 0.9% 50 ml @ 100 mls/hr IV Q6HR [facility] Rx#:[id number] Oral 1250 240 Other: # Voids 3 3 # Bowel Movements 1 1 Weight Source Bedscale Bedscale Active Medications: Current Medications Acetaminophen (Tylenol) 650 mg PO Q4H PRN PRN Reason: Fever > 101 Stop: 02/28/18 23:58 Last Admin: 01/01/18 18:09 Dose: 650 mg Acetaminophen (Tylenol 650mg Supp) 650 mg RC Q4H PRN PRN Reason: Fever > 101 Stop: 03/03/18 14:05 Last Admin: 01/03/18 03:56 Dose: 650 mg Albuterol/Ipratropium (Duoneb Neb) 3 ml HHN [id number] [facility] Stop: 03/07/18 18:59 Last Admin: 01/11/18 06:44 Dose: 3 ml Alprazolam (Xanax) 0.25 mg PO Q8HR PRN; Protocol PRN Reason: Agitation Stop: 03/09/18 18:30 Last Admin: 01/08/18 23:37 Dose: 0.25 mg Aspirin (Aspirin Chewable) 81 mg PO DAILY [facility] Stop: 02/25/18 08:59 Last Admin: 01/10/18 10:25 Dose: 81 mg Atorvastatin Calcium (Lipitor) 10 mg PO DAILY [facility]; Protocol Stop: 02/26/18 10:59 Last Admin: 01/10/18 10:25 Dose: 10 mg Bisacodyl (Dulcolax 10 Mg Supp) 10 mg RC DAILY PRN PRN Reason: Constipation Stop: 02/25/18 06:58 Last Admin: 01/02/18 20:41 Dose: 10 mg Piperacillin Sod/Tazobactam (Sod 3.375 gm/ Sodium Chloride) 50 mls @ 100 mls/ hr IV Q6HR [facility] Stop: 03/05/18 03:59 Last Admin: 01/11/18 05:39 Dose: 100 mls/hr Potassium Chloride/Dextrose/Sod Cl (D5-0.45ns W/20 Meq Kcl) 1,000 mls @ 40 mls/ hr IV .Q24H [facility] Stop: 03/08/18 15:29 Last Admin: 01/10/18 10:42 Dose: 40 mls/hr Lactobacillus Rhamnosus (Culturelle 15b) 1 each PO DAILY [facility] Stop: 03/03/18 08:59 Last Admin: 01/10/18 10:26 Dose: 1 each Levothyroxine Sodium (Synthroid) 0.025 mg PO DAILY [facility] Stop: 02/25/18 08:59 Last Admin: 01/10/18 10:26 Dose: 0.025 mg Lorazepam (Ativan) 0.5 mg IVP Q4HR PRN; Protocol PRN Reason: Agitation Stop: 03/01/18 17:48 Last Admin: 01/11/18 01:09 Dose: 0.5 mg Megestrol Acetate (Megace) 400 mg PO BID [facility]; Protocol Stop: 03/10/18 08:59 Last Admin: 01/10/18 17:12 Dose: 400 mg Miscellaneous (Probiotic Screen) 1 ea MC PRN PRN PRN Reason: PROTOCOL Stop: 03/02/18 15:13 Ondansetron HCl (Zofran) 4 mg IV Q6H PRN PRN Reason: Nausea / Vomiting Stop: 03/06/18 11:38 Pantoprazole Sodium (Protonix) 40 mg IVP BID [facility] Stop: 03/04/18 16:59 Last Admin: 01/10/18 17:12 Dose: 40 mg Polyethylene Glycol (Miralax) 17 gm PO DAILY [facility] Stop: 02/25/18 08:59 Last Admin: 01/10/18 10:26 Dose: 17 gm Potassium Chloride (Klor-Con) 20 meq PO DAILY [facility] Stop: 03/07/18 08:59 Last Admin: 01/10/18 10:25 Dose: 20 meq Valsartan (Diovan) 80 mg PO DAILY [facility] Stop: 02/25/18 08:59 Last Admin: 01/10/18 10:25 Dose: 80 mg General: Alert, Oriented x3 HEENT: Atraumatic, PERRLA, EOMI Neck: Supple Cardiovascular: Regular rate Lungs: Clear to auscultation Abdomen: Bowel sounds, Soft, no Tender, no Hepatomegaly, no Splenomegaly, no Rebound, no Mass, no Guarding Extremities: no Clubbing, no Cyanosis, no Edema Neurological: Normal gait, Normal speech Psych/Mental Status: no Mental status NL Assessment/Plan - Assessment Assessment: elevated troponins improved ... now normal Non q-wave [place] ... 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 continue current medications HTN slightly elevated ... on diovan 80mg PO daily, will add clonidine PRN UTI...continue IV anitbiotics. UA for C&S leukocytosis .... slowly improved to 15K hyperlipidemia ... on statins FUO .... repeat CBC, chest xray this AM. will order ELSA,ESR,RA,Uric Acid coffee ground emesis ... will order IV Protonix. Will order GI consult. hypokalemia ... on kdur 20meq PO daily. Rheumatoid Arthritis .... need to be referred to insurance claims specialist outpatient. bilateral infiltrates likely aspiration PNA ... . anorexia ... will order Megace. Alzheimer's dementia ... neurology consult as outpatient. - Plan Plan: continue current treatment, for jail evaluation Nutritional Asmnt/Malnutr-PDOC - Dietary Evaluation Malnutrition Findings (Please click <Entered> for more info): Nutritional Asmnt/Malnutrition Start: 12/30/17 16: 04 Text: Status: Complete Freq: Protocol: Document 12/30/17 16:04 TAMI (Rec: 12/30/17 16:14 DAVIDSISSY [email or web address]) Nutritional Asmnt/Malnutrition Patient General Information Nutritional Screening Moderate Risk Diagnosis elevated troponin Pertinent Medical Hx/Surgical Hx HTN, dementia, hypothyroidism Subjective Information Pt seen sleeping in bed at time of visit, family at bedside. Per family, pt was very sleepy, only had few bites of brearfast this morning. Per EMR, PO intake about 25-50%. Per family, pt likes chocoalte icecream and pudding. Current Diet Order/ Nutrition Support cardiac Pertinent Medications lipitor, D5-0.25ns, synthroid, miralax, seroquel Pertinent Labs 12/27 Cl 110 Nutritional Hx/Data Height 1.6 m Height (Calculated Centimeters) 160.0 Current Weight (lbs) 62.596 kg Weight (Calculated Kilograms) 62.6 Weight (Calculated Grams) 24984.7 [place] Body Weight 115 Body Mass Index (BMI) 24.4 Weight Status Approriate GI Symptoms GI Symptoms None Last BM 12/27 Difficult in: None Skin Integrity/Comment: skin intact, reddened to buttocks Current %PO Poor (25-49%) Estimated Nutritional Goals BEE in Kcals: Using Current wt Calories/Kcals/Kg 25-30 Kcals Calculated 9695-6292 Protein: Using Current wt Protein g/k Protein Calculated 63 Fluid: ml 1575-1890ml (1ml/kcal) Nutritional Problem 1. Problem Problem inadequate food intake Etiology possible poor appetite Signs/Symptoms: PO intake 25-50% Malnutrition Alert Is there a minimum of two criteria No selected? Query Text:Check all the applicable criteria. A minimum of two criteria are recommended for diagnosis of either severe or non-severe malnutrition. Malnutrition Related to Morbid Obesity Malnutrition related to morbid obesity No Intervention/Recommendation Comments 1. Continue with current diet as ordered. Family request nutrition supplements. Send one bottle of chocolate ensure per family request at lunch. Will consider adding supplements if PO intake continue <50%. Nurses to assist pt with meals and encourage oral intake. 2. Monitor PO intake, wt, labs and skin integrity 3. F/U as high risk in 2-3 days, 01/01-01/02 Expected Outcomes/Goals Expected Outcomes/Goals 1. PO intake to meet at least 75% of nutritional needs. 2. Wt stability, skin to remain intact, labs to approach WNL.
[2018-01-11] MEDS: Potassium Chloride 20 mEq ER Tab PO SCH (08:31)
[2018-01-11] MEDS: Lactobacillus Rhamnosus GG 15 Billion CFU CAP.SPRINK PO SCH (08:31)
[2018-01-11] MEDS: Atorvastatin Calcium 10 MG TAB PO SCH (08:32)
[2018-01-11] MEDS: Levothyroxine 0.025 Mg Tab PO SCH (08:32)
[2018-01-11] MEDS: POLYETHYLENE GLYCOL 3350 17 GM PACK PO SCH (08:32)
[2018-01-11] MEDS: Aspirin 81mg Chewable Tab PO SCH (08:32)
[2018-01-11 09:08] LABS: % EOSINOPHILS 3.2 % (0.0-5.0); % LYMPHOCYTES 20.4 % (20.0-50.0); % MONOCYTES 7.1 % (2.0-10.0); % NEUTROPHILS 69.3 % (40.0-80.0); EOSINOPHILE ABSOLUTE 0.4 Th/cmm (0.1-0.4); HEMATOCRIT 34.3 % (41.0-60); HEMOGLOBIN 11.2 gm/dL (12-16); LYMPHOCYTE ABSOLUTE 2.6 Th/cmm (1.5-3.0); MEAN CELL VOLUME 94.5 fl (81-100); MEAN CORPUSCULAR HEMOGLOBIN 30.9 pg (27.0-31.0); MEAN CORPUSCULAR HGB CONC 32.7 pg (28.0-36.0); MEAN PLATELET VOLUME 8.4 fl; MONOCYTE ABSOLUTE 0.9 Th/cmm (0.3-1.0); NEUTROPHILE ABSOLUTE 8.9 Th/cmm (1.8-8.0); RED BLOOD COUNT 3.63 Mil/cmm (3.80-5.20); RED CELL DISTRIBUTION WIDTH 14.3 % (11.5-20.0); WHITE BLOOD COUNT 12.8 Th/cmm (4.8-10.8)
[2018-01-11 09:15] LABS: PLATELET COUNT 917 Th/cmm (150-400)
--- NOTE | 2018-01-11 12:19 | Infectious Disease Prog Note ---
Infectious Disease Subjective - Review of Systems Service Date: 01/11/18 Subjective: No fever today. Doing the same. Remains confused, refuses to take medicactions. improving WBC count. Infectious Disease Objective - Results Result Diagrams: 01/11/18 08:50 01/09/18 08:05 Recent Labs: Laboratory Last Values WBC 12.8 Th/cmm (4.8-10.8) H 01/11/18 08:50 RBC 3.63 Mil/cmm (3.80-5.20) L 01/11/18 08:50 Hgb 11.2 gm/dL (12-16) L 01/11/18 08:50 Hct 34.3 % (41.0-60) L 01/11/18 08:50 MCV 94.5 fl (81-100) 01/11/18 08:50 MCH 30.9 pg (27.0-31.0) 01/11/18 08:50 MCHC Differential 32.7 pg (28.0-36.0) 01/11/18 08:50 RDW 14.3 % (11.5-20.0) 01/11/18 08:50 Plt Count 917 Th/cmm (150-400) H* 01/11/18 08:50 MPV 8.4 fl 01/11/18 08:50 Add Manual Diff YES 01/08/18 05:35 Neutrophils % 69.3 % (40.0-80.0) 01/11/18 08:50 Band Neutrophils % 0 % (0-10) 01/08/18 05:35 Lymphocytes % 20.4 % (20.0-50.0) 01/11/18 08:50 Monocytes % 7.1 % (2.0-10.0) 01/11/18 08:50 Eosinophils % 3.2 % (0.0-5.0) 01/11/18 08:50 Basophils % 0.0 % (0.0-2.0) 01/11/18 08:50 Neutrophils (Manual) 67 % (40-80) 01/08/18 05:35 Lymphocytes 20 % (20-50) 01/08/18 05:35 Monocytes 10 % (2-10) 01/08/18 05:35 Eosinophils 3 % (0-5) 01/08/18 05:35 Basophils 0 % (0-3) 01/08/18 05:35 Platelet Estimate ADEQUATE (NORMAL) 01/02/18 06:06 Smear Path Review 01/08/18 05:35 ESR 62 mm/hr (0-30) H 01/03/18 04:45 PT 9.5 SECONDS (9.5-11.5) 12/26/17 17:15 INR 0.91 (0.5-1.4) 12/26/17 17:15 PTT (Actin FS) 24.5 SECONDS (26.0-38.0) L 12/26/17 17:15 Sodium 141 mEq/L (136-145) 01/09/18 08:05 Potassium 4.0 mEq/L (3.5-5.1) 01/09/18 08:05 Chloride 115 mEq/L (98-107) H 01/09/18 08:05 Carbon Dioxide 18.7 mEq/L (21.0-31.0) L 01/09/18 08:05 Anion Gap 11.3 (7.0-16.0) 01/09/18 08:05 BUN 4 mg/dL (7-25) L 01/09/18 08:05 Creatinine 0.7 mg/dL (0.6-1.2) 01/09/18 08:05 Est GFR ( Amer) TNP 01/09/18 08:05 Est GFR (Non-Af Amer) TNP 01/09/18 08:05 BUN/Creatinine Ratio 5.7 01/09/18 08:05 Glucose 99 mg/dL (70-105) 01/09/18 08:05 Uric Acid 3.3 mg/dL (2.3-6.6) 01/03/18 04:45 Calcium 8.9 mg/dL (8.6-10.3) 01/09/18 08:05 Total Bilirubin 0.7 mg/dL (0.3-1.0) 01/09/18 08:05 AST 20 U/L (13-39) 01/09/18 08:05 ALT 20 U/L (7-52) 01/09/18 08:05 Alkaline Phosphatase 95 U/L (34-104) 01/09/18 08:05 Ammonia 52 umol/L (16-53) 12/31/17 05:40 Troponin I 0.03 ng/mL (0.01-0.05) 01/07/18 05:30 Total Protein 6.5 gm/dL (6.0-8.3) 01/09/18 08:05 Albumin 3.4 gm/dL (3.7-5.3) L 01/09/18 08:05 Globulin 3.1 gm/dL 01/09/18 08:05 Albumin/Globulin Ratio 1.1 (1.0-1.8) 01/09/18 08:05 Triglycerides 78 mg/dL (<150) 12/27/17 07:47 Cholesterol 249 mg/dL (<200) H 12/27/17 07:47 LDL Cholesterol Direct 198 mg/dL (75-193) H 12/27/17 07:47 HDL Cholesterol 45 mg/dL (23-92) 12/27/17 07:47 Vitamin B12 707 pg/mL (232-1245) 12/30/17 06:00 Folic Acid 16.7 ng/mL (>3.0) 12/30/17 06:00 TSH 3.88 uIU/ml (0.34-5.60) 12/26/17 17:15 Urine Source CATH 12/31/17 08:20 Urine Color YELLOW 12/31/17 08:20 Urine Clarity CLEAR (CLEAR) 12/31/17 08:20 Urine pH 6.5 (4.6 - 8.0) 12/31/17 08:20 Ur Specific [place] 1.010 (1.005-1.030) 12/31/17 08:20 Urine Protein TRACE mg/dL (NEGATIVE) 12/31/17 08:20 Urine Glucose (UA) NEGATIVE mg/dL (NEGATIVE) 12/31/17 08:20 Urine Ketones NEGATIVE mg/dL (NEGATIVE) 12/31/17 08:20 Urine Blood NEGATIVE (NEGATIVE) 12/31/17 08:20 Urine Nitrate NEGATIVE (NEGATIVE) 12/31/17 08:20 Urine Bilirubin NEGATIVE (NEGATIVE) 12/31/17 08:20 Urine Urobilinogen 0.2 E.U./dL (0.2 - 1.0) 12/31/17 08:20 Ur Leukocyte Esterase NEGATIVE (NEGATIVE) 12/31/17 08:20 Urine RBC 0-2 /hpf (0-5) 12/31/17 08:20 Urine WBC 0-2 /hpf (0-5) 12/31/17 08:20 Ur Epithelial Cells RARE /lpf (FEW) 12/31/17 08:20 Urine Bacteria NONE SEEN /hpf (NONE SEEN) 12/31/17 08:20 Urine Mucus FEW /lpf (FEW) 12/31/17 08:20 Stool Leukocyte NO WBC SEEN 01/10/18 17:00 Rheumatoid Factor 15.5 IU/mL (0.0-13.9) H 01/03/18 04:45 ELSA Screen Negative 01/03/18 04:45 - Physical Exam Vitals and I&O: Vital Signs Temp 98.4 F 01/11/18 11:32 Pulse 60 01/11/18 11:32 Resp 17 01/11/18 11:32 BP 118/47 01/11/18 11:32 Pulse Ox 97 01/11/18 11:32 Intake & Output 01/10/18 01/11/18 01/11/18 18:59 06:59 18:59 Intake Total 2400 340 Balance 2400 340 Weight (lbs) 60.328 kg 56.064 kg Intake: Intake, IV Amount 1150 100 D5-0.45NS w/20 mEq KCL 1, 1000 000 ml @ 40 mls/hr IV . Q24H [facility] Rx#:[id number] Piperacillin Sodium/ 150 100 Tazobact 3.375 gm In Sodium Chloride 0.9% 50 ml @ 100 mls/hr IV Q6HR [facility] Rx#:[id number] Oral 1250 240 Other: # Voids 3 3 # Bowel Movements 1 1 Weight Source Bedscale Bedscale Active Medications: Current Medications Acetaminophen (Tylenol) 650 mg PO Q4H PRN PRN Reason: Fever > 101 Stop: 02/28/18 23:58 Last Admin: 01/01/18 18:09 Dose: 650 mg Acetaminophen (Tylenol 650mg Supp) 650 mg RC Q4H PRN PRN Reason: Fever > 101 Stop: 03/03/18 14:05 Last Admin: 01/03/18 03:56 Dose: 650 mg Albuterol/Ipratropium (Duoneb Neb) 3 ml HHN [id number] [facility] Stop: 03/07/18 18:59 Last Admin: 01/11/18 06:44 Dose: 3 ml Alprazolam (Xanax) 0.25 mg PO Q8HR PRN; Protocol PRN Reason: Agitation Stop: 03/09/18 18:30 Last Admin: 01/08/18 23:37 Dose: 0.25 mg Aspirin (Aspirin Chewable) 81 mg PO DAILY JESSIE Stop: 03/12/18 08:59 Last Admin: 01/11/18 08:32 Dose: 81 mg Atorvastatin Calcium (Lipitor) 10 mg PO DAILY [facility]; Protocol Stop: 02/26/18 10:59 Last Admin: 01/11/18 08:32 Dose: 10 mg Bisacodyl (Dulcolax 10 Mg Supp) 10 mg RC DAILY PRN PRN Reason: Constipation Stop: 02/25/18 06:58 Last Admin: 01/02/18 20:41 Dose: 10 mg Piperacillin Sod/Tazobactam (Sod 3.375 gm/ Sodium Chloride) 50 mls @ 100 mls/ hr IV Q6HR JESSIE Stop: 03/05/18 03:59 Last Admin: 01/11/18 12:14 Dose: 100 mls/hr Potassium Chloride/Dextrose/Sod Cl (D5-0.45ns W/20 Meq Kcl) 1,000 mls @ 40 mls/ hr IV .Q24H [facility] Stop: 03/08/18 15:29 Last Admin: 01/10/18 10:42 Dose: 40 mls/hr Lactobacillus Rhamnosus (Culturelle 15b) 1 each PO DAILY [facility] Stop: 03/03/18 08:59 Last Admin: 01/11/18 08:31 Dose: 1 each Levothyroxine Sodium (Synthroid) 0.025 mg PO DAILY [facility] Stop: 02/25/18 08:59 Last Admin: 01/11/18 08:32 Dose: 0.025 mg Lorazepam (Ativan) 0.5 mg IVP Q4HR PRN; Protocol PRN Reason: Agitation Stop: 03/01/18 17:48 Last Admin: 01/11/18 01:09 Dose: 0.5 mg Megestrol Acetate (Megace) 400 mg PO BID [facility]; Protocol Stop: 03/10/18 08:59 Last Admin: 01/11/18 08:30 Dose: 400 mg Miscellaneous (Probiotic Screen) 1 ea MC PRN PRN PRN Reason: PROTOCOL Stop: 03/02/18 15:13 Ondansetron HCl (Zofran) 4 mg IV Q6H PRN PRN Reason: Nausea / Vomiting Stop: 03/06/18 11:38 Pantoprazole Sodium (Protonix) 40 mg IVP BID [facility] Stop: 03/04/18 16:59 Last Admin: 01/11/18 08:30 Dose: 40 mg Polyethylene Glycol (Miralax) 17 gm PO DAILY JESSIE Stop: 02/25/18 08:59 Last Admin: 01/11/18 08:32 Dose: 17 gm Potassium Chloride (Klor-Con) 20 meq PO DAILY JESSIE Stop: 03/07/18 08:59 Last Admin: 01/11/18 08:31 Dose: 20 meq Valsartan (Diovan) 80 mg PO DAILY [facility] Stop: 02/25/18 08:59 Last Admin: 01/11/18 08:31 Dose: 80 mg General: no acute distress, well developed, well nourished HEENT: atraumatic, normocephalic, PERRLA Neck: supple, no thyromegaly Cardiovascular: S1S2, regular Lungs: clear to auscultation bilaterally, clear to percussion Abdomen: soft, no tender, no distended Extremities: no cyanosis, no clubbing, no edema Neurological: awake, alert, other (Confused.) Skin: intact Infectious Disease Assmt/Plan - Assessment Assessment: 1. Sepsis. Improving. 2. Aspiration pneumonia. 3. UTI treated. 4. Dementia. 5. Hypertension. - Plan Plan: Continue Zosyn. Discussed with family Nutritional Asmnt/Malnutr-PDOC - Dietary Evaluation Malnutrition Findings (Please click <Entered> for more info): Nutritional Asmnt/Malnutrition Start: 12/30/17 16: 04 Text: Status: Complete Freq: Protocol: Document 12/30/17 16:04 LCHENG (Rec: 12/30/17 16:14 [email or web address]) Nutritional Asmnt/Malnutrition Patient General Information Nutritional Screening Moderate Risk Diagnosis elevated troponin Pertinent Medical Hx/Surgical Hx HTN, dementia, hypothyroidism Subjective Information Pt seen sleeping in bed at time of visit, family at bedside. Per family, pt was very sleepy, only had few bites of brearfast this morning. Per EMR, PO intake about 25-50%. Per family, pt likes chocoalte icecream and pudding. Current Diet Order/ Nutrition Support cardiac Pertinent Medications lipitor, D5-0.25ns, synthroid, miralax, seroquel Pertinent Labs 12/27 Cl 110 Nutritional Hx/Data Height 1.6 m Height (Calculated Centimeters) 160.0 Current Weight (lbs) 62.596 kg Weight (Calculated Kilograms) 62.6 Weight (Calculated Grams) 24346.7 [place] Body Weight 115 Body Mass Index (BMI) 24.4 Weight Status Approriate GI Symptoms GI Symptoms None Last BM 12/27 Difficult in: None Skin Integrity/Comment: skin intact, reddened to buttocks Current %PO Poor (25-49%) Estimated Nutritional Goals BEE in Kcals: Using Current wt Calories/Kcals/Kg 25-30 Kcals Calculated 9280-1677 Protein: Using Current wt Protein g/k Protein Calculated 63 Fluid: ml 1575-1890ml (1ml/kcal) Nutritional Problem 1. Problem Problem inadequate food intake Etiology possible poor appetite Signs/Symptoms: PO intake 25-50% Malnutrition Alert Is there a minimum of two criteria No selected? Query Text:Check all the applicable criteria. A minimum of two criteria are recommended for diagnosis of either severe or non-severe malnutrition. Malnutrition Related to Morbid Obesity Malnutrition related to morbid obesity No Intervention/Recommendation Comments 1. Continue with current diet as ordered. Family request nutrition supplements. Send one bottle of chocolate ensure per family request at lunch. Will consider adding supplements if PO intake continue <50%. Nurses to assist pt with meals and encourage oral intake. 2. Monitor PO intake, wt, labs and skin integrity 3. F/U as high risk in 2-3 days, 01/01-01/02 Expected Outcomes/Goals Expected Outcomes/Goals 1. PO intake to meet at least 75% of nutritional needs. 2. Wt stability, skin to remain intact, labs to approach WNL.
[2018-01-11] MEDS: D5-0.45NS w/20 mEq KCL 1,000 ML IV SCH ×2 (18:12→22:10)
[2018-01-12 05:33] LABS: ALBUMIN 3.5 gm/dL (3.7-5.3); ALKALINE PHOSPHATASE 70 U/L (34-104); BILIRUBIN,TOTAL 0.3 mg/dL (0.3-1.0); BUN - UREA NITROGEN 8 mg/dL (7-25); CARBON DIOXIDE 20.6 mEq/L (21.0-31.0); CHLORIDE 112 mEq/L (98-107); CREATININE - SERUM 0.8 mg/dL (0.6-1.2); GLUCOSE 128 mg/dL (70-105); POTASSIUM SERUM 4.6 mEq/L (3.5-5.1); SGOT 14 U/L (13-39); SGPT/ALT 14 U/L (7-52); SODIUM SERUM 142 mEq/L (136-145); TOTAL PROTEIN,SERUM 6.9 gm/dL (6.0-8.3)
[2018-01-12 06:07] LABS: HEMATOCRIT 36.7 % (41.0-60); HEMOGLOBIN 12.2 gm/dL (12-16); MEAN CORPUSCULAR HEMOGLOBIN 31.2 pg (27.0-31.0); MEAN CORPUSCULAR HGB CONC 33.2 pg (28.0-36.0); MEAN PLATELET VOLUME 8.6 fl; RED CELL DISTRIBUTION WIDTH 14.7 % (11.5-20.0)
[2018-01-12 06:12] LABS: PLATELET COUNT 995 Th/cmm (150-400); WHITE BLOOD COUNT 16.9 Th/cmm (4.8-10.8)
[2018-01-12] MEDS: Albuterol/Ipratropium Neb 3 ML AERS HHN SCH ×3 (07:07→19:07)
[2018-01-12 07:08] LABS: BAND NEUTROPHILE 1 % (0-10); EOSINOPHIL 2 % (0-5); LYMPHOCYTE 18 % (20-50); MONOCYTE 6 % (2-10); NEUTROPHILS 73 % (40-80)
[2018-01-12 07:19] LABS: PLATELET ESTIMATE INCREASED PLATELETS (NORMAL)
--- NOTE | 2018-01-12 08:43 | General Progress Note ---
Subjective - Review of Systems Service Date: 01/12/18 Subjective: Patient was seen and examined. no acute distress. Awake, alert but confused. WBC 's 16.9...suspect aspiration pneumonia. will order CT chest. Objective - Results Result Diagrams: 01/12/18 04:50 01/12/18 04:50 Recent Labs: Laboratory Last Values WBC 16.9 Th/cmm (4.8-10.8) H D 01/12/18 04:50 RBC 3.90 Mil/cmm (3.80-5.20) 01/12/18 04:50 Hgb 12.2 gm/dL (12-16) 01/12/18 04:50 Hct 36.7 % (41.0-60) L 01/12/18 04:50 MCV 94.0 fl (81-100) 01/12/18 04:50 MCH 31.2 pg (27.0-31.0) H 01/12/18 04:50 MCHC Differential 33.2 pg (28.0-36.0) 01/12/18 04:50 RDW 14.7 % (11.5-20.0) 01/12/18 04:50 Plt Count 995 Th/cmm (150-400) H* 01/12/18 04:50 MPV 8.6 fl 01/12/18 04:50 Add Manual Diff YES 01/12/18 04:50 Neutrophils % 69.3 % (40.0-80.0) 01/11/18 08:50 Band Neutrophils % 1 % (0-10) 01/12/18 04:50 Lymphocytes % 20.4 % (20.0-50.0) 01/11/18 08:50 Monocytes % 7.1 % (2.0-10.0) 01/11/18 08:50 Eosinophils % 3.2 % (0.0-5.0) 01/11/18 08:50 Basophils % 0.0 % (0.0-2.0) 01/11/18 08:50 Neutrophils (Manual) 73 % (40-80) 01/12/18 04:50 Lymphocytes 18 % (20-50) L 01/12/18 04:50 Monocytes 6 % (2-10) 01/12/18 04:50 Eosinophils 2 % (0-5) 01/12/18 04:50 Basophils 0 % (0-3) 01/08/18 05:35 Platelet Estimate INCREASED PLATELETS (NORMAL) 01/12/18 04:50 Smear Path Review 01/08/18 05:35 ESR 62 mm/hr (0-30) H 01/03/18 04:45 PT 9.5 SECONDS (9.5-11.5) 12/26/17 17:15 INR 0.91 (0.5-1.4) 12/26/17 17:15 PTT (Actin FS) 24.5 SECONDS (26.0-38.0) L 12/26/17 17:15 Sodium 142 mEq/L (136-145) 01/12/18 04:50 Potassium 4.6 mEq/L (3.5-5.1) 01/12/18 04:50 Chloride 112 mEq/L (98-107) H 01/12/18 04:50 Carbon Dioxide 20.6 mEq/L (21.0-31.0) L 01/12/18 04:50 Anion Gap 14.0 (7.0-16.0) 01/12/18 04:50 BUN 8 mg/dL (7-25) 01/12/18 04:50 Creatinine 0.8 mg/dL (0.6-1.2) 01/12/18 04:50 Est GFR ( Amer) TNP 01/12/18 04:50 Est GFR (Non-Af Amer) TNP 01/12/18 04:50 BUN/Creatinine Ratio 10.0 01/12/18 04:50 Glucose 128 mg/dL (70-105) H 01/12/18 04:50 Uric Acid 3.3 mg/dL (2.3-6.6) 01/03/18 04:45 Calcium 10.0 mg/dL (8.6-10.3) 01/12/18 04:50 Total Bilirubin 0.3 mg/dL (0.3-1.0) 01/12/18 04:50 AST 14 U/L (13-39) 01/12/18 04:50 ALT 14 U/L (7-52) 01/12/18 04:50 Alkaline Phosphatase 70 U/L (34-104) 01/12/18 04:50 Ammonia 52 umol/L (16-53) 12/31/17 05:40 Troponin I 0.03 ng/mL (0.01-0.05) 01/07/18 05:30 Total Protein 6.9 gm/dL (6.0-8.3) 01/12/18 04:50 Albumin 3.5 gm/dL (3.7-5.3) L 01/12/18 04:50 Globulin 3.4 gm/dL 01/12/18 04:50 Albumin/Globulin Ratio 1.0 (1.0-1.8) 01/12/18 04:50 Triglycerides 78 mg/dL (<150) 12/27/17 07:47 Cholesterol 249 mg/dL (<200) H 12/27/17 07:47 LDL Cholesterol Direct 198 mg/dL (75-193) H 12/27/17 07:47 HDL Cholesterol 45 mg/dL (23-92) 12/27/17 07:47 Vitamin B12 707 pg/mL (232-1245) 12/30/17 06:00 Folic Acid 16.7 ng/mL (>3.0) 12/30/17 06:00 TSH 3.88 uIU/ml (0.34-5.60) 12/26/17 17:15 Urine Source CATH 12/31/17 08:20 Urine Color YELLOW 12/31/17 08:20 Urine Clarity CLEAR (CLEAR) 12/31/17 08:20 Urine pH 6.5 (4.6 - 8.0) 12/31/17 08:20 Ur Specific [place] 1.010 (1.005-1.030) 12/31/17 08:20 Urine Protein TRACE mg/dL (NEGATIVE) 12/31/17 08:20 Urine Glucose (UA) NEGATIVE mg/dL (NEGATIVE) 12/31/17 08:20 Urine Ketones NEGATIVE mg/dL (NEGATIVE) 12/31/17 08:20 Urine Blood NEGATIVE (NEGATIVE) 12/31/17 08:20 Urine Nitrate NEGATIVE (NEGATIVE) 12/31/17 08:20 Urine Bilirubin NEGATIVE (NEGATIVE) 12/31/17 08:20 Urine Urobilinogen 0.2 E.U./dL (0.2 - 1.0) 12/31/17 08:20 Ur Leukocyte Esterase NEGATIVE (NEGATIVE) 12/31/17 08:20 Urine RBC 0-2 /hpf (0-5) 12/31/17 08:20 Urine WBC 0-2 /hpf (0-5) 12/31/17 08:20 Ur Epithelial Cells RARE /lpf (FEW) 12/31/17 08:20 Urine Bacteria NONE SEEN /hpf (NONE SEEN) 12/31/17 08:20 Urine Mucus FEW /lpf (FEW) 12/31/17 08:20 Stool Leukocyte NO WBC SEEN 01/10/18 17:00 Rheumatoid Factor 15.5 IU/mL (0.0-13.9) H 01/03/18 04:45 ELSA Screen Negative 01/03/18 04:45 - Physical Exam Vitals and I&O: Vital Signs Temp 98.2 F 01/12/18 08:24 Pulse 102 01/12/18 08:24 Resp 17 01/12/18 08:24 BP 148/62 01/12/18 08:24 Pulse Ox 97 01/12/18 08:24 Intake & Output 01/11/18 01/12/18 01/12/18 18:59 06:59 18:59 Intake Total 1100 808.667 Balance 1100 808.667 Weight (lbs) 55.066 kg Intake: Intake, IV Amount 1100 208.667 D5-0.45NS w/20 mEq KCL 1, 1000 158.667 000 ml @ 40 mls/hr IV . Q24H [facility] Rx#:[id number] Piperacillin Sodium/ 100 50 Tazobact 3.375 gm In Sodium Chloride 0.9% 50 ml @ 100 mls/hr IV Q6HR [facility] Rx#:[id number] Oral 600 Other: # Voids 3 # Bowel Movements 1 Stool Characteristics Soft Soft Formed Formed Weight Source Bedscale Active Medications: Current Medications Acetaminophen (Tylenol) 650 mg PO Q4H PRN PRN Reason: Fever > 101 Stop: 02/28/18 23:58 Last Admin: 01/01/18 18:09 Dose: 650 mg Acetaminophen (Tylenol 650mg Supp) 650 mg RC Q4H PRN PRN Reason: Fever > 101 Stop: 03/03/18 14:05 Last Admin: 01/03/18 03:56 Dose: 650 mg Albuterol/Ipratropium (Duoneb Neb) 3 ml HHN [id number] [facility] Stop: 03/07/18 18:59 Last Admin: 01/12/18 07:07 Dose: 3 ml Alprazolam (Xanax) 0.25 mg PO Q8HR PRN; Protocol PRN Reason: Agitation Stop: 03/09/18 18:30 Last Admin: 01/11/18 17:10 Dose: 0.25 mg Aspirin (Aspirin Chewable) 81 mg PO DAILY JESSIE Stop: 03/12/18 08:59 Last Admin: 01/11/18 08:32 Dose: 81 mg Atorvastatin Calcium (Lipitor) 10 mg PO DAILY [facility]; Protocol Stop: 02/26/18 10:59 Last Admin: 01/11/18 08:32 Dose: 10 mg Bisacodyl (Dulcolax 10 Mg Supp) 10 mg RC DAILY PRN PRN Reason: Constipation Stop: 02/25/18 06:58 Last Admin: 01/02/18 20:41 Dose: 10 mg Piperacillin Sod/Tazobactam (Sod 3.375 gm/ Sodium Chloride) 50 mls @ 100 mls/ hr IV Q6HR [facility] Stop: 03/05/18 03:59 Last Admin: 01/12/18 05:45 Dose: 100 mls/hr Potassium Chloride/Dextrose/Sod Cl (D5-0.45ns W/20 Meq Kcl) 1,000 mls @ 40 mls/ hr IV .Q24H [facility] Stop: 03/08/18 15:29 Last Admin: 01/11/18 22:10 Dose: 40 mls/hr Lactobacillus Rhamnosus (Culturelle 15b) 1 each PO DAILY [facility] Stop: 03/03/18 08:59 Last Admin: 01/11/18 08:31 Dose: 1 each Levothyroxine Sodium (Synthroid) 0.025 mg PO DAILY [facility] Stop: 02/25/18 08:59 Last Admin: 01/11/18 08:32 Dose: 0.025 mg Lorazepam (Ativan) 0.5 mg IVP Q4HR PRN; Protocol PRN Reason: Agitation Stop: 03/01/18 17:48 Last Admin: 01/11/18 01:09 Dose: 0.5 mg Megestrol Acetate (Megace) 400 mg PO BID [facility]; Protocol Stop: 03/10/18 08:59 Last Admin: 01/11/18 16:12 Dose: 400 mg Miscellaneous (Probiotic Screen) 1 ea MC PRN PRN PRN Reason: PROTOCOL Stop: 03/02/18 15:13 Ondansetron HCl (Zofran) 4 mg IV Q6H PRN PRN Reason: Nausea / Vomiting Stop: 03/06/18 11:38 Pantoprazole Sodium (Protonix) 40 mg IVP BID [facility] Stop: 03/04/18 16:59 Last Admin: 01/11/18 16:12 Dose: 40 mg Polyethylene Glycol (Miralax) 17 gm PO DAILY [facility] Stop: 02/25/18 08:59 Last Admin: 01/11/18 08:32 Dose: 17 gm Potassium Chloride (Klor-Con) 20 meq PO DAILY [facility] Stop: 03/07/18 08:59 Last Admin: 01/11/18 08:31 Dose: 20 meq Valsartan (Diovan) 80 mg PO DAILY [facility] Stop: 02/25/18 08:59 Last Admin: 01/11/18 08:31 Dose: 80 mg General: Alert, Oriented x3 HEENT: Atraumatic, PERRLA, EOMI Neck: Supple Cardiovascular: Regular rate Lungs: Clear to auscultation Abdomen: Bowel sounds, Soft, no Tender, no Hepatomegaly, no Splenomegaly, no Rebound, no Mass, no Guarding Extremities: no Clubbing, no Cyanosis, no Edema Neurological: Normal gait, Normal speech Psych/Mental Status: no Mental status NL Assessment/Plan - Assessment Assessment: elevated troponins improved ... now normal Non q-wave IL ... 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 continue current medications HTN slightly elevated ... on diovan 80mg PO daily, will add clonidine PRN UTI...continue IV anitbiotics. UA for C&S leukocytosis .... slowly improved to 15K hyperlipidemia ... on statins FUO .... repeat CBC, chest xray this AM. will order ELSA,ESR,RA,Uric Acid coffee ground emesis ... will order IV Protonix. Will order GI consult. hypokalemia ... on kdur 20meq PO daily. Rheumatoid Arthritis .... need to be referred to secretary of police outpatient. bilateral infiltrates likely aspiration PNA ... will reorder CT chest. anorexia ... will order Megace. Alzheimer's dementia ... neurology consult as outpatient. - Plan Plan: continue current treatment, for [facility] evaluation Nutritional Asmnt/Malnutr-PDOC - Dietary Evaluation Malnutrition Findings (Please click <Entered> for more info): Nutritional Asmnt/Malnutrition Start: 12/30/17 16: 04 Text: Status: Complete Freq: Protocol: Document 12/30/17 16:04 [email or web address] (Rec: 12/30/17 16:14 [email or web address]) Nutritional Asmnt/Malnutrition Patient General Information Nutritional Screening Moderate Risk Diagnosis elevated troponin Pertinent Medical Hx/Surgical Hx HTN, dementia, hypothyroidism Subjective Information Pt seen sleeping in bed at time of visit, family at bedside. Per family, pt was very sleepy, only had few bites of brearfast this morning. Per EMR, PO intake about 25-50%. Per family, pt likes chocoalte icecream and pudding. Current Diet Order/ Nutrition Support cardiac Pertinent Medications lipitor, D5-0.25ns, synthroid, miralax, seroquel Pertinent Labs 12/27 Cl 110 Nutritional Hx/Data Height 1.6 m Height (Calculated Centimeters) 160.0 Current Weight (lbs) 62.596 kg Weight (Calculated Kilograms) 62.6 Weight (Calculated Grams) 59047.7 [place] Body Weight 115 Body Mass Index (BMI) 24.4 Weight Status Approriate GI Symptoms GI Symptoms None Last BM 12/27 Difficult in: None Skin Integrity/Comment: skin intact, reddened to buttocks Current %PO Poor (25-49%) Estimated Nutritional Goals BEE in Kcals: Using Current wt Calories/Kcals/Kg 25-30 Kcals Calculated 9118-9107 Protein: Using Current wt Protein g/k Protein Calculated 63 Fluid: ml 1575-1890ml (1ml/kcal) Nutritional Problem 1. Problem Problem inadequate food intake Etiology possible poor appetite Signs/Symptoms: PO intake 25-50% Malnutrition Alert Is there a minimum of two criteria No selected? Query Text:Check all the applicable criteria. A minimum of two criteria are recommended for diagnosis of either severe or non-severe malnutrition. Malnutrition Related to Morbid Obesity Malnutrition related to morbid obesity No Intervention/Recommendation Comments 1. Continue with current diet as ordered. Family request nutrition supplements. Send one bottle of chocolate ensure per family request at lunch. Will consider adding supplements if PO intake continue <50%. Nurses to assist pt with meals and encourage oral intake. 2. Monitor PO intake, wt, labs and skin integrity 3. F/U as high risk in 2-3 days, 01/01-01/02 Expected Outcomes/Goals Expected Outcomes/Goals 1. PO intake to meet at least 75% of nutritional needs. 2. Wt stability, skin to remain intact, labs to approach WNL.
[2018-01-12] MEDS ORDERED: D5-0.45NS 1,000 ML IV SCH (08:46)
--- NOTE | 2018-01-12 09:36 | Infectious Disease Prog Note ---
Infectious Disease Subjective - Review of Systems Service Date: 01/12/18 Subjective: No fever today. Doing the same. Remains confused, refuses to take medicactions. There is an increase in WBC count. Infectious Disease Objective - Results Result Diagrams: 01/12/18 04:50 01/12/18 04:50 Recent Labs: Laboratory Last Values WBC 16.9 Th/cmm (4.8-10.8) H D 01/12/18 04:50 RBC 3.90 Mil/cmm (3.80-5.20) 01/12/18 04:50 Hgb 12.2 gm/dL (12-16) 01/12/18 04:50 Hct 36.7 % (41.0-60) L 01/12/18 04:50 MCV 94.0 fl (81-100) 01/12/18 04:50 MCH 31.2 pg (27.0-31.0) H 01/12/18 04:50 MCHC Differential 33.2 pg (28.0-36.0) 01/12/18 04:50 RDW 14.7 % (11.5-20.0) 01/12/18 04:50 Plt Count 995 Th/cmm (150-400) H* 01/12/18 04:50 MPV 8.6 fl 01/12/18 04:50 Add Manual Diff YES 01/12/18 04:50 Neutrophils % 69.3 % (40.0-80.0) 01/11/18 08:50 Band Neutrophils % 1 % (0-10) 01/12/18 04:50 Lymphocytes % 20.4 % (20.0-50.0) 01/11/18 08:50 Monocytes % 7.1 % (2.0-10.0) 01/11/18 08:50 Eosinophils % 3.2 % (0.0-5.0) 01/11/18 08:50 Basophils % 0.0 % (0.0-2.0) 01/11/18 08:50 Neutrophils (Manual) 73 % (40-80) 01/12/18 04:50 Lymphocytes 18 % (20-50) L 01/12/18 04:50 Monocytes 6 % (2-10) 01/12/18 04:50 Eosinophils 2 % (0-5) 01/12/18 04:50 Basophils 0 % (0-3) 01/08/18 05:35 Platelet Estimate INCREASED PLATELETS (NORMAL) 01/12/18 04:50 Smear Path Review 01/08/18 05:35 ESR 62 mm/hr (0-30) H 01/03/18 04:45 PT 9.5 SECONDS (9.5-11.5) 12/26/17 17:15 INR 0.91 (0.5-1.4) 12/26/17 17:15 PTT (Actin FS) 24.5 SECONDS (26.0-38.0) L 12/26/17 17:15 Sodium 142 mEq/L (136-145) 01/12/18 04:50 Potassium 4.6 mEq/L (3.5-5.1) 01/12/18 04:50 Chloride 112 mEq/L (98-107) H 01/12/18 04:50 Carbon Dioxide 20.6 mEq/L (21.0-31.0) L 01/12/18 04:50 Anion Gap 14.0 (7.0-16.0) 01/12/18 04:50 BUN 8 mg/dL (7-25) 01/12/18 04:50 Creatinine 0.8 mg/dL (0.6-1.2) 01/12/18 04:50 Est GFR ( Amer) TNP 01/12/18 04:50 Est GFR (Non-Af Amer) TNP 01/12/18 04:50 BUN/Creatinine Ratio 10.0 01/12/18 04:50 Glucose 128 mg/dL (70-105) H 01/12/18 04:50 Uric Acid 3.3 mg/dL (2.3-6.6) 01/03/18 04:45 Calcium 10.0 mg/dL (8.6-10.3) 01/12/18 04:50 Total Bilirubin 0.3 mg/dL (0.3-1.0) 01/12/18 04:50 AST 14 U/L (13-39) 01/12/18 04:50 ALT 14 U/L (7-52) 01/12/18 04:50 Alkaline Phosphatase 70 U/L (34-104) 01/12/18 04:50 Ammonia 52 umol/L (16-53) 12/31/17 05:40 Troponin I 0.03 ng/mL (0.01-0.05) 01/07/18 05:30 Total Protein 6.9 gm/dL (6.0-8.3) 01/12/18 04:50 Albumin 3.5 gm/dL (3.7-5.3) L 01/12/18 04:50 Globulin 3.4 gm/dL 01/12/18 04:50 Albumin/Globulin Ratio 1.0 (1.0-1.8) 01/12/18 04:50 Triglycerides 78 mg/dL (<150) 12/27/17 07:47 Cholesterol 249 mg/dL (<200) H 12/27/17 07:47 LDL Cholesterol Direct 198 mg/dL (75-193) H 12/27/17 07:47 HDL Cholesterol 45 mg/dL (23-92) 12/27/17 07:47 Vitamin B12 707 pg/mL (232-1245) 12/30/17 06:00 Folic Acid 16.7 ng/mL (>3.0) 12/30/17 06:00 TSH 3.88 uIU/ml (0.34-5.60) 12/26/17 17:15 Urine Source CATH 12/31/17 08:20 Urine Color YELLOW 12/31/17 08:20 Urine Clarity CLEAR (CLEAR) 12/31/17 08:20 Urine pH 6.5 (4.6 - 8.0) 12/31/17 08:20 Ur Specific Ary 1.010 (1.005-1.030) 12/31/17 08:20 Urine Protein TRACE mg/dL (NEGATIVE) 12/31/17 08:20 Urine Glucose (UA) NEGATIVE mg/dL (NEGATIVE) 12/31/17 08:20 Urine Ketones NEGATIVE mg/dL (NEGATIVE) 12/31/17 08:20 Urine Blood NEGATIVE (NEGATIVE) 12/31/17 08:20 Urine Nitrate NEGATIVE (NEGATIVE) 12/31/17 08:20 Urine Bilirubin NEGATIVE (NEGATIVE) 12/31/17 08:20 Urine Urobilinogen 0.2 E.U./dL (0.2 - 1.0) 12/31/17 08:20 Ur Leukocyte Esterase NEGATIVE (NEGATIVE) 12/31/17 08:20 Urine RBC 0-2 /hpf (0-5) 12/31/17 08:20 Urine WBC 0-2 /hpf (0-5) 12/31/17 08:20 Ur Epithelial Cells RARE /lpf (FEW) 12/31/17 08:20 Urine Bacteria NONE SEEN /hpf (NONE SEEN) 12/31/17 08:20 Urine Mucus FEW /lpf (FEW) 12/31/17 08:20 Stool Leukocyte NO WBC SEEN 01/10/18 17:00 Rheumatoid Factor 15.5 IU/mL (0.0-13.9) H 01/03/18 04:45 ELSA Screen Negative 01/03/18 04:45 - Physical Exam Vitals and I&O: Vital Signs Temp 98.2 F 01/12/18 08:24 Pulse 102 01/12/18 08:24 Resp 17 01/12/18 08:24 BP 148/62 01/12/18 08:24 Pulse Ox 97 01/12/18 08:24 Intake & Output 01/11/18 01/12/18 01/12/18 18:59 06:59 18:59 Intake Total 1100 808.667 Balance 1100 808.667 Weight (lbs) 55.066 kg Intake: Intake, IV Amount 1100 208.667 D5-0.45NS w/20 mEq KCL 1, 1000 158.667 000 ml @ 40 mls/hr IV . Q24H [facility] Rx#:[id number] Piperacillin Sodium/ 100 50 Tazobact 3.375 gm In Sodium Chloride 0.9% 50 ml @ 100 mls/hr IV Q6HR [facility] Rx#:[id number] Oral 600 Other: # Voids 3 # Bowel Movements 1 Stool Characteristics Soft Soft Formed Formed Weight Source Bedscale Active Medications: Current Medications Acetaminophen (Tylenol) 650 mg PO Q4H PRN PRN Reason: Fever > 101 Stop: 02/28/18 23:58 Last Admin: 01/01/18 18:09 Dose: 650 mg Acetaminophen (Tylenol 650mg Supp) 650 mg RC Q4H PRN PRN Reason: Fever > 101 Stop: 03/03/18 14:05 Last Admin: 01/03/18 03:56 Dose: 650 mg Albuterol/Ipratropium (Duoneb Neb) 3 ml HHN [id number] [facility] Stop: 03/07/18 18:59 Last Admin: 01/12/18 07:07 Dose: 3 ml Alprazolam (Xanax) 0.25 mg PO Q8HR PRN; Protocol PRN Reason: Agitation Stop: 03/09/18 18:30 Last Admin: 01/11/18 17:10 Dose: 0.25 mg Aspirin (Aspirin Chewable) 81 mg PO DAILY [facility] Stop: 03/12/18 08:59 Last Admin: 01/11/18 08:32 Dose: 81 mg Atorvastatin Calcium (Lipitor) 10 mg PO DAILY [facility]; Protocol Stop: 02/26/18 10:59 Last Admin: 01/11/18 08:32 Dose: 10 mg Bisacodyl (Dulcolax 10 Mg Supp) 10 mg RC DAILY PRN PRN Reason: Constipation Stop: 02/25/18 06:58 Last Admin: 01/02/18 20:41 Dose: 10 mg Piperacillin Sod/Tazobactam (Sod 3.375 gm/ Sodium Chloride) 50 mls @ 100 mls/ hr IV Q6HR [facility] Stop: 03/05/18 03:59 Last Admin: 01/12/18 05:45 Dose: 100 mls/hr Dextrose/Sodium Chloride (D5-0.45ns) 1,000 mls @ 50 mls/hr IV .Q20H [facility] Stop: 03/13/18 08:59 Lactobacillus Rhamnosus (Culturelle 15b) 1 each PO DAILY [facility] Stop: 03/03/18 08:59 Last Admin: 01/11/18 08:31 Dose: 1 each Levothyroxine Sodium (Synthroid) 0.025 mg PO DAILY [facility] Stop: 02/25/18 08:59 Last Admin: 01/11/18 08:32 Dose: 0.025 mg Lorazepam (Ativan) 0.5 mg IVP Q4HR PRN; Protocol PRN Reason: Agitation Stop: 03/01/18 17:48 Last Admin: 01/11/18 01:09 Dose: 0.5 mg Megestrol Acetate (Megace) 400 mg PO BID [facility]; Protocol Stop: 03/10/18 08:59 Last Admin: 01/11/18 16:12 Dose: 400 mg Miscellaneous (Probiotic Screen) 1 ea MC PRN PRN PRN Reason: PROTOCOL Stop: 03/02/18 15:13 Ondansetron HCl (Zofran) 4 mg IV Q6H PRN PRN Reason: Nausea / Vomiting Stop: 03/06/18 11:38 Pantoprazole Sodium (Protonix) 40 mg IVP BID [facility] Stop: 03/04/18 16:59 Last Admin: 01/11/18 16:12 Dose: 40 mg Polyethylene Glycol (Miralax) 17 gm PO DAILY JESSIE Stop: 02/25/18 08:59 Last Admin: 01/11/18 08:32 Dose: 17 gm Potassium Chloride (Klor-Con) 20 meq PO DAILY JESSIE Stop: 03/07/18 08:59 Last Admin: 01/11/18 08:31 Dose: 20 meq Valsartan (Diovan) 80 mg PO DAILY JESSIE Stop: 02/25/18 08:59 Last Admin: 01/11/18 08:31 Dose: 80 mg General: no acute distress, well developed, well nourished HEENT: atraumatic, normocephalic, PERRLA, EOMI Neck: supple, no thyromegaly Cardiovascular: S1S2, regular Lungs: clear to auscultation bilaterally, clear to percussion Abdomen: soft, no tender, no distended Extremities: no cyanosis, no clubbing, no edema Neurological: awake, alert, oriented Skin: intact Infectious Disease Assmt/Plan - Assessment Assessment: 1. Leukocytosis worse again, no fever. ? leukomoid reaction. 2. Aspiration pneumonia. 3. UTI treated. 4. Dementia. 5. Hypertension. - Plan Plan: Continue Zosyn. Discussed with family. Check CXR. Dr Bojorquez, hematology consult. Nutritional Asmnt/Malnutr-PDOC - Dietary Evaluation Malnutrition Findings (Please click <Entered> for more info): Nutritional Asmnt/Malnutrition Start: 12/30/17 16: 04 Text: Status: Complete Freq: Protocol: Document 12/30/17 16:04 LCHENG (Rec: 12/30/17 16:14 [id number] [id number]) Nutritional Asmnt/Malnutrition Patient General Information Nutritional Screening Moderate Risk Diagnosis elevated troponin Pertinent Medical Hx/Surgical Hx HTN, dementia, hypothyroidism Subjective Information Pt seen sleeping in bed at time of visit, family at bedside. Per family, pt was very sleepy, only had few bites of brearfast this morning. Per EMR, PO intake about 25-50%. Per family, pt likes chocoalte icecream and pudding. Current Diet Order/ Nutrition Support cardiac Pertinent Medications lipitor, D5-0.25ns, synthroid, miralax, seroquel Pertinent Labs 12/27 Cl 110 Nutritional Hx/Data Height 1.6 m Height (Calculated Centimeters) 160.0 Current Weight (lbs) 62.596 kg Weight (Calculated Kilograms) 62.6 Weight (Calculated Grams) 45166.7 Bozman Body Weight 115 Body Mass Index (BMI) 24.4 Weight Status Approriate GI Symptoms GI Symptoms None Last BM 12/27 Difficult in: None Skin Integrity/Comment: skin intact, reddened to buttocks Current %PO Poor (25-49%) Estimated Nutritional Goals BEE in Kcals: Using Current wt Calories/Kcals/Kg 25-30 Kcals Calculated 1027-4985 Protein: Using Current wt Protein g/k Protein Calculated 63 Fluid: ml 1575-1890ml (1ml/kcal) Nutritional Problem 1. Problem Problem inadequate food intake Etiology possible poor appetite Signs/Symptoms: PO intake 25-50% Malnutrition Alert Is there a minimum of two criteria No selected? Query Text:Check all the applicable criteria. A minimum of two criteria are recommended for diagnosis of either severe or non-severe malnutrition. Malnutrition Related to Morbid Obesity Malnutrition related to morbid obesity No Intervention/Recommendation Comments 1. Continue with current diet as ordered. Family request nutrition supplements. Send one bottle of chocolate ensure per family request at lunch. Will consider adding supplements if PO intake continue <50%. Nurses to assist pt with meals and encourage oral intake. 2. Monitor PO intake, wt, labs and skin integrity 3. F/U as high risk in 2-3 days, 01/01-01/02 Expected Outcomes/Goals Expected Outcomes/Goals 1. PO intake to meet at least 75% of nutritional needs. 2. Wt stability, skin to remain intact, labs to approach WNL.
[2018-01-12] MEDS: D5-0.45NS 1,000 ML IV SCH (10:47)
[2018-01-12] MEDS: Atorvastatin Calcium 10 MG TAB PO SCH (10:56)
[2018-01-12] MEDS: Aspirin 81mg Chewable Tab PO SCH (10:56)
[2018-01-12] MEDS: POLYETHYLENE GLYCOL 3350 17 GM PACK PO SCH (10:57)
[2018-01-12] MEDS: Levothyroxine 0.025 Mg Tab PO SCH (10:57)
[2018-01-12] MEDS: Lactobacillus Rhamnosus GG 15 Billion CFU CAP.SPRINK PO SCH (10:57)
[2018-01-12] MEDS: Potassium Chloride 20 mEq ER Tab PO SCH (10:58)
--- NOTE | 2018-01-12 11:06 | Diagnostic Imaging Report ---
CT Chest without IV contrast HISTORY: Pneumonia, aspiration COMPARISON: Chest x-ray on 01/07/[address] chest on 01/04/2018. Technique: Axial images were obtained from the base of the neck to the upper abdomen without IV contrast. Reconstructions were made. Total DLP 250, CTDI 7.4 Findings: Evaluation of the mediastinum is limited due to lack of IV contrast. Heart size at upper limits of normal. Trace pericardial effusion is noted. Moderate atherosclerotic vascular disease is noted. There is a moderate-sized hiatal hernia. Evaluation of the lungs demonstrates hypoventilatory and atelectatic changes of the lungs. Chronic changes are seen with likely areas of scarring. Slight increased left apical airspace disease is noted. Left basal passive atelectatic and minimal consolidative changes noted. Minimal right basal passive atelectasis is also noted. No effusions. The upper abdomen demonstrates no acute abnormalities. Degenerative changes of the spine are noted. IMPRESSION: Hypoventilatory and atelectatic lung changes with left basal passive atelectasis and consolidative changes. Pneumonia of the left lung base cannot be excluded. Additional minimal right basal passive atelectasis is noted. Minimal left apical airspace disease. Mild chronic lung changes. A moderate-sized hiatal hernia. Moderate atherosclerotic vascular disease.
--- NOTE | 2018-01-12 18:48 | Consultation ---
DATE OF CONSULTATION: 01/12/2018 HEMATOLOGY ONCOLOGY CONSULTATION REFERRING PHYSICIAN: Dr. Bland. REASON FOR CONSULTATION: Thrombocytosis. HISTORY OF PRESENT ILLNESS: The patient is an 87-year-old female who had background history of dementia, hypothyroidism, hypertension, and anxiety. The patient was admitted with altered level of consciousness and she was diagnosed with urinary tract infection and aspiration pneumonia. She also was found to have elevated troponin and reported to have coffee-ground emesis. The patient was followed by multiple consultants and she has been having rising platelet count 69,000, therefore, I was asked to evaluate. PAST MEDICAL HISTORY: Hypertension, hypothyroidism, dementia, anxiety. MEDICATIONS: Reviewed. PHYSICAL EXAMINATION: GENERAL: She is awake, not in distress. VITAL SIGNS: Blood pressure is stable. The patient is not verbal. HEENT: Pale complexion. NECK: No lymphadenopathy. CHEST: Scattered rhonchi. ABDOMEN: Soft. EXTREMITIES: No edema. LABORATORY DATA: Platelet count 995,000, white count 16.9, hemoglobin 12.2, the white count has been elevated since admission 12,000 and went as high as 25,000 and then back down to 16,000. The platelet counts were normal on admission 376 and continued to climb gradually. The differential count is unremarkable and chemistry and liver functions are unremarkable with creatinine of 0.8. CT scan of the abdomen and pelvis on 01/04/2018 was reviewed, reporting no visualized screen and otherwise no significant abnormalities. ASSESSMENT: Elevated platelet count is most likely reactive since it was normal on admission and I will obtain iron studies to rule out iron deficiency as the most common cause for thrombocytosis. Continue current antibiotic therapy and if the platelets do not recover, then consideration of essential thrombocythemia will be entertained and further workup will be done. I will obtain ultrasound of the abdomen to evaluate the size of the spleen and obtain iron studies and JAK2 mutation to rule out myeloproliferative neoplasm though less likely. Thank you, Dr. Bland for the opportunity to participate in the care of this interesting case with you. JOB# [id number]
[2018-01-13 06:04] LABS: HEMATOCRIT 35.1 % (41.0-60); HEMOGLOBIN 11.7 gm/dL (12-16); MEAN CELL VOLUME 93.6 fl (81-100); MEAN CORPUSCULAR HEMOGLOBIN 31.1 pg (27.0-31.0); MEAN CORPUSCULAR HGB CONC 33.2 pg (28.0-36.0); MEAN PLATELET VOLUME 8.4 fl; RED BLOOD COUNT 3.75 Mil/cmm (3.80-5.20); RED CELL DISTRIBUTION WIDTH 14.5 % (11.5-20.0)
[2018-01-13 06:08] LABS: PLATELET COUNT 953 Th/cmm (150-400); WHITE BLOOD COUNT 16.9 Th/cmm (4.8-10.8)
[2018-01-13] MEDS: Albuterol/Ipratropium Neb 3 ML AERS HHN SCH ×3 (07:00→19:34)
[2018-01-13 07:34] LABS: NEUTROPHILS 74 % (40-80)
[2018-01-13 07:35] LABS: BAND NEUTROPHILE 1 % (0-10); LYMPHOCYTE 16 % (20-50); MONOCYTE 6 % (2-10)
[2018-01-13 07:36] LABS: EOSINOPHIL 2 % (0-5); PLATELET ESTIMATE INCREASED PLATELETS (NORMAL)
--- NOTE | 2018-01-13 08:21 | Diagnostic Imaging Report ---
Chest x-ray single view History: Leukocytosis Comparison: 01/07/2018 The heart size is normal. No focal pulmonary parenchymal processes. No hilar or mediastinal abnormalities. Impression: No acute abnormalities
--- NOTE | 2018-01-13 08:45 | General Progress Note ---
Subjective - Review of Systems Service Date: 01/13/18 Subjective: Patient was seen and examined. no acute distress. Awake, alert but confused. WBC 's 16.9... shows PNA LLL on CT chest. Patient currently on pureed diet. Objective - Results Result Diagrams: 01/13/18 05:30 01/12/18 04:50 Recent Labs: Laboratory Last Values WBC 16.9 Th/cmm (4.8-10.8) H 01/13/18 05:30 RBC 3.75 Mil/cmm (3.80-5.20) L 01/13/18 05:30 Hgb 11.7 gm/dL (12-16) L 01/13/18 05:30 Hct 35.1 % (41.0-60) L 01/13/18 05:30 MCV 93.6 fl (81-100) 01/13/18 05:30 MCH 31.1 pg (27.0-31.0) H 01/13/18 05:30 MCHC Differential 33.2 pg (28.0-36.0) 01/13/18 05:30 RDW 14.5 % (11.5-20.0) 01/13/18 05:30 Plt Count 953 Th/cmm (150-400) H* 01/13/18 05:30 MPV 8.4 fl 01/13/18 05:30 Add Manual Diff YES 01/13/18 05:30 Neutrophils % 69.3 % (40.0-80.0) 01/11/18 08:50 Band Neutrophils % 1 % (0-10) 01/13/18 05:30 Lymphocytes % 20.4 % (20.0-50.0) 01/11/18 08:50 Monocytes % 7.1 % (2.0-10.0) 01/11/18 08:50 Eosinophils % 3.2 % (0.0-5.0) 01/11/18 08:50 Basophils % 0.0 % (0.0-2.0) 01/11/18 08:50 Neutrophils (Manual) 74 % (40-80) 01/13/18 05:30 Lymphocytes 16 % (20-50) L 01/13/18 05:30 Monocytes 6 % (2-10) 01/13/18 05:30 Eosinophils 2 % (0-5) 01/13/18 05:30 Basophils 0 % (0-3) 01/08/18 05:35 Platelet Estimate INCREASED PLATELETS (NORMAL) 01/13/18 05:30 Smear Path Review 01/08/18 05:35 ESR 62 mm/hr (0-30) H 01/03/18 04:45 PT 9.5 SECONDS (9.5-11.5) 12/26/17 17:15 INR 0.91 (0.5-1.4) 12/26/17 17:15 PTT (Actin FS) 24.5 SECONDS (26.0-38.0) L 12/26/17 17:15 Sodium 142 mEq/L (136-145) 01/12/18 04:50 Potassium 4.6 mEq/L (3.5-5.1) 01/12/18 04:50 Chloride 112 mEq/L (98-107) H 01/12/18 04:50 Carbon Dioxide 20.6 mEq/L (21.0-31.0) L 01/12/18 04:50 Anion Gap 14.0 (7.0-16.0) 01/12/18 04:50 BUN 8 mg/dL (7-25) 01/12/18 04:50 Creatinine 0.8 mg/dL (0.6-1.2) 01/12/18 04:50 Est GFR ( Amer) TNP 01/12/18 04:50 Est GFR (Non-Af Amer) TNP 01/12/18 04:50 BUN/Creatinine Ratio 10.0 01/12/18 04:50 Glucose 128 mg/dL (70-105) H 01/12/18 04:50 Uric Acid 3.3 mg/dL (2.3-6.6) 01/03/18 04:45 Calcium 10.0 mg/dL (8.6-10.3) 01/12/18 04:50 Total Bilirubin 0.3 mg/dL (0.3-1.0) 01/12/18 04:50 AST 14 U/L (13-39) 01/12/18 04:50 ALT 14 U/L (7-52) 01/12/18 04:50 Alkaline Phosphatase 70 U/L (34-104) 01/12/18 04:50 Ammonia 52 umol/L (16-53) 12/31/17 05:40 Troponin I 0.03 ng/mL (0.01-0.05) 01/07/18 05:30 Total Protein 6.9 gm/dL (6.0-8.3) 01/12/18 04:50 Albumin 3.5 gm/dL (3.7-5.3) L 01/12/18 04:50 Globulin 3.4 gm/dL 01/12/18 04:50 Albumin/Globulin Ratio 1.0 (1.0-1.8) 01/12/18 04:50 Triglycerides 78 mg/dL (<150) 12/27/17 07:47 Cholesterol 249 mg/dL (<200) H 12/27/17 07:47 LDL Cholesterol Direct 198 mg/dL (75-193) H 12/27/17 07:47 HDL Cholesterol 45 mg/dL (23-92) 12/27/17 07:47 Vitamin B12 707 pg/mL (232-1245) 12/30/17 06:00 Folic Acid 16.7 ng/mL (>3.0) 12/30/17 06:00 TSH 3.88 uIU/ml (0.34-5.60) 12/26/17 17:15 Urine Source CATH 12/31/17 08:20 Urine Color YELLOW 12/31/17 08:20 Urine Clarity CLEAR (CLEAR) 12/31/17 08:20 Urine pH 6.5 (4.6 - 8.0) 12/31/17 08:20 Ur Specific [place] 1.010 (1.005-1.030) 12/31/17 08:20 Urine Protein TRACE mg/dL (NEGATIVE) 12/31/17 08:20 Urine Glucose (UA) NEGATIVE mg/dL (NEGATIVE) 12/31/17 08:20 Urine Ketones NEGATIVE mg/dL (NEGATIVE) 12/31/17 08:20 Urine Blood NEGATIVE (NEGATIVE) 12/31/17 08:20 Urine Nitrate NEGATIVE (NEGATIVE) 12/31/17 08:20 Urine Bilirubin NEGATIVE (NEGATIVE) 12/31/17 08:20 Urine Urobilinogen 0.2 E.U./dL (0.2 - 1.0) 12/31/17 08:20 Ur Leukocyte Esterase NEGATIVE (NEGATIVE) 12/31/17 08:20 Urine RBC 0-2 /hpf (0-5) 12/31/17 08:20 Urine WBC 0-2 /hpf (0-5) 12/31/17 08:20 Ur Epithelial Cells RARE /lpf (FEW) 12/31/17 08:20 Urine Bacteria NONE SEEN /hpf (NONE SEEN) 12/31/17 08:20 Urine Mucus FEW /lpf (FEW) 12/31/17 08:20 Stool Leukocyte NO WBC SEEN 01/10/18 17:00 Rheumatoid Factor 15.5 IU/mL (0.0-13.9) H 01/03/18 04:45 ELSA Screen Negative 01/03/18 04:45 - Physical Exam Vitals and I&O: Vital Signs Temp 98.3 F 01/13/18 04:00 Pulse 89 01/13/18 07:00 Resp 18 01/13/18 07:00 BP 143/70 01/13/18 04:00 Pulse Ox 95 01/13/18 07:00 Intake & Output 01/12/18 01/13/18 01/13/18 18:59 06:59 18:59 Intake Total 300 200 Balance 300 200 Weight (lbs) 54.885 kg 58.513 kg Intake: Intake, IV Amount 50 50 Piperacillin Sodium/ 50 50 Tazobact 3.375 gm In Sodium Chloride 0.9% 50 ml @ 100 mls/hr IV Q6HR [facility] Rx#:[id number] Oral 250 150 Other: # Voids 4 4 # Bowel Movements 1 0 Stool Characteristics Soft Soft Formed Formed Weight Source Bedscale Bedscale Active Medications: Current Medications Acetaminophen (Tylenol) 650 mg PO Q4H PRN PRN Reason: Fever > 101 Stop: 02/28/18 23:58 Last Admin: 01/01/18 18:09 Dose: 650 mg Acetaminophen (Tylenol 650mg Supp) 650 mg RC Q4H PRN PRN Reason: Fever > 101 Stop: 03/03/18 14:05 Last Admin: 01/03/18 03:56 Dose: 650 mg Albuterol/Ipratropium (Duoneb Neb) 3 ml HHN [id number] [facility] Stop: 03/07/18 18:59 Last Admin: 01/13/18 07:00 Dose: 3 ml Alprazolam (Xanax) 0.25 mg PO Q8HR PRN; Protocol PRN Reason: Agitation Stop: 03/09/18 18:30 Last Admin: 01/12/18 16:03 Dose: 0.25 mg Aspirin (Aspirin Chewable) 81 mg PO DAILY [facility] Stop: 03/12/18 08:59 Last Admin: 01/12/18 10:56 Dose: 81 mg Atorvastatin Calcium (Lipitor) 10 mg PO DAILY [facility]; Protocol Stop: 02/26/18 10:59 Last Admin: 01/12/18 10:56 Dose: 10 mg Bisacodyl (Dulcolax 10 Mg Supp) 10 mg RC DAILY PRN PRN Reason: Constipation Stop: 02/25/18 06:58 Last Admin: 01/02/18 20:41 Dose: 10 mg Piperacillin Sod/Tazobactam (Sod 3.375 gm/ Sodium Chloride) 50 mls @ 100 mls/ hr IV Q6HR [facility] Stop: 03/05/18 03:59 Last Admin: 01/13/18 05:37 Dose: 100 mls/hr Dextrose/Sodium Chloride (D5-0.45ns) 1,000 mls @ 50 mls/hr IV .Q20H [facility] Stop: 03/13/18 08:59 Last Admin: 01/12/18 10:47 Dose: 50 mls/hr Lactobacillus Rhamnosus (Culturelle 15b) 1 each PO DAILY [facility] Stop: 03/03/18 08:59 Last Admin: 01/12/18 10:57 Dose: 1 each Levothyroxine Sodium (Synthroid) 0.025 mg PO DAILY [facility] Stop: 02/25/18 08:59 Last Admin: 01/12/18 10:57 Dose: 0.025 mg Lorazepam (Ativan) 0.5 mg IVP Q4HR PRN; Protocol PRN Reason: Agitation Stop: 03/01/18 17:48 Last Admin: 01/11/18 01:09 Dose: 0.5 mg Megestrol Acetate (Megace) 400 mg PO BID [facility]; Protocol Stop: 03/10/18 08:59 Last Admin: 01/12/18 16:03 Dose: 400 mg Miscellaneous (Probiotic Screen) 1 ea MC PRN PRN PRN Reason: PROTOCOL Stop: 03/02/18 15:13 Ondansetron HCl (Zofran) 4 mg IV Q6H PRN PRN Reason: Nausea / Vomiting Stop: 03/06/18 11:38 Pantoprazole Sodium (Protonix) 40 mg IVP BID [facility] Stop: 03/04/18 16:59 Last Admin: 01/12/18 16:04 Dose: 40 mg Polyethylene Glycol (Miralax) 17 gm PO DAILY [facility] Stop: 02/25/18 08:59 Last Admin: 01/12/18 10:57 Dose: 17 gm Potassium Chloride (Klor-Con) 20 meq PO DAILY [facility] Stop: 03/07/18 08:59 Last Admin: 01/12/18 10:58 Dose: 20 meq Valsartan (Diovan) 80 mg PO DAILY [facility] Stop: 02/25/18 08:59 Last Admin: 01/12/18 10:58 Dose: 80 mg General: Alert, Oriented x3 HEENT: Atraumatic, PERRLA, EOMI Neck: Supple Cardiovascular: Regular rate Lungs: Clear to auscultation Abdomen: Bowel sounds, Soft, no Tender, no Hepatomegaly, no Splenomegaly, no Rebound, no Mass, no Guarding Extremities: no Clubbing, no Cyanosis, no Edema Neurological: Normal gait, Normal speech Psych/Mental Status: no Mental status NL Assessment/Plan - Assessment Assessment: elevated troponins improved ... now normal Non q-wave NC ... 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 continue current medications HTN slightly elevated ... on diovan 80mg PO daily, will add clonidine PRN UTI...continue IV anitbiotics. UA for C&S hyperlipidemia ... on statins FUO .... repeat CBC, chest xray this AM. will order ELSA,ESR,RA,Uric Acid coffee ground emesis ... will order IV Protonix. Will order GI consult. hypokalemia ... on kdur 20meq PO daily. Rheumatoid Arthritis .... need to be referred to veterinary receptionist outpatient. bilateral infiltrates likely aspiration PNA ... will reorder CT chest. anorexia ... will order Megace. Alzheimer's dementia ... neurology consult as outpatient. - Plan Plan: continue current treatment, for detention evaluation Nutritional Asmnt/Malnutr-PDOC - Dietary Evaluation Malnutrition Findings (Please click <Entered> for more info): Nutritional Asmnt/Malnutrition Start: 12/30/17 16: 04 Text: Status: Complete Freq: Protocol: Document 12/30/17 16:04 LCHENG (Rec: 12/30/17 16:14 [id number]) Nutritional Asmnt/Malnutrition Patient General Information Nutritional Screening Moderate Risk Diagnosis elevated troponin Pertinent Medical Hx/Surgical Hx HTN, dementia, hypothyroidism Subjective Information Pt seen sleeping in bed at time of visit, family at bedside. Per family, pt was very sleepy, only had few bites of brearfast this morning. Per EMR, PO intake about 25-50%. Per family, pt likes chocoalte icecream and pudding. Current Diet Order/ Nutrition Support cardiac Pertinent Medications lipitor, D5-0.25ns, synthroid, miralax, seroquel Pertinent Labs 12/27 Cl 110 Nutritional Hx/Data Height 1.6 m Height (Calculated Centimeters) 160.0 Current Weight (lbs) 62.596 kg Weight (Calculated Kilograms) 62.6 Weight (Calculated Grams) 83875.7 [place] Body Weight 115 Body Mass Index (BMI) 24.4 Weight Status Approriate GI Symptoms GI Symptoms None Last BM 12/27 Difficult in: None Skin Integrity/Comment: skin intact, reddened to buttocks Current %PO Poor (25-49%) Estimated Nutritional Goals BEE in Kcals: Using Current wt Calories/Kcals/Kg 25-30 Kcals Calculated 5324-0493 Protein: Using Current wt Protein g/k Protein Calculated 63 Fluid: ml 1575-1890ml (1ml/kcal) Nutritional Problem 1. Problem Problem inadequate food intake Etiology possible poor appetite Signs/Symptoms: PO intake 25-50% Malnutrition Alert Is there a minimum of two criteria No selected? Query Text:Check all the applicable criteria. A minimum of two criteria are recommended for diagnosis of either severe or non-severe malnutrition. Malnutrition Related to Morbid Obesity Malnutrition related to morbid obesity No Intervention/Recommendation Comments 1. Continue with current diet as ordered. Family request nutrition supplements. Send one bottle of chocolate ensure per family request at lunch. Will consider adding supplements if PO intake continue <50%. Nurses to assist pt with meals and encourage oral intake. 2. Monitor PO intake, wt, labs and skin integrity 3. F/U as high risk in 2-3 days, 01/01-01/02 Expected Outcomes/Goals Expected Outcomes/Goals 1. PO intake to meet at least 75% of nutritional needs. 2. Wt stability, skin to remain intact, labs to approach WNL.
[2018-01-13] MEDS: Levothyroxine 0.025 Mg Tab PO SCH (09:40)
[2018-01-13] MEDS: Aspirin 81mg Chewable Tab PO SCH (09:40)
[2018-01-13] MEDS: Lactobacillus Rhamnosus GG 15 Billion CFU CAP.SPRINK PO SCH (09:40)
[2018-01-13] MEDS: POLYETHYLENE GLYCOL 3350 17 GM PACK PO SCH (09:41)
[2018-01-13] MEDS: Atorvastatin Calcium 10 MG TAB PO SCH (09:41)
[2018-01-13] MEDS: Potassium Chloride 20 mEq ER Tab PO SCH (09:41)
--- NOTE | 2018-01-13 10:39 | General Progress Note ---
Subjective - Review of Systems Service Date: 01/13/18 Subjective: awake, afebrile, no new sxs Objective - Results Result Diagrams: 01/13/18 05:30 01/12/18 04:50 Recent Labs: Laboratory Last Values WBC 16.9 Th/cmm (4.8-10.8) H 01/13/18 05:30 RBC 3.75 Mil/cmm (3.80-5.20) L 01/13/18 05:30 Hgb 11.7 gm/dL (12-16) L 01/13/18 05:30 Hct 35.1 % (41.0-60) L 01/13/18 05:30 MCV 93.6 fl (81-100) 01/13/18 05:30 MCH 31.1 pg (27.0-31.0) H 01/13/18 05:30 MCHC Differential 33.2 pg (28.0-36.0) 01/13/18 05:30 RDW 14.5 % (11.5-20.0) 01/13/18 05:30 Plt Count 953 Th/cmm (150-400) H* 01/13/18 05:30 MPV 8.4 fl 01/13/18 05:30 Add Manual Diff YES 01/13/18 05:30 Neutrophils % 69.3 % (40.0-80.0) 01/11/18 08:50 Band Neutrophils % 1 % (0-10) 01/13/18 05:30 Lymphocytes % 20.4 % (20.0-50.0) 01/11/18 08:50 Monocytes % 7.1 % (2.0-10.0) 01/11/18 08:50 Eosinophils % 3.2 % (0.0-5.0) 01/11/18 08:50 Basophils % 0.0 % (0.0-2.0) 01/11/18 08:50 Neutrophils (Manual) 74 % (40-80) 01/13/18 05:30 Lymphocytes 16 % (20-50) L 01/13/18 05:30 Monocytes 6 % (2-10) 01/13/18 05:30 Eosinophils 2 % (0-5) 01/13/18 05:30 Basophils 0 % (0-3) 01/08/18 05:35 Platelet Estimate INCREASED PLATELETS (NORMAL) 01/13/18 05:30 Smear Path Review 01/08/18 05:35 ESR 62 mm/hr (0-30) H 01/03/18 04:45 PT 9.5 SECONDS (9.5-11.5) 12/26/17 17:15 INR 0.91 (0.5-1.4) 12/26/17 17:15 PTT (Actin FS) 24.5 SECONDS (26.0-38.0) L 12/26/17 17:15 Sodium 142 mEq/L (136-145) 01/12/18 04:50 Potassium 4.6 mEq/L (3.5-5.1) 01/12/18 04:50 Chloride 112 mEq/L (98-107) H 01/12/18 04:50 Carbon Dioxide 20.6 mEq/L (21.0-31.0) L 01/12/18 04:50 Anion Gap 14.0 (7.0-16.0) 01/12/18 04:50 BUN 8 mg/dL (7-25) 01/12/18 04:50 Creatinine 0.8 mg/dL (0.6-1.2) 01/12/18 04:50 Est GFR ( Amer) TNP 01/12/18 04:50 Est GFR (Non-Af Amer) TNP 01/12/18 04:50 BUN/Creatinine Ratio 10.0 01/12/18 04:50 Glucose 128 mg/dL (70-105) H 01/12/18 04:50 Uric Acid 3.3 mg/dL (2.3-6.6) 01/03/18 04:45 Calcium 10.0 mg/dL (8.6-10.3) 01/12/18 04:50 Total Bilirubin 0.3 mg/dL (0.3-1.0) 01/12/18 04:50 AST 14 U/L (13-39) 01/12/18 04:50 ALT 14 U/L (7-52) 01/12/18 04:50 Alkaline Phosphatase 70 U/L (34-104) 01/12/18 04:50 Ammonia 52 umol/L (16-53) 12/31/17 05:40 Troponin I 0.03 ng/mL (0.01-0.05) 01/07/18 05:30 Total Protein 6.9 gm/dL (6.0-8.3) 01/12/18 04:50 Albumin 3.5 gm/dL (3.7-5.3) L 01/12/18 04:50 Globulin 3.4 gm/dL 01/12/18 04:50 Albumin/Globulin Ratio 1.0 (1.0-1.8) 01/12/18 04:50 Triglycerides 78 mg/dL (<150) 12/27/17 07:47 Cholesterol 249 mg/dL (<200) H 12/27/17 07:47 LDL Cholesterol Direct 198 mg/dL (75-193) H 12/27/17 07:47 HDL Cholesterol 45 mg/dL (23-92) 12/27/17 07:47 Vitamin B12 707 pg/mL (232-1245) 12/30/17 06:00 Folic Acid 16.7 ng/mL (>3.0) 12/30/17 06:00 TSH 3.88 uIU/ml (0.34-5.60) 12/26/17 17:15 Urine Source CATH 12/31/17 08:20 Urine Color YELLOW 12/31/17 08:20 Urine Clarity CLEAR (CLEAR) 12/31/17 08:20 Urine pH 6.5 (4.6 - 8.0) 12/31/17 08:20 Ur Specific [place] 1.010 (1.005-1.030) 12/31/17 08:20 Urine Protein TRACE mg/dL (NEGATIVE) 12/31/17 08:20 Urine Glucose (UA) NEGATIVE mg/dL (NEGATIVE) 12/31/17 08:20 Urine Ketones NEGATIVE mg/dL (NEGATIVE) 12/31/17 08:20 Urine Blood NEGATIVE (NEGATIVE) 12/31/17 08:20 Urine Nitrate NEGATIVE (NEGATIVE) 12/31/17 08:20 Urine Bilirubin NEGATIVE (NEGATIVE) 12/31/17 08:20 Urine Urobilinogen 0.2 E.U./dL (0.2 - 1.0) 12/31/17 08:20 Ur Leukocyte Esterase NEGATIVE (NEGATIVE) 12/31/17 08:20 Urine RBC 0-2 /hpf (0-5) 12/31/17 08:20 Urine WBC 0-2 /hpf (0-5) 12/31/17 08:20 Ur Epithelial Cells RARE /lpf (FEW) 12/31/17 08:20 Urine Bacteria NONE SEEN /hpf (NONE SEEN) 12/31/17 08:20 Urine Mucus FEW /lpf (FEW) 12/31/17 08:20 Stool Leukocyte NO WBC SEEN 01/10/18 17:00 Rheumatoid Factor 15.5 IU/mL (0.0-13.9) H 01/03/18 04:45 ELSA Screen Negative 01/03/18 04:45 - Physical Exam Vitals and I&O: Vital Signs Temp 98.3 F 01/13/18 04:00 Pulse 85 01/13/18 09:40 Resp 18 01/13/18 07:00 BP 115/72 01/13/18 09:40 Pulse Ox 95 01/13/18 07:00 Intake & Output 01/12/18 01/13/18 01/13/18 18:59 06:59 18:59 Intake Total 300 200 Balance 300 200 Weight (lbs) 54.885 kg 58.513 kg Intake: Intake, IV Amount 50 50 Piperacillin Sodium/ 50 50 Tazobact 3.375 gm In Sodium Chloride 0.9% 50 ml @ 100 mls/hr IV Q6HR [facility] Rx#:[id number] Oral 250 150 Other: # Voids 4 4 # Bowel Movements 1 0 Stool Characteristics Soft Soft Formed Formed Weight Source Bedscale Bedscale Active Medications: Current Medications Acetaminophen (Tylenol) 650 mg PO Q4H PRN PRN Reason: Fever > 101 Stop: 02/28/18 23:58 Last Admin: 01/01/18 18:09 Dose: 650 mg Acetaminophen (Tylenol 650mg Supp) 650 mg RC Q4H PRN PRN Reason: Fever > 101 Stop: 03/03/18 14:05 Last Admin: 01/03/18 03:56 Dose: 650 mg Albuterol/Ipratropium (Duoneb Neb) 3 ml HHN [id number] [facility] Stop: 03/07/18 18:59 Last Admin: 01/13/18 07:00 Dose: 3 ml Alprazolam (Xanax) 0.25 mg PO Q8HR PRN; Protocol PRN Reason: Agitation Stop: 03/09/18 18:30 Last Admin: 01/12/18 16:03 Dose: 0.25 mg Aspirin (Aspirin Chewable) 81 mg PO DAILY [facility] Stop: 03/12/18 08:59 Last Admin: 01/13/18 09:40 Dose: 81 mg Atorvastatin Calcium (Lipitor) 10 mg PO DAILY [facility]; Protocol Stop: 02/26/18 10:59 Last Admin: 01/13/18 09:41 Dose: 10 mg Bisacodyl (Dulcolax 10 Mg Supp) 10 mg RC DAILY PRN PRN Reason: Constipation Stop: 02/25/18 06:58 Last Admin: 01/02/18 20:41 Dose: 10 mg Piperacillin Sod/Tazobactam (Sod 3.375 gm/ Sodium Chloride) 50 mls @ 100 mls/ hr IV Q6HR [facility] Stop: 03/05/18 03:59 Last Admin: 01/13/18 05:37 Dose: 100 mls/hr Dextrose/Sodium Chloride (D5-0.45ns) 1,000 mls @ 50 mls/hr IV .Q20H [facility] Stop: 03/13/18 08:59 Last Admin: 01/12/18 10:47 Dose: 50 mls/hr Lactobacillus Rhamnosus (Culturelle 15b) 1 each PO DAILY [facility] Stop: 03/03/18 08:59 Last Admin: 01/13/18 09:40 Dose: 1 each Levothyroxine Sodium (Synthroid) 0.025 mg PO DAILY [facility] Stop: 02/25/18 08:59 Last Admin: 01/13/18 09:40 Dose: 0.025 mg Lorazepam (Ativan) 0.5 mg IVP Q4HR PRN; Protocol PRN Reason: Agitation Stop: 03/01/18 17:48 Last Admin: 01/11/18 01:09 Dose: 0.5 mg Megestrol Acetate (Megace) 400 mg PO BID [facility]; Protocol Stop: 03/10/18 08:59 Last Admin: 01/13/18 09:40 Dose: 400 mg Miscellaneous (Probiotic Screen) 1 ea MC PRN PRN PRN Reason: PROTOCOL Stop: 03/02/18 15:13 Ondansetron HCl (Zofran) 4 mg IV Q6H PRN PRN Reason: Nausea / Vomiting Stop: 03/06/18 11:38 Pantoprazole Sodium (Protonix) 40 mg IVP BID [facility] Stop: 03/04/18 16:59 Last Admin: 10/03/18 09:41 Dose: 40 mg Polyethylene Glycol (Miralax) 17 gm PO DAILY [facility] Stop: 02/25/18 08:59 Last Admin: 01/13/18 09:41 Dose: 17 gm Potassium Chloride (Klor-Con) 20 meq PO DAILY [facility] Stop: 03/07/18 08:59 Last Admin: 01/13/18 09:41 Dose: 20 meq Valsartan (Diovan) 80 mg PO DAILY [facility] Stop: 02/25/18 08:59 Last Admin: 01/13/18 09:40 Dose: 80 mg General: Alert, Oriented x3 HEENT: Atraumatic, PERRLA, EOMI Neck: Supple Cardiovascular: Regular rate Lungs: Clear to auscultation Abdomen: Bowel sounds, Soft, no Tender, no Hepatomegaly, no Splenomegaly, no Rebound, no Mass, no Guarding Extremities: no Clubbing, no Cyanosis, no Edema Neurological: Normal gait, Normal speech Psych/Mental Status: no Mental status NL Assessment/Plan - Assessment Assessment: Elevated platelet count is most likely reactive since it was normal on admission and I will obtain iron studies to rule out iron deficiency as the most common cause for thrombocytosis. Continue current antibiotic therapy and if the platelets do not recover, then consideration of essential thrombocythemia will be entertained and further workup will be done. I will obtain ultrasound of the abdomen to evaluate the size of the spleen and obtain iron studies and JAK2 mutation to rule out myeloproliferative neoplasm though less likely. Nutritional Asmnt/Malnutr-PDOC - Dietary Evaluation Malnutrition Findings (Please click <Entered> for more info): Nutritional Asmnt/Malnutrition Start: 12/30/17 16: 04 Text: Status: Complete Freq: Protocol: Document 12/30/17 16:04 LCHENG (Rec: 12/30/17 16:14 HENG [email or web address]) Nutritional Asmnt/Malnutrition Patient General Information Nutritional Screening Moderate Risk Diagnosis elevated troponin Pertinent Medical Hx/Surgical Hx HTN, dementia, hypothyroidism Subjective Information Pt seen sleeping in bed at time of visit, family at bedside. Per family, pt was very sleepy, only had few bites of brearfast this morning. Per EMR, PO intake about 25-50%. Per family, pt likes chocoalte icecream and pudding. Current Diet Order/ Nutrition Support cardiac Pertinent Medications lipitor, D5-0.25ns, synthroid, miralax, seroquel Pertinent Labs 12/27 Cl 110 Nutritional Hx/Data Height 1.6 m Height (Calculated Centimeters) 160.0 Current Weight (lbs) 62.596 kg Weight (Calculated Kilograms) 62.6 Weight (Calculated Grams) 65680.7 [place] Body Weight 115 Body Mass Index (BMI) 24.4 Weight Status Approriate GI Symptoms GI Symptoms None Last BM 12/27 Difficult in: None Skin Integrity/Comment: skin intact, reddened to buttocks Current %PO Poor (25-49%) Estimated Nutritional Goals BEE in Kcals: Using Current wt Calories/Kcals/Kg 25-30 Kcals Calculated 7617-2042 Protein: Using Current wt Protein g/k Protein Calculated 63 Fluid: ml 1575-1890ml (1ml/kcal) Nutritional Problem 1. Problem Problem inadequate food intake Etiology possible poor appetite Signs/Symptoms: PO intake 25-50% Malnutrition Alert Is there a minimum of two criteria No selected? Query Text:Check all the applicable criteria. A minimum of two criteria are recommended for diagnosis of either severe or non-severe malnutrition. Malnutrition Related to Morbid Obesity Malnutrition related to morbid obesity No Intervention/Recommendation Comments 1. Continue with current diet as ordered. Family request nutrition supplements. Send one bottle of chocolate ensure per family request at lunch. Will consider adding supplements if PO intake continue <50%. Nurses to assist pt with meals and encourage oral intake. 2. Monitor PO intake, wt, labs and skin integrity 3. F/U as high risk in 2-3 days, 01/01-01/02 Expected Outcomes/Goals Expected Outcomes/Goals 1. PO intake to meet at least 75% of nutritional needs. 2. Wt stability, skin to remain intact, labs to approach WNL.
[2018-01-13] MEDS: D5-0.45NS 1,000 ML IV SCH (11:35)
--- NOTE | 2018-01-13 23:44 | Infectious Disease Prog Note ---
Infectious Disease Subjective - Review of Systems Service Date: 01/13/18 Subjective: No fever today. Doing the same. Remains confused, refuses to take medicactions. Stable WBC count. Infectious Disease Objective - Results Result Diagrams: 01/13/18 05:30 01/12/18 04:50 Recent Labs: Laboratory Last Values WBC 16.9 Th/cmm (4.8-10.8) H 01/13/18 05:30 RBC 3.75 Mil/cmm (3.80-5.20) L 01/13/18 05:30 Hgb 11.7 gm/dL (12-16) L 01/13/18 05:30 Hct 35.1 % (41.0-60) L 01/13/18 05:30 MCV 93.6 fl (81-100) 01/13/18 05:30 MCH 31.1 pg (27.0-31.0) H 01/13/18 05:30 MCHC Differential 33.2 pg (28.0-36.0) 01/13/18 05:30 RDW 14.5 % (11.5-20.0) 01/13/18 05:30 Plt Count 953 Th/cmm (150-400) H* 01/13/18 05:30 MPV 8.4 fl 01/13/18 05:30 Add Manual Diff YES 01/13/18 05:30 Neutrophils % 69.3 % (40.0-80.0) 01/11/18 08:50 Band Neutrophils % 1 % (0-10) 01/13/18 05:30 Lymphocytes % 20.4 % (20.0-50.0) 01/11/18 08:50 Monocytes % 7.1 % (2.0-10.0) 01/11/18 08:50 Eosinophils % 3.2 % (0.0-5.0) 01/11/18 08:50 Basophils % 0.0 % (0.0-2.0) 01/11/18 08:50 Neutrophils (Manual) 74 % (40-80) 01/13/18 05:30 Lymphocytes 16 % (20-50) L 01/13/18 05:30 Monocytes 6 % (2-10) 01/13/18 05:30 Eosinophils 2 % (0-5) 01/13/18 05:30 Basophils 0 % (0-3) 01/08/18 05:35 Platelet Estimate INCREASED PLATELETS (NORMAL) 01/13/18 05:30 Smear Path Review 01/08/18 05:35 ESR 62 mm/hr (0-30) H 01/03/18 04:45 PT 9.5 SECONDS (9.5-11.5) 12/26/17 17:15 INR 0.91 (0.5-1.4) 12/26/17 17:15 PTT (Actin FS) 24.5 SECONDS (26.0-38.0) L 12/26/17 17:15 Sodium 142 mEq/L (136-145) 01/12/18 04:50 Potassium 4.6 mEq/L (3.5-5.1) 01/12/18 04:50 Chloride 112 mEq/L (98-107) H 01/12/18 04:50 Carbon Dioxide 20.6 mEq/L (21.0-31.0) L 01/12/18 04:50 Anion Gap 14.0 (7.0-16.0) 01/12/18 04:50 BUN 8 mg/dL (7-25) 01/12/18 04:50 Creatinine 0.8 mg/dL (0.6-1.2) 01/12/18 04:50 Est GFR ( Amer) TNP 01/12/18 04:50 Est GFR (Non-Af Amer) TNP 01/12/18 04:50 BUN/Creatinine Ratio 10.0 01/12/18 04:50 Glucose 128 mg/dL (70-105) H 01/12/18 04:50 Uric Acid 3.3 mg/dL (2.3-6.6) 01/03/18 04:45 Calcium 10.0 mg/dL (8.6-10.3) 01/12/18 04:50 Total Bilirubin 0.3 mg/dL (0.3-1.0) 01/12/18 04:50 AST 14 U/L (13-39) 01/12/18 04:50 ALT 14 U/L (7-52) 01/12/18 04:50 Alkaline Phosphatase 70 U/L (34-104) 01/12/18 04:50 Ammonia 52 umol/L (16-53) 12/31/17 05:40 Troponin I 0.03 ng/mL (0.01-0.05) 01/07/18 05:30 Total Protein 6.9 gm/dL (6.0-8.3) 01/12/18 04:50 Albumin 3.5 gm/dL (3.7-5.3) L 01/12/18 04:50 Globulin 3.4 gm/dL 01/12/18 04:50 Albumin/Globulin Ratio 1.0 (1.0-1.8) 01/12/18 04:50 Triglycerides 78 mg/dL (<150) 12/27/17 07:47 Cholesterol 249 mg/dL (<200) H 12/27/17 07:47 LDL Cholesterol Direct 198 mg/dL (75-193) H 12/27/17 07:47 HDL Cholesterol 45 mg/dL (23-92) 12/27/17 07:47 Vitamin B12 707 pg/mL (232-1245) 12/30/17 06:00 Folic Acid 16.7 ng/mL (>3.0) 12/30/17 06:00 TSH 3.88 uIU/ml (0.34-5.60) 12/26/17 17:15 Urine Source CATH 12/31/17 08:20 Urine Color YELLOW 12/31/17 08:20 Urine Clarity CLEAR (CLEAR) 12/31/17 08:20 Urine pH 6.5 (4.6 - 8.0) 12/31/17 08:20 Ur Specific [place] 1.010 (1.005-1.030) 12/31/17 08:20 Urine Protein TRACE mg/dL (NEGATIVE) 12/31/17 08:20 Urine Glucose (UA) NEGATIVE mg/dL (NEGATIVE) 12/31/17 08:20 Urine Ketones NEGATIVE mg/dL (NEGATIVE) 12/31/17 08:20 Urine Blood NEGATIVE (NEGATIVE) 12/31/17 08:20 Urine Nitrate NEGATIVE (NEGATIVE) 12/31/17 08:20 Urine Bilirubin NEGATIVE (NEGATIVE) 12/31/17 08:20 Urine Urobilinogen 0.2 E.U./dL (0.2 - 1.0) 12/31/17 08:20 Ur Leukocyte Esterase NEGATIVE (NEGATIVE) 12/31/17 08:20 Urine RBC 0-2 /hpf (0-5) 12/31/17 08:20 Urine WBC 0-2 /hpf (0-5) 12/31/17 08:20 Ur Epithelial Cells RARE /lpf (FEW) 12/31/17 08:20 Urine Bacteria NONE SEEN /hpf (NONE SEEN) 12/31/17 08:20 Urine Mucus FEW /lpf (FEW) 12/31/17 08:20 Stool Leukocyte NO WBC SEEN 01/10/18 17:00 Rheumatoid Factor 15.5 IU/mL (0.0-13.9) H 01/03/18 04:45 ELSA Screen Negative 01/03/18 04:45 - Physical Exam Vitals and I&O: Vital Signs Temp 99.3 F 01/13/18 19:00 Pulse 79 01/13/18 19:34 Resp 15 01/13/18 22:00 BP 153/77 01/13/18 19:00 Pulse Ox 95 01/13/18 19:34 Intake & Output 01/13/18 01/13/18 01/14/18 06:59 18:59 06:59 Intake Total 1250 50 100 Balance 1250 50 100 Weight (lbs) 58.513 kg 58.513 kg Intake: Intake, IV Amount 1100 50 50 D5-0.45NS 1,000 ml @ 50 1000 mls/hr IV .Q20H [facility] Rx#: [id number] Piperacillin Sodium/ 100 50 50 Tazobact 3.375 gm In Sodium Chloride 0.9% 50 ml @ 100 mls/hr IV Q6HR [facility] Rx#:[id number] Oral 150 50 Other: # Voids 4 1 # Bowel Movements 0 Stool Characteristics Soft Soft Formed Formed Weight Source Bedscale Bedscale Active Medications: Current Medications Acetaminophen (Tylenol) 650 mg PO Q4H PRN PRN Reason: Fever > 101 Stop: 02/28/18 23:58 Last Admin: 01/01/18 18:09 Dose: 650 mg Acetaminophen (Tylenol 650mg Supp) 650 mg RC Q4H PRN PRN Reason: Fever > 101 Stop: 03/03/18 14:05 Last Admin: 01/03/18 03:56 Dose: 650 mg Albuterol/Ipratropium (Duoneb Neb) 3 ml HHN [id number] [facility] Stop: 03/07/18 18:59 Last Admin: 01/13/18 19:34 Dose: 3 ml Alprazolam (Xanax) 0.25 mg PO Q8HR PRN; Protocol PRN Reason: Agitation Stop: 03/09/18 18:30 Last Admin: 01/12/18 16:03 Dose: 0.25 mg Aspirin (Aspirin Chewable) 81 mg PO DAILY [facility] Stop: 03/12/18 08:59 Last Admin: 01/13/18 09:40 Dose: 81 mg Atorvastatin Calcium (Lipitor) 10 mg PO DAILY [facility]; Protocol Stop: 02/26/18 10:59 Last Admin: 01/13/18 09:41 Dose: 10 mg Bisacodyl (Dulcolax 10 Mg Supp) 10 mg RC DAILY PRN PRN Reason: Constipation Stop: 02/25/18 06:58 Last Admin: 01/02/18 20:41 Dose: 10 mg Piperacillin Sod/Tazobactam (Sod 3.375 gm/ Sodium Chloride) 50 mls @ 100 mls/ hr IV Q6HR [facility] Stop: 03/05/18 03:59 Last Infusion: 01/13/18 23:26 Dose: Infused Dextrose/Sodium Chloride (D5-0.45ns) 1,000 mls @ 50 mls/hr IV .Q20H [facility] Stop: 03/13/18 08:59 Last Admin: 01/13/18 11:35 Dose: 50 mls/hr Lactobacillus Rhamnosus (Culturelle 15b) 1 each PO DAILY [facility] Stop: 03/03/18 08:59 Last Admin: 01/13/18 09:40 Dose: 1 each Levothyroxine Sodium (Synthroid) 0.025 mg PO DAILY [facility] Stop: 02/25/18 08:59 Last Admin: 01/13/18 09:40 Dose: 0.025 mg Lorazepam (Ativan) 0.5 mg IVP Q4HR PRN; Protocol PRN Reason: Agitation Stop: 03/01/18 17:48 Last Admin: 01/11/18 01:09 Dose: 0.5 mg Megestrol Acetate (Megace) 400 mg PO BID [facility]; Protocol Stop: 03/10/18 08:59 Last Admin: 01/13/18 17:14 Dose: 400 mg Miscellaneous (Probiotic Screen) 1 ea MC PRN PRN PRN Reason: PROTOCOL Stop: 03/02/18 15:13 Ondansetron HCl (Zofran) 4 mg IV Q6H PRN PRN Reason: Nausea / Vomiting Stop: 03/06/18 11:38 Pantoprazole Sodium (Protonix) 40 mg IVP BID [facility] Stop: 03/04/18 16:59 Last Admin: 01/13/18 17:14 Dose: 40 mg Polyethylene Glycol (Miralax) 17 gm PO DAILY [facility] Stop: 02/25/18 08:59 Last Admin: 01/13/18 09:41 Dose: 17 gm Potassium Chloride (Klor-Con) 20 meq PO DAILY [facility] Stop: 03/07/18 08:59 Last Admin: 01/13/18 09:41 Dose: 20 meq Valsartan (Diovan) 80 mg PO DAILY [facility] Stop: 02/25/18 08:59 Last Admin: 01/13/18 09:40 Dose: 80 mg General: no acute distress, well developed, well nourished HEENT: atraumatic, normocephalic, PERRLA, EOMI Neck: supple, no thyromegaly Cardiovascular: S1S2, regular Lungs: clear to auscultation bilaterally, clear to percussion Abdomen: soft, no tender, no distended Extremities: no cyanosis, no clubbing, no edema Neurological: awake, alert, other (confused) Skin: intact Infectious Disease Assmt/Plan - Assessment Assessment: 1. Leukocytosis worse again, no fever. ? leukomoid reaction. 2. Aspiration pneumonia. 3. UTI treated. 4. Dementia. 5. Hypertension. - Plan Plan: Continue Zosyn. Discussed with family. Check CXR. Dr Bojorquez, hematology consult. Nutritional Asmnt/Malnutr-PDOC - Dietary Evaluation Malnutrition Findings (Please click <Entered> for more info): Nutritional Asmnt/Malnutrition Start: 12/30/17 16: 04 Text: Status: Complete Freq: Protocol: Document 12/30/17 16:04 TAMI (Rec: 12/30/17 16:14 TAMI [email or web address]) Nutritional Asmnt/Malnutrition Patient General Information Nutritional Screening Moderate Risk Diagnosis elevated troponin Pertinent Medical Hx/Surgical Hx HTN, dementia, hypothyroidism Subjective Information Pt seen sleeping in bed at time of visit, family at bedside. Per family, pt was very sleepy, only had few bites of brearfast this morning. Per EMR, PO intake about 25-50%. Per family, pt likes chocoalte icecream and pudding. Current Diet Order/ Nutrition Support cardiac Pertinent Medications lipitor, D5-0.25ns, synthroid, miralax, seroquel Pertinent Labs 12/27 Cl 110 Nutritional Hx/Data Height 1.6 m Height (Calculated Centimeters) 160.0 Current Weight (lbs) 62.596 kg Weight (Calculated Kilograms) 62.6 Weight (Calculated Grams) 48077.7 [place] Body Weight 115 Body Mass Index (BMI) 24.4 Weight Status Approriate GI Symptoms GI Symptoms None Last BM 12/27 Difficult in: None Skin Integrity/Comment: skin intact, reddened to buttocks Current %PO Poor (25-49%) Estimated Nutritional Goals BEE in Kcals: Using Current wt Calories/Kcals/Kg 25-30 Kcals Calculated 7741-9714 Protein: Using Current wt Protein g/k Protein Calculated 63 Fluid: ml 1575-1890ml (1ml/kcal) Nutritional Problem 1. Problem Problem inadequate food intake Etiology possible poor appetite Signs/Symptoms: PO intake 25-50% Malnutrition Alert Is there a minimum of two criteria No selected? Query Text:Check all the applicable criteria. A minimum of two criteria are recommended for diagnosis of either severe or non-severe malnutrition. Malnutrition Related to Morbid Obesity Malnutrition related to morbid obesity No Intervention/Recommendation Comments 1. Continue with current diet as ordered. Family request nutrition supplements. Send one bottle of chocolate ensure per family request at lunch. Will consider adding supplements if PO intake continue <50%. Nurses to assist pt with meals and encourage oral intake. 2. Monitor PO intake, wt, labs and skin integrity 3. F/U as high risk in 2-3 days, 01/01-01/02 Expected Outcomes/Goals Expected Outcomes/Goals 1. PO intake to meet at least 75% of nutritional needs. 2. Wt stability, skin to remain intact, labs to approach WNL.
[2018-01-14] MEDS: Albuterol/Ipratropium Neb 3 ML AERS HHN SCH ×3 (07:06→19:00)
--- NOTE | 2018-01-14 08:01 | General Progress Note ---
Subjective - Review of Systems Service Date: 01/14/18 Subjective: Patient was seen and examined. no acute distress. Awake, alert but confused. Left lower lobe PNA on CT chest. risk for aspiration. Patient currently on pureed diet. Objective - Results Result Diagrams: 01/13/18 05:30 01/12/18 04:50 Recent Labs: Laboratory Last Values WBC 16.9 Th/cmm (4.8-10.8) H 01/13/18 05:30 RBC 3.75 Mil/cmm (3.80-5.20) L 01/13/18 05:30 Hgb 11.7 gm/dL (12-16) L 01/13/18 05:30 Hct 35.1 % (41.0-60) L 01/13/18 05:30 MCV 93.6 fl (81-100) 01/13/18 05:30 MCH 31.1 pg (27.0-31.0) H 01/13/18 05:30 MCHC Differential 33.2 pg (28.0-36.0) 01/13/18 05:30 RDW 14.5 % (11.5-20.0) 01/13/18 05:30 Plt Count 953 Th/cmm (150-400) H* 01/13/18 05:30 MPV 8.4 fl 01/13/18 05:30 Add Manual Diff YES 01/13/18 05:30 Neutrophils % 69.3 % (40.0-80.0) 01/11/18 08:50 Band Neutrophils % 1 % (0-10) 01/13/18 05:30 Lymphocytes % 20.4 % (20.0-50.0) 01/11/18 08:50 Monocytes % 7.1 % (2.0-10.0) 01/11/18 08:50 Eosinophils % 3.2 % (0.0-5.0) 01/11/18 08:50 Basophils % 0.0 % (0.0-2.0) 01/11/18 08:50 Neutrophils (Manual) 74 % (40-80) 01/13/18 05:30 Lymphocytes 16 % (20-50) L 01/13/18 05:30 Monocytes 6 % (2-10) 01/13/18 05:30 Eosinophils 2 % (0-5) 01/13/18 05:30 Basophils 0 % (0-3) 01/08/18 05:35 Platelet Estimate INCREASED PLATELETS (NORMAL) 01/13/18 05:30 Smear Path Review 01/08/18 05:35 ESR 62 mm/hr (0-30) H 01/03/18 04:45 PT 9.5 SECONDS (9.5-11.5) 12/26/17 17:15 INR 0.91 (0.5-1.4) 12/26/17 17:15 PTT (Actin FS) 24.5 SECONDS (26.0-38.0) L 12/26/17 17:15 Sodium 142 mEq/L (136-145) 01/12/18 04:50 Potassium 4.6 mEq/L (3.5-5.1) 01/12/18 04:50 Chloride 112 mEq/L (98-107) H 01/12/18 04:50 Carbon Dioxide 20.6 mEq/L (21.0-31.0) L 01/12/18 04:50 Anion Gap 14.0 (7.0-16.0) 01/12/18 04:50 BUN 8 mg/dL (7-25) 01/12/18 04:50 Creatinine 0.8 mg/dL (0.6-1.2) 01/12/18 04:50 Est GFR ( Amer) TNP 01/12/18 04:50 Est GFR (Non-Af Amer) TNP 01/12/18 04:50 BUN/Creatinine Ratio 10.0 01/12/18 04:50 Glucose 128 mg/dL (70-105) H 01/12/18 04:50 Uric Acid 3.3 mg/dL (2.3-6.6) 01/03/18 04:45 Calcium 10.0 mg/dL (8.6-10.3) 01/12/18 04:50 Total Bilirubin 0.3 mg/dL (0.3-1.0) 01/12/18 04:50 AST 14 U/L (13-39) 01/12/18 04:50 ALT 14 U/L (7-52) 01/12/18 04:50 Alkaline Phosphatase 70 U/L (34-104) 01/12/18 04:50 Ammonia 52 umol/L (16-53) 12/31/17 05:40 Troponin I 0.03 ng/mL (0.01-0.05) 01/07/18 05:30 Total Protein 6.9 gm/dL (6.0-8.3) 01/12/18 04:50 Albumin 3.5 gm/dL (3.7-5.3) L 01/12/18 04:50 Globulin 3.4 gm/dL 01/12/18 04:50 Albumin/Globulin Ratio 1.0 (1.0-1.8) 01/12/18 04:50 Triglycerides 78 mg/dL (<150) 12/27/17 07:47 Cholesterol 249 mg/dL (<200) H 12/27/17 07:47 LDL Cholesterol Direct 198 mg/dL (75-193) H 12/27/17 07:47 HDL Cholesterol 45 mg/dL (23-92) 12/27/17 07:47 Vitamin B12 707 pg/mL (232-1245) 12/30/17 06:00 Folic Acid 16.7 ng/mL (>3.0) 12/30/17 06:00 TSH 3.88 uIU/ml (0.34-5.60) 12/26/17 17:15 Urine Source CATH 12/31/17 08:20 Urine Color YELLOW 12/31/17 08:20 Urine Clarity CLEAR (CLEAR) 12/31/17 08:20 Urine pH 6.5 (4.6 - 8.0) 12/31/17 08:20 Ur Specific [place] 1.010 (1.005-1.030) 12/31/17 08:20 Urine Protein TRACE mg/dL (NEGATIVE) 12/31/17 08:20 Urine Glucose (UA) NEGATIVE mg/dL (NEGATIVE) 12/31/17 08:20 Urine Ketones NEGATIVE mg/dL (NEGATIVE) 12/31/17 08:20 Urine Blood NEGATIVE (NEGATIVE) 12/31/17 08:20 Urine Nitrate NEGATIVE (NEGATIVE) 12/31/17 08:20 Urine Bilirubin NEGATIVE (NEGATIVE) 12/31/17 08:20 Urine Urobilinogen 0.2 E.U./dL (0.2 - 1.0) 12/31/17 08:20 Ur Leukocyte Esterase NEGATIVE (NEGATIVE) 12/31/17 08:20 Urine RBC 0-2 /hpf (0-5) 12/31/17 08:20 Urine WBC 0-2 /hpf (0-5) 12/31/17 08:20 Ur Epithelial Cells RARE /lpf (FEW) 12/31/17 08:20 Urine Bacteria NONE SEEN /hpf (NONE SEEN) 12/31/17 08:20 Urine Mucus FEW /lpf (FEW) 12/31/17 08:20 Stool Leukocyte NO WBC SEEN 01/10/18 17:00 Rheumatoid Factor 15.5 IU/mL (0.0-13.9) H 01/03/18 04:45 ELSA Screen Negative 01/03/18 04:45 - Physical Exam Vitals and I&O: Vital Signs Temp 98.2 F 01/14/18 07:58 Pulse 76 01/14/18 07:58 Resp 18 01/14/18 07:58 BP 103/45 01/14/18 07:58 Pulse Ox 98 01/14/18 07:58 Intake & Output 01/13/18 01/14/18 01/14/18 18:59 06:59 18:59 Intake Total 50 150 Balance 50 150 Weight (lbs) 55.52 kg Intake: Intake, IV Amount 50 100 Piperacillin Sodium/ 50 100 Tazobact 3.375 gm In Sodium Chloride 0.9% 50 ml @ 100 mls/hr IV Q6HR [facility] Rx#:[id number] Oral 50 Other: # Voids 2 # Bowel Movements 0 Stool Characteristics Soft Formed Weight Source Bedscale Active Medications: Current Medications Acetaminophen (Tylenol) 650 mg PO Q4H PRN PRN Reason: Fever > 101 Stop: 02/28/18 23:58 Last Admin: 01/01/18 18:09 Dose: 650 mg Acetaminophen (Tylenol 650mg Supp) 650 mg RC Q4H PRN PRN Reason: Fever > 101 Stop: 03/03/18 14:05 Last Admin: 01/03/18 03:56 Dose: 650 mg Albuterol/Ipratropium (Duoneb Neb) 3 ml HHN [id number] [facility] Stop: 03/07/18 18:59 Last Admin: 01/14/18 07:06 Dose: 3 ml Alprazolam (Xanax) 0.25 mg PO Q8HR PRN; Protocol PRN Reason: Agitation Stop: 03/09/18 18:30 Last Admin: 01/12/18 16:03 Dose: 0.25 mg Aspirin (Aspirin Chewable) 81 mg PO DAILY [facility] Stop: 03/12/18 08:59 Last Admin: 01/13/18 09:40 Dose: 81 mg Atorvastatin Calcium (Lipitor) 10 mg PO DAILY [facility]; Protocol Stop: 02/26/18 10:59 Last Admin: 01/13/18 09:41 Dose: 10 mg Bisacodyl (Dulcolax 10 Mg Supp) 10 mg RC DAILY PRN PRN Reason: Constipation Stop: 02/25/18 06:58 Last Admin: 01/02/18 20:41 Dose: 10 mg Piperacillin Sod/Tazobactam (Sod 3.375 gm/ Sodium Chloride) 50 mls @ 100 mls/ hr IV Q6HR [facility] Stop: 03/05/18 03:59 Last Admin: 01/14/18 05:47 Dose: 100 mls/hr Dextrose/Sodium Chloride (D5-0.45ns) 1,000 mls @ 50 mls/hr IV .Q20H [facility] Stop: 03/13/18 08:59 Last Admin: 01/13/18 11:35 Dose: 50 mls/hr Lactobacillus Rhamnosus (Culturelle 15b) 1 each PO DAILY [facility] Stop: 03/03/18 08:59 Last Admin: 01/13/18 09:40 Dose: 1 each Levothyroxine Sodium (Synthroid) 0.025 mg PO DAILY [facility] Stop: 02/25/18 08:59 Last Admin: 01/13/18 09:40 Dose: 0.025 mg Lorazepam (Ativan) 0.5 mg IVP Q4HR PRN; Protocol PRN Reason: Agitation Stop: 03/01/18 17:48 Last Admin: 01/11/18 01:09 Dose: 0.5 mg Megestrol Acetate (Megace) 400 mg PO BID [facility]; Protocol Stop: 03/10/18 08:59 Last Admin: 01/13/18 17:14 Dose: 400 mg Miscellaneous (Probiotic Screen) 1 ea MC PRN PRN PRN Reason: PROTOCOL Stop: 03/02/18 15:13 Ondansetron HCl (Zofran) 4 mg IV Q6H PRN PRN Reason: Nausea / Vomiting Stop: 03/06/18 11:38 Pantoprazole Sodium (Protonix) 40 mg IVP BID [facility] Stop: 03/04/18 16:59 Last Admin: 01/13/18 17:14 Dose: 40 mg Polyethylene Glycol (Miralax) 17 gm PO DAILY [facility] Stop: 02/25/18 08:59 Last Admin: 01/13/18 09:41 Dose: 17 gm Potassium Chloride (Klor-Con) 20 meq PO DAILY [facility] Stop: 03/07/18 08:59 Last Admin: 01/13/18 09:41 Dose: 20 meq Valsartan (Diovan) 80 mg PO DAILY [facility] Stop: 02/25/18 08:59 Last Admin: 01/13/18 09:40 Dose: 80 mg General: Alert, Oriented x3 HEENT: Atraumatic, PERRLA, EOMI Neck: Supple Cardiovascular: Regular rate Lungs: Clear to auscultation Abdomen: Bowel sounds, Soft, no Tender, no Hepatomegaly, no Splenomegaly, no Rebound, no Mass, no Guarding Extremities: no Clubbing, no Cyanosis, no Edema Neurological: Normal gait, Normal speech Psych/Mental Status: no Mental status NL Assessment/Plan - Assessment Assessment: elevated troponins improved ... 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 continue current medications HTN slightly elevated ... on diovan 80mg PO daily, will add clonidine PRN UTI...continue IV anitbiotics. UA for C&S hyperlipidemia ... on statins FUO .... repeat CBC, chest xray this AM. will order ELSA,ESR,RA,Uric Acid coffee ground emesis ... will order IV Protonix. Will order GI consult. hypokalemia ... on kdur 20meq PO daily. Rheumatoid Arthritis .... need to be referred to agriculture technician outpatient. bilateral infiltrates likely aspiration PNA ... will reorder CT chest. anorexia ... will order Megace. Alzheimer's dementia ... neurology consult as outpatient. - Plan Plan: continue current treatment, for usp evaluation Nutritional Asmnt/Malnutr-PDOC - Dietary Evaluation Malnutrition Findings (Please click <Entered> for more info): Nutritional Asmnt/Malnutrition Start: 12/30/17 16: 04 Text: Status: Complete Freq: Protocol: Document 12/30/17 16:04 [email or web address] (Rec: 12/30/17 16:14 [email or web address]) Nutritional Asmnt/Malnutrition Patient General Information Nutritional Screening Moderate Risk Diagnosis elevated troponin Pertinent Medical Hx/Surgical Hx HTN, dementia, hypothyroidism Subjective Information Pt seen sleeping in bed at time of visit, family at bedside. Per family, pt was very sleepy, only had few bites of brearfast this morning. Per EMR, PO intake about 25-50%. Per family, pt likes chocoalte icecream and pudding. Current Diet Order/ Nutrition Support cardiac Pertinent Medications lipitor, D5-0.25ns, synthroid, miralax, seroquel Pertinent Labs 12/27 Cl 110 Nutritional Hx/Data Height 1.6 m Height (Calculated Centimeters) 160.0 Current Weight (lbs) 62.596 kg Weight (Calculated Kilograms) 62.6 Weight (Calculated Grams) 41742.7 [place] Body Weight 115 Body Mass Index (BMI) 24.4 Weight Status Approriate GI Symptoms GI Symptoms None Last BM 12/27 Difficult in: None Skin Integrity/Comment: skin intact, reddened to buttocks Current %PO Poor (25-49%) Estimated Nutritional Goals BEE in Kcals: Using Current wt Calories/Kcals/Kg 25-30 Kcals Calculated 7443-7375 Protein: Using Current wt Protein g/k Protein Calculated 63 Fluid: ml 1575-1890ml (1ml/kcal) Nutritional Problem 1. Problem Problem inadequate food intake Etiology possible poor appetite Signs/Symptoms: PO intake 25-50% Malnutrition Alert Is there a minimum of two criteria No selected? Query Text:Check all the applicable criteria. A minimum of two criteria are recommended for diagnosis of either severe or non-severe malnutrition. Malnutrition Related to Morbid Obesity Malnutrition related to morbid obesity No Intervention/Recommendation Comments 1. Continue with current diet as ordered. Family request nutrition supplements. Send one bottle of chocolate ensure per family request at lunch. Will consider adding supplements if PO intake continue <50%. Nurses to assist pt with meals and encourage oral intake. 2. Monitor PO intake, wt, labs and skin integrity 3. F/U as high risk in 2-3 days, 01/01-01/02 Expected Outcomes/Goals Expected Outcomes/Goals 1. PO intake to meet at least 75% of nutritional needs. 2. Wt stability, skin to remain intact, labs to approach WNL.
[2018-01-14 08:09] LABS: IRON LC 59 ug/dL (27-139); TIBC (LC) 227 ug/dL (250-450); UIBC 168 ug/dL (118-369)
[2018-01-14 08:59] LABS: HEMATOCRIT 36.2 % (41.0-60); HEMOGLOBIN 11.7 gm/dL (12-16); MEAN CORPUSCULAR HEMOGLOBIN 30.3 pg (27.0-31.0); MEAN CORPUSCULAR HGB CONC 32.2 pg (28.0-36.0); MEAN PLATELET VOLUME 8.1 fl; RED BLOOD COUNT 3.86 Mil/cmm (3.80-5.20); RED CELL DISTRIBUTION WIDTH 14.6 % (11.5-20.0); WHITE BLOOD COUNT 14.8 Th/cmm (4.8-10.8)
[2018-01-14 09:06] LABS: PLATELET COUNT 956 Th/cmm (150-400)
[2018-01-14 09:11] LABS: ANION GAP 12.4 (7.0-16.0); BUN - UREA NITROGEN 6 mg/dL (7-25); CALCIUM SERUM 9.5 mg/dL (8.6-10.3); CARBON DIOXIDE 19.5 mEq/L (21.0-31.0); CHLORIDE 112 mEq/L (98-107); CREATININE - SERUM 0.8 mg/dL (0.6-1.2); GLUCOSE 104 mg/dL (70-105); POTASSIUM SERUM 3.9 mEq/L (3.5-5.1); SODIUM SERUM 140 mEq/L (136-145)
[2018-01-14 09:32] LABS: EOSINOPHIL 5 % (0-5); LYMPHOCYTE 17 % (20-50); MONOCYTE 3 % (2-10); NEUTROPHILS 75 % (40-80); PLATELET ESTIMATE INCREASED PLATELETS (NORMAL)
[2018-01-14] MEDS: Aspirin 81mg Chewable Tab PO SCH (10:43)
[2018-01-14] MEDS: Atorvastatin Calcium 10 MG TAB PO SCH (10:43)
[2018-01-14] MEDS: Levothyroxine 0.025 Mg Tab PO SCH (10:44)
[2018-01-14] MEDS: Lactobacillus Rhamnosus GG 15 Billion CFU CAP.SPRINK PO SCH (10:44)
[2018-01-14] MEDS: Potassium Chloride 20 mEq ER Tab PO SCH (10:44)
[2018-01-14] MEDS: POLYETHYLENE GLYCOL 3350 17 GM PACK PO SCH (10:45)
--- NOTE | 2018-01-14 11:48 | General Progress Note ---
Subjective - Review of Systems Service Date: 01/14/18 Subjective: awake, afebrile, no new sxs Objective - Results Result Diagrams: 01/14/18 08:38 01/14/18 08:38 Recent Labs: Laboratory Last Values WBC 14.8 Th/cmm (4.8-10.8) H 01/14/18 08:38 RBC 3.86 Mil/cmm (3.80-5.20) 01/14/18 08:38 Hgb 11.7 gm/dL (12-16) L 01/14/18 08:38 Hct 36.2 % (41.0-60) L 01/14/18 08:38 MCV 94.0 fl (81-100) 01/14/18 08:38 MCH 30.3 pg (27.0-31.0) 01/14/18 08:38 MCHC Differential 32.2 pg (28.0-36.0) 01/14/18 08:38 RDW 14.6 % (11.5-20.0) 01/14/18 08:38 Plt Count 956 Th/cmm (150-400) H* 01/14/18 08:38 MPV 8.1 fl 01/14/18 08:38 Add Manual Diff YES 01/14/18 08:38 Neutrophils % 69.3 % (40.0-80.0) 01/11/18 08:50 Band Neutrophils % 1 % (0-10) 01/13/18 05:30 Lymphocytes % 20.4 % (20.0-50.0) 01/11/18 08:50 Monocytes % 7.1 % (2.0-10.0) 01/11/18 08:50 Eosinophils % 3.2 % (0.0-5.0) 01/11/18 08:50 Basophils % 0.0 % (0.0-2.0) 01/11/18 08:50 Neutrophils (Manual) 75 % (40-80) 01/14/18 08:38 Lymphocytes 17 % (20-50) L 01/14/18 08:38 Monocytes 3 % (2-10) 01/14/18 08:38 Eosinophils 5 % (0-5) 01/14/18 08:38 Basophils 0 % (0-3) 01/08/18 05:35 Platelet Estimate INCREASED PLATELETS (NORMAL) 01/14/18 08:38 Smear Path Review 01/08/18 05:35 ESR 62 mm/hr (0-30) H 01/03/18 04:45 PT 9.5 SECONDS (9.5-11.5) 12/26/17 17:15 INR 0.91 (0.5-1.4) 12/26/17 17:15 PTT (Actin FS) 24.5 SECONDS (26.0-38.0) L 12/26/17 17:15 Sodium 140 mEq/L (136-145) 01/14/18 08:38 Potassium 3.9 mEq/L (3.5-5.1) 01/14/18 08:38 Chloride 112 mEq/L (98-107) H 01/14/18 08:38 Carbon Dioxide 19.5 mEq/L (21.0-31.0) L 01/14/18 08:38 Anion Gap 12.4 (7.0-16.0) 01/14/18 08:38 BUN 6 mg/dL (7-25) L 01/14/18 08:38 Creatinine 0.8 mg/dL (0.6-1.2) 01/14/18 08:38 Est GFR ( Amer) TNP 01/14/18 08:38 Est GFR (Non-Af Amer) TNP 01/14/18 08:38 BUN/Creatinine Ratio 7.5 01/14/18 08:38 Glucose 104 mg/dL (70-105) 01/14/18 08:38 Uric Acid 3.3 mg/dL (2.3-6.6) 01/03/18 04:45 Calcium 9.5 mg/dL (8.6-10.3) 01/14/18 08:38 Iron 59 ug/dL (27-139) 01/13/18 05:30 TIBC 227 ug/dL (250-450) L 01/13/18 05:30 Iron Saturation 26 % (15-55) 01/13/18 05:30 Unsaturated IBC 168 ug/dL (118-369) 01/13/18 05:30 Total Bilirubin 0.3 mg/dL (0.3-1.0) 01/12/18 04:50 AST 14 U/L (13-39) 01/12/18 04:50 ALT 14 U/L (7-52) 01/12/18 04:50 Alkaline Phosphatase 70 U/L (34-104) 01/12/18 04:50 Ammonia 52 umol/L (16-53) 12/31/17 05:40 Troponin I 0.03 ng/mL (0.01-0.05) 01/07/18 05:30 Total Protein 6.9 gm/dL (6.0-8.3) 01/12/18 04:50 Albumin 3.5 gm/dL (3.7-5.3) L 01/12/18 04:50 Globulin 3.4 gm/dL 01/12/18 04:50 Albumin/Globulin Ratio 1.0 (1.0-1.8) 01/12/18 04:50 Triglycerides 78 mg/dL (<150) 12/27/17 07:47 Cholesterol 249 mg/dL (<200) H 12/27/17 07:47 LDL Cholesterol Direct 198 mg/dL (75-193) H 12/27/17 07:47 HDL Cholesterol 45 mg/dL (23-92) 12/27/17 07:47 Vitamin B12 707 pg/mL (232-1245) 12/30/17 06:00 Folic Acid 16.7 ng/mL (>3.0) 12/30/17 06:00 TSH 3.88 uIU/ml (0.34-5.60) 12/26/17 17:15 Urine Source CATH 12/31/17 08:20 Urine Color YELLOW 12/31/17 08:20 Urine Clarity CLEAR (CLEAR) 12/31/17 08:20 Urine pH 6.5 (4.6 - 8.0) 12/31/17 08:20 Ur Specific [place] 1.010 (1.005-1.030) 12/31/17 08:20 Urine Protein TRACE mg/dL (NEGATIVE) 12/31/17 08:20 Urine Glucose (UA) NEGATIVE mg/dL (NEGATIVE) 12/31/17 08:20 Urine Ketones NEGATIVE mg/dL (NEGATIVE) 12/31/17 08:20 Urine Blood NEGATIVE (NEGATIVE) 12/31/17 08:20 Urine Nitrate NEGATIVE (NEGATIVE) 12/31/17 08:20 Urine Bilirubin NEGATIVE (NEGATIVE) 12/31/17 08:20 Urine Urobilinogen 0.2 E.U./dL (0.2 - 1.0) 12/31/17 08:20 Ur Leukocyte Esterase NEGATIVE (NEGATIVE) 12/31/17 08:20 Urine RBC 0-2 /hpf (0-5) 12/31/17 08:20 Urine WBC 0-2 /hpf (0-5) 12/31/17 08:20 Ur Epithelial Cells RARE /lpf (FEW) 12/31/17 08:20 Urine Bacteria NONE SEEN /hpf (NONE SEEN) 12/31/17 08:20 Urine Mucus FEW /lpf (FEW) 12/31/17 08:20 Stool Leukocyte NO WBC SEEN 01/10/18 17:00 Rheumatoid Factor 15.5 IU/mL (0.0-13.9) H 01/03/18 04:45 ELSA Screen Negative 01/03/18 04:45 - Physical Exam Vitals and I&O: Vital Signs Temp 98.7 F 01/14/18 11:32 Pulse 75 01/14/18 11:32 Resp 18 01/14/18 11:32 BP 143/65 01/14/18 11:32 Pulse Ox 95 01/14/18 11:32 Intake & Output 01/13/18 01/14/18 01/14/18 18:59 06:59 18:59 Intake Total 50 150 Balance 50 150 Weight (lbs) 55.52 kg Intake: Intake, IV Amount 50 100 Piperacillin Sodium/ 50 100 Tazobact 3.375 gm In Sodium Chloride 0.9% 50 ml @ 100 mls/hr IV Q6HR [facility] Rx#:[id number] Oral 50 Other: # Voids 2 # Bowel Movements 0 Stool Characteristics Soft Formed Weight Source Bedscale Active Medications: Current Medications Acetaminophen (Tylenol) 650 mg PO Q4H PRN PRN Reason: Fever > 101 Stop: 02/28/18 23:58 Last Admin: 01/01/18 18:09 Dose: 650 mg Acetaminophen (Tylenol 650mg Supp) 650 mg RC Q4H PRN PRN Reason: Fever > 101 Stop: 03/03/18 14:05 Last Admin: 01/03/18 03:56 Dose: 650 mg Albuterol/Ipratropium (Duoneb Neb) 3 ml HHN [id number] [facility] Stop: 03/07/18 18:59 Last Admin: 01/14/18 07:06 Dose: 3 ml Alprazolam (Xanax) 0.25 mg PO Q8HR PRN; Protocol PRN Reason: Agitation Stop: 03/09/18 18:30 Last Admin: 01/12/18 16:03 Dose: 0.25 mg Aspirin (Aspirin Chewable) 81 mg PO DAILY [facility] Stop: 03/12/18 08:59 Last Admin: 01/14/18 10:43 Dose: Not Given Atorvastatin Calcium (Lipitor) 10 mg PO DAILY [facility]; Protocol Stop: 02/26/18 10:59 Last Admin: 01/14/18 10:43 Dose: Not Given Bisacodyl (Dulcolax 10 Mg Supp) 10 mg RC DAILY PRN PRN Reason: Constipation Stop: 02/25/18 06:58 Last Admin: 01/02/18 20:41 Dose: 10 mg Piperacillin Sod/Tazobactam (Sod 3.375 gm/ Sodium Chloride) 50 mls @ 100 mls/ hr IV Q6HR [facility] Stop: 03/05/18 03:59 Last Admin: 01/14/18 05:47 Dose: 100 mls/hr Dextrose/Sodium Chloride (D5-0.45ns) 1,000 mls @ 50 mls/hr IV .Q20H [facility] Stop: 03/13/18 08:59 Last Admin: 01/13/18 11:35 Dose: 50 mls/hr Lactobacillus Rhamnosus (Culturelle 15b) 1 each PO DAILY [facility] Stop: 03/03/18 08:59 Last Admin: 01/14/18 10:44 Dose: Not Given Levothyroxine Sodium (Synthroid) 0.025 mg PO DAILY [facility] Stop: 02/25/18 08:59 Last Admin: 01/14/18 10:44 Dose: Not Given Lorazepam (Ativan) 0.5 mg IVP Q4HR PRN; Protocol PRN Reason: Agitation Stop: 03/01/18 17:48 Last Admin: 01/11/18 01:09 Dose: 0.5 mg Megestrol Acetate (Megace) 400 mg PO BID [facility]; Protocol Stop: 03/10/18 08:59 Last Admin: 01/14/18 10:44 Dose: Not Given Miscellaneous (Probiotic Screen) 1 ea MC PRN PRN PRN Reason: PROTOCOL Stop: 03/02/18 15:13 Ondansetron HCl (Zofran) 4 mg IV Q6H PRN PRN Reason: Nausea / Vomiting Stop: 03/06/18 11:38 Pantoprazole Sodium (Protonix) 40 mg IVP BID [facility] Stop: 03/04/18 16:59 Last Admin: 01/14/18 09:26 Dose: 40 mg Polyethylene Glycol (Miralax) 17 gm PO DAILY [facility] Stop: 02/25/18 08:59 Last Admin: 01/14/18 10:45 Dose: 17 gm Potassium Chloride (Klor-Con) 20 meq PO DAILY [facility] Stop: 03/07/18 08:59 Last Admin: 01/14/18 10:44 Dose: Not Given Valsartan (Diovan) 80 mg PO DAILY [facility] Stop: 02/25/18 08:59 Last Admin: 01/14/18 10:43 Dose: Not Given General: Alert, Oriented x3 HEENT: Atraumatic, PERRLA, EOMI Neck: Supple Cardiovascular: Regular rate Lungs: Clear to auscultation Abdomen: Bowel sounds, Soft, no Tender, no Hepatomegaly, no Splenomegaly, no Rebound, no Mass, no Guarding Extremities: no Clubbing, no Cyanosis, no Edema Neurological: Normal gait, Normal speech Psych/Mental Status: no Mental status NL Assessment/Plan - Assessment Assessment: Elevated platelet count is most likely reactive since it was normal on admission and I will obtain iron studies to rule out iron deficiency as the most common cause for thrombocytosis. Continue current antibiotic therapy and if the platelets do not recover, then consideration of essential thrombocythemia will be entertained and further workup will be done. I will obtain ultrasound of the abdomen to evaluate the size of the spleen and obtain iron studies and JAK2 mutation to rule out myeloproliferative neoplasm though less likely. 01/14: ferritin pending. MICHELLE pending, awaiting spleen US. follow cbc Nutritional Asmnt/Malnutr-PDOC - Dietary Evaluation Malnutrition Findings (Please click <Entered> for more info): Nutritional Asmnt/Malnutrition Start: 12/30/17 16: 04 Text: Status: Complete Freq: Protocol: Document 12/30/17 16:04 LCHENG (Rec: 12/30/17 16:14 [email or web address]) Nutritional Asmnt/Malnutrition Patient General Information Nutritional Screening Moderate Risk Diagnosis elevated troponin Pertinent Medical Hx/Surgical Hx HTN, dementia, hypothyroidism Subjective Information Pt seen sleeping in bed at time of visit, family at bedside. Per family, pt was very sleepy, only had few bites of brearfast this morning. Per EMR, PO intake about 25-50%. Per family, pt likes chocoalte icecream and pudding. Current Diet Order/ Nutrition Support cardiac Pertinent Medications lipitor, D5-0.25ns, synthroid, miralax, seroquel Pertinent Labs 12/27 Cl 110 Nutritional Hx/Data Height 1.6 m Height (Calculated Centimeters) 160.0 Current Weight (lbs) 62.596 kg Weight (Calculated Kilograms) 62.6 Weight (Calculated Grams) 41186.7 [place] Body Weight 115 Body Mass Index (BMI) 24.4 Weight Status Approriate GI Symptoms GI Symptoms None Last BM 12/27 Difficult in: None Skin Integrity/Comment: skin intact, reddened to buttocks Current %PO Poor (25-49%) Estimated Nutritional Goals BEE in Kcals: Using Current wt Calories/Kcals/Kg 25-30 Kcals Calculated 0500-4765 Protein: Using Current wt Protein g/k Protein Calculated 63 Fluid: ml 1575-1890ml (1ml/kcal) Nutritional Problem 1. Problem Problem inadequate food intake Etiology possible poor appetite Signs/Symptoms: PO intake 25-50% Malnutrition Alert Is there a minimum of two criteria No selected? Query Text:Check all the applicable criteria. A minimum of two criteria are recommended for diagnosis of either severe or non-severe malnutrition. Malnutrition Related to Morbid Obesity Malnutrition related to morbid obesity No Intervention/Recommendation Comments 1. Continue with current diet as ordered. Family request nutrition supplements. Send one bottle of chocolate ensure per family request at lunch. Will consider adding supplements if PO intake continue <50%. Nurses to assist pt with meals and encourage oral intake. 2. Monitor PO intake, wt, labs and skin integrity 3. F/U as high risk in 2-3 days, 01/01-01/02 Expected Outcomes/Goals Expected Outcomes/Goals 1. PO intake to meet at least 75% of nutritional needs. 2. Wt stability, skin to remain intact, labs to approach WNL.
[2018-01-14] MEDS: D5-0.45NS 1,000 ML IV SCH (11:59)
--- NOTE | 2018-01-14 12:11 | Infectious Disease Prog Note ---
Infectious Disease Subjective - Review of Systems Service Date: 01/14/18 Subjective: No fever today. Doing the same. Remains confused, refuses to take medicactions. Stable WBC count. Infectious Disease Objective - Results Result Diagrams: 01/14/18 08:38 01/14/18 08:38 Recent Labs: Laboratory Last Values WBC 14.8 Th/cmm (4.8-10.8) H 01/14/18 08:38 RBC 3.86 Mil/cmm (3.80-5.20) 01/14/18 08:38 Hgb 11.7 gm/dL (12-16) L 01/14/18 08:38 Hct 36.2 % (41.0-60) L 01/14/18 08:38 MCV 94.0 fl (81-100) 01/14/18 08:38 MCH 30.3 pg (27.0-31.0) 01/14/18 08:38 MCHC Differential 32.2 pg (28.0-36.0) 01/14/18 08:38 RDW 14.6 % (11.5-20.0) 01/14/18 08:38 Plt Count 956 Th/cmm (150-400) H* 01/14/18 08:38 MPV 8.1 fl 01/14/18 08:38 Add Manual Diff YES 01/14/18 08:38 Neutrophils % 69.3 % (40.0-80.0) 01/11/18 08:50 Band Neutrophils % 1 % (0-10) 01/13/18 05:30 Lymphocytes % 20.4 % (20.0-50.0) 01/11/18 08:50 Monocytes % 7.1 % (2.0-10.0) 01/11/18 08:50 Eosinophils % 3.2 % (0.0-5.0) 01/11/18 08:50 Basophils % 0.0 % (0.0-2.0) 01/11/18 08:50 Neutrophils (Manual) 75 % (40-80) 01/14/18 08:38 Lymphocytes 17 % (20-50) L 01/14/18 08:38 Monocytes 3 % (2-10) 01/14/18 08:38 Eosinophils 5 % (0-5) 01/14/18 08:38 Basophils 0 % (0-3) 01/08/18 05:35 Platelet Estimate INCREASED PLATELETS (NORMAL) 01/14/18 08:38 Smear Path Review 01/08/18 05:35 ESR 62 mm/hr (0-30) H 01/03/18 04:45 PT 9.5 SECONDS (9.5-11.5) 12/26/17 17:15 INR 0.91 (0.5-1.4) 12/26/17 17:15 PTT (Actin FS) 24.5 SECONDS (26.0-38.0) L 12/26/17 17:15 Sodium 140 mEq/L (136-145) 01/14/18 08:38 Potassium 3.9 mEq/L (3.5-5.1) 01/14/18 08:38 Chloride 112 mEq/L (98-107) H 01/14/18 08:38 Carbon Dioxide 19.5 mEq/L (21.0-31.0) L 01/14/18 08:38 Anion Gap 12.4 (7.0-16.0) 01/14/18 08:38 BUN 6 mg/dL (7-25) L 01/14/18 08:38 Creatinine 0.8 mg/dL (0.6-1.2) 01/14/18 08:38 Est GFR ( Amer) TNP 01/14/18 08:38 Est GFR (Non-Af Amer) TNP 01/14/18 08:38 BUN/Creatinine Ratio 7.5 01/14/18 08:38 Glucose 104 mg/dL (70-105) 01/14/18 08:38 Uric Acid 3.3 mg/dL (2.3-6.6) 01/03/18 04:45 Calcium 9.5 mg/dL (8.6-10.3) 01/14/18 08:38 Iron 59 ug/dL (27-139) 01/13/18 05:30 TIBC 227 ug/dL (250-450) L 01/13/18 05:30 Iron Saturation 26 % (15-55) 01/13/18 05:30 Unsaturated IBC 168 ug/dL (118-369) 01/13/18 05:30 Total Bilirubin 0.3 mg/dL (0.3-1.0) 01/12/18 04:50 AST 14 U/L (13-39) 01/12/18 04:50 ALT 14 U/L (7-52) 01/12/18 04:50 Alkaline Phosphatase 70 U/L (34-104) 01/12/18 04:50 Ammonia 52 umol/L (16-53) 12/31/17 05:40 Troponin I 0.03 ng/mL (0.01-0.05) 01/07/18 05:30 Total Protein 6.9 gm/dL (6.0-8.3) 01/12/18 04:50 Albumin 3.5 gm/dL (3.7-5.3) L 01/12/18 04:50 Globulin 3.4 gm/dL 01/12/18 04:50 Albumin/Globulin Ratio 1.0 (1.0-1.8) 01/12/18 04:50 Triglycerides 78 mg/dL (<150) 12/27/17 07:47 Cholesterol 249 mg/dL (<200) H 12/27/17 07:47 LDL Cholesterol Direct 198 mg/dL (75-193) H 12/27/17 07:47 HDL Cholesterol 45 mg/dL (23-92) 12/27/17 07:47 Vitamin B12 707 pg/mL (232-1245) 12/30/17 06:00 Folic Acid 16.7 ng/mL (>3.0) 12/30/17 06:00 TSH 3.88 uIU/ml (0.34-5.60) 12/26/17 17:15 Urine Source CATH 12/31/17 08:20 Urine Color YELLOW 12/31/17 08:20 Urine Clarity CLEAR (CLEAR) 12/31/17 08:20 Urine pH 6.5 (4.6 - 8.0) 12/31/17 08:20 Ur Specific [place] 1.010 (1.005-1.030) 12/31/17 08:20 Urine Protein TRACE mg/dL (NEGATIVE) 12/31/17 08:20 Urine Glucose (UA) NEGATIVE mg/dL (NEGATIVE) 12/31/17 08:20 Urine Ketones NEGATIVE mg/dL (NEGATIVE) 12/31/17 08:20 Urine Blood NEGATIVE (NEGATIVE) 12/31/17 08:20 Urine Nitrate NEGATIVE (NEGATIVE) 12/31/17 08:20 Urine Bilirubin NEGATIVE (NEGATIVE) 12/31/17 08:20 Urine Urobilinogen 0.2 E.U./dL (0.2 - 1.0) 12/31/17 08:20 Ur Leukocyte Esterase NEGATIVE (NEGATIVE) 12/31/17 08:20 Urine RBC 0-2 /hpf (0-5) 12/31/17 08:20 Urine WBC 0-2 /hpf (0-5) 12/31/17 08:20 Ur Epithelial Cells RARE /lpf (FEW) 12/31/17 08:20 Urine Bacteria NONE SEEN /hpf (NONE SEEN) 12/31/17 08:20 Urine Mucus FEW /lpf (FEW) 12/31/17 08:20 Stool Leukocyte NO WBC SEEN 01/10/18 17:00 Rheumatoid Factor 15.5 IU/mL (0.0-13.9) H 01/03/18 04:45 ELSA Screen Negative 01/03/18 04:45 - Physical Exam Vitals and I&O: Vital Signs Temp 98.7 F 01/14/18 11:32 Pulse 75 01/14/18 11:32 Resp 18 01/14/18 11:32 BP 143/65 01/14/18 11:32 Pulse Ox 95 01/14/18 11:32 Intake & Output 01/13/18 01/14/18 01/14/18 18:59 06:59 18:59 Intake Total 50 200 1000 Balance 50 200 1000 Weight (lbs) 55.52 kg Intake: Intake, IV Amount 50 150 1000 D5-0.45NS 1,000 ml @ 50 1000 mls/hr IV .Q20H [facility] Rx#: [id number] Piperacillin Sodium/ 50 150 Tazobact 3.375 gm In Sodium Chloride 0.9% 50 ml @ 100 mls/hr IV Q6HR [facility] Rx#:[id number] Oral 50 Other: # Voids 2 # Bowel Movements 0 Stool Characteristics Soft Formed Weight Source Bedscale Active Medications: Current Medications Acetaminophen (Tylenol) 650 mg PO Q4H PRN PRN Reason: Fever > 101 Stop: 02/28/18 23:58 Last Admin: 01/01/18 18:09 Dose: 650 mg Acetaminophen (Tylenol 650mg Supp) 650 mg RC Q4H PRN PRN Reason: Fever > 101 Stop: 03/03/18 14:05 Last Admin: 01/03/18 03:56 Dose: 650 mg Albuterol/Ipratropium (Duoneb Neb) 3 ml HHN [id number] [facility] Stop: 03/07/18 18:59 Last Admin: 01/14/18 07:06 Dose: 3 ml Alprazolam (Xanax) 0.25 mg PO Q8HR PRN; Protocol PRN Reason: Agitation Stop: 03/09/18 18:30 Last Admin: 01/12/18 16:03 Dose: 0.25 mg Aspirin (Aspirin Chewable) 81 mg PO DAILY [facility] Stop: 03/12/18 08:59 Last Admin: 01/14/18 10:43 Dose: Not Given Atorvastatin Calcium (Lipitor) 10 mg PO DAILY [facility]; Protocol Stop: 02/26/18 10:59 Last Admin: 01/14/18 10:43 Dose: Not Given Bisacodyl (Dulcolax 10 Mg Supp) 10 mg RC DAILY PRN PRN Reason: Constipation Stop: 02/25/18 06:58 Last Admin: 01/02/18 20:41 Dose: 10 mg Piperacillin Sod/Tazobactam (Sod 3.375 gm/ Sodium Chloride) 50 mls @ 100 mls/ hr IV Q6HR [facility] Stop: 03/05/18 03:59 Last Admin: 01/14/18 11:54 Dose: 100 mls/hr Dextrose/Sodium Chloride (D5-0.45ns) 1,000 mls @ 50 mls/hr IV .Q20H [facility] Stop: 03/13/18 08:59 Last Admin: 01/14/18 11:59 Dose: 50 mls/hr Lactobacillus Rhamnosus (Culturelle 15b) 1 each PO DAILY [facility] Stop: 03/03/18 08:59 Last Admin: 01/14/18 10:44 Dose: Not Given Levothyroxine Sodium (Synthroid) 0.025 mg PO DAILY [facility] Stop: 02/25/18 08:59 Last Admin: 01/14/18 10:44 Dose: Not Given Lorazepam (Ativan) 0.5 mg IVP Q4HR PRN; Protocol PRN Reason: Agitation Stop: 03/01/18 17:48 Last Admin: 01/11/18 01:09 Dose: 0.5 mg Megestrol Acetate (Megace) 400 mg PO BID [facility]; Protocol Stop: 03/10/18 08:59 Last Admin: 01/14/18 10:44 Dose: Not Given Miscellaneous (Probiotic Screen) 1 ea MC PRN PRN PRN Reason: PROTOCOL Stop: 03/02/18 15:13 Ondansetron HCl (Zofran) 4 mg IV Q6H PRN PRN Reason: Nausea / Vomiting Stop: 03/06/18 11:38 Pantoprazole Sodium (Protonix) 40 mg IVP BID [facility] Stop: 03/04/18 16:59 Last Admin: 01/14/18 09:26 Dose: 40 mg Polyethylene Glycol (Miralax) 17 gm PO DAILY [facility] Stop: 02/25/18 08:59 Last Admin: 01/14/18 10:45 Dose: 17 gm Potassium Chloride (Klor-Con) 20 meq PO DAILY [facility] Stop: 03/07/18 08:59 Last Admin: 01/14/18 10:44 Dose: Not Given Valsartan (Diovan) 80 mg PO DAILY [facility] Stop: 02/25/18 08:59 Last Admin: 01/14/18 10:43 Dose: Not Given General: no acute distress, well developed, well nourished HEENT: atraumatic, normocephalic, PERRLA, EOMI Neck: supple, no thyromegaly Cardiovascular: S1S2, regular Lungs: clear to auscultation bilaterally, clear to percussion Abdomen: soft, no tender, no distended, no mass Extremities: no cyanosis, no clubbing, no edema Neurological: awake, other (confused.) Infectious Disease Assmt/Plan - Assessment Assessment: 1. Leukocytosis worse again, no fever. ? leukomoid reaction. 2. Aspiration pneumonia. 3. UTI treated. 4. Dementia. 5. Hypertension. - Plan Plan: Continue Zosyn. Discussed with family. Check CXR.. Nutritional Asmnt/Malnutr-PDOC - Dietary Evaluation Malnutrition Findings (Please click <Entered> for more info): Nutritional Asmnt/Malnutrition Start: 12/30/17 16: 04 Text: Status: Complete Freq: Protocol: Document 12/30/17 16:04 TAMI (Rec: 12/30/17 16:14 TAMI [email or web address]) Nutritional Asmnt/Malnutrition Patient General Information Nutritional Screening Moderate Risk Diagnosis elevated troponin Pertinent Medical Hx/Surgical Hx HTN, dementia, hypothyroidism Subjective Information Pt seen sleeping in bed at time of visit, family at bedside. Per family, pt was very sleepy, only had few bites of brearfast this morning. Per EMR, PO intake about 25-50%. Per family, pt likes chocoalte icecream and pudding. Current Diet Order/ Nutrition Support cardiac Pertinent Medications lipitor, D5-0.25ns, synthroid, miralax, seroquel Pertinent Labs 12/27 Cl 110 Nutritional Hx/Data Height 1.6 m Height (Calculated Centimeters) 160.0 Current Weight (lbs) 62.596 kg Weight (Calculated Kilograms) 62.6 Weight (Calculated Grams) 55767.7 [place] Body Weight 115 Body Mass Index (BMI) 24.4 Weight Status Approriate GI Symptoms GI Symptoms None Last BM 12/27 Difficult in: None Skin Integrity/Comment: skin intact, reddened to buttocks Current %PO Poor (25-49%) Estimated Nutritional Goals BEE in Kcals: Using Current wt Calories/Kcals/Kg 25-30 Kcals Calculated 4043-1671 Protein: Using Current wt Protein g/k Protein Calculated 63 Fluid: ml 1575-1890ml (1ml/kcal) Nutritional Problem 1. Problem Problem inadequate food intake Etiology possible poor appetite Signs/Symptoms: PO intake 25-50% Malnutrition Alert Is there a minimum of two criteria No selected? Query Text:Check all the applicable criteria. A minimum of two criteria are recommended for diagnosis of either severe or non-severe malnutrition. Malnutrition Related to Morbid Obesity Malnutrition related to morbid obesity No Intervention/Recommendation Comments 1. Continue with current diet as ordered. Family request nutrition supplements. Send one bottle of chocolate ensure per family request at lunch. Will consider adding supplements if PO intake continue <50%. Nurses to assist pt with meals and encourage oral intake. 2. Monitor PO intake, wt, labs and skin integrity 3. F/U as high risk in 2-3 days, 01/01-01/02 Expected Outcomes/Goals Expected Outcomes/Goals 1. PO intake to meet at least 75% of nutritional needs. 2. Wt stability, skin to remain intact, labs to approach WNL.
--- NOTE | 2018-01-15 04:49 | General Progress Note ---
Subjective - Review of Systems Service Date: 01/15/18 Subjective: Awake, alert but confused. Left lower lobe PNA noted on CT chest. Patient currently on pureed diet. Objective - Results Result Diagrams: 01/14/18 08:38 01/14/18 08:38 Recent Labs: Laboratory Last Values WBC 14.8 Th/cmm (4.8-10.8) H 01/14/18 08:38 RBC 3.86 Mil/cmm (3.80-5.20) 01/14/18 08:38 Hgb 11.7 gm/dL (12-16) L 01/14/18 08:38 Hct 36.2 % (41.0-60) L 01/14/18 08:38 MCV 94.0 fl (81-100) 01/14/18 08:38 MCH 30.3 pg (27.0-31.0) 01/14/18 08:38 MCHC Differential 32.2 pg (28.0-36.0) 01/14/18 08:38 RDW 14.6 % (11.5-20.0) 01/14/18 08:38 Plt Count 956 Th/cmm (150-400) H* 01/14/18 08:38 MPV 8.1 fl 01/14/18 08:38 Add Manual Diff YES 01/14/18 08:38 Neutrophils % 69.3 % (40.0-80.0) 01/11/18 08:50 Band Neutrophils % 1 % (0-10) 01/13/18 05:30 Lymphocytes % 20.4 % (20.0-50.0) 01/11/18 08:50 Monocytes % 7.1 % (2.0-10.0) 01/11/18 08:50 Eosinophils % 3.2 % (0.0-5.0) 01/11/18 08:50 Basophils % 0.0 % (0.0-2.0) 01/11/18 08:50 Neutrophils (Manual) 75 % (40-80) 01/14/18 08:38 Lymphocytes 17 % (20-50) L 01/14/18 08:38 Monocytes 3 % (2-10) 01/14/18 08:38 Eosinophils 5 % (0-5) 01/14/18 08:38 Basophils 0 % (0-3) 01/08/18 05:35 Platelet Estimate INCREASED PLATELETS (NORMAL) 01/14/18 08:38 Smear Path Review 01/08/18 05:35 ESR 62 mm/hr (0-30) H 01/03/18 04:45 PT 9.5 SECONDS (9.5-11.5) 12/26/17 17:15 INR 0.91 (0.5-1.4) 12/26/17 17:15 PTT (Actin FS) 24.5 SECONDS (26.0-38.0) L 12/26/17 17:15 Sodium 140 mEq/L (136-145) 01/14/18 08:38 Potassium 3.9 mEq/L (3.5-5.1) 01/14/18 08:38 Chloride 112 mEq/L (98-107) H 01/14/18 08:38 Carbon Dioxide 19.5 mEq/L (21.0-31.0) L 01/14/18 08:38 Anion Gap 12.4 (7.0-16.0) 01/14/18 08:38 BUN 6 mg/dL (7-25) L 01/14/18 08:38 Creatinine 0.8 mg/dL (0.6-1.2) 01/14/18 08:38 Est GFR ( Amer) TNP 01/14/18 08:38 Est GFR (Non-Af Amer) TNP 01/14/18 08:38 BUN/Creatinine Ratio 7.5 01/14/18 08:38 Glucose 104 mg/dL (70-105) 01/14/18 08:38 Uric Acid 3.3 mg/dL (2.3-6.6) 01/03/18 04:45 Calcium 9.5 mg/dL (8.6-10.3) 01/14/18 08:38 Iron 59 ug/dL (27-139) 01/13/18 05:30 TIBC 227 ug/dL (250-450) L 01/13/18 05:30 Iron Saturation 26 % (15-55) 01/13/18 05:30 Unsaturated IBC 168 ug/dL (118-369) 01/13/18 05:30 Ferritin 183 ng/mL (15-150) H 01/13/18 05:30 Total Bilirubin 0.3 mg/dL (0.3-1.0) 01/12/18 04:50 AST 14 U/L (13-39) 01/12/18 04:50 ALT 14 U/L (7-52) 01/12/18 04:50 Alkaline Phosphatase 70 U/L (34-104) 01/12/18 04:50 Ammonia 52 umol/L (16-53) 12/31/17 05:40 Troponin I 0.03 ng/mL (0.01-0.05) 01/07/18 05:30 Total Protein 6.9 gm/dL (6.0-8.3) 01/12/18 04:50 Albumin 3.5 gm/dL (3.7-5.3) L 01/12/18 04:50 Globulin 3.4 gm/dL 01/12/18 04:50 Albumin/Globulin Ratio 1.0 (1.0-1.8) 01/12/18 04:50 Triglycerides 78 mg/dL (<150) 12/27/17 07:47 Cholesterol 249 mg/dL (<200) H 12/27/17 07:47 LDL Cholesterol Direct 198 mg/dL (75-193) H 12/27/17 07:47 HDL Cholesterol 45 mg/dL (23-92) 12/27/17 07:47 Vitamin B12 707 pg/mL (232-1245) 12/30/17 06:00 Folic Acid 16.7 ng/mL (>3.0) 12/30/17 06:00 TSH 3.88 uIU/ml (0.34-5.60) 12/26/17 17:15 Urine Source CATH 12/31/17 08:20 Urine Color YELLOW 12/31/17 08:20 Urine Clarity CLEAR (CLEAR) 12/31/17 08:20 Urine pH 6.5 (4.6 - 8.0) 12/31/17 08:20 Ur Specific [place] 1.010 (1.005-1.030) 12/31/17 08:20 Urine Protein TRACE mg/dL (NEGATIVE) 12/31/17 08:20 Urine Glucose (UA) NEGATIVE mg/dL (NEGATIVE) 12/31/17 08:20 Urine Ketones NEGATIVE mg/dL (NEGATIVE) 12/31/17 08:20 Urine Blood NEGATIVE (NEGATIVE) 12/31/17 08:20 Urine Nitrate NEGATIVE (NEGATIVE) 12/31/17 08:20 Urine Bilirubin NEGATIVE (NEGATIVE) 12/31/17 08:20 Urine Urobilinogen 0.2 E.U./dL (0.2 - 1.0) 12/31/17 08:20 Ur Leukocyte Esterase NEGATIVE (NEGATIVE) 12/31/17 08:20 Urine RBC 0-2 /hpf (0-5) 12/31/17 08:20 Urine WBC 0-2 /hpf (0-5) 12/31/17 08:20 Ur Epithelial Cells RARE /lpf (FEW) 12/31/17 08:20 Urine Bacteria NONE SEEN /hpf (NONE SEEN) 12/31/17 08:20 Urine Mucus FEW /lpf (FEW) 12/31/17 08:20 Stool Leukocyte NO WBC SEEN 01/10/18 17:00 Rheumatoid Factor 15.5 IU/mL (0.0-13.9) H 01/03/18 04:45 ELSA Screen Negative 01/03/18 04:45 - Physical Exam Vitals and I&O: Vital Signs Temp 97.4 F 01/15/18 03:00 Pulse 77 01/15/18 03:00 Resp 17 01/15/18 04:00 BP 135/70 01/15/18 03:00 Pulse Ox 97 01/15/18 03:00 Intake & Output 01/14/18 01/14/18 01/15/18 06:59 18:59 06:59 Intake Total 200 1250 150 Balance 200 1250 150 Weight (lbs) 55.52 kg 55.338 kg 57.606 kg Intake: Intake, IV Amount 150 1000 100 D5-0.45NS 1,000 ml @ 50 1000 mls/hr IV .Q20H [facility] Rx#: [id number] Piperacillin Sodium/ 150 100 Tazobact 3.375 gm In Sodium Chloride 0.9% 50 ml @ 100 mls/hr IV Q6HR [facility] Rx#:[id number] Oral 50 250 50 Other: # Voids 2 5 3 # Bowel Movements 0 1 1 Weight Source Bedscale Bedscale Bedscale Active Medications: Current Medications Acetaminophen (Tylenol) 650 mg PO Q4H PRN PRN Reason: Fever > 101 Stop: 02/28/18 23:58 Last Admin: 01/01/18 18:09 Dose: 650 mg Acetaminophen (Tylenol 650mg Supp) 650 mg RC Q4H PRN PRN Reason: Fever > 101 Stop: 03/03/18 14:05 Last Admin: 01/03/18 03:56 Dose: 650 mg Albuterol/Ipratropium (Duoneb Neb) 3 ml HHN [id number] [facility] Stop: 03/07/18 18:59 Last Admin: 01/14/18 19:00 Dose: Not Given Alprazolam (Xanax) 0.25 mg PO Q8HR PRN; Protocol PRN Reason: Agitation Stop: 03/09/18 18:30 Last Admin: 01/14/18 20:37 Dose: 0.25 mg Aspirin (Aspirin Chewable) 81 mg PO DAILY [facility] Stop: 03/12/18 08:59 Last Admin: 01/14/18 10:43 Dose: Not Given Atorvastatin Calcium (Lipitor) 10 mg PO DAILY [facility]; Protocol Stop: 02/26/18 10:59 Last Admin: 01/14/18 10:43 Dose: Not Given Bisacodyl (Dulcolax 10 Mg Supp) 10 mg RC DAILY PRN PRN Reason: Constipation Stop: 02/25/18 06:58 Last Admin: 01/02/18 20:41 Dose: 10 mg Piperacillin Sod/Tazobactam (Sod 3.375 gm/ Sodium Chloride) 50 mls @ 100 mls/ hr IV Q6HR [facility] Stop: 03/05/18 03:59 Last Infusion: 01/15/18 01:00 Dose: Infused Dextrose/Sodium Chloride (D5-0.45ns) 1,000 mls @ 50 mls/hr IV .Q20H [facility] Stop: 03/13/18 08:59 Last Admin: 01/14/18 11:59 Dose: 50 mls/hr Lactobacillus Rhamnosus (Culturelle 15b) 1 each PO DAILY [facility] Stop: 03/03/18 08:59 Last Admin: 01/14/18 10:44 Dose: Not Given Levothyroxine Sodium (Synthroid) 0.025 mg PO DAILY [facility] Stop: 02/25/18 08:59 Last Admin: 01/14/18 10:44 Dose: Not Given Lorazepam (Ativan) 0.5 mg IVP Q4HR PRN; Protocol PRN Reason: Agitation Stop: 03/01/18 17:48 Last Admin: 01/11/18 01:09 Dose: 0.5 mg Megestrol Acetate (Megace) 400 mg PO BID [facility]; Protocol Stop: 03/10/18 08:59 Last Admin: 01/14/18 18:36 Dose: 400 mg Miscellaneous (Probiotic Screen) 1 ea MC PRN PRN PRN Reason: PROTOCOL Stop: 03/02/18 15:13 Ondansetron HCl (Zofran) 4 mg IV Q6H PRN PRN Reason: Nausea / Vomiting Stop: 03/06/18 11:38 Pantoprazole Sodium (Protonix) 40 mg IVP BID [facility] Stop: 03/04/18 16:59 Last Admin: 01/14/18 18:40 Dose: Not Given Polyethylene Glycol (Miralax) 17 gm PO DAILY [facility] Stop: 02/25/18 08:59 Last Admin: 01/14/18 10:45 Dose: 17 gm Potassium Chloride (Klor-Con) 20 meq PO DAILY [facility] Stop: 03/07/18 08:59 Last Admin: 01/14/18 10:44 Dose: Not Given Valsartan (Diovan) 80 mg PO DAILY [facility] Stop: 02/25/18 08:59 Last Admin: 01/14/18 10:43 Dose: Not Given General: Alert, Oriented x3 HEENT: Atraumatic, PERRLA, EOMI Neck: Supple Cardiovascular: Regular rate Lungs: Clear to auscultation Abdomen: Bowel sounds, Soft, no Tender, no Hepatomegaly, no Splenomegaly, no Rebound, no Mass, no Guarding Extremities: no Clubbing, no Cyanosis, no Edema Neurological: Normal gait, Normal speech Psych/Mental Status: no Mental status NL Assessment/Plan - Assessment Assessment: elevated troponins improved ... now normal Non q-wave WI ... 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 continue current medications HTN slightly elevated ... on diovan 80mg PO daily, will add clonidine PRN UTI...continue IV anitbiotics. UA for C&S hyperlipidemia ... on statins FUO .... repeat CBC, chest xray this AM. will order ELSA,ESR,RA,Uric Acid coffee ground emesis ... will order IV Protonix. Will order GI consult. hypokalemia ... on kdur 20meq PO daily. Rheumatoid Arthritis .... 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 bilateral infiltrates likely aspiration PNA ... will reorder CT chest. anorexia ... will order Megace. Alzheimer's dementia ... neurology consult as outpatient. - Plan Plan: continue current treatment, for fpc evaluation Nutritional Asmnt/Malnutr-PDOC - Dietary Evaluation Malnutrition Findings (Please click <Entered> for more info): Nutritional Asmnt/Malnutrition Start: 12/30/17 16: 04 Text: Status: Complete Freq: Protocol: Document 12/30/17 16:04 LCHENG (Rec: 12/30/17 16:14 LCHENG [email or web address]) Nutritional Asmnt/Malnutrition Patient General Information Nutritional Screening Moderate Risk Diagnosis elevated troponin Pertinent Medical Hx/Surgical Hx HTN, dementia, hypothyroidism Subjective Information Pt seen sleeping in bed at time of visit, family at bedside. Per family, pt was very sleepy, only had few bites of brearfast this morning. Per EMR, PO intake about 25-50%. Per family, pt likes chocoalte icecream and pudding. Current Diet Order/ Nutrition Support cardiac Pertinent Medications lipitor, D5-0.25ns, synthroid, miralax, seroquel Pertinent Labs 12/27 Cl 110 Nutritional Hx/Data Height 1.6 m Height (Calculated Centimeters) 160.0 Current Weight (lbs) 62.596 kg Weight (Calculated Kilograms) 62.6 Weight (Calculated Grams) 26756.7 [place] Body Weight 115 Body Mass Index (BMI) 24.4 Weight Status Approriate GI Symptoms GI Symptoms None Last BM 12/27 Difficult in: None Skin Integrity/Comment: skin intact, reddened to buttocks Current %PO Poor (25-49%) Estimated Nutritional Goals BEE in Kcals: Using Current wt Calories/Kcals/Kg 25-30 Kcals Calculated 7212-7268 Protein: Using Current wt Protein g/k Protein Calculated 63 Fluid: ml 1575-1890ml (1ml/kcal) Nutritional Problem 1. Problem Problem inadequate food intake Etiology possible poor appetite Signs/Symptoms: PO intake 25-50% Malnutrition Alert Is there a minimum of two criteria No selected? Query Text:Check all the applicable criteria. A minimum of two criteria are recommended for diagnosis of either severe or non-severe malnutrition. Malnutrition Related to Morbid Obesity Malnutrition related to morbid obesity No Intervention/Recommendation Comments 1. Continue with current diet as ordered. Family request nutrition supplements. Send one bottle of chocolate ensure per family request at lunch. Will consider adding supplements if PO intake continue <50%. Nurses to assist pt with meals and encourage oral intake. 2. Monitor PO intake, wt, labs and skin integrity 3. F/U as high risk in 2-3 days, 01/01-01/02 Expected Outcomes/Goals Expected Outcomes/Goals 1. PO intake to meet at least 75% of nutritional needs. 2. Wt stability, skin to remain intact, labs to approach WNL.
[2018-01-15 06:32] LABS: HEMATOCRIT 35.9 % (41.0-60); HEMOGLOBIN 11.7 gm/dL (12-16); MEAN CELL VOLUME 94.1 fl (81-100); MEAN CORPUSCULAR HEMOGLOBIN 30.7 pg (27.0-31.0); MEAN CORPUSCULAR HGB CONC 32.6 pg (28.0-36.0); MEAN PLATELET VOLUME 8.3 fl; RED BLOOD COUNT 3.81 Mil/cmm (3.80-5.20); RED CELL DISTRIBUTION WIDTH 14.5 % (11.5-20.0); WHITE BLOOD COUNT 14.2 Th/cmm (4.8-10.8)
[2018-01-15 06:46] LABS: ANION GAP 11.6 (7.0-16.0); BUN - UREA NITROGEN 9 mg/dL (7-25); CALCIUM SERUM 9.4 mg/dL (8.6-10.3); CARBON DIOXIDE 19.4 mEq/L (21.0-31.0); CHLORIDE 112 mEq/L (98-107); CREATININE - SERUM 0.8 mg/dL (0.6-1.2); GLUCOSE 107 mg/dL (70-105); SODIUM SERUM 139 mEq/L (136-145)
[2018-01-15 06:48] LABS: PLATELET COUNT 999 Th/cmm (150-400)
[2018-01-15] MEDS: Albuterol/Ipratropium Neb 3 ML AERS HHN SCH ×3 (07:16→18:45)
--- NOTE | 2018-01-15 07:20 | Progress Notes ---
DATE: SUBJECTIVE: Chart reviewed and the patient interviewed. Also discussed the patient's condition with the staff and reviewed records and labs. The patient is still withdrawn and depressed. The patient also seems to be confused and did not answer any of my questions. The patient also is interacting minimally. Otherwise, the patient is calm and no major behavioral problems. ASSESSMENT: The patient currently seems to be depressed, but no major behavioral problems. We will continue to monitor her behavior with no psychotropic medications and will continue to follow up. [facility]# [id number]
[2018-01-15 08:39] LABS: BAND NEUTROPHILE 0 % (0-10); NEUTROPHILS 70 % (40-80)
[2018-01-15 08:40] LABS: EOSINOPHIL 1 % (0-5); LYMPHOCYTE 22 % (20-50); MONOCYTE 7 % (2-10); PLATELET ESTIMATE INCREASED PLATELETS (NORMAL)
[2018-01-15] MEDS: POLYETHYLENE GLYCOL 3350 17 GM PACK PO SCH (10:08)
[2018-01-15] MEDS: Levothyroxine 0.025 Mg Tab PO SCH (10:17)
[2018-01-15] MEDS: Atorvastatin Calcium 10 MG TAB PO SCH (10:17)
[2018-01-15] MEDS: Lactobacillus Rhamnosus GG 15 Billion CFU CAP.SPRINK PO SCH (10:17)
[2018-01-15] MEDS: Potassium Chloride 20 mEq ER Tab PO SCH (10:17)
[2018-01-15] MEDS: Aspirin 81mg Chewable Tab PO SCH (10:17)
--- NOTE | 2018-01-15 13:36 | Diagnostic Imaging Report ---
Ultrasound abdomen HISTORY: Abdominal pain COMPARISON: CT abdomen and pelvis on 01/04/2018. Note that the spleen is not well-visualized on this exam. Technique: Sonography of the abdomen was performed in multiple planes. FINDINGS: Exam is limited due to body habitus and bowel gas. The liver demonstrates normal echogenicity and measures 13 cm. No evidence of focal lesions. Low-level echoes are seen within the gallbladder. The gallbladder wall measures 3 mm. No pericholecystic fluid. The common bile duct measures 6 mm. Evaluation of the pancreas is limited due to bowel gas The right kidney measures 9.1 x 10.8 cm. The left kidney measures 10.8 x 5.2 cm. The spleen was not well identified. IMPRESSION: Limited exam due to body habitus and bowel gas. The spleen was not well identified. Note the spleen was also not seen previous CT examination of 01/04/2018. There may be is partially calcified splenule of the left upper quadrant on the previous CT exam. Low level echoes within the gallbladder which may be due to gallbladder sludge and/or small gallbladder stones. Borderline prominent gallbladder wall is noted, nonspecific. No pericholecystic fluid. No evidence of hydronephrosis.
--- NOTE | 2018-01-15 13:42 | GI Progress Note ---
Subjective - Review of Systems Service Date: 01/15/18 Events since last encounter: Not eating Subjective: Not eating Objective - Results Result Diagrams: 01/15/18 05:35 01/15/18 05:35 Recent Labs: Laboratory Last Values WBC 14.2 Th/cmm (4.8-10.8) H 01/15/18 05:35 RBC 3.81 Mil/cmm (3.80-5.20) 01/15/18 05:35 Hgb 11.7 gm/dL (12-16) L 01/15/18 05:35 Hct 35.9 % (41.0-60) L 01/15/18 05:35 MCV 94.1 fl (81-100) 01/15/18 05:35 MCH 30.7 pg (27.0-31.0) 01/15/18 05:35 MCHC Differential 32.6 pg (28.0-36.0) 01/15/18 05:35 RDW 14.5 % (11.5-20.0) 01/15/18 05:35 Plt Count 999 Th/cmm (150-400) H* 01/15/18 05:35 MPV 8.3 fl 01/15/18 05:35 Add Manual Diff YES 01/15/18 05:35 Neutrophils % [employer] 01/15/18 05:35 Band Neutrophils % 0 % (0-10) 01/15/18 05:35 Lymphocytes % [employer] 01/15/18 05:35 Monocytes % [employer] 01/15/18 05:35 Eosinophils % [employer] 01/15/18 05:35 Basophils % [employer] 01/15/18 05:35 Neutrophils (Manual) 70 % (40-80) 01/15/18 05:35 Lymphocytes 22 % (20-50) 01/15/18 05:35 Monocytes 7 % (2-10) 01/15/18 05:35 Eosinophils 1 % (0-5) 01/15/18 05:35 Basophils 0 % (0-3) 01/08/18 05:35 Platelet Estimate INCREASED PLATELETS (NORMAL) 01/15/18 05:35 Smear Path Review 01/08/18 05:35 ESR 62 mm/hr (0-30) H 01/03/18 04:45 PT 9.5 SECONDS (9.5-11.5) 12/26/17 17:15 INR 0.91 (0.5-1.4) 12/26/17 17:15 PTT (Actin FS) 24.5 SECONDS (26.0-38.0) L 12/26/17 17:15 Sodium 139 mEq/L (136-145) 01/15/18 05:35 Potassium 4.0 mEq/L (3.5-5.1) 01/15/18 05:35 Chloride 112 mEq/L (98-107) H 01/15/18 05:35 Carbon Dioxide 19.4 mEq/L (21.0-31.0) L 01/15/18 05:35 Anion Gap 11.6 (7.0-16.0) 01/15/18 05:35 BUN 9 mg/dL (7-25) 01/15/18 05:35 Creatinine 0.8 mg/dL (0.6-1.2) 01/15/18 05:35 Est GFR ( Amer) TNP 01/15/18 05:35 Est GFR (Non-Af Amer) TNP 01/15/18 05:35 BUN/Creatinine Ratio 11.3 01/15/18 05:35 Glucose 107 mg/dL (70-105) H 01/15/18 05:35 Uric Acid 3.3 mg/dL (2.3-6.6) 01/03/18 04:45 Calcium 9.4 mg/dL (8.6-10.3) 01/15/18 05:35 Iron 59 ug/dL (27-139) 01/13/18 05:30 TIBC 227 ug/dL (250-450) L 01/13/18 05:30 Iron Saturation 26 % (15-55) 01/13/18 05:30 Unsaturated IBC 168 ug/dL (118-369) 01/13/18 05:30 Ferritin 183 ng/mL (15-150) H 01/13/18 05:30 Total Bilirubin 0.3 mg/dL (0.3-1.0) 01/12/18 04:50 AST 14 U/L (13-39) 01/12/18 04:50 ALT 14 U/L (7-52) 01/12/18 04:50 Alkaline Phosphatase 70 U/L (34-104) 01/12/18 04:50 Ammonia 52 umol/L (16-53) 12/31/17 05:40 Troponin I 0.03 ng/mL (0.01-0.05) 01/07/18 05:30 Total Protein 6.9 gm/dL (6.0-8.3) 01/12/18 04:50 Albumin 3.5 gm/dL (3.7-5.3) L 01/12/18 04:50 Globulin 3.4 gm/dL 01/12/18 04:50 Albumin/Globulin Ratio 1.0 (1.0-1.8) 01/12/18 04:50 Triglycerides 78 mg/dL (<150) 12/27/17 07:47 Cholesterol 249 mg/dL (<200) H 12/27/17 07:47 LDL Cholesterol Direct 198 mg/dL (75-193) H 12/27/17 07:47 HDL Cholesterol 45 mg/dL (23-92) 12/27/17 07:47 Vitamin B12 707 pg/mL (232-1245) 12/30/17 06:00 Folic Acid 16.7 ng/mL (>3.0) 12/30/17 06:00 TSH 3.88 uIU/ml (0.34-5.60) 12/26/17 17:15 Urine Source CATH 12/31/17 08:20 Urine Color YELLOW 12/31/17 08:20 Urine Clarity CLEAR (CLEAR) 12/31/17 08:20 Urine pH 6.5 (4.6 - 8.0) 12/31/17 08:20 Ur Specific [place] 1.010 (1.005-1.030) 12/31/17 08:20 Urine Protein TRACE mg/dL (NEGATIVE) 12/31/17 08:20 Urine Glucose (UA) NEGATIVE mg/dL (NEGATIVE) 12/31/17 08:20 Urine Ketones NEGATIVE mg/dL (NEGATIVE) 12/31/17 08:20 Urine Blood NEGATIVE (NEGATIVE) 12/31/17 08:20 Urine Nitrate NEGATIVE (NEGATIVE) 12/31/17 08:20 Urine Bilirubin NEGATIVE (NEGATIVE) 12/31/17 08:20 Urine Urobilinogen 0.2 E.U./dL (0.2 - 1.0) 12/31/17 08:20 Ur Leukocyte Esterase NEGATIVE (NEGATIVE) 12/31/17 08:20 Urine RBC 0-2 /hpf (0-5) 12/31/17 08:20 Urine WBC 0-2 /hpf (0-5) 12/31/17 08:20 Ur Epithelial Cells RARE /lpf (FEW) 12/31/17 08:20 Urine Bacteria NONE SEEN /hpf (NONE SEEN) 12/31/17 08:20 Urine Mucus FEW /lpf (FEW) 12/31/17 08:20 Stool Leukocyte NO WBC SEEN 01/10/18 17:00 Rheumatoid Factor 15.5 IU/mL (0.0-13.9) H 01/03/18 04:45 ELSA Screen Negative 01/03/18 04:45 - Physical Exam Vitals and I&O: Vital Signs Temp 98.2 F 01/15/18 13:07 Pulse 67 01/15/18 13:07 Resp 17 01/15/18 13:07 BP 138/60 01/15/18 13:07 Pulse Ox 98 01/15/18 13:07 Intake & Output 01/14/18 01/15/18 01/15/18 18:59 06:59 18:59 Intake Total 1250 200 Balance 1250 200 Weight (lbs) 55.338 kg 57.606 kg Intake: Intake, IV Amount 1000 150 D5-0.45NS 1,000 ml @ 50 1000 mls/hr IV .Q20H [facility] Rx#: [id number] Piperacillin Sodium/ 150 Tazobact 3.375 gm In Sodium Chloride 0.9% 50 ml @ 100 mls/hr IV Q6HR [facility] Rx#:[id number] Oral 250 50 Other: # Voids 5 3 # Bowel Movements 1 1 Stool Characteristics Soft Weight Source Bedscale Bedscale Active Medications: Current Medications Acetaminophen (Tylenol) 650 mg PO Q4H PRN PRN Reason: Fever > 101 Stop: 02/28/18 23:58 Last Admin: 01/01/18 18:09 Dose: 650 mg Acetaminophen (Tylenol 650mg Supp) 650 mg RC Q4H PRN PRN Reason: Fever > 101 Stop: 03/03/18 14:05 Last Admin: 01/03/18 03:56 Dose: 650 mg Albuterol/Ipratropium (Duoneb Neb) 3 ml HHN [id number] [facility] Stop: 03/07/18 18:59 Last Admin: 01/15/18 07:16 Dose: 3 ml Alprazolam (Xanax) 0.25 mg PO Q8HR PRN; Protocol PRN Reason: Agitation Stop: 03/09/18 18:30 Last Admin: 01/14/18 20:37 Dose: 0.25 mg Aspirin (Aspirin Chewable) 81 mg PO DAILY [facility] Stop: 03/12/18 08:59 Last Admin: 01/15/18 10:17 Dose: Not Given Atorvastatin Calcium (Lipitor) 10 mg PO DAILY [facility]; Protocol Stop: 02/26/18 10:59 Last Admin: 01/15/18 10:17 Dose: Not Given Bisacodyl (Dulcolax 10 Mg Supp) 10 mg RC DAILY PRN PRN Reason: Constipation Stop: 02/25/18 06:58 Last Admin: 01/02/18 20:41 Dose: 10 mg Piperacillin Sod/Tazobactam (Sod 3.375 gm/ Sodium Chloride) 50 mls @ 100 mls/ hr IV Q6HR [facility] Stop: 03/05/18 03:59 Last Admin: 01/15/18 11:19 Dose: 100 mls/hr Dextrose/Sodium Chloride (D5-0.45ns) 1,000 mls @ 50 mls/hr IV .Q20H [facility] Stop: 03/13/18 08:59 Last Admin: 01/14/18 11:59 Dose: 50 mls/hr Lactobacillus Rhamnosus (Culturelle 15b) 1 each PO DAILY [facility] Stop: 03/03/18 08:59 Last Admin: 01/15/18 10:17 Dose: Not Given Levothyroxine Sodium (Synthroid) 0.025 mg PO DAILY [facility] Stop: 02/25/18 08:59 Last Admin: 01/15/18 10:17 Dose: Not Given Lorazepam (Ativan) 0.5 mg IVP Q4HR PRN; Protocol PRN Reason: Agitation Stop: 03/01/18 17:48 Last Admin: 01/11/18 01:09 Dose: 0.5 mg Megestrol Acetate (Megace) 400 mg PO BID [facility]; Protocol Stop: 03/10/18 08:59 Last Admin: 01/15/18 10:08 Dose: 400 mg Miscellaneous (Probiotic Screen) 1 ea MC PRN PRN PRN Reason: PROTOCOL Stop: 03/02/18 15:13 Ondansetron HCl (Zofran) 4 mg IV Q6H PRN PRN Reason: Nausea / Vomiting Stop: 03/06/18 11:38 Pantoprazole Sodium (Protonix) 40 mg IVP BID [facility] Stop: 03/04/18 16:59 Last Admin: 01/15/18 08:36 Dose: 40 mg Polyethylene Glycol (Miralax) 17 gm PO DAILY [facility] Stop: 02/25/18 08:59 Last Admin: 01/15/18 10:08 Dose: 17 gm Potassium Chloride (Klor-Con) 20 meq PO DAILY [facility] Stop: 03/07/18 08:59 Last Admin: 01/15/18 10:17 Dose: Not Given Valsartan (Diovan) 80 mg PO DAILY [facility] Stop: 02/25/18 08:59 Last Admin: 01/15/18 10:17 Dose: Not Given General: Alert, No acute distress HEENT: Atraumatic, PERRLA, EOMI Neck: Supple Cardiovascular: Regular rate, Normal S1, Normal S2 Lungs: Clear to auscultation Abdomen: Bowel sounds, Soft, no Tender, no Hepatomegaly, no Splenomegaly, no Rebound, no Mass, no Guarding Extremities: no Clubbing, no Cyanosis, no Edema Neurological: Normal gait, Normal speech Psych/Mental Status: no Mental status NL Assessment/Plan - Assessment Assessment: Decrease oral intake Failure to thrive - Plan Plan: 1. Failure to thrive D/W PEG on Thursday 2. Decrease oral intake Remeron if OK with psych and PEG on Thursday
[2018-01-15] MEDS: D5-0.45NS 1,000 ML IV SCH (19:25)
--- NOTE | 2018-01-15 23:34 | Infectious Disease Prog Note ---
Infectious Disease Subjective - Review of Systems Service Date: 01/15/18 Subjective: No fever today. Doing the same. Remains confused, refuses to take medicactions. Stable WBC count. Infectious Disease Objective - Results Result Diagrams: 01/15/18 05:35 01/15/18 05:35 Recent Labs: Laboratory Last Values WBC 14.2 Th/cmm (4.8-10.8) H 01/15/18 05:35 RBC 3.81 Mil/cmm (3.80-5.20) 01/15/18 05:35 Hgb 11.7 gm/dL (12-16) L 01/15/18 05:35 Hct 35.9 % (41.0-60) L 01/15/18 05:35 MCV 94.1 fl (81-100) 01/15/18 05:35 MCH 30.7 pg (27.0-31.0) 01/15/18 05:35 MCHC Differential 32.6 pg (28.0-36.0) 01/15/18 05:35 RDW 14.5 % (11.5-20.0) 01/15/18 05:35 Plt Count 999 Th/cmm (150-400) H* 01/15/18 05:35 MPV 8.3 fl 01/15/18 05:35 Add Manual Diff YES 01/15/18 05:35 Neutrophils % ANIMAL CARE ATTENDANT 01/15/18 05:35 Band Neutrophils % 0 % (0-10) 01/15/18 05:35 Lymphocytes % ANIMAL CARE ATTENDANT 01/15/18 05:35 Monocytes % ANIMAL CARE ATTENDANT 01/15/18 05:35 Eosinophils % ANIMAL CARE ATTENDANT 01/15/18 05:35 Basophils % ANIMAL CARE ATTENDANT 01/15/18 05:35 Neutrophils (Manual) 70 % (40-80) 01/15/18 05:35 Lymphocytes 22 % (20-50) 01/15/18 05:35 Monocytes 7 % (2-10) 01/15/18 05:35 Eosinophils 1 % (0-5) 01/15/18 05:35 Basophils 0 % (0-3) 01/08/18 05:35 Platelet Estimate INCREASED PLATELETS (NORMAL) 01/15/18 05:35 Smear Path Review 01/08/18 05:35 ESR 62 mm/hr (0-30) H 01/03/18 04:45 PT 9.5 SECONDS (9.5-11.5) 12/26/17 17:15 INR 0.91 (0.5-1.4) 12/26/17 17:15 PTT (Actin FS) 24.5 SECONDS (26.0-38.0) L 12/26/17 17:15 Sodium 139 mEq/L (136-145) 01/15/18 05:35 Potassium 4.0 mEq/L (3.5-5.1) 01/15/18 05:35 Chloride 112 mEq/L (98-107) H 01/15/18 05:35 Carbon Dioxide 19.4 mEq/L (21.0-31.0) L 01/15/18 05:35 Anion Gap 11.6 (7.0-16.0) 01/15/18 05:35 BUN 9 mg/dL (7-25) 01/15/18 05:35 Creatinine 0.8 mg/dL (0.6-1.2) 01/15/18 05:35 Est GFR ( Amer) TNP 01/15/18 05:35 Est GFR (Non-Af Amer) TNP 01/15/18 05:35 BUN/Creatinine Ratio 11.3 01/15/18 05:35 Glucose 107 mg/dL (70-105) H 01/15/18 05:35 Uric Acid 3.3 mg/dL (2.3-6.6) 01/03/18 04:45 Calcium 9.4 mg/dL (8.6-10.3) 01/15/18 05:35 Iron 59 ug/dL (27-139) 01/13/18 05:30 TIBC 227 ug/dL (250-450) L 01/13/18 05:30 Iron Saturation 26 % (15-55) 01/13/18 05:30 Unsaturated IBC 168 ug/dL (118-369) 01/13/18 05:30 Ferritin 183 ng/mL (15-150) H 01/13/18 05:30 Total Bilirubin 0.3 mg/dL (0.3-1.0) 01/12/18 04:50 AST 14 U/L (13-39) 01/12/18 04:50 ALT 14 U/L (7-52) 01/12/18 04:50 Alkaline Phosphatase 70 U/L (34-104) 01/12/18 04:50 Ammonia 52 umol/L (16-53) 12/31/17 05:40 Troponin I 0.03 ng/mL (0.01-0.05) 01/07/18 05:30 Total Protein 6.9 gm/dL (6.0-8.3) 01/12/18 04:50 Albumin 3.5 gm/dL (3.7-5.3) L 01/12/18 04:50 Globulin 3.4 gm/dL 01/12/18 04:50 Albumin/Globulin Ratio 1.0 (1.0-1.8) 01/12/18 04:50 Triglycerides 78 mg/dL (<150) 12/27/17 07:47 Cholesterol 249 mg/dL (<200) H 12/27/17 07:47 LDL Cholesterol Direct 198 mg/dL (75-193) H 12/27/17 07:47 HDL Cholesterol 45 mg/dL (23-92) 12/27/17 07:47 Vitamin B12 707 pg/mL (232-1245) 12/30/17 06:00 Folic Acid 16.7 ng/mL (>3.0) 12/30/17 06:00 TSH 3.88 uIU/ml (0.34-5.60) 12/26/17 17:15 Urine Source CATH 12/31/17 08:20 Urine Color YELLOW 12/31/17 08:20 Urine Clarity CLEAR (CLEAR) 12/31/17 08:20 Urine pH 6.5 (4.6 - 8.0) 12/31/17 08:20 Ur Specific [place] 1.010 (1.005-1.030) 12/31/17 08:20 Urine Protein TRACE mg/dL (NEGATIVE) 12/31/17 08:20 Urine Glucose (UA) NEGATIVE mg/dL (NEGATIVE) 12/31/17 08:20 Urine Ketones NEGATIVE mg/dL (NEGATIVE) 12/31/17 08:20 Urine Blood NEGATIVE (NEGATIVE) 12/31/17 08:20 Urine Nitrate NEGATIVE (NEGATIVE) 12/31/17 08:20 Urine Bilirubin NEGATIVE (NEGATIVE) 12/31/17 08:20 Urine Urobilinogen 0.2 E.U./dL (0.2 - 1.0) 12/31/17 08:20 Ur Leukocyte Esterase NEGATIVE (NEGATIVE) 12/31/17 08:20 Urine RBC 0-2 /hpf (0-5) 12/31/17 08:20 Urine WBC 0-2 /hpf (0-5) 12/31/17 08:20 Ur Epithelial Cells RARE /lpf (FEW) 12/31/17 08:20 Urine Bacteria NONE SEEN /hpf (NONE SEEN) 12/31/17 08:20 Urine Mucus FEW /lpf (FEW) 12/31/17 08:20 Stool Leukocyte NO WBC SEEN 01/10/18 17:00 Rheumatoid Factor 15.5 IU/mL (0.0-13.9) H 01/03/18 04:45 ELSA Screen Negative 01/03/18 04:45 - Physical Exam Vitals and I&O: Vital Signs Temp 98.5 F 01/15/18 16:21 Pulse 83 01/15/18 18:45 Resp 18 01/15/18 20:00 BP 142/64 01/15/18 16:21 Pulse Ox 95 01/15/18 18:45 Intake & Output 01/15/18 01/15/18 01/16/18 06:59 18:59 06:59 Intake Total 200 1050 100 Balance 200 1050 100 Weight (lbs) 57.606 kg 57.606 kg Intake: Intake, IV Amount 150 1050 D5-0.45NS 1,000 ml @ 50 1000 mls/hr IV .Q20H [facility] Rx#: [id number] Piperacillin Sodium/ 150 50 Tazobact 3.375 gm In Sodium Chloride 0.9% 50 ml @ 100 mls/hr IV Q6HR [facility] Rx#:[id number] Oral 50 100 Other: # Voids 3 3 # Bowel Movements 1 1 Stool Characteristics Soft Soft Weight Source Bedscale Bedscale Active Medications: Current Medications Acetaminophen (Tylenol) 650 mg PO Q4H PRN PRN Reason: Fever > 101 Stop: 02/28/18 23:58 Last Admin: 01/01/18 18:09 Dose: 650 mg Acetaminophen (Tylenol 650mg Supp) 650 mg RC Q4H PRN PRN Reason: Fever > 101 Stop: 03/03/18 14:05 Last Admin: 01/03/18 03:56 Dose: 650 mg Albuterol/Ipratropium (Duoneb Neb) 3 ml HHN [id number] [facility] Stop: 03/07/18 18:59 Last Admin: 01/15/18 18:45 Dose: 3 ml Alprazolam (Xanax) 0.25 mg PO Q8HR PRN; Protocol PRN Reason: Agitation Stop: 03/09/18 18:30 Last Admin: 01/15/18 13:58 Dose: 0.25 mg Atorvastatin Calcium (Lipitor) 10 mg PO DAILY [facility]; Protocol Stop: 02/26/18 10:59 Last Admin: 01/15/18 10:17 Dose: Not Given Bisacodyl (Dulcolax 10 Mg Supp) 10 mg RC DAILY PRN PRN Reason: Constipation Stop: 02/25/18 06:58 Last Admin: 01/02/18 20:41 Dose: 10 mg Piperacillin Sod/Tazobactam (Sod 3.375 gm/ Sodium Chloride) 50 mls @ 100 mls/ hr IV Q6HR [facility] Stop: 03/05/18 03:59 Last Admin: 01/15/18 17:33 Dose: 100 mls/hr Dextrose/Sodium Chloride (D5-0.45ns) 1,000 mls @ 50 mls/hr IV .Q20H [facility] Stop: 03/13/18 08:59 Last Admin: 01/15/18 19:25 Dose: 50 mls/hr Lactobacillus Rhamnosus (Culturelle 15b) 1 each PO DAILY [facility] Stop: 03/03/18 08:59 Last Admin: 01/15/18 10:17 Dose: Not Given Levothyroxine Sodium (Synthroid) 0.025 mg PO DAILY [facility] Stop: 02/25/18 08:59 Last Admin: 01/15/18 10:17 Dose: Not Given Lorazepam (Ativan) 0.5 mg IVP Q4HR PRN; Protocol PRN Reason: Agitation Stop: 03/01/18 17:48 Last Admin: 01/11/18 01:09 Dose: 0.5 mg Megestrol Acetate (Megace) 400 mg PO BID [facility]; Protocol Stop: 03/10/18 08:59 Last Admin: 01/15/18 17:28 Dose: 400 mg Mirtazapine (Remeron) 15 mg PO HS [facility]; Protocol Stop: 03/16/18 20:59 Last Admin: 01/15/18 21:38 Dose: 15 mg Miscellaneous (Probiotic Screen) 1 ea MC PRN PRN PRN Reason: PROTOCOL Stop: 03/02/18 15:13 Ondansetron HCl (Zofran) 4 mg IV Q6H PRN PRN Reason: Nausea / Vomiting Stop: 03/06/18 11:38 Pantoprazole Sodium (Protonix) 40 mg IVP BID [facility] Stop: 03/04/18 16:59 Last Admin: 01/15/18 17:17 Dose: 40 mg Polyethylene Glycol (Miralax) 17 gm PO DAILY [facility] Stop: 02/25/18 08:59 Last Admin: 01/15/18 10:08 Dose: 17 gm Potassium Chloride (Klor-Con) 20 meq PO DAILY [facility] Stop: 03/07/18 08:59 Last Admin: 01/15/18 10:17 Dose: Not Given Valsartan (Diovan) 80 mg PO DAILY [facility] Stop: 02/25/18 08:59 Last Admin: 01/15/18 10:17 Dose: Not Given General: no acute distress, cachectic HEENT: atraumatic, normocephalic, PERRLA, EOMI Neck: supple, no thyromegaly Cardiovascular: S1S2, regular Lungs: clear to auscultation bilaterally, clear to percussion Abdomen: soft, no tender, no distended Extremities: no cyanosis, no clubbing Neurological: awake, alert Skin: intact Infectious Disease Assmt/Plan - Assessment Assessment: 1. Leukocytosis, improving again, no fever. ? leukomoid reaction. 2. Aspiration pneumonia. 3. UTI treated. 4. Dementia. 5. Hypertension. - Plan Plan: Continue Zosyn for one more day. Nutritional Asmnt/Malnutr-PDOC - Dietary Evaluation Malnutrition Findings (Please click <Entered> for more info): Nutritional Asmnt/Malnutrition Start: 12/30/17 16: 04 Text: Status: Complete Freq: Protocol: Document 12/30/17 16:04 [id number] (Rec: 12/30/17 16:14 [id number]) Nutritional Asmnt/Malnutrition Patient General Information Nutritional Screening Moderate Risk Diagnosis elevated troponin Pertinent Medical Hx/Surgical Hx HTN, dementia, hypothyroidism Subjective Information Pt seen sleeping in bed at time of visit, family at bedside. Per family, pt was very sleepy, only had few bites of brearfast this morning. Per EMR, PO intake about 25-50%. Per family, pt likes chocoalte icecream and pudding. Current Diet Order/ Nutrition Support cardiac Pertinent Medications lipitor, D5-0.25ns, synthroid, miralax, seroquel Pertinent Labs 12/27 Cl 110 Nutritional Hx/Data Height 1.6 m Height (Calculated Centimeters) 160.0 Current Weight (lbs) 62.596 kg Weight (Calculated Kilograms) 62.6 Weight (Calculated Grams) 61693.7 [place] Body Weight 115 Body Mass Index (BMI) 24.4 Weight Status Approriate GI Symptoms GI Symptoms None Last BM 12/27 Difficult in: None Skin Integrity/Comment: skin intact, reddened to buttocks Current %PO Poor (25-49%) Estimated Nutritional Goals BEE in Kcals: Using Current wt Calories/Kcals/Kg 25-30 Kcals Calculated 7876-3482 Protein: Using Current wt Protein g/k Protein Calculated 63 Fluid: ml 1575-1890ml (1ml/kcal) Nutritional Problem 1. Problem Problem inadequate food intake Etiology possible poor appetite Signs/Symptoms: PO intake 25-50% Malnutrition Alert Is there a minimum of two criteria No selected? Query Text:Check all the applicable criteria. A minimum of two criteria are recommended for diagnosis of either severe or non-severe malnutrition. Malnutrition Related to Morbid Obesity Malnutrition related to morbid obesity No Intervention/Recommendation Comments 1. Continue with current diet as ordered. Family request nutrition supplements. Send one bottle of chocolate ensure per family request at lunch. Will consider adding supplements if PO intake continue <50%. Nurses to assist pt with meals and encourage oral intake. 2. Monitor PO intake, wt, labs and skin integrity 3. F/U as high risk in 2-3 days, 01/01-01/02 Expected Outcomes/Goals Expected Outcomes/Goals 1. PO intake to meet at least 75% of nutritional needs. 2. Wt stability, skin to remain intact, labs to approach WNL.
[2018-01-16 06:38] LABS: INR 1.03 (0.5-1.4); PROTHROMBIN TIME (TEST) 10.7 SECONDS (9.5-11.5)
[2018-01-16] MEDS: Albuterol/Ipratropium Neb 3 ML AERS HHN SCH ×3 (06:51→19:30)
[2018-01-16] MEDS: POLYETHYLENE GLYCOL 3350 17 GM PACK PO SCH (08:52)
[2018-01-16] MEDS: Levothyroxine 0.025 Mg Tab PO SCH ×2 (08:55→08:58)
[2018-01-16] MEDS: Potassium Chloride 20 mEq ER Tab PO SCH (08:59)
[2018-01-16] MEDS: Lactobacillus Rhamnosus GG 15 Billion CFU CAP.SPRINK PO SCH (08:59)
[2018-01-16] MEDS: Atorvastatin Calcium 10 MG TAB PO SCH (08:59)
--- NOTE | 2018-01-16 12:01 | GI Progress Note ---
Subjective - Review of Systems Service Date: 01/16/18 Events since last encounter: Ate a little bit more Subjective: Sleepy, eating better per family Objective - Results Result Diagrams: 01/15/18 05:35 01/15/18 05:35 Recent Labs: Laboratory Last Values WBC 14.2 Th/cmm (4.8-10.8) H 01/15/18 05:35 RBC 3.81 Mil/cmm (3.80-5.20) 01/15/18 05:35 Hgb 11.7 gm/dL (12-16) L 01/15/18 05:35 Hct 35.9 % (41.0-60) L 01/15/18 05:35 MCV 94.1 fl (81-100) 01/15/18 05:35 MCH 30.7 pg (27.0-31.0) 01/15/18 05:35 MCHC Differential 32.6 pg (28.0-36.0) 01/15/18 05:35 RDW 14.5 % (11.5-20.0) 01/15/18 05:35 Plt Count 999 Th/cmm (150-400) H* 01/15/18 05:35 MPV 8.3 fl 01/15/18 05:35 Add Manual Diff YES 01/15/18 05:35 Neutrophils % [employer]ER 01/15/18 05:35 Band Neutrophils % 0 % (0-10) 01/15/18 05:35 Lymphocytes % [employer] ASSEMBLER 01/15/18 05:35 Monocytes % [employer] ASSEMBLER 01/15/18 05:35 Eosinophils % [employer] ASSEMBLER 01/15/18 05:35 Basophils % [employer]OW[employer] ASSEMBLER 01/15/18 05:35 Neutrophils (Manual) 70 % (40-80) 01/15/18 05:35 Lymphocytes 22 % (20-50) 01/15/18 05:35 Monocytes 7 % (2-10) 01/15/18 05:35 Eosinophils 1 % (0-5) 01/15/18 05:35 Basophils 0 % (0-3) 01/08/18 05:35 Platelet Estimate INCREASED PLATELETS (NORMAL) 01/15/18 05:35 Smear Path Review 01/08/18 05:35 ESR 62 mm/hr (0-30) H 01/03/18 04:45 PT 10.7 SECONDS (9.5-11.5) 01/16/18 05:52 INR 1.03 (0.5-1.4) 01/16/18 05:52 PTT (Actin FS) 24.5 SECONDS (26.0-38.0) L 12/26/17 17:15 Sodium 139 mEq/L (136-145) 01/15/18 05:35 Potassium 4.0 mEq/L (3.5-5.1) 01/15/18 05:35 Chloride 112 mEq/L (98-107) H 01/15/18 05:35 Carbon Dioxide 19.4 mEq/L (21.0-31.0) L 01/15/18 05:35 Anion Gap 11.6 (7.0-16.0) 01/15/18 05:35 BUN 9 mg/dL (7-25) 01/15/18 05:35 Creatinine 0.8 mg/dL (0.6-1.2) 01/15/18 05:35 Est GFR ( Amer) TNP 01/15/18 05:35 Est GFR (Non-Af Amer) TNP 01/15/18 05:35 BUN/Creatinine Ratio 11.3 01/15/18 05:35 Glucose 107 mg/dL (70-105) H 01/15/18 05:35 Uric Acid 3.3 mg/dL (2.3-6.6) 01/03/18 04:45 Calcium 9.4 mg/dL (8.6-10.3) 01/15/18 05:35 Iron 59 ug/dL (27-139) 01/13/18 05:30 TIBC 227 ug/dL (250-450) L 01/13/18 05:30 Iron Saturation 26 % (15-55) 01/13/18 05:30 Unsaturated IBC 168 ug/dL (118-369) 01/13/18 05:30 Ferritin 183 ng/mL (15-150) H 01/13/18 05:30 Total Bilirubin 0.3 mg/dL (0.3-1.0) 01/12/18 04:50 AST 14 U/L (13-39) 01/12/18 04:50 ALT 14 U/L (7-52) 01/12/18 04:50 Alkaline Phosphatase 70 U/L (34-104) 01/12/18 04:50 Ammonia 52 umol/L (16-53) 12/31/17 05:40 Troponin I 0.03 ng/mL (0.01-0.05) 01/07/18 05:30 Total Protein 6.9 gm/dL (6.0-8.3) 01/12/18 04:50 Albumin 3.5 gm/dL (3.7-5.3) L 01/12/18 04:50 Globulin 3.4 gm/dL 01/12/18 04:50 Albumin/Globulin Ratio 1.0 (1.0-1.8) 01/12/18 04:50 Triglycerides 78 mg/dL (<150) 12/27/17 07:47 Cholesterol 249 mg/dL (<200) H 12/27/17 07:47 LDL Cholesterol Direct 198 mg/dL (75-193) H 12/27/17 07:47 HDL Cholesterol 45 mg/dL (23-92) 12/27/17 07:47 Vitamin B12 707 pg/mL (232-1245) 12/30/17 06:00 Folic Acid 16.7 ng/mL (>3.0) 12/30/17 06:00 TSH 3.88 uIU/ml (0.34-5.60) 12/26/17 17:15 Urine Source CATH 12/31/17 08:20 Urine Color YELLOW 12/31/17 08:20 Urine Clarity CLEAR (CLEAR) 12/31/17 08:20 Urine pH 6.5 (4.6 - 8.0) 12/31/17 08:20 Ur Specific [place] 1.010 (1.005-1.030) 12/31/17 08:20 Urine Protein TRACE mg/dL (NEGATIVE) 12/31/17 08:20 Urine Glucose (UA) NEGATIVE mg/dL (NEGATIVE) 12/31/17 08:20 Urine Ketones NEGATIVE mg/dL (NEGATIVE) 12/31/17 08:20 Urine Blood NEGATIVE (NEGATIVE) 12/31/17 08:20 Urine Nitrate NEGATIVE (NEGATIVE) 12/31/17 08:20 Urine Bilirubin NEGATIVE (NEGATIVE) 12/31/17 08:20 Urine Urobilinogen 0.2 E.U./dL (0.2 - 1.0) 12/31/17 08:20 Ur Leukocyte Esterase NEGATIVE (NEGATIVE) 12/31/17 08:20 Urine RBC 0-2 /hpf (0-5) 12/31/17 08:20 Urine WBC 0-2 /hpf (0-5) 12/31/17 08:20 Ur Epithelial Cells RARE /lpf (FEW) 12/31/17 08:20 Urine Bacteria NONE SEEN /hpf (NONE SEEN) 12/31/17 08:20 Urine Mucus FEW /lpf (FEW) 12/31/17 08:20 Stool Leukocyte NO WBC SEEN 01/10/18 17:00 Rheumatoid Factor 15.5 IU/mL (0.0-13.9) H 01/03/18 04:45 ELSA Screen Negative 01/03/18 04:45 - Physical Exam Vitals and I&O: Vital Signs Temp 97.3 F 01/16/18 07:35 Pulse 76 01/16/18 08:59 Resp 17 01/16/18 11:27 BP 141/76 01/16/18 08:59 Pulse Ox 98 01/16/18 07:35 Intake & Output 01/15/18 01/16/18 01/16/18 18:59 06:59 18:59 Intake Total 1100 155 Balance 1100 155 Weight (lbs) 53.977 kg Intake: Intake, IV Amount 1100 50 D5-0.45NS 1,000 ml @ 50 1000 mls/hr IV .Q20H [facility] Rx#: [id number] Piperacillin Sodium/ 100 50 Tazobact 3.375 gm In Sodium Chloride 0.9% 50 ml @ 100 mls/hr IV Q6HR [facility] Rx#:[id number] Oral 105 Other: # Voids 3 # Bowel Movements 0 Stool Characteristics Soft Soft Weight Source Bedscale Active Medications: Current Medications Acetaminophen (Tylenol) 650 mg PO Q4H PRN PRN Reason: Fever > 101 Stop: 02/28/18 23:58 Last Admin: 01/01/18 18:09 Dose: 650 mg Acetaminophen (Tylenol 650mg Supp) 650 mg RC Q4H PRN PRN Reason: Fever > 101 Stop: 03/03/18 14:05 Last Admin: 01/03/18 03:56 Dose: 650 mg Albuterol/Ipratropium (Duoneb Neb) 3 ml HHN [id number] [facility] Stop: 03/07/18 18:59 Last Admin: 01/16/18 06:51 Dose: 3 ml Alprazolam (Xanax) 0.25 mg PO Q8HR PRN; Protocol PRN Reason: Agitation Stop: 03/09/18 18:30 Last Admin: 01/15/18 13:58 Dose: 0.25 mg Atorvastatin Calcium (Lipitor) 10 mg PO DAILY [facility]; Protocol Stop: 02/26/18 10:59 Last Admin: 01/16/18 08:59 Dose: Not Given Bisacodyl (Dulcolax 10 Mg Supp) 10 mg RC DAILY PRN PRN Reason: Constipation Stop: 02/25/18 06:58 Last Admin: 01/02/18 20:41 Dose: 10 mg Piperacillin Sod/Tazobactam (Sod 3.375 gm/ Sodium Chloride) 50 mls @ 100 mls/ hr IV Q6HR [facility] Stop: 03/05/18 03:59 Last Admin: 01/16/18 06:12 Dose: 100 mls/hr Dextrose/Sodium Chloride (D5-0.45ns) 1,000 mls @ 50 mls/hr IV .Q20H [facility] Stop: 03/13/18 08:59 Last Admin: 01/15/18 19:25 Dose: 50 mls/hr Lactobacillus Rhamnosus (Culturelle 15b) 1 each PO DAILY [facility] Stop: 03/03/18 08:59 Last Admin: 01/16/18 08:59 Dose: Not Given Levothyroxine Sodium (Synthroid) 0.025 mg PO DAILY [facility] Stop: 02/25/18 08:59 Last Admin: 01/16/18 08:58 Dose: Not Given Lorazepam (Ativan) 0.5 mg IVP Q4HR PRN; Protocol PRN Reason: Agitation Stop: 03/01/18 17:48 Last Admin: 01/11/18 01:09 Dose: 0.5 mg Megestrol Acetate (Megace) 400 mg PO BID [facility]; Protocol Stop: 03/10/18 08:59 Last Admin: 01/16/18 08:51 Dose: 400 mg Mirtazapine (Remeron) 15 mg PO HS [facility]; Protocol Stop: 03/16/18 20:59 Last Admin: 01/15/18 21:38 Dose: 15 mg Miscellaneous (Probiotic Screen) 1 ea MC PRN PRN PRN Reason: PROTOCOL Stop: 11/20/18 15:13 Ondansetron HCl (Zofran) 4 mg IV Q6H PRN PRN Reason: Nausea / Vomiting Stop: 03/06/18 11:38 Pantoprazole Sodium (Protonix) 40 mg IVP BID [facility] Stop: 03/04/18 16:59 Last Admin: 01/16/18 08:52 Dose: 40 mg Polyethylene Glycol (Miralax) 17 gm PO DAILY [facility] Stop: 02/25/18 08:59 Last Admin: 01/16/18 08:52 Dose: 17 gm Potassium Chloride (Klor-Con) 20 meq PO DAILY [facility] Stop: 03/07/18 08:59 Last Admin: 01/16/18 08:59 Dose: Not Given Valsartan (Diovan) 80 mg PO DAILY [facility] Stop: 02/25/18 08:59 Last Admin: 01/16/18 08:59 Dose: Not Given General: No acute distress Cardiovascular: Regular rate, Normal S1, Normal S2 Lungs: Clear to auscultation Abdomen: Bowel sounds, Soft, no Tender, no Hepatomegaly, no Splenomegaly, no Rebound, no Mass, no Guarding Extremities: no Clubbing, no Cyanosis, no Edema Neurological: Normal gait, Normal speech Psych/Mental Status: no Mental status NL Assessment/Plan - Assessment Assessment: Decrease oral intake Failure to thrive - Plan Plan: 1. Failure to thrive D/W and 2 daughters Eating better Cont remeron and ensure PEG if not improving 2. Decrease oral intake Remeron and ensure and PEG if not eating enough
--- NOTE | 2018-01-16 17:32 | Progress Notes ---
DATE: SUBJECTIVE: Chart reviewed and the patient interviewed. Also discussed the patient's condition with the staff and reviewed records and labs. The patient continued to be calm and cooperative. The patient also is sleeping most of the time and she has no major behavioral problems. The patient also is easier to redirect her. The patient is only taking Xanax on p.r.n. basis and so far she has been compliant and cooperative with treatment with no major behavioral problems. She also is sleeping better with the Remeron except that she seems to be slightly sedated. At the same time, we will continue monitoring behavior and continue to working on her depression and followup. JOB# [id number]
[2018-01-16] MEDS: D5-0.45NS 1,000 ML IV SCH (18:26)
--- NOTE | 2018-01-17 05:37 | General Progress Note ---
Subjective - Review of Systems Service Date: 01/16/18 Subjective: Awake, alert but confused. doing fine. eating better. Objective - Results Result Diagrams: 01/15/18 05:35 01/15/18 05:35 Recent Labs: Laboratory Last Values WBC 14.2 Th/cmm (4.8-10.8) H 01/15/18 05:35 RBC 3.81 Mil/cmm (3.80-5.20) 01/15/18 05:35 Hgb 11.7 gm/dL (12-16) L 01/15/18 05:35 Hct 35.9 % (41.0-60) L 01/15/18 05:35 MCV 94.1 fl (81-100) 01/15/18 05:35 MCH 30.7 pg (27.0-31.0) 01/15/18 05:35 MCHC Differential 32.6 pg (28.0-36.0) 01/15/18 05:35 RDW 14.5 % (11.5-20.0) 01/15/18 05:35 Plt Count 999 Th/cmm (150-400) H* 01/15/18 05:35 MPV 8.3 fl 01/15/18 05:35 Add Manual Diff YES 01/15/18 05:35 Neutrophils % VARNISHING MACHINE OPERATOR 01/15/18 05:35 Band Neutrophils % 0 % (0-10) 01/15/18 05:35 Lymphocytes % VARNISHING MACHINE OPERATOR 01/15/18 05:35 Monocytes % VARNISHING MACHINE OPERATOR 01/15/18 05:35 Eosinophils % VARNISHING MACHINE OPERATOR 01/15/18 05:35 Basophils % VARNISHING MACHINE OPERATOR 01/15/18 05:35 Neutrophils (Manual) 70 % (40-80) 01/15/18 05:35 Lymphocytes 22 % (20-50) 01/15/18 05:35 Monocytes 7 % (2-10) 01/15/18 05:35 Eosinophils 1 % (0-5) 01/15/18 05:35 Basophils 0 % (0-3) 01/08/18 05:35 Platelet Estimate INCREASED PLATELETS (NORMAL) 01/15/18 05:35 Smear Path Review 01/08/18 05:35 ESR 62 mm/hr (0-30) H 01/03/18 04:45 PT 10.7 SECONDS (9.5-11.5) 01/16/18 05:52 INR 1.03 (0.5-1.4) 01/16/18 05:52 PTT (Actin FS) 24.5 SECONDS (26.0-38.0) L 12/26/17 17:15 Sodium 139 mEq/L (136-145) 01/15/18 05:35 Potassium 4.0 mEq/L (3.5-5.1) 01/15/18 05:35 Chloride 112 mEq/L (98-107) H 01/15/18 05:35 Carbon Dioxide 19.4 mEq/L (21.0-31.0) L 01/15/18 05:35 Anion Gap 11.6 (7.0-16.0) 01/15/18 05:35 BUN 9 mg/dL (7-25) 01/15/18 05:35 Creatinine 0.8 mg/dL (0.6-1.2) 01/15/18 05:35 Est GFR ( Amer) TNP 01/15/18 05:35 Est GFR (Non-Af Amer) TNP 01/15/18 05:35 BUN/Creatinine Ratio 11.3 01/15/18 05:35 Glucose 107 mg/dL (70-105) H 01/15/18 05:35 Uric Acid 3.3 mg/dL (2.3-6.6) 01/03/18 04:45 Calcium 9.4 mg/dL (8.6-10.3) 01/15/18 05:35 Iron 59 ug/dL (27-139) 01/13/18 05:30 TIBC 227 ug/dL (250-450) L 01/13/18 05:30 Iron Saturation 26 % (15-55) 01/13/18 05:30 Unsaturated IBC 168 ug/dL (118-369) 01/13/18 05:30 Ferritin 183 ng/mL (15-150) H 01/13/18 05:30 Total Bilirubin 0.3 mg/dL (0.3-1.0) 01/12/18 04:50 AST 14 U/L (13-39) 01/12/18 04:50 ALT 14 U/L (7-52) 01/12/18 04:50 Alkaline Phosphatase 70 U/L (34-104) 01/12/18 04:50 Ammonia 52 umol/L (16-53) 12/31/17 05:40 Troponin I 0.03 ng/mL (0.01-0.05) 01/07/18 05:30 Total Protein 6.9 gm/dL (6.0-8.3) 01/12/18 04:50 Albumin 3.5 gm/dL (3.7-5.3) L 01/12/18 04:50 Globulin 3.4 gm/dL 01/12/18 04:50 Albumin/Globulin Ratio 1.0 (1.0-1.8) 01/12/18 04:50 Triglycerides 78 mg/dL (<150) 12/27/17 07:47 Cholesterol 249 mg/dL (<200) H 12/27/17 07:47 LDL Cholesterol Direct 198 mg/dL (75-193) H 12/27/17 07:47 HDL Cholesterol 45 mg/dL (23-92) 12/27/17 07:47 Vitamin B12 707 pg/mL (232-1245) 12/30/17 06:00 Folic Acid 16.7 ng/mL (>3.0) 12/30/17 06:00 TSH 3.88 uIU/ml (0.34-5.60) 12/26/17 17:15 Urine Source CATH 12/31/17 08:20 Urine Color YELLOW 12/31/17 08:20 Urine Clarity CLEAR (CLEAR) 12/31/17 08:20 Urine pH 6.5 (4.6 - 8.0) 12/31/17 08:20 Ur Specific [place] 1.010 (1.005-1.030) 12/31/17 08:20 Urine Protein TRACE mg/dL (NEGATIVE) 12/31/17 08:20 Urine Glucose (UA) NEGATIVE mg/dL (NEGATIVE) 12/31/17 08:20 Urine Ketones NEGATIVE mg/dL (NEGATIVE) 12/31/17 08:20 Urine Blood NEGATIVE (NEGATIVE) 12/31/17 08:20 Urine Nitrate NEGATIVE (NEGATIVE) 12/31/17 08:20 Urine Bilirubin NEGATIVE (NEGATIVE) 12/31/17 08:20 Urine Urobilinogen 0.2 E.U./dL (0.2 - 1.0) 12/31/17 08:20 Ur Leukocyte Esterase NEGATIVE (NEGATIVE) 12/31/17 08:20 Urine RBC 0-2 /hpf (0-5) 12/31/17 08:20 Urine WBC 0-2 /hpf (0-5) 12/31/17 08:20 Ur Epithelial Cells RARE /lpf (FEW) 12/31/17 08:20 Urine Bacteria NONE SEEN /hpf (NONE SEEN) 12/31/17 08:20 Urine Mucus FEW /lpf (FEW) 12/31/17 08:20 Stool Leukocyte NO WBC SEEN 01/10/18 17:00 Rheumatoid Factor 15.5 IU/mL (0.0-13.9) H 01/03/18 04:45 ELSA Screen Negative 01/03/18 04:45 - Physical Exam Vitals and I&O: Vital Signs Temp 97.5 F 01/17/18 04:00 Pulse 71 01/17/18 04:00 Resp 18 01/17/18 04:00 BP 153/66 01/17/18 04:00 Pulse Ox 98 01/17/18 04:00 Intake & Output 01/16/18 01/16/18 01/17/18 06:59 18:59 06:59 Intake Total 205 1300 Balance 205 1300 Weight (lbs) 53.977 kg 53.977 kg Intake: Intake, IV Amount 100 1050 D5-0.45NS 1,000 ml @ 50 1000 mls/hr IV .Q20H [facility] Rx#: [id number] Piperacillin Sodium/ 100 50 Tazobact 3.375 gm In Sodium Chloride 0.9% 50 ml @ 100 mls/hr IV Q6HR [facility] Rx#:[id number] Oral 105 250 Other: # Voids 3 3 # Bowel Movements 0 0 Stool Characteristics Soft Weight Source Bedscale Bedscale Active Medications: Current Medications Acetaminophen (Tylenol) 650 mg PO Q4H PRN PRN Reason: Fever > 101 Stop: 02/28/18 23:58 Last Admin: 01/01/18 18:09 Dose: 650 mg Acetaminophen (Tylenol 650mg Supp) 650 mg RC Q4H PRN PRN Reason: Fever > 101 Stop: 03/03/18 14:05 Last Admin: 01/03/18 03:56 Dose: 650 mg Albuterol/Ipratropium (Duoneb Neb) 3 ml HHN [id number] [facility] Stop: 03/07/18 18:59 Last Admin: 01/16/18 19:30 Dose: 3 ml Alprazolam (Xanax) 0.25 mg PO Q8HR PRN; Protocol PRN Reason: Agitation Stop: 03/09/18 18:30 Last Admin: 01/15/18 13:58 Dose: 0.25 mg Atorvastatin Calcium (Lipitor) 10 mg PO DAILY JESSIE; Protocol Stop: 02/26/18 10:59 Last Admin: 01/16/18 08:59 Dose: Not Given Bisacodyl (Dulcolax 10 Mg Supp) 10 mg RC DAILY PRN PRN Reason: Constipation Stop: 02/25/18 06:58 Last Admin: 01/02/18 20:41 Dose: 10 mg Piperacillin Sod/Tazobactam (Sod 3.375 gm/ Sodium Chloride) 50 mls @ 100 mls/ hr IV Q6HR JESSIE Stop: 03/05/18 03:59 Last Infusion: 01/16/18 18:03 Dose: Infused Dextrose/Sodium Chloride (D5-0.45ns) 1,000 mls @ 50 mls/hr IV .Q20H [facility] Stop: 03/13/18 08:59 Last Admin: 01/16/18 18:26 Dose: 50 mls/hr Lactobacillus Rhamnosus (Culturelle 15b) 1 each PO DAILY [facility] Stop: 03/03/18 08:59 Last Admin: 01/16/18 08:59 Dose: Not Given Levothyroxine Sodium (Synthroid) 0.025 mg PO DAILY [facility] Stop: 02/25/18 08:59 Last Admin: 01/16/18 08:58 Dose: Not Given Lorazepam (Ativan) 0.5 mg IVP Q4HR PRN; Protocol PRN Reason: Agitation Stop: 03/01/18 17:48 Last Admin: 01/11/18 01:09 Dose: 0.5 mg Megestrol Acetate (Megace) 400 mg PO BID [facility]; Protocol Stop: 03/10/18 08:59 Last Admin: 01/16/18 17:24 Dose: 400 mg Mirtazapine (Remeron) 15 mg PO HS [facility]; Protocol Stop: 03/16/18 20:59 Last Admin: 01/16/18 22:29 Dose: Not Given Miscellaneous (Probiotic Screen) 1 ea MC PRN PRN PRN Reason: PROTOCOL Stop: 03/02/18 15:13 Ondansetron HCl (Zofran) 4 mg IV Q6H PRN PRN Reason: Nausea / Vomiting Stop: 03/06/18 11:38 Pantoprazole Sodium (Protonix) 40 mg IVP BID [facility] Stop: 03/04/18 16:59 Last Admin: 01/16/18 17:29 Dose: 40 mg Polyethylene Glycol (Miralax) 17 gm PO DAILY JESSIE Stop: 02/25/18 08:59 Last Admin: 01/16/18 08:52 Dose: 17 gm Potassium Chloride (Klor-Con) 20 meq PO DAILY JESSIE Stop: 03/07/18 08:59 Last Admin: 01/16/18 08:59 Dose: Not Given Valsartan (Diovan) 80 mg PO DAILY [facility] Stop: 02/25/18 08:59 Last Admin: 01/16/18 08:59 Dose: Not Given General: No acute distress HEENT: Atraumatic, PERRLA, EOMI Neck: Supple Cardiovascular: Regular rate, Normal S1, Normal S2 Lungs: Clear to auscultation Abdomen: Bowel sounds, Soft, no Tender, no Hepatomegaly, no Splenomegaly, no Rebound, no Mass, no Guarding Extremities: no Clubbing, no Cyanosis, no Edema Neurological: Normal gait, Normal speech Psych/Mental Status: no Mental status NL Assessment/Plan - Assessment Assessment: elevated troponins improved ... now normal Non q-wave [place] ... 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 continue current medications HTN slightly elevated ... on diovan 80mg PO daily, will add clonidine PRN UTI...continue IV anitbiotics. UA for C&S hyperlipidemia ... on statins FUO .... repeat CBC, chest xray this AM. will order ELSA,ESR,RA,Uric Acid coffee ground emesis ... will order IV Protonix. Will order GI consult. hypokalemia ... on kdur 20meq PO daily. Rheumatoid Arthritis .... need to be referred to tray line worker outpatient. bilateral infiltrates likely aspiration PNA ... will reorder CT chest. anorexia ... will order Megace. Alzheimer's dementia ... neurology consult as outpatient. - Plan Plan: continue current treatment, for residential evaluation Nutritional Asmnt/Malnutr-PDOC - Dietary Evaluation Malnutrition Findings (Please click <Entered> for more info): Nutritional Asmnt/Malnutrition Start: 12/30/17 16: 04 Text: Status: Complete Freq: Protocol: Document 12/30/17 16:04 [email or web address] (Rec: 12/30/17 16:14 [email or web address]) Nutritional Asmnt/Malnutrition Patient General Information Nutritional Screening Moderate Risk Diagnosis elevated troponin Pertinent Medical Hx/Surgical Hx HTN, dementia, hypothyroidism Subjective Information Pt seen sleeping in bed at time of visit, family at bedside. Per family, pt was very sleepy, only had few bites of brearfast this morning. Per EMR, PO intake about 25-50%. Per family, pt likes chocoalte icecream and pudding. Current Diet Order/ Nutrition Support cardiac Pertinent Medications lipitor, D5-0.25ns, synthroid, miralax, seroquel Pertinent Labs 12/27 Cl 110 Nutritional Hx/Data Height 1.6 m Height (Calculated Centimeters) 160.0 Current Weight (lbs) 62.596 kg Weight (Calculated Kilograms) 62.6 Weight (Calculated Grams) 26258.7 [place] Body Weight 115 Body Mass Index (BMI) 24.4 Weight Status Approriate GI Symptoms GI Symptoms None Last BM 12/27 Difficult in: None Skin Integrity/Comment: skin intact, reddened to buttocks Current %PO Poor (25-49%) Estimated Nutritional Goals BEE in Kcals: Using Current wt Calories/Kcals/Kg 25-30 Kcals Calculated 0228-6300 Protein: Using Current wt Protein g/k Protein Calculated 63 Fluid: ml 1575-1890ml (1ml/kcal) Nutritional Problem 1. Problem Problem inadequate food intake Etiology possible poor appetite Signs/Symptoms: PO intake 25-50% Malnutrition Alert Is there a minimum of two criteria No selected? Query Text:Check all the applicable criteria. A minimum of two criteria are recommended for diagnosis of either severe or non-severe malnutrition. Malnutrition Related to Morbid Obesity Malnutrition related to morbid obesity No Intervention/Recommendation Comments 1. Continue with current diet as ordered. Family request nutrition supplements. Send one bottle of chocolate ensure per family request at lunch. Will consider adding supplements if PO intake continue <50%. Nurses to assist pt with meals and encourage oral intake. 2. Monitor PO intake, wt, labs and skin integrity 3. F/U as high risk in 2-3 days, 01/01-01/02 Expected Outcomes/Goals Expected Outcomes/Goals 1. PO intake to meet at least 75% of nutritional needs. 2. Wt stability, skin to remain intact, labs to approach WNL.
--- NOTE | 2018-01-17 05:39 | General Progress Note ---
Subjective - Review of Systems Service Date: 01/17/18 Subjective: Awake, alert. resting comfortably. no acute distress. eating improved. Objective - Results Result Diagrams: 01/15/18 05:35 01/15/18 05:35 Recent Labs: Laboratory Last Values WBC 14.2 Th/cmm (4.8-10.8) H 01/15/18 05:35 RBC 3.81 Mil/cmm (3.80-5.20) 01/15/18 05:35 Hgb 11.7 gm/dL (12-16) L 01/15/18 05:35 Hct 35.9 % (41.0-60) L 01/15/18 05:35 MCV 94.1 fl (81-100) 01/15/18 05:35 MCH 30.7 pg (27.0-31.0) 01/15/18 05:35 MCHC Differential 32.6 pg (28.0-36.0) 01/15/18 05:35 RDW 14.5 % (11.5-20.0) 01/15/18 05:35 Plt Count 999 Th/cmm (150-400) H* 01/15/18 05:35 MPV 8.3 fl 01/15/18 05:35 Add Manual Diff YES 01/15/18 05:35 Neutrophils % CONCRETE PAVEMENT INSTALLER 01/15/18 05:35 Band Neutrophils % 0 % (0-10) 01/15/18 05:35 Lymphocytes % CONCRETE PAVEMENT INSTALLER 01/15/18 05:35 Monocytes % CONCRETE PAVEMENT INSTALLER 01/15/18 05:35 Eosinophils % CONCRETE PAVEMENT INSTALLER 01/15/18 05:35 Basophils % CONCRETE PAVEMENT INSTALLER 01/15/18 05:35 Neutrophils (Manual) 70 % (40-80) 01/15/18 05:35 Lymphocytes 22 % (20-50) 01/15/18 05:35 Monocytes 7 % (2-10) 01/15/18 05:35 Eosinophils 1 % (0-5) 01/15/18 05:35 Basophils 0 % (0-3) 01/08/18 05:35 Platelet Estimate INCREASED PLATELETS (NORMAL) 01/15/18 05:35 Smear Path Review 01/08/18 05:35 ESR 62 mm/hr (0-30) H 01/03/18 04:45 PT 10.7 SECONDS (9.5-11.5) 01/16/18 05:52 INR 1.03 (0.5-1.4) 01/16/18 05:52 PTT (Actin FS) 24.5 SECONDS (26.0-38.0) L 12/26/17 17:15 Sodium 139 mEq/L (136-145) 01/15/18 05:35 Potassium 4.0 mEq/L (3.5-5.1) 01/15/18 05:35 Chloride 112 mEq/L (98-107) H 01/15/18 05:35 Carbon Dioxide 19.4 mEq/L (21.0-31.0) L 01/15/18 05:35 Anion Gap 11.6 (7.0-16.0) 01/15/18 05:35 BUN 9 mg/dL (7-25) 01/15/18 05:35 Creatinine 0.8 mg/dL (0.6-1.2) 01/15/18 05:35 Est GFR ( Amer) TNP 01/15/18 05:35 Est GFR (Non-Af Amer) TNP 01/15/18 05:35 BUN/Creatinine Ratio 11.3 01/15/18 05:35 Glucose 107 mg/dL (70-105) H 01/15/18 05:35 Uric Acid 3.3 mg/dL (2.3-6.6) 01/03/18 04:45 Calcium 9.4 mg/dL (8.6-10.3) 01/15/18 05:35 Iron 59 ug/dL (27-139) 01/13/18 05:30 TIBC 227 ug/dL (250-450) L 01/13/18 05:30 Iron Saturation 26 % (15-55) 01/13/18 05:30 Unsaturated IBC 168 ug/dL (118-369) 01/13/18 05:30 Ferritin 183 ng/mL (15-150) H 01/13/18 05:30 Total Bilirubin 0.3 mg/dL (0.3-1.0) 01/12/18 04:50 AST 14 U/L (13-39) 01/12/18 04:50 ALT 14 U/L (7-52) 01/12/18 04:50 Alkaline Phosphatase 70 U/L (34-104) 01/12/18 04:50 Ammonia 52 umol/L (16-53) 12/31/17 05:40 Troponin I 0.03 ng/mL (0.01-0.05) 01/07/18 05:30 Total Protein 6.9 gm/dL (6.0-8.3) 01/12/18 04:50 Albumin 3.5 gm/dL (3.7-5.3) L 01/12/18 04:50 Globulin 3.4 gm/dL 01/12/18 04:50 Albumin/Globulin Ratio 1.0 (1.0-1.8) 01/12/18 04:50 Triglycerides 78 mg/dL (<150) 12/27/17 07:47 Cholesterol 249 mg/dL (<200) H 12/27/17 07:47 LDL Cholesterol Direct 198 mg/dL (75-193) H 12/27/17 07:47 HDL Cholesterol 45 mg/dL (23-92) 12/27/17 07:47 Vitamin B12 707 pg/mL (232-1245) 12/30/17 06:00 Folic Acid 16.7 ng/mL (>3.0) 12/30/17 06:00 TSH 3.88 uIU/ml (0.34-5.60) 12/26/17 17:15 Urine Source CATH 12/31/17 08:20 Urine Color YELLOW 12/31/17 08:20 Urine Clarity CLEAR (CLEAR) 12/31/17 08:20 Urine pH 6.5 (4.6 - 8.0) 12/31/17 08:20 Ur Specific [place] 1.010 (1.005-1.030) 12/31/17 08:20 Urine Protein TRACE mg/dL (NEGATIVE) 12/31/17 08:20 Urine Glucose (UA) NEGATIVE mg/dL (NEGATIVE) 12/31/17 08:20 Urine Ketones NEGATIVE mg/dL (NEGATIVE) 12/31/17 08:20 Urine Blood NEGATIVE (NEGATIVE) 12/31/17 08:20 Urine Nitrate NEGATIVE (NEGATIVE) 12/31/17 08:20 Urine Bilirubin NEGATIVE (NEGATIVE) 12/31/17 08:20 Urine Urobilinogen 0.2 E.U./dL (0.2 - 1.0) 12/31/17 08:20 Ur Leukocyte Esterase NEGATIVE (NEGATIVE) 12/31/17 08:20 Urine RBC 0-2 /hpf (0-5) 12/31/17 08:20 Urine WBC 0-2 /hpf (0-5) 12/31/17 08:20 Ur Epithelial Cells RARE /lpf (FEW) 12/31/17 08:20 Urine Bacteria NONE SEEN /hpf (NONE SEEN) 12/31/17 08:20 Urine Mucus FEW /lpf (FEW) 12/31/17 08:20 Stool Leukocyte NO WBC SEEN 01/10/18 17:00 Rheumatoid Factor 15.5 IU/mL (0.0-13.9) H 01/03/18 04:45 ELSA Screen Negative 01/03/18 04:45 - Physical Exam Vitals and I&O: Vital Signs Temp 97.5 F 01/17/18 04:00 Pulse 71 01/17/18 04:00 Resp 18 01/17/18 04:00 BP 153/66 01/17/18 04:00 Pulse Ox 98 01/17/18 04:00 Intake & Output 01/16/18 01/16/18 01/17/18 06:59 18:59 06:59 Intake Total 205 1300 Balance 205 1300 Weight (lbs) 53.977 kg 53.977 kg Intake: Intake, IV Amount 100 1050 D5-0.45NS 1,000 ml @ 50 1000 mls/hr IV .Q20H [facility] Rx#: [id number] Piperacillin Sodium/ 100 50 Tazobact 3.375 gm In Sodium Chloride 0.9% 50 ml @ 100 mls/hr IV Q6HR [facility] Rx#:[id number] Oral 105 250 Other: # Voids 3 3 # Bowel Movements 0 0 Stool Characteristics Soft Weight Source Bedscale Bedscale Active Medications: Current Medications Acetaminophen (Tylenol) 650 mg PO Q4H PRN PRN Reason: Fever > 101 Stop: 02/28/18 23:58 Last Admin: 01/01/18 18:09 Dose: 650 mg Acetaminophen (Tylenol 650mg Supp) 650 mg RC Q4H PRN PRN Reason: Fever > 101 Stop: 03/03/18 14:05 Last Admin: 01/03/18 03:56 Dose: 650 mg Albuterol/Ipratropium (Duoneb Neb) 3 ml HHN [id number] [facility] Stop: 03/07/18 18:59 Last Admin: 01/16/18 19:30 Dose: 3 ml Alprazolam (Xanax) 0.25 mg PO Q8HR PRN; Protocol PRN Reason: Agitation Stop: 03/09/18 18:30 Last Admin: 01/15/18 13:58 Dose: 0.25 mg Atorvastatin Calcium (Lipitor) 10 mg PO DAILY JESSIE; Protocol Stop: 02/26/18 10:59 Last Admin: 01/16/18 08:59 Dose: Not Given Bisacodyl (Dulcolax 10 Mg Supp) 10 mg RC DAILY PRN PRN Reason: Constipation Stop: 02/25/18 06:58 Last Admin: 01/02/18 20:41 Dose: 10 mg Piperacillin Sod/Tazobactam (Sod 3.375 gm/ Sodium Chloride) 50 mls @ 100 mls/ hr IV Q6HR [facility] Stop: 03/05/18 03:59 Last Infusion: 01/16/18 18:03 Dose: Infused Dextrose/Sodium Chloride (D5-0.45ns) 1,000 mls @ 50 mls/hr IV .Q20H [facility] Stop: 03/13/18 08:59 Last Admin: 01/16/18 18:26 Dose: 50 mls/hr Lactobacillus Rhamnosus (Culturelle 15b) 1 each PO DAILY [facility]ESSIE Stop: 03/03/18 08:59 Last Admin: 01/16/18 08:59 Dose: Not Given Levothyroxine Sodium (Synthroid) 0.025 mg PO DAILY [facility] Stop: 02/25/18 08:59 Last Admin: 01/16/18 08:58 Dose: Not Given Lorazepam (Ativan) 0.5 mg IVP Q4HR PRN; Protocol PRN Reason: Agitation Stop: 03/01/18 17:48 Last Admin: 01/11/18 01:09 Dose: 0.5 mg Megestrol Acetate (Megace) 400 mg PO BID [facility]ESSIE; Protocol Stop: 03/10/18 08:59 Last Admin: 01/16/18 17:24 Dose: 400 mg Mirtazapine (Remeron) 15 mg PO HS [facility]; Protocol Stop: 03/16/18 20:59 Last Admin: 01/16/18 22:29 Dose: Not Given Miscellaneous (Probiotic Screen) 1 ea MC PRN PRN PRN Reason: PROTOCOL Stop: 03/02/18 15:13 Ondansetron HCl (Zofran) 4 mg IV Q6H PRN PRN Reason: Nausea / Vomiting Stop: 03/06/18 11:38 Pantoprazole Sodium (Protonix) 40 mg IVP BID [facility] Stop: 03/04/18 16:59 Last Admin: 01/16/18 17:29 Dose: 40 mg Polyethylene Glycol (Miralax) 17 gm PO DAILY J[facility] Stop: 02/25/18 08:59 Last Admin: 01/16/18 08:52 Dose: 17 gm Potassium Chloride (Klor-Con) 20 meq PO DAILY [facility]ESS[facility] Stop: 03/07/18 08:59 Last Admin: 01/16/18 08:59 Dose: Not Given Valsartan (Diovan) 80 mg PO DAILY [facility] Stop: 02/25/18 08:59 Last Admin: 01/16/18 08:59 Dose: Not Given General: No acute distress HEENT: Atraumatic, PERRLA, EOMI Neck: Supple Cardiovascular: Regular rate, Normal S1, Normal S2 Lungs: Clear to auscultation Abdomen: Bowel sounds, Soft, no Tender, no Hepatomegaly, no Splenomegaly, no Rebound, no Mass, no Guarding Extremities: no Clubbing, no Cyanosis, no Edema Neurological: Normal gait, Normal speech Psych/Mental Status: no Mental status NL Assessment/Plan - Assessment Assessment: elevated troponins improved ... now normal Non q-wave [place] ... 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 continue current medications HTN slightly elevated ... on diovan 80mg PO daily, will add clonidine PRN UTI...continue IV anitbiotics. UA for C&S hyperlipidemia ... on statins FUO .... repeat CBC, chest xray this AM. will order ELSA,ESR,RA,Uric Acid coffee ground emesis ... will order IV Protonix. Will order GI consult. hypokalemia ... on kdur 20meq PO daily. Rheumatoid Arthritis .... 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 bilateral infiltrates likely aspiration PNA ... will reorder CT chest. anorexia ... will order Megace. Alzheimer's dementia ... neurology consult as outpatient. - Plan Plan: continue current treatment, for [facility] evaluation Nutritional Asmnt/Malnutr-PDOC - Dietary Evaluation Malnutrition Findings (Please click <Entered> for more info): Nutritional Asmnt/Malnutrition Start: 12/30/17 16: 04 Text: Status: Complete Freq: Protocol: Document 12/30/17 16:04 LCSURJITG (Rec: 12/30/17 16:14 [email or web address] [email or web address]) Nutritional Asmnt/Malnutrition Patient General Information Nutritional Screening Moderate Risk Diagnosis elevated troponin Pertinent Medical Hx/Surgical Hx HTN, dementia, hypothyroidism Subjective Information Pt seen sleeping in bed at time of visit, family at bedside. Per family, pt was very sleepy, only had few bites of brearfast this morning. Per EMR, PO intake about 25-50%. Per family, pt likes chocoalte icecream and pudding. Current Diet Order/ Nutrition Support cardiac Pertinent Medications lipitor, D5-0.25ns, synthroid, miralax, seroquel Pertinent Labs 12/27 Cl 110 Nutritional Hx/Data Height 1.6 m Height (Calculated Centimeters) 160.0 Current Weight (lbs) 62.596 kg Weight (Calculated Kilograms) 62.6 Weight (Calculated Grams) 54555.7 [place] Body Weight 115 Body Mass Index (BMI) 24.4 Weight Status Approriate GI Symptoms GI Symptoms None Last BM 12/27 Difficult in: None Skin Integrity/Comment: skin intact, reddened to buttocks Current %PO Poor (25-49%) Estimated Nutritional Goals BEE in Kcals: Using Current wt Calories/Kcals/Kg 25-30 Kcals Calculated 4436-3898 Protein: Using Current wt Protein g/k Protein Calculated 63 Fluid: ml 1575-1890ml (1ml/kcal) Nutritional Problem 1. Problem Problem inadequate food intake Etiology possible poor appetite Signs/Symptoms: PO intake 25-50% Malnutrition Alert Is there a minimum of two criteria No selected? Query Text:Check all the applicable criteria. A minimum of two criteria are recommended for diagnosis of either severe or non-severe malnutrition. Malnutrition Related to Morbid Obesity Malnutrition related to morbid obesity No Intervention/Recommendation Comments 1. Continue with current diet as ordered. Family request nutrition supplements. Send one bottle of chocolate ensure per family request at lunch. Will consider adding supplements if PO intake continue <50%. Nurses to assist pt with meals and encourage oral intake. 2. Monitor PO intake, wt, labs and skin integrity 3. F/U as high risk in 2-3 days, 01/01-01/02 Expected Outcomes/Goals Expected Outcomes/Goals 1. PO intake to meet at least 75% of nutritional needs. 2. Wt stability, skin to remain intact, labs to approach WNL.
[2018-01-17] MEDS: Albuterol/Ipratropium Neb 3 ML AERS HHN SCH ×3 (06:53→19:24)
[2018-01-17] MEDS: Atorvastatin Calcium 10 MG TAB PO SCH (10:00)
[2018-01-17] MEDS: Potassium Chloride 20 mEq ER Tab PO SCH (10:01)
[2018-01-17] MEDS: Levothyroxine 0.025 Mg Tab PO SCH (10:01)
[2018-01-17] MEDS: Lactobacillus Rhamnosus GG 15 Billion CFU CAP.SPRINK PO SCH (10:01)
[2018-01-17] MEDS: POLYETHYLENE GLYCOL 3350 17 GM PACK PO SCH (10:01)
[2018-01-17] MEDS: D5-0.45NS 1,000 ML IV SCH (15:32)
--- NOTE | 2018-01-17 16:21 | GI Progress Note ---
Subjective - Review of Systems Service Date: 01/17/18 Events since last encounter: No events Subjective: MORE AWAKE, not eating enough per family Objective - Results Result Diagrams: 01/15/18 05:35 01/15/18 05:35 Recent Labs: Laboratory Last Values WBC 14.2 Th/cmm (4.8-10.8) H 01/15/18 05:35 RBC 3.81 Mil/cmm (3.80-5.20) 01/15/18 05:35 Hgb 11.7 gm/dL (12-16) L 01/15/18 05:35 Hct 35.9 % (41.0-60) L 01/15/18 05:35 MCV 94.1 fl (81-100) 01/15/18 05:35 MCH 30.7 pg (27.0-31.0) 01/15/18 05:35 MCHC Differential 32.6 pg (28.0-36.0) 01/15/18 05:35 RDW 14.5 % (11.5-20.0) 01/15/18 05:35 Plt Count 999 Th/cmm (150-400) H* 01/15/18 05:35 MPV 8.3 fl 01/15/18 05:35 Add Manual Diff YES 01/15/18 05:35 Neutrophils % OCEANOGRAPHIC METEOROLOGIST 01/15/18 05:35 Band Neutrophils % 0 % (0-10) 01/15/18 05:35 Lymphocytes % OCEANOGRAPHIC METEOROLOGIST 01/15/18 05:35 Monocytes % OCEANOGRAPHIC METEOROLOGIST 01/15/18 05:35 Eosinophils % OCEANOGRAPHIC METEOROLOGIST 01/15/18 05:35 Basophils % OCEANOGRAPHIC METEOROLOGIST 01/15/18 05:35 Neutrophils (Manual) 70 % (40-80) 01/15/18 05:35 Lymphocytes 22 % (20-50) 01/15/18 05:35 Monocytes 7 % (2-10) 01/15/18 05:35 Eosinophils 1 % (0-5) 01/15/18 05:35 Basophils 0 % (0-3) 01/08/18 05:35 Platelet Estimate INCREASED PLATELETS (NORMAL) 01/15/18 05:35 Smear Path Review 01/08/18 05:35 ESR 62 mm/hr (0-30) H 01/03/18 04:45 PT 10.7 SECONDS (9.5-11.5) 01/16/18 05:52 INR 1.03 (0.5-1.4) 01/16/18 05:52 PTT (Actin FS) 24.5 SECONDS (26.0-38.0) L 12/26/17 17:15 Sodium 139 mEq/L (136-145) 01/15/18 05:35 Potassium 4.0 mEq/L (3.5-5.1) 01/15/18 05:35 Chloride 112 mEq/L (98-107) H 01/15/18 05:35 Carbon Dioxide 19.4 mEq/L (21.0-31.0) L 01/15/18 05:35 Anion Gap 11.6 (7.0-16.0) 01/15/18 05:35 BUN 9 mg/dL (7-25) 01/15/18 05:35 Creatinine 0.8 mg/dL (0.6-1.2) 01/15/18 05:35 Est GFR ( Amer) TNP 01/15/18 05:35 Est GFR (Non-Af Amer) TNP 01/15/18 05:35 BUN/Creatinine Ratio 11.3 01/15/18 05:35 Glucose 107 mg/dL (70-105) H 01/15/18 05:35 Uric Acid 3.3 mg/dL (2.3-6.6) 01/03/18 04:45 Calcium 9.4 mg/dL (8.6-10.3) 01/15/18 05:35 Iron 59 ug/dL (27-139) 01/13/18 05:30 TIBC 227 ug/dL (250-450) L 01/13/18 05:30 Iron Saturation 26 % (15-55) 01/13/18 05:30 Unsaturated IBC 168 ug/dL (118-369) 01/13/18 05:30 Ferritin 183 ng/mL (15-150) H 01/13/18 05:30 Total Bilirubin 0.3 mg/dL (0.3-1.0) 01/12/18 04:50 AST 14 U/L (13-39) 01/12/18 04:50 ALT 14 U/L (7-52) 01/12/18 04:50 Alkaline Phosphatase 70 U/L (34-104) 01/12/18 04:50 Ammonia 52 umol/L (16-53) 12/31/17 05:40 Troponin I 0.03 ng/mL (0.01-0.05) 01/07/18 05:30 Total Protein 6.9 gm/dL (6.0-8.3) 01/12/18 04:50 Albumin 3.5 gm/dL (3.7-5.3) L 01/12/18 04:50 Globulin 3.4 gm/dL 01/12/18 04:50 Albumin/Globulin Ratio 1.0 (1.0-1.8) 01/12/18 04:50 Triglycerides 78 mg/dL (<150) 12/27/17 07:47 Cholesterol 249 mg/dL (<200) H 12/27/17 07:47 LDL Cholesterol Direct 198 mg/dL (75-193) H 12/27/17 07:47 HDL Cholesterol 45 mg/dL (23-92) 12/27/17 07:47 Vitamin B12 707 pg/mL (232-1245) 12/30/17 06:00 Folic Acid 16.7 ng/mL (>3.0) 12/30/17 06:00 TSH 3.88 uIU/ml (0.34-5.60) 12/26/17 17:15 Urine Source CATH 12/31/17 08:20 Urine Color YELLOW 12/31/17 08:20 Urine Clarity CLEAR (CLEAR) 12/31/17 08:20 Urine pH 6.5 (4.6 - 8.0) 12/31/17 08:20 Ur Specific [place] 1.010 (1.005-1.030) 12/31/17 08:20 Urine Protein TRACE mg/dL (NEGATIVE) 12/31/17 08:20 Urine Glucose (UA) NEGATIVE mg/dL (NEGATIVE) 12/31/17 08:20 Urine Ketones NEGATIVE mg/dL (NEGATIVE) 12/31/17 08:20 Urine Blood NEGATIVE (NEGATIVE) 12/31/17 08:20 Urine Nitrate NEGATIVE (NEGATIVE) 12/31/17 08:20 Urine Bilirubin NEGATIVE (NEGATIVE) 12/31/17 08:20 Urine Urobilinogen 0.2 E.U./dL (0.2 - 1.0) 12/31/17 08:20 Ur Leukocyte Esterase NEGATIVE (NEGATIVE) 12/31/17 08:20 Urine RBC 0-2 /hpf (0-5) 12/31/17 08:20 Urine WBC 0-2 /hpf (0-5) 12/31/17 08:20 Ur Epithelial Cells RARE /lpf (FEW) 12/31/17 08:20 Urine Bacteria NONE SEEN /hpf (NONE SEEN) 12/31/17 08:20 Urine Mucus FEW /lpf (FEW) 12/31/17 08:20 Stool Leukocyte NO WBC SEEN 01/10/18 17:00 Rheumatoid Factor 15.5 IU/mL (0.0-13.9) H 01/03/18 04:45 ELSA Screen Negative 01/03/18 04:45 - Physical Exam Vitals and I&O: Vital Signs Temp 97.5 F 01/17/18 15:08 Pulse 73 01/17/18 15:08 Resp 18 01/17/18 15:08 BP 130/70 01/17/18 15:08 Pulse Ox 98 01/17/18 15:08 Intake & Output 01/16/18 01/17/18 01/17/18 18:59 06:59 18:59 Intake Total 1300 1000 Balance 1300 1000 Weight (lbs) 53.977 kg 54.544 kg Intake: Intake, IV Amount 1050 1000 D5-0.45NS 1,000 ml @ 50 1000 1000 mls/hr IV .Q20H [facility] Rx#: [id number] Piperacillin Sodium/ 50 Tazobact 3.375 gm In Sodium Chloride 0.9% 50 ml @ 100 mls/hr IV Q6HR [facility] Rx#:[id number] Oral 250 Other: # Voids 3 2 # Bowel Movements 0 0 Weight Source Bedscale Bedscale Active Medications: Current Medications Acetaminophen (Tylenol) 650 mg PO Q4H PRN PRN Reason: Fever > 101 Stop: 02/28/18 23:58 Last Admin: 01/01/18 18:09 Dose: 650 mg Acetaminophen (Tylenol 650mg Supp) 650 mg RC Q4H PRN PRN Reason: Fever > 101 Stop: 03/03/18 14:05 Last Admin: 01/03/18 03:56 Dose: 650 mg Albuterol/Ipratropium (Duoneb Neb) 3 ml HHN [id number] [facility] Stop: 03/07/18 18:59 Last Admin: 01/17/18 12:07 Dose: 3 ml Alprazolam (Xanax) 0.25 mg PO Q8HR PRN; Protocol PRN Reason: Agitation Stop: 03/09/18 18:30 Last Admin: 01/15/18 13:58 Dose: 0.25 mg Atorvastatin Calcium (Lipitor) 10 mg PO DAILY [facility]; Protocol Stop: 02/26/18 10:59 Last Admin: 01/17/18 10:00 Dose: Not Given Bisacodyl (Dulcolax 10 Mg Supp) 10 mg RC DAILY PRN PRN Reason: Constipation Stop: 02/25/18 06:58 Last Admin: 01/02/18 20:41 Dose: 10 mg Dextrose/Sodium Chloride (D5-0.45ns) 1,000 mls @ 50 mls/hr IV .Q20H [facility] Stop: 03/13/18 08:59 Last Admin: 01/17/18 15:32 Dose: 50 mls/hr Cefazolin Sodium 1 gm/ (Dextrose) 50 mls @ 100 mls/hr IV ONCE [facility] Stop: 03/19/18 12:59 Lactobacillus Rhamnosus (Culturelle 15b) 1 each PO DAILY [facility] Stop: 03/03/18 08:59 Last Admin: 01/17/18 10:01 Dose: Not Given Levothyroxine Sodium (Synthroid) 0.025 mg PO DAILY [facility] Stop: 02/25/18 08:59 Last Admin: 01/17/18 10:01 Dose: Not Given Lorazepam (Ativan) 0.5 mg IVP Q4HR PRN; Protocol PRN Reason: Agitation Stop: 03/01/18 17:48 Last Admin: 01/11/18 01:09 Dose: 0.5 mg Megestrol Acetate (Megace) 400 mg PO BID [facility]; Protocol Stop: 03/10/18 08:59 Last Admin: 01/17/18 10:00 Dose: Not Given Mirtazapine (Remeron) 15 mg PO HS [facility]; Protocol Stop: 03/16/18 20:59 Last Admin: 01/16/18 22:29 Dose: Not Given Miscellaneous (Probiotic Screen) 1 ea MC PRN PRN PRN Reason: PROTOCOL Stop: 03/02/18 15:13 Ondansetron HCl (Zofran) 4 mg IV Q6H PRN PRN Reason: Nausea / Vomiting Stop: 03/06/18 11:38 Pantoprazole Sodium (Protonix) 40 mg IVP BID [facility] Stop: 03/04/18 16:59 Last Admin: 01/17/18 10:01 Dose: 40 mg Polyethylene Glycol (Miralax) 17 gm PO DAILY [facility] Stop: 02/25/18 08:59 Last Admin: 01/17/18 10:01 Dose: Not Given Potassium Chloride (Klor-Con) 20 meq PO DAILY [facility] Stop: 03/07/18 08:59 Last Admin: 01/17/18 10:01 Dose: Not Given Valsartan (Diovan) 80 mg PO DAILY [facility] Stop: 02/25/18 08:59 Last Admin: 01/17/18 10:01 Dose: Not Given General: Alert, No acute distress Cardiovascular: Regular rate, Normal S1, Normal S2 Lungs: Clear to auscultation Abdomen: Bowel sounds, Soft, no Tender, no Hepatomegaly, no Splenomegaly, no Rebound, no Mass, no Guarding Extremities: no Clubbing, no Cyanosis, no Edema Neurological: Normal gait, Normal speech Psych/Mental Status: no Mental status NL Assessment/Plan - Assessment Assessment: Decrease oral intake Failure to thrive - Plan Plan: 1. Failure to thrive D/W and 2 daughters nOT Eating ENOUGH Cont remeron and ensure PEG TOMORROW 2. Decrease oral intake Remeron and ensure and PEG in AM
[2018-01-18] MEDS: Albuterol/Ipratropium Neb 3 ML AERS HHN SCH ×2 (07:10→13:43)
[2018-01-18] MEDS: Atorvastatin Calcium 10 MG TAB PO SCH (08:06)
[2018-01-18] MEDS: Lactobacillus Rhamnosus GG 15 Billion CFU CAP.SPRINK PO SCH (08:06)
[2018-01-18] MEDS: Levothyroxine 0.025 Mg Tab PO SCH (08:06)
--- NOTE | 2018-01-18 08:09 | General Progress Note ---
Subjective - Review of Systems Service Date: 01/18/18 Subjective: Awake, alert. resting comfortably. failure to thrive. poor appetite. scheduled for placement of Gtube. Objective - Results Result Diagrams: 01/15/18 05:35 01/15/18 05:35 Recent Labs: Laboratory Last Values WBC 14.2 Th/cmm (4.8-10.8) H 01/15/18 05:35 RBC 3.81 Mil/cmm (3.80-5.20) 01/15/18 05:35 Hgb 11.7 gm/dL (12-16) L 01/15/18 05:35 Hct 35.9 % (41.0-60) L 01/15/18 05:35 MCV 94.1 fl (81-100) 01/15/18 05:35 MCH 30.7 pg (27.0-31.0) 01/15/18 05:35 MCHC Differential 32.6 pg (28.0-36.0) 01/15/18 05:35 RDW 14.5 % (11.5-20.0) 01/15/18 05:35 Plt Count 999 Th/cmm (150-400) H* 01/15/18 05:35 MPV 8.3 fl 01/15/18 05:35 Add Manual Diff YES 01/15/18 05:35 Neutrophils % AUXILIARY EQUIPMENT TENDER 01/15/18 05:35 Band Neutrophils % 0 % (0-10) 01/15/18 05:35 Lymphocytes % AUXILIARY EQUIPMENT TENDER 01/15/18 05:35 Monocytes % AUXILIARY EQUIPMENT TENDER 01/15/18 05:35 Eosinophils % AUXILIARY EQUIPMENT TENDER 01/15/18 05:35 Basophils % AUXILIARY EQUIPMENT TENDER 01/15/18 05:35 Neutrophils (Manual) 70 % (40-80) 01/15/18 05:35 Lymphocytes 22 % (20-50) 01/15/18 05:35 Monocytes 7 % (2-10) 01/15/18 05:35 Eosinophils 1 % (0-5) 01/15/18 05:35 Basophils 0 % (0-3) 01/08/18 05:35 Platelet Estimate INCREASED PLATELETS (NORMAL) 01/15/18 05:35 Smear Path Review 01/08/18 05:35 ESR 62 mm/hr (0-30) H 01/03/18 04:45 PT 10.7 SECONDS (9.5-11.5) 01/16/18 05:52 INR 1.03 (0.5-1.4) 01/16/18 05:52 PTT (Actin FS) 24.5 SECONDS (26.0-38.0) L 12/26/17 17:15 Sodium 139 mEq/L (136-145) 01/15/18 05:35 Potassium 4.0 mEq/L (3.5-5.1) 01/15/18 05:35 Chloride 112 mEq/L (98-107) H 01/15/18 05:35 Carbon Dioxide 19.4 mEq/L (21.0-31.0) L 01/15/18 05:35 Anion Gap 11.6 (7.0-16.0) 01/15/18 05:35 BUN 9 mg/dL (7-25) 01/15/18 05:35 Creatinine 0.8 mg/dL (0.6-1.2) 01/15/18 05:35 Est GFR ( Amer) TNP 01/15/18 05:35 Est GFR (Non-Af Amer) TNP 01/15/18 05:35 BUN/Creatinine Ratio 11.3 01/15/18 05:35 Glucose 107 mg/dL (70-105) H 01/15/18 05:35 Uric Acid 3.3 mg/dL (2.3-6.6) 01/03/18 04:45 Calcium 9.4 mg/dL (8.6-10.3) 01/15/18 05:35 Iron 59 ug/dL (27-139) 01/13/18 05:30 TIBC 227 ug/dL (250-450) L 01/13/18 05:30 Iron Saturation 26 % (15-55) 01/13/18 05:30 Unsaturated IBC 168 ug/dL (118-369) 01/13/18 05:30 Ferritin 183 ng/mL (15-150) H 01/13/18 05:30 Total Bilirubin 0.3 mg/dL (0.3-1.0) 01/12/18 04:50 AST 14 U/L (13-39) 01/12/18 04:50 ALT 14 U/L (7-52) 01/12/18 04:50 Alkaline Phosphatase 70 U/L (34-104) 01/12/18 04:50 Ammonia 52 umol/L (16-53) 12/31/17 05:40 Troponin I 0.03 ng/mL (0.01-0.05) 01/07/18 05:30 Total Protein 6.9 gm/dL (6.0-8.3) 01/12/18 04:50 Albumin 3.5 gm/dL (3.7-5.3) L 01/12/18 04:50 Globulin 3.4 gm/dL 01/12/18 04:50 Albumin/Globulin Ratio 1.0 (1.0-1.8) 01/12/18 04:50 Triglycerides 78 mg/dL (<150) 12/27/17 07:47 Cholesterol 249 mg/dL (<200) H 12/27/17 07:47 LDL Cholesterol Direct 198 mg/dL (75-193) H 12/27/17 07:47 HDL Cholesterol 45 mg/dL (23-92) 12/27/17 07:47 Vitamin B12 707 pg/mL (232-1245) 12/30/17 06:00 Folic Acid 16.7 ng/mL (>3.0) 12/30/17 06:00 TSH 3.88 uIU/ml (0.34-5.60) 12/26/17 17:15 Urine Source CATH 12/31/17 08:20 Urine Color YELLOW 12/31/17 08:20 Urine Clarity CLEAR (CLEAR) 12/31/17 08:20 Urine pH 6.5 (4.6 - 8.0) 12/31/17 08:20 Ur Specific [place] 1.010 (1.005-1.030) 12/31/17 08:20 Urine Protein TRACE mg/dL (NEGATIVE) 12/31/17 08:20 Urine Glucose (UA) NEGATIVE mg/dL (NEGATIVE) 12/31/17 08:20 Urine Ketones NEGATIVE mg/dL (NEGATIVE) 12/31/17 08:20 Urine Blood NEGATIVE (NEGATIVE) 12/31/17 08:20 Urine Nitrate NEGATIVE (NEGATIVE) 12/31/17 08:20 Urine Bilirubin NEGATIVE (NEGATIVE) 12/31/17 08:20 Urine Urobilinogen 0.2 E.U./dL (0.2 - 1.0) 12/31/17 08:20 Ur Leukocyte Esterase NEGATIVE (NEGATIVE) 12/31/17 08:20 Urine RBC 0-2 /hpf (0-5) 12/31/17 08:20 Urine WBC 0-2 /hpf (0-5) 12/31/17 08:20 Ur Epithelial Cells RARE /lpf (FEW) 12/31/17 08:20 Urine Bacteria NONE SEEN /hpf (NONE SEEN) 12/31/17 08:20 Urine Mucus FEW /lpf (FEW) 12/31/17 08:20 Stool Leukocyte NO WBC SEEN 01/10/18 17:00 Rheumatoid Factor 15.5 IU/mL (0.0-13.9) H 01/03/18 04:45 ELSA Screen Negative 01/03/18 04:45 - Physical Exam Vitals and I&O: Vital Signs Temp 98.2 F 01/18/18 00:00 Pulse 82 01/18/18 07:10 Resp 16 01/18/18 07:13 BP 132/63 01/18/18 00:00 Pulse Ox 95 01/18/18 07:10 Intake & Output 01/17/18 01/18/18 01/18/18 18:59 06:59 18:59 Intake Total 1050 120 Balance 1050 120 Weight (lbs) 54.567 kg 54.567 kg Intake: Intake, IV Amount 1000 D5-0.45NS 1,000 ml @ 50 1000 mls/hr IV .Q20H [facility] Rx#: [id number] Oral 50 120 Other: # Voids 4 4 # Bowel Movements 0 0 Weight Source Bedscale Bedscale Active Medications: Current Medications Acetaminophen (Tylenol) 650 mg PO Q4H PRN PRN Reason: Fever > 101 Stop: 02/28/18 23:58 Last Admin: 01/01/18 18:09 Dose: 650 mg Acetaminophen (Tylenol 650mg Supp) 650 mg RC Q4H PRN PRN Reason: Fever > 101 Stop: 03/03/18 14:05 Last Admin: 01/03/18 03:56 Dose: 650 mg Albuterol/Ipratropium (Duoneb Neb) 3 ml HHN [id number] Stop: 03/07/18 18:59 Last Admin: 01/18/18 07:10 Dose: 3 ml Alprazolam (Xanax) 0.25 mg PO Q8HR PRN; Protocol PRN Reason: Agitation Stop: 03/09/18 18:30 Last Admin: 01/17/18 20:51 Dose: 0.25 mg Atorvastatin Calcium (Lipitor) 10 mg PO DAILY [facility]; Protocol Stop: 02/26/18 10:59 Last Admin: 01/18/18 08:06 Dose: Not Given Bisacodyl (Dulcolax 10 Mg Supp) 10 mg RC DAILY PRN PRN Reason: Constipation Stop: 02/25/18 06:58 Last Admin: 01/02/18 20:41 Dose: 10 mg Dextrose/Sodium Chloride (D5-0.45ns) 1,000 mls @ 50 mls/hr IV .Q20H [facility] Stop: 03/13/18 08:59 Last Admin: 01/17/18 15:32 Dose: 50 mls/hr Cefazolin Sodium 1 gm/ (Dextrose) 50 mls @ 100 mls/hr IV ONCE ONE Stop: 01/18/18 08:29 Last Admin: 01/18/18 08:04 Dose: 100 mls/hr Lactobacillus Rhamnosus (Culturelle 15b) 1 each PO DAILY [facility] Stop: 03/03/18 08:59 Last Admin: 01/18/18 08:06 Dose: Not Given Levothyroxine Sodium (Synthroid) 0.025 mg PO DAILY [facility] Stop: 02/25/18 08:59 Last Admin: 01/18/18 08:06 Dose: Not Given Lorazepam (Ativan) 0.5 mg IVP Q4HR PRN; Protocol PRN Reason: Agitation Stop: 03/01/18 17:48 Last Admin: 01/11/18 01:09 Dose: 0.5 mg Megestrol Acetate (Megace) 400 mg PO BID [facility]; Protocol Stop: 03/10/18 08:59 Last Admin: 01/18/18 08:06 Dose: Not Given Mirtazapine (Remeron) 15 mg PO HS [facility]; Protocol Stop: 03/16/18 20:59 Last Admin: 01/17/18 20:51 Dose: 15 mg Miscellaneous (Probiotic Screen) 1 ea MC PRN PRN PRN Reason: PROTOCOL Stop: 03/02/18 15:13 Ondansetron HCl (Zofran) 4 mg IV Q6H PRN PRN Reason: Nausea / Vomiting Stop: 03/06/18 11:38 Pantoprazole Sodium (Protonix) 40 mg IVP BID [facility] Stop: 03/04/18 16:59 Last Admin: 01/17/18 16:45 Dose: 40 mg Polyethylene Glycol (Miralax) 17 gm PO DAILY [facility] Stop: 02/25/18 08:59 Last Admin: 01/17/18 10:01 Dose: Not Given Potassium Chloride (Klor-Con) 20 meq PO DAILY [facility] Stop: 03/07/18 08:59 Last Admin: 01/17/18 10:01 Dose: Not Given Valsartan (Diovan) 80 mg PO DAILY [facility] Stop: 02/25/18 08:59 Last Admin: 01/17/18 10:01 Dose: Not Given General: Alert, No acute distress HEENT: Atraumatic, PERRLA, EOMI Neck: Supple Cardiovascular: Regular rate, Normal S1, Normal S2 Lungs: Clear to auscultation Abdomen: Bowel sounds, Soft, no Tender, no Hepatomegaly, no Splenomegaly, no Rebound, no Mass, no Guarding Extremities: no Clubbing, no Cyanosis, no Edema Neurological: Normal gait, Normal speech Psych/Mental Status: no Mental status NL Assessment/Plan - Assessment Assessment: elevated troponins improved ... now normal Non q-wave CO ... 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 continue current medications HTN slightly elevated ... on diovan 80mg PO daily, will add clonidine PRN UTI...continue IV anitbiotics. UA for C&S hyperlipidemia ... on statins FUO .... repeat CBC, chest xray this AM. will order ELSA,ESR,RA,Uric Acid coffee ground emesis ... will order IV Protonix. Will order GI consult. hypokalemia ... on kdur 20meq PO daily. Rheumatoid Arthritis .... need to be referred to combustion analyst outpatient. bilateral infiltrates likely aspiration PNA ... will reorder CT chest. anorexia ... will order Megace. Alzheimer's dementia ... neurology consult as outpatient. failure to thrive...poor PO intake. ... for placement of Gtube. - Plan Plan: continue current treatment, for fdc evaluation Nutritional Asmnt/Malnutr-PDOC - Dietary Evaluation Malnutrition Findings (Please click <Entered> for more info): Nutritional Asmnt/Malnutrition Start: 12/30/17 16: 04 Text: Status: Complete Freq: Protocol: Document 12/30/17 16:04 [id number] (Rec: 12/30/17 16:14 LCSISSY [email or web address]) Nutritional Asmnt/Malnutrition Patient General Information Nutritional Screening Moderate Risk Diagnosis elevated troponin Pertinent Medical Hx/Surgical Hx HTN, dementia, hypothyroidism Subjective Information Pt seen sleeping in bed at time of visit, family at bedside. Per family, pt was very sleepy, only had few bites of brearfast this morning. Per EMR, PO intake about 25-50%. Per family, pt likes chocoalte icecream and pudding. Current Diet Order/ Nutrition Support cardiac Pertinent Medications lipitor, D5-0.25ns, synthroid, miralax, seroquel Pertinent Labs 12/27 Cl 110 Nutritional Hx/Data Height 1.6 m Height (Calculated Centimeters) 160.0 Current Weight (lbs) 62.596 kg Weight (Calculated Kilograms) 62.6 Weight (Calculated Grams) 81104.7 [place] Body Weight 115 Body Mass Index (BMI) 24.4 Weight Status Approriate GI Symptoms GI Symptoms None Last BM 12/27 Difficult in: None Skin Integrity/Comment: skin intact, reddened to buttocks Current %PO Poor (25-49%) Estimated Nutritional Goals BEE in Kcals: Using Current wt Calories/Kcals/Kg 25-30 Kcals Calculated 4095-5907 Protein: Using Current wt Protein g/k Protein Calculated 63 Fluid: ml 1575-1890ml (1ml/kcal) Nutritional Problem 1. Problem Problem inadequate food intake Etiology possible poor appetite Signs/Symptoms: PO intake 25-50% Malnutrition Alert Is there a minimum of two criteria No selected? Query Text:Check all the applicable criteria. A minimum of two criteria are recommended for diagnosis of either severe or non-severe malnutrition. Malnutrition Related to Morbid Obesity Malnutrition related to morbid obesity No Intervention/Recommendation Comments 1. Continue with current diet as ordered. Family request nutrition supplements. Send one bottle of chocolate ensure per family request at lunch. Will consider adding supplements if PO intake continue <50%. Nurses to assist pt with meals and encourage oral intake. 2. Monitor PO intake, wt, labs and skin integrity 3. F/U as high risk in 2-3 days, 01/01-01/02 Expected Outcomes/Goals Expected Outcomes/Goals 1. PO intake to meet at least 75% of nutritional needs. 2. Wt stability, skin to remain intact, labs to approach WNL.
[2018-01-18] MEDS: POLYETHYLENE GLYCOL 3350 17 GM PACK PO SCH (08:17)
[2018-01-18] MEDS: Potassium Chloride 20 mEq ER Tab PO SCH (08:17)
[2018-01-18 08:44] LABS: % BASOPHILS 0.2 % (0.0-2.0); % EOSINOPHILS 2.7 % (0.0-5.0); % LYMPHOCYTES 30.1 % (20.0-50.0); % MONOCYTES 6.2 % (2.0-10.0); % NEUTROPHILS 60.8 % (40.0-80.0); EOSINOPHILE ABSOLUTE 0.4 Th/cmm (0.1-0.4); HEMATOCRIT 39.6 % (41.0-60); HEMOGLOBIN 13.1 gm/dL (12-16); LYMPHOCYTE ABSOLUTE 4.4 Th/cmm (1.5-3.0); MEAN CELL VOLUME 93.9 fl (81-100); MEAN CORPUSCULAR HEMOGLOBIN 31.1 pg (27.0-31.0); MEAN CORPUSCULAR HGB CONC 33.2 pg (28.0-36.0); MEAN PLATELET VOLUME 8.3 fl; MONOCYTE ABSOLUTE 0.9 Th/cmm (0.3-1.0); NEUTROPHILE ABSOLUTE 8.8 Th/cmm (1.8-8.0); RED BLOOD COUNT 4.22 Mil/cmm (3.80-5.20); RED CELL DISTRIBUTION WIDTH 15.5 % (11.5-20.0); WHITE BLOOD COUNT 14.5 Th/cmm (4.8-10.8)
[2018-01-18 08:48] LABS: PLATELET COUNT 957 Th/cmm (150-400)
[2018-01-18 08:58] LABS: ALBUMIN 3.6 gm/dL (3.7-5.3); ALKALINE PHOSPHATASE 48 U/L (34-104); ANION GAP 13.6 (7.0-16.0); BILIRUBIN,TOTAL 0.3 mg/dL (0.3-1.0); BUN - UREA NITROGEN 7 mg/dL (7-25); CALCIUM SERUM 9.5 mg/dL (8.6-10.3); CARBON DIOXIDE 18.3 mEq/L (21.0-31.0); CHLORIDE 112 mEq/L (98-107); CREATININE - SERUM 0.7 mg/dL (0.6-1.2); GLUCOSE 110 mg/dL (70-105); POTASSIUM SERUM 3.9 mEq/L (3.5-5.1); SGOT 13 U/L (13-39); SGPT/ALT 9 U/L (7-52); SODIUM SERUM 140 mEq/L (136-145); TOTAL PROTEIN,SERUM 7.2 gm/dL (6.0-8.3)
--- NOTE | 2018-01-18 10:51 | General Progress Note ---
Subjective - Review of Systems Service Date: 01/18/18 Subjective: awake, afebrile, minimal varbal Objective - Results Result Diagrams: 01/18/18 08:25 01/18/18 08:25 Recent Labs: Laboratory Last Values WBC 14.5 Th/cmm (4.8-10.8) H 01/18/18 08:25 RBC 4.22 Mil/cmm (3.80-5.20) 01/18/18 08:25 Hgb 13.1 gm/dL (12-16) 01/18/18 08:25 Hct 39.6 % (41.0-60) L 01/18/18 08:25 MCV 93.9 fl (81-100) 01/18/18 08:25 MCH 31.1 pg (27.0-31.0) H 01/18/18 08:25 MCHC Differential 33.2 pg (28.0-36.0) 01/18/18 08:25 RDW 15.5 % (11.5-20.0) 01/18/18 08:25 Plt Count 957 Th/cmm (150-400) H* 01/18/18 08:25 MPV 8.3 fl 01/18/18 08:25 Add Manual Diff YES 01/15/18 05:35 Neutrophils % 60.8 % (40.0-80.0) 01/18/18 08:25 Band Neutrophils % 0 % (0-10) 01/15/18 05:35 Lymphocytes % 30.1 % (20.0-50.0) 01/18/18 08:25 Monocytes % 6.2 % (2.0-10.0) 01/18/18 08:25 Eosinophils % 2.7 % (0.0-5.0) 01/18/18 08:25 Basophils % 0.2 % (0.0-2.0) 01/18/18 08:25 Neutrophils (Manual) 70 % (40-80) 01/15/18 05:35 Lymphocytes 22 % (20-50) 01/15/18 05:35 Monocytes 7 % (2-10) 01/15/18 05:35 Eosinophils 1 % (0-5) 01/15/18 05:35 Basophils 0 % (0-3) 01/08/18 05:35 Platelet Estimate INCREASED PLATELETS (NORMAL) 01/15/18 05:35 Smear Path Review 01/08/18 05:35 ESR 62 mm/hr (0-30) H 01/03/18 04:45 PT 10.7 SECONDS (9.5-11.5) 01/16/18 05:52 INR 1.03 (0.5-1.4) 01/16/18 05:52 PTT (Actin FS) 24.5 SECONDS (26.0-38.0) L 12/26/17 17:15 Sodium 140 mEq/L (136-145) 01/18/18 08:25 Potassium 3.9 mEq/L (3.5-5.1) 01/18/18 08:25 Chloride 112 mEq/L (98-107) H 01/18/18 08:25 Carbon Dioxide 18.3 mEq/L (21.0-31.0) L 01/18/18 08:25 Anion Gap 13.6 (7.0-16.0) 01/18/18 08:25 BUN 7 mg/dL (7-25) 01/18/18 08:25 Creatinine 0.7 mg/dL (0.6-1.2) 01/18/18 08:25 Est GFR ( Amer) TNP 01/18/18 08:25 Est GFR (Non-Af Amer) TNP 01/18/18 08:25 BUN/Creatinine Ratio 10.0 01/18/18 08:25 Glucose 110 mg/dL (70-105) H 01/18/18 08:25 Uric Acid 3.3 mg/dL (2.3-6.6) 01/03/18 04:45 Calcium 9.5 mg/dL (8.6-10.3) 01/18/18 08:25 Iron 59 ug/dL (27-139) 01/13/18 05:30 TIBC 227 ug/dL (250-450) L 01/13/18 05:30 Iron Saturation 26 % (15-55) 01/13/18 05:30 Unsaturated IBC 168 ug/dL (118-369) 01/13/18 05:30 Ferritin 183 ng/mL (15-150) H 01/13/18 05:30 Total Bilirubin 0.3 mg/dL (0.3-1.0) 01/18/18 08:25 AST 13 U/L (13-39) 01/18/18 08:25 ALT 9 U/L (7-52) 01/18/18 08:25 Alkaline Phosphatase 48 U/L (34-104) 01/18/18 08:25 Ammonia 52 umol/L (16-53) 12/31/17 05:40 Troponin I 0.03 ng/mL (0.01-0.05) 01/07/18 05:30 Total Protein 7.2 gm/dL (6.0-8.3) 01/18/18 08:25 Albumin 3.6 gm/dL (3.7-5.3) L 01/18/18 08:25 Globulin 3.6 gm/dL 01/18/18 08:25 Albumin/Globulin Ratio 1.0 (1.0-1.8) 01/18/18 08:25 Triglycerides 78 mg/dL (<150) 12/27/17 07:47 Cholesterol 249 mg/dL (<200) H 12/27/17 07:47 LDL Cholesterol Direct 198 mg/dL (75-193) H 12/27/17 07:47 HDL Cholesterol 45 mg/dL (23-92) 12/27/17 07:47 Vitamin B12 707 pg/mL (232-1245) 12/30/17 06:00 Folic Acid 16.7 ng/mL (>3.0) 12/30/17 06:00 TSH 3.88 uIU/ml (0.34-5.60) 12/26/17 17:15 Urine Source CATH 12/31/17 08:20 Urine Color YELLOW 12/31/17 08:20 Urine Clarity CLEAR (CLEAR) 12/31/17 08:20 Urine pH 6.5 (4.6 - 8.0) 12/31/17 08:20 Ur Specific [place] 1.010 (1.005-1.030) 12/31/17 08:20 Urine Protein TRACE mg/dL (NEGATIVE) 12/31/17 08:20 Urine Glucose (UA) NEGATIVE mg/dL (NEGATIVE) 12/31/17 08:20 Urine Ketones NEGATIVE mg/dL (NEGATIVE) 12/31/17 08:20 Urine Blood NEGATIVE (NEGATIVE) 12/31/17 08:20 Urine Nitrate NEGATIVE (NEGATIVE) 12/31/17 08:20 Urine Bilirubin NEGATIVE (NEGATIVE) 12/31/17 08:20 Urine Urobilinogen 0.2 E.U./dL (0.2 - 1.0) 12/31/17 08:20 Ur Leukocyte Esterase NEGATIVE (NEGATIVE) 12/31/17 08:20 Urine RBC 0-2 /hpf (0-5) 12/31/17 08:20 Urine WBC 0-2 /hpf (0-5) 12/31/17 08:20 Ur Epithelial Cells RARE /lpf (FEW) 12/31/17 08:20 Urine Bacteria NONE SEEN /hpf (NONE SEEN) 12/31/17 08:20 Urine Mucus FEW /lpf (FEW) 12/31/17 08:20 Stool Leukocyte NO WBC SEEN 01/10/18 17:00 Rheumatoid Factor 15.5 IU/mL (0.0-13.9) H 01/03/18 04:45 LESA Screen Negative 01/03/18 04:45 JAK2 Mutation SEE REF. LAB REPORT 01/13/18 05:30 - Physical Exam Vitals and I&O: Vital Signs Temp 97 F 01/18/18 08:00 Pulse 78 01/18/18 08:08 Resp 20 01/18/18 08:00 BP 155/73 01/18/18 08:08 Pulse Ox 97 01/18/18 08:00 Intake & Output 01/17/18 01/18/18 01/18/18 18:59 06:59 18:59 Intake Total 1050 120 Balance 1050 120 Weight (lbs) 54.567 kg 54.567 kg Intake: Intake, IV Amount 1000 D5-0.45NS 1,000 ml @ 50 1000 mls/hr IV .Q20H [facility] Rx#: [id number] Oral 50 120 Other: # Voids 4 4 # Bowel Movements 0 0 Weight Source Bedscale Bedscale Active Medications: Current Medications Acetaminophen (Tylenol) 650 mg PO Q4H PRN PRN Reason: Fever > 101 Stop: 02/28/18 23:58 Last Admin: 01/01/18 18:09 Dose: 650 mg Acetaminophen (Tylenol 650mg Supp) 650 mg RC Q4H PRN PRN Reason: Fever > 101 Stop: 03/03/18 14:05 Last Admin: 01/03/18 03:56 Dose: 650 mg Albuterol/Ipratropium (Duoneb Neb) 3 ml HHN [id number] JESSIE Stop: 03/07/18 18:59 Last Admin: 01/18/18 07:10 Dose: 3 ml Alprazolam (Xanax) 0.25 mg PO Q8HR PRN; Protocol PRN Reason: Agitation Stop: 03/09/18 18:30 Last Admin: 01/17/18 20:51 Dose: 0.25 mg Atorvastatin Calcium (Lipitor) 10 mg PO DAILY JESSIE; Protocol Stop: 02/26/18 10:59 Last Admin: 01/18/18 08:06 Dose: Not Given Bisacodyl (Dulcolax 10 Mg Supp) 10 mg RC DAILY PRN PRN Reason: Constipation Stop: 02/25/18 06:58 Last Admin: 01/02/18 20:41 Dose: 10 mg Dextrose/Sodium Chloride (D5-0.45ns) 1,000 mls @ 50 mls/hr IV .Q20H JESSIE Stop: 03/13/18 08:59 Last Admin: 01/17/18 15:32 Dose: 50 mls/hr Lactobacillus Rhamnosus (Culturelle 15b) 1 each PO DAILY [facility] Stop: 03/03/18 08:59 Last Admin: 01/18/18 08:06 Dose: Not Given Levothyroxine Sodium (Synthroid) 0.025 mg PO DAILY [facility] Stop: 02/25/18 08:59 Last Admin: 01/18/18 08:06 Dose: Not Given Lorazepam (Ativan) 0.5 mg IVP Q4HR PRN; Protocol PRN Reason: Agitation Stop: 03/01/18 17:48 Last Admin: 01/11/18 01:09 Dose: 0.5 mg Megestrol Acetate (Megace) 400 mg PO BID [facility]; Protocol Stop: 03/10/18 08:59 Last Admin: 01/18/18 08:06 Dose: Not Given Mirtazapine (Remeron) 15 mg PO HS [facility]; Protocol Stop: 03/16/18 20:59 Last Admin: 01/17/18 20:51 Dose: 15 mg Miscellaneous (Probiotic Screen) 1 ea MC PRN PRN PRN Reason: PROTOCOL Stop: 03/02/18 15:13 Ondansetron HCl (Zofran) 4 mg IV Q6H PRN PRN Reason: Nausea / Vomiting Stop: 03/06/18 11:38 Pantoprazole Sodium (Protonix) 40 mg IVP BID JESSIE Stop: 03/04/18 16:59 Last Admin: 01/17/18 16:45 Dose: 40 mg Polyethylene Glycol (Miralax) 17 gm PO DAILY JESSIE Stop: 02/25/18 08:59 Last Admin: 01/18/18 08:17 Dose: Not Given Potassium Chloride (Klor-Con) 20 meq PO DAILY JESSIE Stop: 03/07/18 08:59 Last Admin: 01/18/18 08:17 Dose: Not Given Valsartan (Diovan) 80 mg PO DAILY JESSIE Stop: 02/25/18 08:59 Last Admin: 01/18/18 08:08 Dose: Not Given General: Alert, No acute distress HEENT: Atraumatic, PERRLA, EOMI Neck: Supple Cardiovascular: Regular rate, Normal S1, Normal S2 Lungs: Clear to auscultation Abdomen: Bowel sounds, Soft, no Tender, no Hepatomegaly, no Splenomegaly, no Rebound, no Mass, no Guarding Extremities: no Clubbing, no Cyanosis, no Edema Neurological: Normal gait, Normal speech Psych/Mental Status: no Mental status NL Assessment/Plan - Assessment Assessment: Elevated platelet count is most likely reactive since it was normal on admission and I will obtain iron studies to rule out iron deficiency as the most common cause for thrombocytosis. Continue current antibiotic therapy and if the platelets do not recover, then consideration of essential thrombocythemia will be entertained and further workup will be done. I will obtain ultrasound of the abdomen to evaluate the size of the spleen and obtain iron studies and JAK2 mutation to rule out myeloproliferative neoplasm though less likely. *: ferritin pending. MICHELLE pending, awaiting spleen US. follow cbc *MICHELLE negative, spleen not visualized on us, ferrtin no evidence of iron deficiency. This is most consistent with reactive thrombocytosis Nutritional Asmnt/Malnutr-PDOC - Dietary Evaluation Malnutrition Findings (Please click <Entered> for more info): Nutritional Asmnt/Malnutrition Start: 12/30/17 16: 04 Text: Status: Complete Freq: Protocol: Document 12/30/17 16:04 LCHENG (Rec: 12/30/17 16:14 [email or web address]) Nutritional Asmnt/Malnutrition Patient General Information Nutritional Screening Moderate Risk Diagnosis elevated troponin Pertinent Medical Hx/Surgical Hx HTN, dementia, hypothyroidism Subjective Information Pt seen sleeping in bed at time of visit, family at bedside. Per family, pt was very sleepy, only had few bites of brearfast this morning. Per EMR, PO intake about 25-50%. Per family, pt likes chocoalte icecream and pudding. Current Diet Order/ Nutrition Support cardiac Pertinent Medications lipitor, D5-0.25ns, synthroid, miralax, seroquel Pertinent Labs 12/27 Cl 110 Nutritional Hx/Data Height 1.6 m Height (Calculated Centimeters) 160.0 Current Weight (lbs) 62.596 kg Weight (Calculated Kilograms) 62.6 Weight (Calculated Grams) 84713.7 [place] Body Weight 115 Body Mass Index (BMI) 24.4 Weight Status Approriate GI Symptoms GI Symptoms None Last BM 12/27 Difficult in: None Skin Integrity/Comment: skin intact, reddened to buttocks Current %PO Poor (25-49%) Estimated Nutritional Goals BEE in Kcals: Using Current wt Calories/Kcals/Kg 25-30 Kcals Calculated 6678-4030 Protein: Using Current wt Protein g/k Protein Calculated 63 Fluid: ml 1575-1890ml (1ml/kcal) Nutritional Problem 1. Problem Problem inadequate food intake Etiology possible poor appetite Signs/Symptoms: PO intake 25-50% Malnutrition Alert Is there a minimum of two criteria No selected? Query Text:Check all the applicable criteria. A minimum of two criteria are recommended for diagnosis of either severe or non-severe malnutrition. Malnutrition Related to Morbid Obesity Malnutrition related to morbid obesity No Intervention/Recommendation Comments 1. Continue with current diet as ordered. Family request nutrition supplements. Send one bottle of chocolate ensure per family request at lunch. Will consider adding supplements if PO intake continue <50%. Nurses to assist pt with meals and encourage oral intake. 2. Monitor PO intake, wt, labs and skin integrity 3. F/U as high risk in 2-3 days, 01/01-01/02 Expected Outcomes/Goals Expected Outcomes/Goals 1. PO intake to meet at least 75% of nutritional needs. 2. Wt stability, skin to remain intact, labs to approach WNL.
--- NOTE | 2018-01-18 12:47 | Infectious Disease Prog Note ---
Infectious Disease Subjective - Review of Systems Service Date: 01/18/18 Subjective: PEG placement performed. No fever today. Doing the same. Remains confused. Stable WBC count. Infectious Disease Objective - Results Result Diagrams: 01/18/18 08:25 01/18/18 08:25 Recent Labs: Laboratory Last Values WBC 14.5 Th/cmm (4.8-10.8) H 01/18/18 08:25 RBC 4.22 Mil/cmm (3.80-5.20) 01/18/18 08:25 Hgb 13.1 gm/dL (12-16) 01/18/18 08:25 Hct 39.6 % (41.0-60) L 01/18/18 08:25 MCV 93.9 fl (81-100) 01/18/18 08:25 MCH 31.1 pg (27.0-31.0) H 01/18/18 08:25 MCHC Differential 33.2 pg (28.0-36.0) 01/18/18 08:25 RDW 15.5 % (11.5-20.0) 01/18/18 08:25 Plt Count 957 Th/cmm (150-400) H* 01/18/18 08:25 MPV 8.3 fl 01/18/18 08:25 Add Manual Diff YES 01/15/18 05:35 Neutrophils % 60.8 % (40.0-80.0) 01/18/18 08:25 Band Neutrophils % 0 % (0-10) 01/15/18 05:35 Lymphocytes % 30.1 % (20.0-50.0) 01/18/18 08:25 Monocytes % 6.2 % (2.0-10.0) 01/18/18 08:25 Eosinophils % 2.7 % (0.0-5.0) 01/18/18 08:25 Basophils % 0.2 % (0.0-2.0) 01/18/18 08:25 Neutrophils (Manual) 70 % (40-80) 01/15/18 05:35 Lymphocytes 22 % (20-50) 01/15/18 05:35 Monocytes 7 % (2-10) 01/15/18 05:35 Eosinophils 1 % (0-5) 01/15/18 05:35 Basophils 0 % (0-3) 01/08/18 05:35 Platelet Estimate INCREASED PLATELETS (NORMAL) 01/15/18 05:35 Smear Path Review 01/08/18 05:35 ESR 62 mm/hr (0-30) H 01/03/18 04:45 PT 10.7 SECONDS (9.5-11.5) 01/16/18 05:52 INR 1.03 (0.5-1.4) 01/16/18 05:52 PTT (Actin FS) 24.5 SECONDS (26.0-38.0) L 12/26/17 17:15 Sodium 140 mEq/L (136-145) 01/18/18 08:25 Potassium 3.9 mEq/L (3.5-5.1) 01/18/18 08:25 Chloride 112 mEq/L (98-107) H 01/18/18 08:25 Carbon Dioxide 18.3 mEq/L (21.0-31.0) L 01/18/18 08:25 Anion Gap 13.6 (7.0-16.0) 01/18/18 08:25 BUN 7 mg/dL (7-25) 01/18/18 08:25 Creatinine 0.7 mg/dL (0.6-1.2) 01/18/18 08:25 Est GFR ( Amer) TNP 01/18/18 08:25 Est GFR (Non-Af Amer) TNP 01/18/18 08:25 BUN/Creatinine Ratio 10.0 01/18/18 08:25 Glucose 110 mg/dL (70-105) H 01/18/18 08:25 Uric Acid 3.3 mg/dL (2.3-6.6) 01/03/18 04:45 Calcium 9.5 mg/dL (8.6-10.3) 01/18/18 08:25 Iron 59 ug/dL (27-139) 01/13/18 05:30 TIBC 227 ug/dL (250-450) L 01/13/18 05:30 Iron Saturation 26 % (15-55) 01/13/18 05:30 Unsaturated IBC 168 ug/dL (118-369) 01/13/18 05:30 Ferritin 183 ng/mL (15-150) H 01/13/18 05:30 Total Bilirubin 0.3 mg/dL (0.3-1.0) 01/18/18 08:25 AST 13 U/L (13-39) 01/18/18 08:25 ALT 9 U/L (7-52) 01/18/18 08:25 Alkaline Phosphatase 48 U/L (34-104) 01/18/18 08:25 Ammonia 52 umol/L (16-53) 12/31/17 05:40 Troponin I 0.03 ng/mL (0.01-0.05) 01/07/18 05:30 Total Protein 7.2 gm/dL (6.0-8.3) 01/18/18 08:25 Albumin 3.6 gm/dL (3.7-5.3) L 01/18/18 08:25 Globulin 3.6 gm/dL 01/18/18 08:25 Albumin/Globulin Ratio 1.0 (1.0-1.8) 01/18/18 08:25 Triglycerides 78 mg/dL (<150) 12/27/17 07:47 Cholesterol 249 mg/dL (<200) H 12/27/17 07:47 LDL Cholesterol Direct 198 mg/dL (75-193) H 12/27/17 07:47 HDL Cholesterol 45 mg/dL (23-92) 12/27/17 07:47 Vitamin B12 707 pg/mL (232-1245) 12/30/17 06:00 Folic Acid 16.7 ng/mL (>3.0) 12/30/17 06:00 TSH 3.88 uIU/ml (0.34-5.60) 12/26/17 17:15 Urine Source CATH 12/31/17 08:20 Urine Color YELLOW 12/31/17 08:20 Urine Clarity CLEAR (CLEAR) 12/31/17 08:20 Urine pH 6.5 (4.6 - 8.0) 12/31/17 08:20 Ur Specific [place] 1.010 (1.005-1.030) 12/31/17 08:20 Urine Protein TRACE mg/dL (NEGATIVE) 12/31/17 08:20 Urine Glucose (UA) NEGATIVE mg/dL (NEGATIVE) 12/31/17 08:20 Urine Ketones NEGATIVE mg/dL (NEGATIVE) 12/31/17 08:20 Urine Blood NEGATIVE (NEGATIVE) 12/31/17 08:20 Urine Nitrate NEGATIVE (NEGATIVE) 12/31/17 08:20 Urine Bilirubin NEGATIVE (NEGATIVE) 12/31/17 08:20 Urine Urobilinogen 0.2 E.U./dL (0.2 - 1.0) 12/31/17 08:20 Ur Leukocyte Esterase NEGATIVE (NEGATIVE) 12/31/17 08:20 Urine RBC 0-2 /hpf (0-5) 12/31/17 08:20 Urine WBC 0-2 /hpf (0-5) 12/31/17 08:20 Ur Epithelial Cells RARE /lpf (FEW) 12/31/17 08:20 Urine Bacteria NONE SEEN /hpf (NONE SEEN) 12/31/17 08:20 Urine Mucus FEW /lpf (FEW) 12/31/17 08:20 Stool Leukocyte NO WBC SEEN 01/10/18 17:00 Rheumatoid Factor 15.5 IU/mL (0.0-13.9) H 01/03/18 04:45 ELSA Screen Negative 01/03/18 04:45 JAK2 Mutation SEE REF. LAB REPORT 01/13/18 05:30 - Physical Exam Vitals and I&O: Vital Signs Temp 98.2 F 01/18/18 12:00 Pulse 78 01/18/18 12:00 Resp 18 01/18/18 12:00 BP 174/83 01/18/18 12:00 Pulse Ox 96 01/18/18 12:00 Intake & Output 01/17/18 01/18/18 01/18/18 18:59 06:59 18:59 Intake Total 1050 120 Balance 1050 120 Weight (lbs) 54.567 kg 54.567 kg Intake: Intake, IV Amount 1000 D5-0.45NS 1,000 ml @ 50 1000 mls/hr IV .Q20H [facility] Rx#: [id number] Oral 50 120 Other: # Voids 4 4 # Bowel Movements 0 0 Weight Source Bedscale Bedscale Active Medications: Current Medications Acetaminophen (Tylenol) 650 mg PO Q4H PRN PRN Reason: Fever > 101 Stop: 02/28/18 23:58 Last Admin: 01/18/18 11:10 Dose: 650 mg Acetaminophen (Tylenol 650mg Supp) 650 mg RC Q4H PRN PRN Reason: Fever > 101 Stop: 03/03/18 14:05 Last Admin: 01/03/18 03:56 Dose: 650 mg Albuterol/Ipratropium (Duoneb Neb) 3 ml HHN [id number] JESSIE Stop: 03/07/18 18:59 Last Admin: 01/18/18 07:10 Dose: 3 ml Alprazolam (Xanax) 0.25 mg PO Q8HR PRN; Protocol PRN Reason: Agitation Stop: 03/09/18 18:30 Last Admin: 01/17/18 20:51 Dose: 0.25 mg Atorvastatin Calcium (Lipitor) 10 mg PO DAILY JESSIE; Protocol Stop: 02/26/18 10:59 Last Admin: 01/18/18 08:06 Dose: Not Given Bisacodyl (Dulcolax 10 Mg Supp) 10 mg RC DAILY PRN PRN Reason: Constipation Stop: 02/25/18 06:58 Last Admin: 01/02/18 20:41 Dose: 10 mg Dextrose/Sodium Chloride (D5-0.45ns) 1,000 mls @ 50 mls/hr IV .Q20H JESSIE Stop: 03/13/18 08:59 Last Admin: 01/17/18 15:32 Dose: 50 mls/hr Lactobacillus Rhamnosus (Culturelle 15b) 1 each PO DAILY JESSIE Stop: 03/03/18 08:59 Last Admin: 01/18/18 08:06 Dose: Not Given Levothyroxine Sodium (Synthroid) 0.025 mg PO DAILY JESSIE Stop: 02/25/18 08:59 Last Admin: 01/18/18 08:06 Dose: Not Given Lorazepam (Ativan) 0.5 mg IVP Q4HR PRN; Protocol PRN Reason: Agitation Stop: 03/01/18 17:48 Last Admin: 01/11/18 01:09 Dose: 0.5 mg Megestrol Acetate (Megace) 400 mg PO BID [facility]; Protocol Stop: 03/10/18 08:59 Last Admin: 01/18/18 08:06 Dose: Not Given Mirtazapine (Remeron) 15 mg PO HS [facility]; Protocol Stop: 03/16/18 20:59 Last Admin: 01/17/18 20:51 Dose: 15 mg Miscellaneous (Probiotic Screen) 1 ea MC PRN PRN PRN Reason: PROTOCOL Stop: 03/02/18 15:13 Ondansetron HCl (Zofran) 4 mg IV Q6H PRN PRN Reason: Nausea / Vomiting Stop: 03/06/18 11:38 Pantoprazole Sodium (Protonix) 40 mg IVP BID [facility] Stop: 03/04/18 16:59 Last Admin: 01/18/18 11:09 Dose: 40 mg Polyethylene Glycol (Miralax) 17 gm PO DAILY [facility] Stop: 02/25/18 08:59 Last Admin: 01/18/18 08:17 Dose: Not Given Potassium Chloride (Klor-Con) 20 meq PO DAILY [facility] Stop: 03/07/18 08:59 Last Admin: 01/18/18 08:17 Dose: Not Given Valsartan (Diovan) 80 mg PO DAILY [facility] Stop: 02/25/18 08:59 Last Admin: 01/18/18 08:08 Dose: Not Given General: no acute distress, well developed, well nourished HEENT: atraumatic, normocephalic, PERRLA, EOMI, moist mucous membrane Neck: supple, no thyromegaly Cardiovascular: S1S2, regular, systolic murmur Lungs: clear to auscultation bilaterally, clear to percussion Abdomen: soft, no tender, no distended Extremities: no cyanosis, no clubbing, no edema Neurological: awake, alert, oriented Skin: intact Infectious Disease Assmt/Plan - Assessment Assessment: 1. Leukocytosis, Stable., no fever. ? leukomoid reaction. 2. Aspiration pneumonia. 3. UTI treated. 4. Dementia. 5. Hypertension. 6. Thrombocytosis, reactive. - Plan Plan: Off antibiotics. May initiate dc plan. dw family. Nutritional Asmnt/Malnutr-PDOC - Dietary Evaluation Malnutrition Findings (Please click <Entered> for more info): Nutritional Asmnt/Malnutrition Start: 12/30/17 16: 04 Text: Status: Complete Freq: Protocol: Document 12/30/17 16:04 TAMI (Rec: 12/30/17 16:14 [email or web address]) Nutritional Asmnt/Malnutrition Patient General Information Nutritional Screening Moderate Risk Diagnosis elevated troponin Pertinent Medical Hx/Surgical Hx HTN, dementia, hypothyroidism Subjective Information Pt seen sleeping in bed at time of visit, family at bedside. Per family, pt was very sleepy, only had few bites of brearfast this morning. Per EMR, PO intake about 25-50%. Per family, pt likes chocoalte icecream and pudding. Current Diet Order/ Nutrition Support cardiac Pertinent Medications lipitor, D5-0.25ns, synthroid, miralax, seroquel Pertinent Labs 12/27 Cl 110 Nutritional Hx/Data Height 1.6 m Height (Calculated Centimeters) 160.0 Current Weight (lbs) 62.596 kg Weight (Calculated Kilograms) 62.6 Weight (Calculated Grams) 08976.7 [place] Body Weight 115 Body Mass Index (BMI) 24.4 Weight Status Approriate GI Symptoms GI Symptoms None Last BM 12/27 Difficult in: None Skin Integrity/Comment: skin intact, reddened to buttocks Current %PO Poor (25-49%) Estimated Nutritional Goals BEE in Kcals: Using Current wt Calories/Kcals/Kg 25-30 Kcals Calculated 1042-9309 Protein: Using Current wt Protein g/k Protein Calculated 63 Fluid: ml 1575-1890ml (1ml/kcal) Nutritional Problem 1. Problem Problem inadequate food intake Etiology possible poor appetite Signs/Symptoms: PO intake 25-50% Malnutrition Alert Is there a minimum of two criteria No selected? Query Text:Check all the applicable criteria. A minimum of two criteria are recommended for diagnosis of either severe or non-severe malnutrition. Malnutrition Related to Morbid Obesity Malnutrition related to morbid obesity No Intervention/Recommendation Comments 1. Continue with current diet as ordered. Family request nutrition supplements. Send one bottle of chocolate ensure per family request at lunch. Will consider adding supplements if PO intake continue <50%. Nurses to assist pt with meals and encourage oral intake. 2. Monitor PO intake, wt, labs and skin integrity 3. F/U as high risk in 2-3 days, 01/01-01/02 Expected Outcomes/Goals Expected Outcomes/Goals 1. PO intake to meet at least 75% of nutritional needs. 2. Wt stability, skin to remain intact, labs to approach WNL.
--- NOTE | 2018-01-18 12:50 | Operative Report ---
DATE OF SURGERY: 01/18/2018 PROCEDURE: Percutaneous endoscopic gastrostomy tube placement. INDICATION FOR PROCEDURE: Decreased oral intake with malnutrition, failure to thrive. CONSENT: Informed consent was obtained from the patient's family after planning benefits and risks including infection, bleeding, perforation, and . ANESTHESIA USED: Propofol given by Dr. Salvador. PREOPERATIVE DIAGNOSES: 1. Failure to thrive. 2. Dehydration. POSTOPERATIVE DIAGNOSIS: Failure to thrive, status post G-tube placement. DESCRIPTION OF PROCEDURE: The patient was lying on her back. Head was tilted to the side and flexed forward. Upper Olympus endoscope was introduced into the mouth and advanced to the esophagus, which was intubated under direct visualization. Esophageal mucosa was examined on the way down. It was essentially normal. Scope was advanced to the stomach where the gastric mucosa was examined and it was unremarkable. Scope was retroflexed to examine the cardia and fundus showed the hiatal hernia. Scope was then straightened and advanced through the pylorus to the duodenum where the bulb and second part were examined and they were both normal. Scope was then withdrawn to the stomach and an area of transillumination was chosen. Skin overlying the area was sterilized with Betadine, then anesthetized with 1% lidocaine. Anesthesia needle entered the stomach easily, so skin overlying the area was slightly incised with a scalpel. Then, the long Angiocath with a trocar was introduced to the stomach and surrounded by the snare. Trocar was then withdrawn. Wire was introduced to the stomach and grasped by the snare. Scope was then withdrawn with the snare holding the wire. A size 20 G-tube was connected to the wire, then the point of entry was made larger with the scalpel. G-tube was pulled out of the patient's abdomen using standard pull technique. G-tube was secured in place. The patient tolerated the procedure well. There were no immediate postoperative complications. RECOMMENDATIONS: 1. May use G-tube for medications. 2. At 10:00 p.m. flush G-tube with 40 mL of water, then start Jevity 1.2 at 40 mL an hour. 3. Increase Jevity by 10 mL an hour every day up to 60 mL an hour. 4. Check residuals every 6 hours and hold feeding if residual is more than 200 mL. 5. Abdominal binder. Thank you, Dr. Bland for allowing me to participate in the care of the patient. If you have any further questions, please let me know. JOB# [id number]
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
== END 2018-01-18 18:00 | DRG 871 ==
LOC: ER 16:30 → TELE 19:20
PROVIDERS: ADMIT Family Medicine; ATTEND Family Medicine
PROC: 0DH63UZ Insertion of Feeding Device into Stomach, Percutaneous Approach (ICD-10-PCS; principal; 2018-01-18)
DX: A41.9 Sepsis, unspecified organism (principal); I21.4 Non-ST elevation (NSTEMI) myocardial infarction; J69.0 Pneumonitis due to inhalation of food and vomit; G93.41 Metabolic encephalopathy; N39.0 Urinary tract infection, site not specified; F02.81 Dementia in other diseases classified elsewhere, unspecified severity, with behavioral disturbance; I20.0 Unstable angina; E86.0 Dehydration; I10 Essential (primary) hypertension; M81.0 Age-related osteoporosis without current pathological fracture; I49.9 Cardiac arrhythmia, unspecified; G93.9 Disorder of brain, unspecified; E03.9 Hypothyroidism, unspecified; F41.9 Anxiety disorder, unspecified; F39 Unspecified mood [affective] disorder; F29 Unspecified psychosis not due to a substance or known physiological condition; E78.5 Hyperlipidemia, unspecified; M06.9 Rheumatoid arthritis, unspecified; E87.6 Hypokalemia; G30.9 Alzheimer's disease, unspecified; F32.9 Major depressive disorder, single episode, unspecified; R62.7 Adult failure to thrive; Z79.899 Other long term (current) drug therapy; Z86.73 Personal history of transient ischemic attack (TIA), and cerebral infarction without residual deficits
CPT/HCPCS: 36415-UA; 70450-TC; 71045-TC; 71250-TC; 71260-TC; 71270-TC; 73030-TC-RT; 73560-TC-RT; 74000-TC; 76700-TC; 80048-TC; 80053-TC; 80061-TC; 81001-TC; 81270-90; 82140-TC; 82607-90; 82728-90; 82746-90; 83036-90; 83540-90; 83550-90; 84443-TC; 84484-TC; 84550-TC; 85007-TC; 85025-TC; 85610-TC; 85652-TC; 85730-TC; 86038-90; 86430-90; 87086-90; 89055-TC; 90784; 90799; 93005; 93880-TC; 94640; 94760; 96374; 97530; 97535; C9113; J0690; J0696; J1630; J1650; J1956; J2001; J2060; J2543; J3480; Q9967; X3401; X3904; Z7506; Z7610